=== PATIENT | male | born 1950 | race Caucasian/White ===

== ENCOUNTER 2024-08-14 01:12 | Outpatient (RCR) | payer MEDICARE, BC, SELFPAY ==
--- OUTSIDE RECORDS SUMMARY | 2024-08-14 01:16 | XMS_ITS | Referral Summary ---
Author Organization [facility] Address [address] [place] [address] Care Team Providers Care Animal Rehabilitator Name Role Phone Jesus Augustin MD, Urbano Aguayo Primary Care Provider + Encounters Date Type Department Care Team Description 08/12/2024 14:00 EST External Contact [facility] Department of Palliative and Spiritual Care [address] [place] [address] Yudy Gibson NP Palliative care encounter (Primary Dx); Pancreatic cancer metastasized to lung (HCC-CMS) 08/12/2024 9:00 EST Nurse Only [facility] Adult Hem Onc Infusion [address] [place] [address] Pancreatic cancer metastasized to lung (HCC-CMS) (Primary Dx) 08/12/2024 8:30 EST Office Visit [facility] Adult Hematology & Oncology [address] [place] [phone] Brie Artis NP Pancreatic cancer metastasized to lung (HCC-CMS) (Primary Dx); 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); Pancreatic adenocarcinoma (HCC-CMS); Encounter for antineoplastic chemotherapy 08/10/2024 9:07 EST Anesthesia Event [facility] Operating Room [address] [place] [address] Mag Carter MD 08/10/2024 7:34 EST - 08/10/2024 23:59 EST Hospital Encounter [facility] Xray [address] [place] [address] Malignant neoplasm of pancreas, unspecified (HCC-CMS); Secondary malignant neoplasm of unspecified lung (HCC-CMS) Discharge Disposition: Home or Self Care 08/10/2024 9:10 EST - 08/10/2024 10:45 EST Surgery [facility] Operating Room [address] [place] [address] Evangelist Miranda MD TUNNELED CENTRAL VENOUS DEVICE, WITH SUBCUTANEOUS PORT, >5 Y [[id number] (CPT??)] 08/10/2024 7:34 EST - 08/10/2024 11:55 EST Hospital Encounter [facility] Operating Room [address] [place] [phone] Evangelist Miranda MD Pancreatic cancer metastasized to lung (HCC-CMS) (Primary Dx) Discharge Disposition: Home or Self Care 08/07/2024 Telephone [facility] Adult Hematology & Oncology [address] [place] [phone] Nusrat Villegas Returning Call (Prescription insurance ) 08/07/2024 Orders Only [facility] Adult Hematology & Oncology [address] [place] [phone] Leela Shrestha FNP 08/07/2024 12:35 EST - 08/07/2024 23:59 EST Hospital Encounter [facility] CT Scan [address] [place] [phone] Overlapping malignant neoplasm of pancreas (HCC-CMS) Discharge Disposition: Home or Self Care 08/05/2024 Travel 08/04/2024 Telephone [facility] Adult Hematology & Oncology [address] [place] [address] [phone] Leela Shrestha FNP Coordination Of Care 08/04/2024 Telephone [facility] Adult Hematology & Oncology [address] [place] [address] [phone] Leela Shrestha FNP Coordination Of Care 08/04/2024 13:30 EST Office Visit [facility] General Surgery [address] [place] [address] [phone] Evangelist Miranda MD Pancreatic cancer metastasized to lung (HCC-CMS) (Primary Dx) 08/04/2024 11:00 EST Education [facility] Adult Hematology & Oncology [address] [place] [address] Leela Shrestha FNP Pancreatic cancer metastasized to lung (HCC-CMS) (Primary Dx); Cancer cachexia (HCC-CMS); Pancreatic carcinoma metastatic to liver (HCC-CMS); Pancreatic adenocarcinoma (HCC-CMS); 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) 08/03/2024 Telephone [facility] Department of Palliative and Spiritual Care [address] [place] [address] Nicole Del Rio Referral Request (Palliative Care) 07/31/2024 8:30 EST Office Visit [facility] Adult Hematology & Oncology [address] [place] [address] Thomas Padilla MBBS Pancreatic cancer metastasized to lung (HCC-CMS) (Primary Dx) 07/23/2024 Telephone [facility] [place] [address] Deon Fam MD Results 07/23/2024 7:14 EST - 07/23/2024 23:59 EST Hospital Encounter [facility] Radiology [place] [phone] Other specified diseases of pancreas Discharge Disposition: Home or Self Care 07/22/2024 Orders Only [facility] Gastroenterology [place] [phone] Elijah Gonsalves MD Pancreatic mass (Primary Dx) 07/22/2024 15:50 EST Anesthesia Event [facility] Endoscopy [address] [phone] Tashi Caballero MD Rafferty, Melissa, MD 07/22/2024 Orders Only [facility] CT Scan [address] [place] [address] Flip Eller 07/22/2024 14:00 EST - 07/22/2024 23:59 EST Hospital Encounter [facility] Endoscopy [address] [address] Deon Fam MD [place] Pancreatic mass Discharge Disposition: Home or Self Care 07/21/2024 Orders Only [facility] Hematology & Oncology [address] [address] Dagoberto Lafleur RN Overlapping malignant neoplasm of pancreas (HCC-CMS) (Primary Dx) 07/14/2024 Orders Only [facility] Hematology & Oncology [address] [address] Dagoberto Lafleur RN Pancreatic mass (Primary Dx) 06/30/2024 16:08 EDT - 06/30/2024 23:59 EDT Hospital Encounter [facility] Secondary Reads [place] Discharge Disposition: Home or Self Care 06/22/2024 Lab Requisition [facility] Pathology & Laboratory Medicine [address] [address] Urbano Lee Jr., MD Hyperlipidemia, unspecified 06/12/2024 Orders Only [facility] Pathology & Laboratory Medicine [address] [address] Urbano Lee Jr., MD Encounter for screening for malignant neoplasm of prostate 06/08/2024 Lab Requisition [facility] Pathology & Laboratory [address] [address] Urbano Lee Jr., MD Left upper quadrant pain from Last 3 Months Allergies No known active allergies Medications omeprazole (PRILOSEC) 20 mg capsule Take 2 Capsules by mouth daily. Active lisinopriL (PRINIVIL) 10 mg tablet Take 1 Tablet by mouth daily. Active atorvastatin (LIPITOR) 10 mg tablet Take 2 Tablets by mouth daily. Active aspirin chewable 81 mg tablet Take 1 Tablet by mouth daily. Active fluticasone furoate-vilantero L (BREO ELLIPTA) 100-25 mcg/dose blister with device Inhale as directed daily. Active albuterol 90 mcg/actuation HFA aerosol inhaler inhaler Inhale 2 Puffs as directed every 6 hours as needed for Wheezing. Active OLANZapine (ZYPREXA) 5 mg tablet Take 1 Tablet by mouth at bedtime for 90 days. 30 Tablet 2 024 2024 Active pantoprazole (PROTONIX) 40 mg tablet Take 1 Tablet by mouth daily before breakfast for 90 days. 30 Tablet 2 024 2024 Active Additional Information Patient not taking.Reported on 08/12/2024 prochlorperazine (COMPAZINE) 10 mg tablet Take 1 Tablet by mouth every 6 hours as needed for Nausea. 20 Tablet 1 Active ondansetron (ZOFRAN-ODT) 8 mg disintegrating tabletIndications :Pancreatic cancer metastasized to lung (HCC-CMS),Cancer cachexia (HCC-CMS),Pancrea tic carcinoma metastatic to liver (HCC-CMS),Pancrea tic adenocarcinoma (HCC-CMS),Pancrea tic cancer metastasized to intra-abdominal lymph node (HCC-CMS) Take 1 Tablet by mouth every 8 hours as needed for Nausea. 30 Tablet 1 Active dexAMETHasone (DECADRON) 4 mg tablet Take 2 tabs with breakfast for 3 days post chemotherapy 30 Tablet 1 Active traMADol (ULTRAM) 50 mg tablet Take 1 Tablet by mouth every 6 hours as needed for Pain. Daily Max: 200 mg 30 Tablet Active acetaminophen (TYLENOL) 325 mg tablet Take 2 Tablets by mouth every 4 hours as needed for Pain. Active traMADol (ULTRAM) 50 mg tablet Take 1 Tablet by mouth every 6 hours as needed for Pain. 2023 Discontinued(R eorder) ondansetron (ZOFRAN-ODT) 4 mg disintegrating tablet Take 1 Tablet by mouth every 8 hours as needed for Nausea. 2023 Discontinued Active Problems Problem Noted Date Diagnosed Date Pancreatic cancer metastasized to lung (HCC-CMS) 07/31/2024 Social History Tobacco Use Types Packs/Day Years Used Date Smoking Tobacco: Every Day Cigarettes 0.5 50.9 Started: 1972 Tobacco Cessation:Ready to Q uit: Not Asked; Counseling Given: Not Answered Alcohol Use Standard Drinks/Week Comments Not Currently 0 (1 standard drink = 0.6 oz pur e alcohol) Interpersonal Safety Answer Date Record ed Physically Hurt Never 04/19/2020 Verbally Threaten Not on file 04/19/2020 Sex and Gender Information Value Date Recorded Sex Assigned at Male 08/07/2024 12:35 EST Legal Sex Male 17:22 EST Gender Identity Male 07/16/2024 8:48 EDT Sexual Orientation Not on file Last Filed Vital Signs Vital Sign Reading Time Taken Comments Blood Pressure 150/80 08/12/2024 1244 EST Pulse 87 08/12/2024 1244 EST Temperature 36.7 ??C (98.1 ??F) 08/10/2024 1140 EST Respiratory Rate 18 08/10/2024 1130 EST Oxygen Saturation 95% 08/12/2024 1244 EST Inhaled Oxygen Concentration - - Weight 92.1 kg (203 lb) 08/12/2024 0744 EST Height 182.9 cm (6' 0.01) 08/10/2024 0802 EST Body Mass Index 27.53 08/10/2024 0802 EST Plan of Treatment Upcoming Encounters Date Type Department Care Team (Late st Contact Info) Description 08/19/2024 10:00 EST Office Visit [facility] Adult Hematology & Oncology [address] [place] [phone] Brie Artis, [place] [address] [facility] [address] [place] [phone] 08/19/2024 10:30 EST Nurse Only [facility] Adult Hem Onc Infusion [address] [place], [place] [phone] 08/25/2024 9:00 EST Office Visit [facility] Adult Hematology & Oncology [address] [place] [phone] Leela Shrestha FNP [address] [facility] [address] [place] [phone] 08/25/2024 10:00 EST Nurse Only [facility] Adult Hem Onc Infusion [address] [place], [place] [phone] 09/08/2024 8:00 EST Office Visit [facility] Adult Hematology & Oncology [address] [place], [place] [address] Brie Artis, CUSTOMS AGENT [address] [facility] [address] [place] [phone] 09/08/2024 8:30 EST Nurse Only [facility] Adult Hem Onc Infusion [address] [place] [address] Medical Devices Implanted Type Area Still Operator Helper Device Identifier Shelf Expiration Date Model / Serial / Lot Port Infusion Isp 1 Lumen Mri 8fr Cath Powerport Mri [id number] - [id number] Implanted:Qt y: 1 on 08/10/2024 by Evangelist Miranda MD at [facility] Catheter Implant Right: 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) Pancreatic adenocarcinoma (HCC-CMS) COMPREHENSIVE METABOLIC PANEL (CMP) STAT 08/12/2024 7:58 EST Pancreatic cancer metastasized to lung (HCC-CMS) 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) Pancreatic adenocarcinoma (HCC-CMS) COMPLETE BLOOD COUNT AND DIFFERENTIAL Routine 08/12/2024 7:58 EST Pancreatic cancer metastasized to lung (HCC-CMS) 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 CHEST W CONTRAST Routine 08/07/2024 13:30 EST Overlapping malignant neoplasm of pancreas (HCC-CMS) CA 19-9 Routine 07/31/2024 9:26 EST Pancreatic cancer metastasized to lung (HCC-CMS) COMPREHENSIVE METABOLIC PANEL (ONCOLOGY USE ONLY-INC MG) STAT 07/31/2024 9:26 EST Pancreatic cancer metastasized to lung (HCC-CMS) COMPLETE BLOOD COUNT AND DIFFERENTIAL STAT 07/31/2024 9:26 EST Pancreatic cancer metastasized to lung (HCC-CMS) ENDOSCOPIC ULTRASOUND PROCEDURE Routine 07/23/2024 9:[address] SUBSPECIALTY RADIOLOGY CONSULT BODY Routine 07/23/2024 7:14 EST Other specified diseases of pancreas NON LEHR ATTENDANT/FNA CYTOLOGY Routine 07/22/2024 15:58 EST Pancreatic mass LIPID PROFILE (INCLUDES CHOLESTEROL, TRIGLYCERIDES, HDL, LDL) Today 06/22/2024 13:19 EDT Hyperlipidemia, unspecified PSA SCREEN Today 06/08/2024 13:50 EDT Left upper quadrant pain [ICD-10-CM] LIPASE Today 06/08/2024 13:50 EDT Left upper quadrant pain AMYLASE Today 06/08/2024 13:50 EDT Left upper quadrant pain COMPREHENSIVE METABOLIC PANEL (CMP) Today 06/08/2024 13:50 EDT Left upper quadrant pain HEPATITIS C AB W REFLEX TO HCV RNA BY PCR Routine 10/14/2017 8:00 EST from Last 3 Months or Most Recently Relevant to Health Maintenance Results * (ABNORMAL) CA 19-9 (08/12/2024 7:58 EST) Only the most recent of2 resultswithin the time period is included. CA 19-9 2,675(H) <35 U/mL 08/12/2024 19:[address] [facility] Comment: NOTE: Serum CA 19-9 concentration should not be interpreted as absolute evidence for the presence or absence of malignant disease. Assayed on Siemens ADVIA [employer] XPT using chemiluminescent technology. ??Values obtained by using different assay methods cannot be used interchangeably. Blood VENOUS BLOOD / Unknown Venipuncture / Unknown 08/12/2024 7:58 EST 08/12/2024 7:58 EST Brie Artis NP CHEMISTRY & BLOOD GAS NIEVES LOCO Final Result [facility] [address] [place] [address] * (ABNORMAL) COMPLETE BLOOD COUNT AND DIFFERENTIAL (08/12/2024 7:58 EST) Only the most recent of2 resultswithin the time period is included. WBC 6.39 4.00 - 10.40 K/cmm 08/12/2024 8:11 EST [facility] HEM[facility] & ONCOLOGY [facility] RBC 3.76(L) 4.36 - 5.78 M/cmm 08/12/2024 8:11 EST [facility] & ONCOL[facility] Hemoglobin 12.0(L) 13.8 - 17.3 g/dL 08/12/2024 8:11 EST [facility] HEMATOLOG[facility] & ONCOLOG[facility] - [facility] HCT 36.1(L) 39.5 - 50.2 % 08/12/2024 8:11 EST [facility] & ONCOLOGY [facility] MCV 96(H) 81 - 95 fL 08/12/2024 8:11 EST [facility] MCH 31.9 27.6 - 33.0 pg 08/12/2024 8:11 [facility] HEMATOLOGY & ONCOLOGY [facility] MCHC 33.2 32.8 - 36.4 g/dL 08/12/2024 8:11 [facility] HEMATOLOGY & ONCOLOGY [facility] RDW-CV 13.5 <14.2 % 08/12/2024 8:11 [facility] & ONCOLOGY [facility] RDW-SD 48.6(H) <46.0 fl 08/12/2024 8:11 [facility] HEMATOLOGY & ONCOLOGY [facility] PLT 126(L) 141 - 377 K/cmm 08/12/2024 8:11 [facility] HEMATOLOGY & ONCOLOGY [facility] MPV 10.5 9.5 - 12.7 fL 08/12/2024 8:11 [facility] HEMATOLOGY & ONCOLOGY [facility] % Neutrophils 71.7 Not Indicated % 08/12/2024 8:11 [facility] HEMATOLOGY & ONCOLOGY [facility] % Lymphocytes 14.4 Not Indicated % 08/12/2024 8:11 [facility] HEMATOLOGY & ONCOLOGY [facility] % Monocytes 8.8 Not Indicated % 08/12/2024 8:11 [facility] HEMATOLOGY & ONCOLOGY [facility] % Eosinophils 4.4 Not Indicated % 08/12/2024 8:11 [facility] HEMATOLOGY & ONCOLOGY [facility] % Basophils 0.5 Not Indicated % 08/12/2024 8:11 [facility] HEMATOLOGY & ONCOLOGY [facility] % Immature Grans 0.2 <0.9 % 08/12/2024 8:11 [facility] & ONCOLOGY [facility] Absolute Neutrophils 4.59 2.20 - 8.85 K/cmm 08/12/2024 8:11 [facility] HEMATOLOGY & ONCOLOGY [facility] Absolute Lymphocytes 0.92(L) 1.09 - 3.30 K/cmm 08/12/2024 8:11 [facility] HEMATOLOGY & ONCOLOGY [facility] Absolute Monocytes 0.56 0.10 - 0.80 K/cmm 08/12/2024 8:11 [facility] & ONCOLOGY [facility] Absolute Eosinophils 0.28 0.03 - 0.61 K/cmm 08/12/2024 8:11 [facility] & ONCOLOGY [facility] ABS Basophils 0.03 0.01 - 0.11 K/cmm 08/12/2024 8:11 [facility] & ONCOLOGY [facility] Absolute Immature Grans 0.01 0.00 - 0.06 K/cmm 08/12/2024 8:11 EST [facility]EMAT[facility] & ONCOLOGY [facility] Type of Differential: Auto 08/12/2024 8:11 EST [facility] HEMAT[facility] & ONCOLOGY [facility] Blood VENOUS BLOOD / Unknown Venipuncture / Unknown 08/12/2024 7:58 EST 08/12/2024 7:58 EST Brie Artis CUSTOMS AGENT PACKAGES & DNA PROBE ORDER LINDA Final Result [facility]EMATOLOG[facility] & ONCOLOGY [facility] Medical Office [address], [address] * (ABNORMAL) MAGNESIUM (08/12/2024 7:58 EST) Magnesium 1.4(L) 1.7 - 2.8 mg/dL 08/12/2024 8:23 [facility] Blood VENOUS BLOOD / Unknown Venipuncture / Unknown 08/12/2024 7:58 EST 08/12/2024 7:58 EST Brie Artis CUSTOMS AGENT CHEMISTRY & BLOOD GAS ORDE RABLES Final Result Performing Organization Address City/[facility]/ZIP Co de Phone Number [facility] [address] [place] [address] * (ABNORMAL) COMPREHENSIVE METABOLIC PANEL (CMP) (08/12/2024 7:58 EST) Only the most recent of2 resultswithin the time period is included. Sodium 138 136 - 145 mmol/L 08/12/2024 8:23 [facility] Potassium 4.1 3.5 - 5.0 mmol/L 08/12/2024 8:23 [facility] Chloride 103 96 - 110 mmol/L 08/12/2024 8:23 [facility] CO2 Total 28 22 - 32 mmol/L 08/12/2024 8:23 [facility] Glucose 120(H) 70 - 99 mg/dl 08/12/2024 8:23 [facility] BUN 16 10 - 26 mg/dL 08/12/2024 8:23 [facility] Creatinine 0.90 0.66 - 1.25 mg/dL 08/12/2024 8:23 [facility] eGFR 91 >60 mL/min/1. 73m2 08/12/2024 8:23 [facility] Total Protein 6.5 6.3 - 8.2 g/dL 08/12/2024 8:23 [facility] Comment:The sample was colle cted in a [place] Heparin anticoagulated tube. An average positive bias of 6% with an individual sample bias up to 10% may be observed with heparin plasma results compared to serum results. Albumin 3.9 3.4 - 4.9 g/dL 08/12/2024 8:23 [facility] Alkaline Phosphatase 159(H) 38 - 126 U/L 08/12/2024 8:23 [facility] AST 51(H) 15 - 46 U/L 08/12/2024 8:23 [facility] ALT 68(H) <50 U/L 08/12/2024 8:23 [facility] Bilirubin, Total 0.7 <1.4 mg/dL 08/12/2024 8:23 [facility] Calcium 10.5 8.5 - 10.5 mg/dL 08/12/2024 8:23 [facility] Albumin/Globulin Ratio 1.5 1.0 - 2.5 08/12/2024 8:23 [facility] Anion Gap 7 5 - 14 mmol/L 08/12/2024 8:23 [facility] Blood VENOUS BLOOD / Unknown Venipuncture / Unknown 08/12/2024 7:58 EST 08/12/2024 7:58 EST us Brie Artis NP CHEMISTRY & BLOOD GAS ORDScott LOCO Final Result [facility] [address] [place] [id number] * ECG REPORT - SCANNED (08/11/2024 12:06 EST) 08/11/2024 12:0 6 EST us Scan 2 Radio Mechanic Helper PROCEDURE/MINOR SURGICAL OR DERABLES Final Result * FL C-ARM WITH IMAGES (08/10/2024 12:05 EST) Narrative 08/10/2024 12:05 EST This is a non-reportable exam. us Evangelist Miranda MD IMG FLUOROSCOPY ORDERABLES Final Result * XR CHEST LINE PLACEMENT (08/10/2024 10:33 EST) Anatomical Region Laterality Modality Computed Radiogr aphy 08/10/2024 11:0 0 EST Impressions 08/10/2024 11:00 EST 1. Right chest wall port catheter tip superimposed over the lower SVC. No pneumothorax. 2. Bilateral pulmonary nodules. [id number] Narrative 08/10/2024 11:00 EST INDICATION: Status post right IJV port placement. TECHNIQUE: AP portable chest. COMPARISON: Chest CT 08/07/2024. FINDINGS: A right chest wall port has been placed as the previous exam. The catheter tip is superimposed over the lower SVC. No pneumothorax or pleural effusion is identified. Bilateral pulmonary nodules are unchanged. The cardiomediastinal silhouette and pulm vasculature are within normal limits. Pulmonary emphysema. No acute bone or joint abnormality. Resulting Agency Comment [id number] Procedure Note Reji Coello MD - 08/10/2024 INDICATION: Status post right IJV port placement. TECHNIQUE: AP portable chest. COMPARISON: Chest CT 08/07/2024. FINDINGS: A right chest wall port has been placed as the previous exam. The cathetertip is superimposed over the lower SVC. No pneumothorax or pleuraleffusion is identified. Bilateral pulmonary nodules are unchanged. Thecardiomediastinal silhouette and pulm vasculature are within normallimits. Pulmonary emphysema. No acute bone or joint abnormality. IMPRESSION 1. Right chest wall port catheter tip superimposed over the lower SVC. Nopneumothorax. 2. Bilateral pulmonary nodules. [id number] us Evangelist Miranda MD IMG DIAGNOSTIC IMAGING ORDERABLE S Final Result * CT CHEST W CONTRAST (08/07/2024 13:30 EST) Anatomical Region Laterality Modality Chest Computed Tomogra phy 08/07/2024 13:2 0 EST Impressions 08/09/2024 19:23 EST 1. ?? Many bilateral pulmonary nodules along with a right lower lobe mass, consistent with metastatic disease. Where direct comparison is possible, the right lower lobe mass and visible pulmonary nodules have increased in size since the prior exam. Several of the nodules are cavitary. 2. ?? Masses in the included portion of the liver have also increased in size. COMMENTS: The presence of pulmonary emphysema on CT is an independent risk factor for lung cancer. In the absence of a history or active diagnosis of lung cancer, it is recommended that this patient with emphysema be evaluated for enrollment in a low dose CT lung cancer screening program. THIS DOCUMENT HAS BEEN ELECTRONICALLY SIGNED BY KAREN SHRESTHA MD FOR ANY QUESTIONS OR CONCERNS REGARDING THIS REPORT PLEASE CALL [facility] AT [phone] Narrative 08/09/2024 19:23 EST PROCEDURE INFORMATION: Exam: CT Chest With Contrast; Diagnostic Exam date and time: 08/07/2024 1:20 PM Age: 73 years old Clinical indication: Malignant neoplasm of overlapping sites of pancreas; Prior oncological treatment - unkown. Other: Pancreatic cancer, staging TECHNIQUE: Imaging protocol: Diagnostic computed tomography of the chest with contrast. Radiation optimization: All CT scans at this facility use at least one of these dose optimization techniques: automated exposure control; mA and/or kV adjustment per patient size (includes targeted exams where dose is matched to clinical indication); or iterative reconstruction. Contrast material: OMNIPAQUE 350; Contrast volume: 75 ml; Contrast route: INTRAVENOUS (IV); ?? COMPARISON: 1. ?? CT SUBSPECIALTY RADIOLOGY CONSULT BODY 06/30/2024 10:59 AM 2. ?? CR XRAY CHEST 2 VIEWS 07/14/2019 9:55 AM FINDINGS: Lungs: The lungs are emphysematous. Numerous pulmonary nodules are present throughout both lungs, several of which are cavitary. For example, there is a 2.5 x 2.1 x 2.3 cm cavitary nodule in the superior segment of the right lower lobe. There is a 2.1 x 1 5 x 1.8 cm nodule in the superior segment of the left lower lobe. There is a right lower lobe mass measuring 4.6 x 3.2 x 3.9 cm. When compared with the included portion of the lower chest from the prior CT exam, both the right lower lobe mass and many of the pulmonary nodules have increased in size. No pneumonia is identified. A linear opacity within the trachea and right mainstem bronchus is likely related to mucous. Pleural spaces: There are no pleural effusions. There is no pneumothorax. Heart: The heart size is normal. There is no evidence of right ventricular strain. There is no pericardial effusion. There are moderate coronary artery calcifications. Lymph nodes: There are enlarged mediastinal lymph nodes. For example, a lymph node to the right of the descending thoracic aorta on series 3, image 84 measures 22 x 15 x 16 mm. There is a lymph node containing stippled calcifications between the esophagus and descending thoracic aorta on image 57 which measures 25 x 16 x 20 mm. Vasculature: The thoracic aorta is normal in caliber and contour. There is no evidence of aneurysm or dissection. Liver: Multiple hypodense masses are visible in the imaged portion of the liver. For example, there is a mass in the left hepatic lobe which measures 5.0 cm transversely on today's exam compared with 3.9 cm previously. Bones/joints: There is normal alignment throughout the visualized portion of the spine. No acute fractures or aggressive bone lesions are identified. Soft tissues: The soft tissues are within normal limits. Procedure Note Karen Shrestha MD - 08/09/2024 PROCEDURE INFORMATION: Exam: CT Chest With Contrast; Diagnostic Exam date and time: 08/07/2024 1:20 PM Age: 73 years old Clinical indication: Malignant neoplasm of overlapping sites of pancreas; Prior oncological treatment - unkown. Other: Pancreatic cancer, staging TECHNIQUE: Imaging protocol: Diagnostic computed tomography of the chest with contrast. Radiation optimization: All CT scans at this facility use at least one of these dose optimization techniques: automated exposure control; mA and/or kV adjustment per patient size (includes targeted exams where dose is matched to clinical indication); or iterative reconstruction. Contrast material: OMNIPAQUE 350; Contrast volume: 75 ml; Contrast route: INTRAVENOUS (IV); COMPARISON: 1. CT SUBSPECIALTY RADIOLOGY CONSULT BODY 06/30/2024 10:59 AM 2. CR XRAY CHEST 2 VIEWS 07/14/2019 9:55 AM FINDINGS: Lungs: The lungs are emphysematous. Numerous pulmonary nodules are present throughout both lungs, several of which are cavitary. For example, there is a 2.5 x 2.1 x 2.3 cm cavitary nodule in the superior segment of the right lower lobe. There is a 2.1 x 1 5 x 1.8 cm nodule in the superior segment of the left lower lobe. There is a right lower lobe mass measuring 4.6 x 3.2 x 3.9 cm. When compared with the included portion of the lower chest from the prior CT exam, both the right lower lobe mass and many of the pulmonary nodules have increased in size. No pneumonia is identified. A linear opacity within the trachea and right mainstem bronchus is likely related to mucous. Pleural spaces: There are no pleural effusions. There is no pneumothorax. Heart: The heart size is normal. There is no evidence of right ventricular strain. There is no pericardial effusion. There are moderate coronary artery calcifications. Lymph nodes: There are enlarged mediastinal lymph nodes. For example, a lymph node to the right of the descending thoracic aorta on series 3, image 84 measures 22 x 15 x 16 mm. There is a lymph node containing stippled calcifications between the esophagus and descending thoracic aorta on image 57 which measures 25 x 16 x 20 mm. Vasculature: The thoracic aorta is normal in caliber and contour. There is no evidence of aneurysm or dissection. Liver: Multiple hypodense masses are visible in the imaged portion of the liver. For example, there is a mass in the left hepatic lobe which measures 5.0 cm transversely on today's exam compared with 3.9 cm previously. Bones/joints: There is normal alignment throughout the visualized portion of the spine. No acute fractures or aggressive bone lesions are identified. Soft tissues: The soft tissues are within normal limits. IMPRESSION 1. Many bilateral pulmonary nodules along with a right lower lobe mass, consistent with metastatic disease. Where direct comparison is possible, the right lower lobe mass and visible pulmonary nodules have increased in size since the prior exam. Several of the nodules are cavitary. 2. Masses in the included portion of the liver have also increased in size. COMMENTS: The presence of pulmonary emphysema on CT is an independent risk factor for lung cancer. In the absence of a history or active diagnosis of lung cancer, it is recommended that this patient with emphysema be evaluated for enrollment in a low dose CT lung cancer screening program. THIS DOCUMENT HAS BEEN ELECTRONICALLY SIGNED BY KAREN SHRESTHA MD FOR ANY QUESTIONS OR CONCERNS REGARDING THIS REPORT PLEASE CALL [facility] [phone] us Kirill Scott MD IM CT ORDERABLES Final Result * (ABNORMAL) COMPREHENSIVE METABOLIC PANEL (ONCOLOGY USE ONLY-INC MG) (07/31/2024 9:26 EST) Sodium 139 136 - 145 mmol/L 07/31/2024 10:55 [facility] Potassium 4.1 3.5 - 5.0 mmol/L 07/31/2024 10:55 [facility] Chloride 102 96 - 110 mmol/L 07/31/2024 10:55 [facility] CO2 Total 27 22 - 32 mmol/L 07/31/2024 10:55 [facility] Glucose 115(H) 70 - 99 mg/dl 07/31/2024 10:55 [facility] BUN 29(H) 10 - 26 mg/dL 07/31/2024 10:55 [facility] Creatinine 0.90 0.66 - 1.25 mg/dL 07/31/2024 10:55 [facility] eGFR 91 >60 mL/min/1.7 3m2 07/31/2024 10:55 [facility] Total Protein 7.0 6.3 - 8.2 g/dL 07/31/2024 10:55 [facility] Albumin 4.2 3.4 - 4.9 g/dL 07/31/2024 10:55 [facility] Alkaline Phosphatase 156(H) 38 - 126 U/L 07/31/2024 10:55 [facility] AST 47(H) 15 - 46 U/L 07/31/2024 10:55 [facility] ALT 58(H) <50 U/L 07/31/2024 10:55 [facility] Bilirubin, Total <0.5 <1.4 mg/dL 07/31/20 10:55 [facility] Calcium 11.1(H) 8.5 - 10.5 mg/dL 07/31/2024 10:55 [facility] Magnesium 1.5(L) 1.7 - 2.8 mg/dL 07/31/2024 10:55 [facility] Albumin/Globulin Ratio 1.5 1.0 - 2.5 07/31/2024 10:55 [facility] Anion Gap 10 5 - 14 mmol/L 07/31/2024 10:55 [facility] Blood VENOUS BLOOD / Unknown Venipuncture / Unknown 07/31/2024 9:26 EST 07/31/2024 9:26 EST us Thomas CLAROS CHEMISTRY & BLOOD GAS ORDERABLE S Final Result [facility] [address] [place] [address] * ENDOSCOPIC ULTRASOUND PROCEDURE (07/23/2024 9:06 EST) Anatomical Region Laterality Modality Endoscopy Narrative 07/23/2024 9:06 EST Procedure Performed Endoscopic Ultrasound (UGI) Indications for Exam pancreatic mass Procedure Technique A physical exam was performed. Informed consent was obtained from the patient after explaining all the risks (perforation, bleeding, infection, pancreatitis and adverse effects to the medicine) , benefits and alternatives to the procedure which the patient appeared to understand and so stated. ??BP and pulse monitoring done. ??Oximetry was used. ??Supplemental O2 given. The patient was placed in the left lateral position. Continuous oxygen was provided with a nasal cannula and IV medicine administered thru a indwelling cannula. After adequate sedation / anesthesia was achieved, the esophagus was intubated and the endoscope advanced under direct visualization to the . ??The ??was identified by visual landmarks. The scope was subsequently removed slowly while carefully examining the color, texture, anatomy, and integrity of the mucosa on withdrawal. ??The echoendoscope was then inserted, and a complete echosonographic examination was performed as described in the findings section below. ??Upon completion the echoendoscope was removed and the patient was subsequently transferred to the recovery area in satisfactory condition. Estimated Blood Loss: None Complications None Medications MAC Anesthesia See Anesthesia Record Findings EGD Findings: Esophagus: Normal Stomach: Normal Duodenum: Normal EUS Findings: Images were obtained with the linear echoendoscope with balloon CELIAC AXIS: Normal with no adenopathy LIVER: In both lobes of the liver, metastatic disease and masses were observed. ??Within the left lobe of the liver specifically, there is a 28.7 mm x 28.5 mm mass with necrotic center. LEFT KIDNEY: Absent SPLEEN: Normal. Spenic stiffness measured as 32.2 PANCREAS: In the body of the pancreas, there was a 20.6 mm x 25.0 mm hypoechoic mass that was involving both the splenic artery and splenic vein. ??The hypoechoic mass was the target for FNB with a 25-gauge BSCI acquire needle with 2 passes obtained. BILE DUCT: The common bile duct as measured in the pancreatic head measured 5.6 mm in diameter. LYMPH NODES: There was diffuse lymphadenopathy observed surrounding the pancreas and natalia hepatis VASCULATURE: Splenic artery and splenic vein involved in pancreatic mass Diagnosis FNB of pancreatic body mass Pathologic lymphadenopathy Liver masses Recommendations Follow up cytology results. Follow up with [facility]. Follow up with referring physician. The??procedure??was??performed??by??Dr. Elijah Gonsalves M.D. in the presence of Dr. Deon Fam. The attending physician was in the room for the entire procedure. This electronic signature authenticates all electronic and/or handwritten documentation, including orders, generated by the signer during the episode of care contained in this record. 07/23/2024 09:06:52 AM By Deon Fam MD us Deon Fam MD GI PROCEDURE ORDERABLES Fin al Result * CT SUBSPECIALTY RADIOLOGY CONSULT BODY (07/23/2024 7:14 EST) Anatomical Region Laterality Modality Body Computed Tomogra phy 07/24/2024 15:3 2 EST Impressions 07/24/2024 15:32 EST 1. ??Approximately 3.1 cm ill-defined hypodensity in pancreatic body can represent primary pancreatic neoplasm versus metastatic lesion. 2. ??Multiple ill-defined hepatic metastatic lesions. 3. ??Multiple pulmonary nodules with the largest in the right lower lobe measuring 3.4 cm consistent with metastases. 4. ??Multiple abdominal, retroperitoneal and posterior mediastinal lymph nodes. 5. ??Peritoneal nodules measuring up to 1.2 cm suggestive of peritoneal carcinomatosis. 6. ??A 2.8 cm interpolar complex cyst with thick enhancing septations and possible nodularity in the right kidney. Bosniak 3-4. 7. ??Other chronic findings as outlined. [id number] Narrative 07/24/2024 15:[address] SUBSPECIALTY RADIOLOGY CONSULT BODY ??07/23/2024 7:14 AM Signs and Symptoms/Comments: tumor board review Technique: This is a secondary interpretation of CT abdomen and pelvis with IV contrast images obtained at ?? [facility] ??on ??06/30/24 ??, performed at the request of the ordering provider, DEON FAM. Comparison: CT of abdomen/pelvis from 08/10/2002 Findings: Lower chest: There are multiple pulmonary nodules with the largest in the right lower lobe measuring 3.4 cm. Liver: Multiple ill-defined hepatic metastatic lesions, for instance largest in the left hepatic lobe measuring 4.2 cm. Gallbladder: No significant finding. Bile ducts: No significant finding. Spleen: No significant finding. Pancreas: Approximately 3.1 cm ill-defined hypodensity in pancreatic body (4; 94). Adrenal glands: Right adrenal hyperplasia. Kidneys, ureters, bladder: Left kidney is surgically absent. There is a 2.8 cm interpolar complex cyst with thick enhancing septation in the right kidney. Reproductive organs: Prostate gland calcifications. Bowel: No significant finding. Peritoneal cavity: Mesenteric fat stranding with prominent lymph nodes. Peritoneal nodules, for instance a 1.2 cm nodule in right upper abdomen (4; 141). Lymph nodes: Multiple lymph nodes including posterior mediastinal (4; 50) gastrohepatic ligament, peripancreatic lymph nodes (4; 87), celiac axis lymph node (4; 100), retroperitoneal lymph nodes (4;139). Vascular: Ultrastructure calcification of the aorta and its branches. Splenic vein is not visualized, likely thrombosed Abdominal wall: No significant finding. Musculoskeletal: No suspicious findings. Relocation Commissioner: No additional findings. Resulting Agency Comment [id number] Procedure Note Nohelia Hay MD - 07/24/2024 CT SUBSPECIALTY RADIOLOGY CONSULT BODY 07/23/2024 7:14 AM Signs and Symptoms/Comments: tumor board review Technique: This is a secondary interpretation of CT abdomen and pelviswith IV contrast images obtained at [facility] on 06/30/24 ,performed at the request of the ordering provider, DEON FAM. Comparison: CT of abdomen/pelvis from 08/10/2002 Findings: Lower chest: There are multiple pulmonary nodules with the largest in theright lower lobe measuring 3.4 cm. Liver: Multiple ill-defined hepatic metastatic lesions, for instancelargest in the left hepatic lobe measuring 4.2 cm. Gallbladder: No significant finding. Bile ducts: No significant finding. Spleen: No significant finding. Pancreas: Approximately 3.1 cm ill-defined hypodensity in pancreatic body(4; 94). Adrenal glands: Right adrenal hyperplasia. Kidneys, ureters, bladder: Left kidney is surgically absent. There is a2.8 cm interpolar complex cyst with thick enhancing septation in the rightkidney. Reproductive organs: Prostate gland calcifications. Bowel: No significant finding. Peritoneal cavity: Mesenteric fat stranding with prominent lymph nodes.Peritoneal nodules, for instance a 1.2 cm nodule in right upper abdomen(4; 141). Lymph nodes: Multiple lymph nodes including posterior mediastinal (4; 50)gastrohepatic ligament, peripancreatic lymph nodes (4; 87), celiac axislymph node (4; 100), retroperitoneal lymph nodes (4;139). Vascular: Ultrastructure calcification of the aorta and its branches.Splenic vein is not visualized, likely thrombosed Abdominal wall: No significant finding. Musculoskeletal: No suspicious findings. Relocation Commissioner: No additional findings. IMPRESSION 1. Approximately 3.1 cm ill-defined hypodensity in pancreatic body canrepresent primary pancreatic neoplasm versus metastatic lesion. 2. Multiple ill-defined hepatic metastatic lesions. 3. Multiple pulmonary nodules with the largest in the right lower lobemeasuring 3.4 cm consistent with metastases. 4. Multiple abdominal, retroperitoneal and posterior mediastinal lymphnodes. 5. Peritoneal nodules measuring up to 1.2 cm suggestive of peritonealcarcinomatosis. 6. A 2.8 cm interpolar complex cyst with thick enhancing septations andpossible nodularity in the right kidney. Bosniak 3-4. 7. Other chronic findings as outlined. [id number] us Deon Fam MD IMG CT ORDERABLES Final Res ult * NON LEHR ATTENDANT/FNA CYTOLOGY (07/22/2024 15:58 [facility]) Note to Patient The following pathology results have been interpreted by your pathologist and may be available to you before your health provider has had the opportunity to review them. Please allow time for your provider to receive these results and explore management options, if applicable. 07/23/2024 15:22 [facility] Final Diagnosis A. PANCREAS, BODY, MASS, ENDOSCOPIC ULTRASOUND-GUIDED FINE NEEDLE ASPIRATION: - Adenocarcinoma. See comment. 07/23/2024 15:22 [facility] Diagnosis Comment Cytologic evaluation demonstrates loosely cohesive sheets of highly pleomorphic malignant cells with increased nuclear to cytoplasmic ratios, irregular nuclear contours, coarse to vesicular chromatin, prominent nucleoli, and delicate cytoplasm with prominent mucin vacuoles in a background of abundant necrosis. A cell block was prepared to increase diagnostic yield, and shows scattered tumor cells and stromal tissue fragments. 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 07/23/2024 15:22 [facility] Attestation There was significant resident/fellow involvement in the diagnostic evaluation of this case. By the signature below, the attending physician certifies that they have personally conducted a gross and/or microscopic examination of the described specimens and rendered or confirmed the above diagnosis. 07/23/2024 15:22 [facility] at 1522 Rapid Diagnosis A. PANCREAS, BODY MASS, ENDOSCOPIC ULTRASOUND GUIDED FINE NEEDLE ASPIRATION: Evaluation Episode 1: Pass 1: Adenocarcinoma. Dedicated passes for cell block. Rapid interpretation performed by: Dr. Jose Manuel Lynch; 07/22/24; 1630 07/23/2024 15:22 [facility] Clinical History Pancreatic mass 07/23/2024 15:22 [facility] Gross Description A. 2 fixed prepared slides, 1 air dried prepared slides, and 1 tube of RPMI for cell block processing were received. 07/23/2024 15:22 [facility] Resident/Eliezer w: Marilee Gracia DO 07/23/2024 15:22 [facility] Performing Lab [facility] 07/23/2024 15:22 [facility] Scanned Images 07/23/2024 15:22 [facility] Fine Needle Aspirate PANCREATIC STRUCTURE / Unknown 07/22/2024 15:58 EST 07/22/2024 16:25 EST us Deon Fam MD PATHOLOGY ORDERABLES Final Result Performing Organization Address City/State/[facility] Co de Phone Number [facility] [address] [phone] * LIPID PROFILE (INCLUDES CHOLESTEROL, TRIGLYCERIDES, HDL, LDL) (06/22/2024 13:19 EDT) Cholesterol 145 <200 mg/dL 06/22/2024 21:[address] [facility] Comment:Note that therapeuti c goals will differ between patients based on cardiac risk factors and current medical therapy. HDL 40 >=40 mg/dl 06/22/2024 21:[address] [facility] Comment:Note that therapeuti c goals will differ between patients based on cardiac risk factors and current medical therapy. LDL, Calculated 82 <160 mg/dL 21:[address] [facility] Comment:Note that therapeuti c goals will differ between patients based on cardiac risk factors and current medical therapy. Triglyceride 114 <=150 mg/dL 06/22/2024 21:[address] [facility] Comment:Note that therapeuti c goals will differ between patients based on cardiac risk factors and current medical therapy. Chol/HDL Ratio 3.6 See Note 06/22/2024 21:[address] [facility] Comment:No reference range h as been established for CHOL/HDL ratio. Non HDL Cholesterol 105 <160 mg/dL 06/22/2024 21:[address] [facility] Comment:Note that therapeuti c goals will differ between patients based on cardiac risk factors and current medical therapy. Blood VENOUS BLOOD / Unknown 06/22/2024 13:19 EDT 06/22/2024 21:27 EDT us Urbano Lee Jr., MD CHEMISTRY & BLOOD GAS OR DERABLES Final Result Performing Organization Address [facility] de Phone Number [facility] [address] [place] [phone] * (ABNORMAL) PSA SCREEN (06/08/2024 13:50 EDT) PSA 7.8(H) <=6.5 ng/mL 06/12/2024 10:[address] [facility] Blood VENOUS BLOOD / Unknown 06/08/2024 13:50 EDT 06/08/2024 22:23 EDT [address] [facility] - 06/12/2024 10:33 EDT NOTE: Serum PSA concentration should not be interpreted as absolute evidence for the presence or absence of malignant disease. Assayed on [employer] XPT using chemiluminescent technology.??Values obtained by using different assay methods cannot be used interchangeably. us Urbano Lee Jr., MD CHEMISTRY & BLOOD GAS OR DERABLES Final Result Performing Organization Address [facility] de Phone Number [facility] [address] [place] [phone] * LIPASE (06/08/2024 13:50 EDT) Lipase 74 <251 U/L 06/08/2024 22:[address] [facility] Blood VENOUS BLOOD / Unknown 06/08/2024 13:50 EDT 06/08/2024 22:23 EDT us Urbano Lee Jr., MD CHEMISTRY & BLOOD GAS OR DERABLES Final Result Performing Organization Address [facility] de Phone Number [facility] [address] [place] [address] * AMYLASE (06/08/2024 13:50 EDT) Amylase 46 30 - 110 U/L 06/08/2024 22:[address] [facility] Blood VENOUS BLOOD / Unknown 06/08/2024 13:50 EDT 06/08/2024 22:23 EDT us Urbano Lee Jr., MD CHEMISTRY & BLOOD GAS OR DERABLES Final Result [facility] [address] [place] [address] * HEPATITIS C AB W REFLEX TO HCV RNA BY PCR (10/14/2017 8:00 EST) Hep C Ab w Rfx PCR HCSCR2 Negative Negative 10/15/2017 11:[address] [facility] BLOOD SPECIMEN / Unknown 10/14/2017 8:00 EST 10/14/2017 21:17 EST us Urbano Lee Jr., MD CHEMISTRY & BLOOD GAS OR DERABLES Final Result Performing Organization Address City/[facility]/ZIP Co de Phone Number [facility] [address] [place] [address] from Last 3 Months or Most Recently Relevant to Health Maintenance Insurance MEDICARE Member Subscriber Plan / Payer (Ef fective 2016-Present) Name:Jose Harrell Member ID:[id number] Relation to Subscriber:Self Name:Jose Harrell Subscriber ID:[id number] Payer ID:[id number] Group ID:Not on file Type:Medicare GL Address: [address] [phone] [facility] MEDICARE BCBS [place] Advance Directives For more information, please contact: [phone] * Full Code (Latest Code Status on File) Date Activated Date Inactivated Comments 08/10/2024 7:46 08/10/2024 13:55 Question Answer Comments When the patient has NO PULSE: Full Code / CPR Who Made the Decision? Patient Care Teams Animal Rehabilitator Relationship Specialty Start Date End Date Urbano Lee Jr., MD [address] [phone] PCP - General 03/07/09
--- OUTSIDE RECORDS SUMMARY | 2024-08-14 01:16 | XMS_ITS | Encounter Summary ---
Author Organization [facility] Address [address] [place] [address] Care Team Providers Care Assistant Golf Course Superintendent Name Role Phone Jesus Augustin MD, Urbano Aguayo Primary Care Provider + Encounter Details Date Type Department Care Team (Late st Contact Info) Description 08/07/2024 Orders Only [facility] Adult Hematology & Oncology [address] [place] [phone] Leela Turcios [facility] 130 [facility] [address] [place] [phone] Social History Tobacco Use Types Packs/Day Years Used Date Smoking Tobacco: Every Day Cigarettes 0.5 50.9 Started: 1973 Alcohol Use Standard Drinks/Week Comments Not Currently 0 (1 standard drink = 0.6 oz pur e alcohol) Interpersonal Safety Answer Date Record ed Physically Hurt Never 04/19/2020 Verbally Threaten Not on file 04/19/2020 Sex and Gender Information Value Date Recorded Sex Assigned at Male 08/07/2024 12:35 EST Legal Sex Male 17:22 EST Gender Identity Male 07/16/2024 8:48 EDT Sexual Orientation Not on file documented as of this encounter Ordered Prescriptions Prescription Sig Dispense Quantity Refills Last Filled Start Date End Date traMADol (ULTRAM) 50 mg tablet Take 1 Tablet by mouth every 6 hours as needed for Pain. Daily Max: 200 mg 30 Tablet 08/07/2024 documented in this encounter Plan of Treatment Upcoming Encounters Date Type Department Care Team (Late st Contact Info) Description 08/19/2024 10:00 EST Office Visit [facility] Adult Hematology & Oncology [address] [place] [address], [place] [address] Brie Artis, PARADISE 130 [facility] 12 [place] [phone] 08/19/2024 10:30 EST Nurse Only [facility] Adult Hem Onc Infusion 130 [facility] [place], [place] [phone] 08/25/2024 9:00 EST Office Visit [facility] Adult Hematology & Oncology [address] [place] [address], [place] [address] Leela Turcios FNP 130 [facility] [address] [place] [phone] 08/25/2024 10:00 EST Nurse Only [facility] Adult Hem Onc Infusion 130 [facility] [place], [place] [phone] 09/08/2024 8:00 EST Office Visit [facility] Adult Hematology & Oncology [address] [place] [address], [place] [phone] Brie Artis, PARADISE 130 [facility] [address] [place] [phone] 09/08/2024 8:30 EST Nurse Only [facility] Adult Hem Onc Infusion 130 [facility] [place], [place] [phone] documented as of this encounter Visit Diagnoses Not on filedocumented in this encounter Discontinued Medications Medication Sig Discontinue Reason Start Date End Da te traMADol (ULTRAM) 50 mg tablet Take 1 Tablet by mouth every 6 hours as needed for Pain. Reorder 08/07/2024 documented as of this encounter Care Teams Assistant Golf Course Superintendent Relationship Specialty Start Date End Date Urbano Lee Jr., MD [address] [facility] [address] [place] [address] PCP - General 03/07/09 documented as of this encounter
--- OUTSIDE RECORDS SUMMARY | 2024-08-14 01:16 | XMS_ITS | Encounter Summary ---
Author Organization [facility] Address [address] [place] [address] Care Team Providers Care Carpenter Packing Name Role Phone Jesus Augustin MD, Urbano Aguayo Primary Care Provider + Reason for Visit * Reason Comments Other Outpatient palliativ e consult Encounter Details Date Type Department Care Team (Latest Contact Info) Description 08/12/2024 14:00 EST External Contact [facility] Department of Palliative and Spiritual Care [address] [place] [address] Yudy Gibson NP [address] [place] [address] Palliative care encounter (Primary Dx); Pancreatic cancer metastasized to lung (HCC-CMS) Social History Tobacco Use Types Packs/Day Years [...] on file documented as of this encounter Progress Notes * Yudy Gibson NP - 08/12/2024 1400 EST Outpatient Palliative Medicine Consult Date of Encounter: 08/12/24 10:10am Location of consult[place] [facility] Primary Care Provider: Urbano Lee Jr Referring Provider: Thomas CLAROS Reason for consult: Goals of care, symptom management support ASSESSMENT: Jose is a 73-year-old man with medical history including hypertension, left kidney resection (localized kidney cancer approximately 30 years ago ), tobacco use, recently diagnosed with metastatic pancreatic adenocarcinoma with multiple liver lesions and multiple pulmonary nodules with p eritoneal mets concerning for diffuse metastatic disease. Has met with medical oncologist 07/31/24,port placement surgery 08/10/24, received chemo education 08/04/2024. Starting C1 D1 FOLFIRINOX today, palliative care consulted at initial oncology visit for goals of care and symptom management support in setting of new diagnosis. Jose has excellent understanding of his medical situation, values clear and direct information, and close communication with medical team regarding results of tests, procedures, and plan for treatment. He is aware that he is facing an illness that is not curable, however the goal of treatment is for life prolongation and quality of life moving forward. 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 He and his Fabby have deferred their annual 3 month stay in [facility] this winter to focus on medical treatment. He is coping with his internal nature of facing challenges in a [id number] way, with the support of his family and the support of his golf community. Symptom burden today is low, using sparing doses of tramadol at nighttime, is aware he can use it every 6 hours, but is trying not to do so unless absolutely necessary. He is also utilizing extra strength Tylenol 1000 mg 3 times daily. His appetite and nausea has significantly improved since starting olanzapine nearly 2 weeks ago. Was open to introduction of the concept and indication of advance care planning documents, including the appointment of healthcare agent. RECOMMENDATIONS: Goals of care: Jose is motivated to move forward with oncologic therapies to live as long as he can, and as well as he can. Brief discussion today of concept of appointment of healthcare agent2 page AD, Jose will consider, has my information if he would like to complete in near future It is extremely important for Jose to have clear and direct information from his oncology team regarding his test results, disease status, and treatment plan. Counseled on ability to notify oncologyoffice for questions regarding test results, symptom management triage with nurse and provider, he is aware that there is a provider on-call at all times. He also plans to continue utilizing [employer] for nonurgent medical questions, and test results, understanding that when test results are posted they may not have been reviewed by his care team yet. Encourage Jose and Fabby to document PRN usage of antiemetics and pain medication, as to help guide medical team and titration and adjustment of symptom management meds if indicated Symptom management: Reports taking recently prescribed Protonix in a.m., continuing omeprazole at nighttime. Relayed tooncology provider Kirti Artis to clarify which one to take Palliative care follow-up plan: PRN, provided Jose my contact information if helpful to schedule another outpatient visit HISTORY/SUBJECTIVE: Present for visit: This provider, patient, his Fabby, daughter Lachelle, and her Adam Chief complaint: initiation Chemotherapy treatment for newly diagnosed pancreatic cancer HPI:Jose is a 73-year-old man with medical history including hypertension, left kidney resection (localized kidney cancer approximately 30 years ago ), tobacco use, recently diagnosed with metastatic pancreatic adenocarcinoma with multiple liver lesions and multiple pulmonary nodules with peritoneal mets concerning for diffuse metastatic disease. Has met with medical oncologist 07/31/24, port lory cement surgery 08/10/24, received chemo education 08/04/2024. Starting C1 D1 FOLFIRINOX today, palliative care consulted at initial oncology visit for goals of care and symptom management support in setting of new diagnosis. Goals of care/serious illness communication: Understanding-Jose as her that he is facing an illness that is not curable, but treatment can aim to stabilize illness with goal of more time. 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 It is important for him Strength/support Critical abilities -important for Jose to be able to move around to keep up his strength Willing to tolerate-oncologic therapy Family awareness- very involved, has been present for medical appointments Experiences with illness-had kidney cancer 30 years ago, it was challenging for him to get through,but he persevered and move forward Recommendations and response-recommended consideration of completing appointment of healthcare agent form, will think about this, provided card to reach out if I can help support and completion Spiritual history/screening: Not reviewed Symptoms: Pain-up to 5/6 diffusely in abdomen, back right side, sometimes mid left side, describes pain as nagging in nature, not impeding his ability to move around or ADLs. Tramadol at bedtime takes the paindown to about 2 out of 10, continues to be nagging, but he is able to get to sleep. Dyspnea-no issues endorsed Appetite/nausea-has significantly improved since initiation of olanzapine, acid reflux symptoms associated with eating, has gotten a bit better since he started walking after meals instead of sittingin chair. On days of not eating well will take chocolate CORE protein supplement shakes. Elimination-no issues endorsed Mood/anxiety-not fully explored today, however Jose reports that he is holding up okay consideringhis recent diagnosis, having a good attitude to do what he has to do Sleep-no significant issues with sleep, does occasionally wake up due to discomfort of pain in backand diffuse abdominal area Fatigue-no specific concerns voiced today, Fabby has been helpful in helping him to manage athome Mobility-walking independently, making strong effort to move around/walk outdoors after meals as tominimize GI upset Social history: to Fabby, they have been for nearly 26 years. They name 3 children, Lachelle, Sheree, Ciro. 6 grandchildren. Grew up in the [place] area, worked in retail management, retired in 2006. For the past 7 years he and his Fabby would go down to [place] in the [facility] for 3 months in the winter, this year they will defer traveling down south dueto his medical diagnosis and treatment plan. He especially enjoys golfing, is deeply involved and engaged with his golfing friend community, engages in tournaments. Also enjoys vegetable gardening. Medical/surgical history: Past Medical History: Diagnosis Date Activity, other involving cardiorespiratory exercise Benign prostatic hyperplasia Cancer (HCC-CMS) kidney COPD (chronic obstructive pulmonary disease) ([facility]-CMS) Does not exercise Exercise involving housework Exercise involving walking GERD (gastroesophageal reflux disease) History of kidney stones History of nephrectomy Hypertension Lung disease COPD Pain Productive cough Wears dentures Past Surgical History: Procedure Laterality Date ABDOMEN SURGERY KIDNEY REMOVAL Left 1993 Family history: Problem Relation Name Comments Asthma Father Urbano Harrell Asthma Sister Hanane Arriaga Breast Cancer Mother Debbie Harrell Diabetes Mother Debbie Harrell Kidney Disease Sister Hanane Arriaga Kidney Disease Brother Evangelist Harrell Medications: Current Outpatient Medications Medication acetaminophen (TYLENOL) 325 mg tablet albuterol 90 mcg/actuation HFA aerosol inhaler inhaler aspirin chewable 81 mg tablet atorvastatin (LIPITOR) 10 mg tablet dexAMETHasone (DECADRON) 4 mg tablet fluticasone furoate-vilanteroL (BREO ELLIPTA) 100-25 mcg/dose blister with device lisinopriL (PRINIVIL) 10 mg tablet OLANZapine (ZYPREXA) 5 mg tablet omeprazole (PRILOSEC) 20 mg capsule ondansetron (ZOFRAN-ODT) 8 mg disintegrating tablet pantoprazole (PROTONIX) 40 mg tablet prochlorperazine (COMPAZINE) 10 mg tablet traMADol (ULTRAM) 50 mg tablet No current facility-administered medications for this visit. Facility-Administered Medications Ordered in Other Visits Medication Route Frequency dextrose 5 % (D5W) infusion intravenous PRN fluorouracil (ADRUCIL) infusion cassette 5,200 mg intravenous Now irinotecan (CAMPTOSAR) 320 mg in dextrose 5% (D5W) 500 mL chemo infusion intravenous Now leucovorin 875 mg in dextrose 5% (D5W) 100 mL infusion intravenous Now sodium chloride 0.9 % (flush) flush 10 mL intravenous PRN OBJECTIVE Vital signs: There were no vitals taken for this visit. There were no vitals filed for this visit. Alert, oriented x 4 older man, appears to be in no pain or respiratory distress throughout encounter. Is pleasant, engaging Clinical investigations: Lab Results Component Value Date WBC 6.39 08/12/2024 HGB 12.0 (L) 08/12/2024 HCT 36.1 (L) 08/12/2024 MCV 96 (H) 08/12/2024 PLT 126 (L) 08/12/2024 Lab Results Component Value Date NA 138 08/12/2024 K 4.1 08/12/2024 CO2 28 08/12/2024 CL 103 08/12/2024 BUN 16 08/12/2024 CREATININE 0.90 08/12/2024 SERGLU 120 (H) 08/12/2024 Lab Results Component Value Date LABALBU 3.9 08/12/2024 Imaging: PROCEDURE INFORMATION: Exam: CT Chest With Contrast; [...] the liver have also increased in size. Information for patients and caregivers: This is a shared note. We support your right to access health information in an open, easy manner. We are partners together in your care. If you are a patientor caregiver with concerns about this note, please contact us in one of the following ways: 1. Have nursing or your primary team contact us while you are hospitalized or visiting during the day. 2. Leave a message for us at [phone]. Signatures and attestations: I spent greater than 105 minutes on the date of this encounter meeting with the patient and reviewing documentation/coordinating care as described above. Yudy Gibson NP documented in this encounter Plan of Treatment Upcoming Encounters Date Type Department Care Team (Late st Contact Info) Description 08/19/2024 10:00 EST Office Visit [facility] Adult Hematology & Oncology [address] [place] [address] Brie Artis NP [address] [place] [address], [facility] [address] [place] [phone] 08/19/2024 10:30 EST Nurse Only [facility] Adult Hem Onc Infusion [address] [place], [place] [phone] 08/25/2024 9:00 EST Office Visit [facility] Adult Hematology & Oncology [address] [place] [address], [place] [address] Leela Turcios FNP 130 [facility] [address] [phone] 08/25/2024 10:00 EST Nurse Only [facility] Adult Hem Onc Infusion [address] [place], [place] [phone] 09/08/2024 8:00 EST Office Visit [facility] Adult Hematology & Oncology [address] [place] [address] Brie Artis, PARADISE 130 [facility] [address] [phone] 09/08/2024 8:30 EST Nurse Only [facility] Adult Hem Onc Infusion [address] [place] [address] documented as of this encounter Visit Diagnoses Diagnosis Palliative care encounter- Primary Encounter for palliative care Pancreatic cancer metastasized to lung (HCC-CMS) Malignant neoplasm of pancreas, part unspecified documented in this encounter Care Teams Carpenter Packing Relationship Specialty Start Date End Date Urbano Lee Jr., MD [address] [facility] [address] [place] [address] PCP - General 03/07/09 documented as of this encounter
--- OUTSIDE RECORDS SUMMARY | 2024-08-14 01:16 | XMS_ITS | Encounter Summary ---
Author Organization [facility] Address [address] [place] [address] Care Team Providers Care Local Driver Name Role Phone Jesus Augustin MD, Urbano Aguayo Primary Care Provider + Reason for Referral * Radiology Services (Routine/Next Available) - Authorization Not Required Specialty Diagnoses / Procedures Referred By Contac t Referred To Contact Procedures TUMOR BOARD RADIOLOGY CONSULT UPPER GI TUMOR BOARD RADIOLOGY CONSULT NON BREAST Mira Fam MD [address] [address] Phone: tel: fax: Referral ID Status Reason Start Date Expiration Date Visits Requested Visits Authorized [id number] Authorization Not Required 07/22/2024 1 1 * Radiology Services (Routine/Next Available) - Authorization Not Required Specialty Diagnoses / Procedures Referred By Contac t Referred To Contact Diagnoses Other specified diseases of pancreas Procedures CT SUBSPECIALTY RADIOLOGY CONSULT BODY Mira Fam MD [address] [address] Phone: tel: fax: [facility] Referral ID Status Reason Start Date Expiration Date Visits Requested Visits Authorized [id number] Authorization Not Required 07/23/2024 1 1 Reason for Visit * Radiology Services (Routine/Next Available) - Authorization Not Required Specialty Diagnoses / Procedures Referred By Contac t Referred To Contact Diagnoses Other specified diseases of pancreas Procedures CT SUBSPECIALTY RADIOLOGY CONSULT BODY Mira Fam MD 111 [facility] [address] [place] [address] Phone: tel: fax: [facility] Referral ID Status Reason Start Date Expiration Date Visits Requested Visits Authorized [id number] Authorization Not Required 07/23/2024 1 1 Encounter Details Date Type Department Care Team (Latest Contact Info) Description 07/23/2024 7:14 EST - 07/23/2024 23:59 EST Hospital Encounter [facility] Radiology - [address] [phone] Other specified diseases of pancreas Discharge Disposition: Home or Self Care Social History Tobacco Use Types Packs/Day Years Used Date Smoking Tobacco: Every Day Cigarettes Alcohol Use Standard Drinks/Week Comments Not Currently [...] on file documented as of this encounter Medications at Time of Discharge albuterol 90 mcg/actuation HFA aerosol inhaler inhaler Inhale 2 Puffs as directed every 6 hours as needed for Wheezing. aspirin chewable 81 mg tablet Take 1 Tablet by mouth daily. atorvastatin (LIPITOR) 10 mg tablet Take 2 Tablets by mouth daily. fluticasone furoate-vilanteroL (BREO ELLIPTA) 100-25 mcg/dose blister with device Inhale as directed daily. lisinopriL (PRINIVIL) 10 mg tablet Take 1 Tablet by mouth daily. omeprazole (PRILOSEC) 20 mg capsule Take 2 Capsules by mouth daily. ondansetron (ZOFRAN-ODT) 4 mg disintegrating tablet Take 1 Tablet by mouth every 8 hours as needed for Nausea. 4 traMADol (ULTRAM) 50 mg tablet Take 1 Tablet by mouth every 6 hours as needed for Pain. 4 documented as of this encounter Discharge Disposition Disposition Code Departure Means Destination Home or Self Care documented in this encounter Plan of Treatment Upcoming Encounters Date Type Department Care Team (Late st Contact Info) Description 08/19/2024 10:00 EST Office Visit [facility] Adult Hematology & Oncology [address] [place] [phone] Brie Artis, PARADISE [address] [place] [address] [phone] 08/19/2024 10:30 EST Nurse Only [facility] Adult Hem Onc Infusion [address] [place] [phone] 08/25/2024 9:00 EST Office Visit [facility] Adult Hematology & Oncology [address] [place] [address], [place] [address] Leela Turcios FNP [address] [place] [phone] 08/25/2024 10:00 EST Nurse Only [facility] Adult Hem Onc Infusion [address] [place] [phone] 09/08/2024 8:00 EST Office Visit [facility] Adult Hematology & Oncology [address] [place] [address], [place] [phone] Brie Artis, PARADISE [address] [place] [address] [phone] 09/08/2024 8:30 EST Nurse Only [facility] Adult Hem Onc Infusion [address] [place] [phone] Pending Results Name Type Priority Associated Diagnoses Date /Time TUMOR BOARD RADIOLOGY CONSULT UPPER GI Imaging Routine 07/23/2024 7:20 EST Scheduled Orders Name Type Priority Associated Diagnoses Orde r Schedule TUMOR BOARD RADIOLOGY CONSULT UPPER GI Imaging Routine 1 Occurrences s tarting 07/23/2024 until 07/23/2024 documented as of this encounter Procedures Procedure Name Priority Date/Time Associated Diagnosis Comments CT SUBSPECIALTY RADIOLOGY CONSULT BODY Routine 07/23/2024 7:14 EST Other specified diseases of pancreas documented in this encounter Results * CT SUBSPECIALTY RADIOLOGY CONSULT BODY (07/23/2024 [...] 3-4. 7. ??Other chronic findings as outlined. [id number] Narrative 07/24/2024 15:[address] SUBSPECIALTY RADIOLOGY CONSULT BODY ??07/23/2024 7:14 AM Signs and Symptoms/Comments: tumor board review Technique: This is a secondary interpretation of CT abdomen and pelvis with IV contrast images obtained at ?? [facility] ??on ??06/30/24 ??, performed at the request of the ordering provider, MIRA FAM. Comparison: CT of abdomen/pelvis from 08/10/2002 [...] No significant finding. Musculoskeletal: No suspicious findings. Squirt Machine Operator: No additional findings. Resulting Agency Comment [id number] Procedure Note Nohelia Hay MD - 07/24/2024 CT SUBSPECIALTY RADIOLOGY CONSULT BODY 07/23/2024 7:14 AM Signs and Symptoms/Comments: tumor board review Technique: This is a secondary interpretation of CT abdomen and pelviswith IV contrast images obtained at [facility] on 06/30/24 ,performed at the request of the ordering provider, MIRA FAM. Comparison: CT of abdomen/pelvis from 08/10/2002 [...] No significant finding. Musculoskeletal: No suspicious findings. Squirt Machine Operator: No additional findings. IMPRESSION 1. Approximately 3.1 [...] 3-4. 7. Other chronic findings as outlined. [id number] us Mira Fam MD IMG CT ORDERABLES Final Res ult documented in this encounter Visit Diagnoses Diagnosis Other specified diseases of pancreas documented in this encounter Care Teams Local Driver Relationship Specialty Start Date End Date Urbano Lee Jr., MD [address] [facility] 101 [place] [address] PCP - General 03/07/09 documented as of this encounter
--- OUTSIDE RECORDS SUMMARY | 2024-08-14 01:16 | XMS_ITS | Encounter Summary ---
Author Organization [facility] Address [address] [place] [address] Care Team Providers Care Process Operator Name Role Phone Jesus Augustin MD, Urbano Aguayo Primary Care Provider + Reason for Visit * Auth/Cert (Routine) Specialty Diagnoses / Procedures [facility]erred To Contact Diagnoses 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) [C25.9, C78.00] Procedures NM INSJ TUNNELED CTR VAD W/SUBQ PORT AGE 5 YR/> TUNNELED CENTRAL VENOUS DEVICE, WITH SUBCUTANEOUS PORT, >5 Y Referral ID Status Reason Start Date Expiration Date Visits Re quested Visits Authorized [id number] 1 1 Encounter Details Date Type Department Care Team (Late st Contact Info) Description 08/10/2024 9:10 EST - 08/10/2024 10:45 EST Surgery [facility] [address], [place] [address] Evangelist Miranda MD [address] [facility] [address] [place] [address] TUNNELED CENTRAL VENOUS DEVICE, WITH SUBCUTANEOUS PORT, >5 Y [[id number] (CPT??)] Surgery Details Date/Time Status Location OR Service Patient Class Case Cl ass Case Type Trauma Case? 08/10/2024 0910 Posted [facility] [place] [address] Outpatient Surgery H - Elective Panel 1 Procedure LRB Anes Op Region Wound Class Comments TUNNELED CENTRAL VENOUS DEVICE, WITH SUBCUTANEOUS PORT, >5 Y Right Monitored Anesthesia Care Chest Class I/ Clean Surgeon Surgeon Role Service Panel Evangelist Miranda MD Primary General 1 Special Needs SF Please schedule at or around 9:00 am. documented in this encounter Social History Tobacco Use Types Packs/Day Years [...] on file documented as of this encounter Last Filed Vital Signs Vital Sign Reading Time Taken Comments Blood Pressure 124/83 08/10/2024 1045 EST Pulse - - Temperature 36.7 ??C (98 ??F) 08/10/2024 1016 EST Respiratory Rate 17 08/10/2024 1045 EST Oxygen Saturation 97% 08/10/2024 1045 EST Inhaled Oxygen Concentration - - Weight 93 kg (205 lb) 08/10/2024 0802 EST Height 182.9 cm (6' 0.01) 08/10/2024 0802 EST Body Mass Index 27.8 08/10/2024 0802 EST documented in this encounter Medications at Time of Discharge acetaminophen (TYLENOL) 325 mg tablet Take 2 Tablets by mouth every 4 hours as needed for Pain. albuterol 90 mcg/actuation HFA aerosol inhaler inhaler Inhale 2 Puffs as directed every 6 hours as needed for Wheezing. aspirin chewable 81 mg tablet Take 1 Tablet by mouth daily. atorvastatin (LIPITOR) 10 mg tablet Take 2 Tablets by mouth daily. dexAMETHasone (DECADRON) 4 mg tablet Take 2 tabs with breakfast for 3 days post chemotherapy 30 Tablet 1 4 fluticasone furoate-vilanteroL (BREO ELLIPTA) 100-25 mcg/dose blister with device Inhale as directed daily. lisinopriL (PRINIVIL) 10 mg tablet Take 1 Tablet by mouth daily. OLANZapine (ZYPREXA) 5 mg tablet Take 1 Tablet by mouth at bedtime for 90 days. 30 Tablet 2 4 10/29/19 25 omeprazole (PRILOSEC) 20 mg capsule Take 2 Capsules by mouth daily. ondansetron (ZOFRAN-ODT) 8 mg disintegrating tabletIndications:P ancreatic cancer metastasized to lung (HCC-CMS),Cancer cachexia (HCC-CMS),Pancreati c carcinoma metastatic to liver (HCC-CMS),Pancreati c adenocarcinoma (HCC-CMS),Pancreati c cancer metastasized to intra-abdominal lymph node (HCC-CMS) Take 1 Tablet by mouth every 8 hours as needed for Nausea. 30 Tablet 1 4 pantoprazole (PROTONIX) 40 mg tablet Take 1 Tablet by mouth daily before breakfast for 90 days. 30 Tablet 2 4 10/29/19 25 prochlorperazine (COMPAZINE) 10 mg tablet Take 1 Tablet by mouth every 6 hours as needed for Nausea. 20 Tablet 1 4 traMADol (ULTRAM) 50 mg tablet Take 1 Tablet by mouth every 6 hours as needed for Pain. Daily Max: 200 mg 30 Tablet 4 documented as of this encounter Discharge Disposition Disposition Code Departure Means Destination Comment s Home or Self Longterm documented in this encounter H&P Notes * Evangelist Miranda MD - 08/10/2024 0903 EST The preoperative history and physical which was performed within 30 days of this procedure has been reviewed and the clinically appropriate elements of the physical examination have been repeated. There are no changes to the documented history and physical or if so such changes are documented below No change in heart or lung exam. Proceed with port placement as planned. Evangelist Miranda MD 08/10/2024 9:03 Source Note - Evangelist Miranda MD - 08/04/2024 13:30 EST General Surgery H&P CC - Chief Complaint Patient presents with New Patient Visit Discuss surgery HPI: Jose Harrell is a 73 y.o. male presenting to the general surgery clinic for evaluation regarding port placement. Patient was recently diagnosed with metastatic pancreatic cancer. He is not aware of ever having central access previously. He has no history of DVT or PE. No known bleeding disorders. Past Medical History: Diagnosis Date Cancer ([facility]) kidney GERD (gastroesophageal reflux disease) Hypertension Lung disease COPD Past Surgical History: Procedure Laterality Date KIDNEY REMOVAL Left 1993 No Known Allergies Current Outpatient Medications Medication Sig Dispense Refill albuterol 90 mcg/actuation HFA aerosol inhaler inhaler Inhale 2 Puffs as directed every 6 hours as needed for Wheezing. aspirin chewable 81 mg tablet Take 1 Tablet by mouth daily. atorvastatin (LIPITOR) 10 mg tablet Take 2 Tablets by mouth daily. dexAMETHasone (DECADRON) 4 mg tablet Take 2 tabs with breakfast for 3 days post chemotherapy 30 Tablet 1 fluticasone furoate-vilanteroL (BREO ELLIPTA) 100-25 mcg/dose blister with device Inhale as directed. lisinopriL (PRINIVIL) 10 mg tablet Take 1 Tablet by mouth daily. OLANZapine (ZYPREXA) 5 mg tablet Take 1 Tablet by mouth at bedtime for 90 days. 30 Tablet 2 omeprazole (PRILOSEC) 20 mg capsule Take 2 Capsules by mouth daily. ondansetron (ZOFRAN-ODT) 8 mg disintegrating tablet Take 1 Tablet by mouth every 8 hours as needed for Nausea. 30 Tablet 1 pantoprazole (PROTONIX) 40 mg tablet Take 1 Tablet by mouth daily before breakfast for 90 days. 30 Tablet 2 prochlorperazine (COMPAZINE) 10 mg tablet Take 1 Tablet by mouth every 6 hours as needed for Nausea. 20 Tablet 1 traMADol (ULTRAM) 50 mg tablet Take 1 Tablet by mouth every 6 hours as needed for Pain. No current facility-administered medications for this visit. Family History Problem Relation Age of Onset Breast Cancer Mother Diabetes Mother Asthma Father Asthma Sister Kidney Disease Sister Social History Socioeconomic History Marital status: Tobacco Use Smoking status: Every Day Types: Cigarettes Substance and Sexual Activity Alcohol use: Not Currently Drug use: Not Currently Review of Systems A ten point review of systems was performed and was negative except for pertinent positives noted in the HPI O: BP 114/70 Physical Examination: General appearance - alert, well appearing, and in no distress Mental status - alert, oriented to person, place, and time Chest - clear to auscultation, no wheezes, rales or rhonchi, symmetric air entry Neck - supple, no JVD Heart - normal rate and regular rhythm Abdomen - soft, nontender, nondistended, no masses or organomegaly Musculoskeletal - no joint tenderness, deformity or swelling, no muscular tenderness noted Labs: No results found for this or any previous visit (from the past 24 hours). Imaging: CT SUBSPECIALTY RADIOLOGY CONSULT BODY Result Date: 07/24/2024 CT SUBSPECIALTY RADIOLOGY CONSULT BODY 07/23/2024 7:14 AM Signs and Symptoms/Comments: tumor board review Technique: This is a secondary interpretation of CT abdomen and pelvis [facility] performed at the request of the ordering provider, DEON FORBES. Comparison: CT of abdomen/pelvis from 08/10/2002 Findings: Lower chest: There are multiple pulmonary nodules with the largest in the right lower lobe measuring 3.4 cm. Liver: Multiple ill-defined hepatic metastatic lesions, for instance largest in the left hepatic lobe measuring 4.2 cm. Ga llbladder: No significant finding. Bile ducts: No significant [...] No significant finding. Musculoskeletal: No suspicious findings. Deputy Sheriff Custody: No additional findings. 1. Approximately 3.1 cm ill-defined hypodensity in pancreatic body can represent primary pancreaticneoplasm versus metastatic lesion. 2. Multiple ill-defined hepatic metastatic lesions. 3. Multiple pulmonary nodules with the largest in the right lower lobe measuring 3.4 cm consistent with metastases. 4. Multiple abdominal, retroperitoneal and posterior mediastinal lymph nodes. 5. Peritoneal nodules measuring up to 1.2 cm suggestive of peritoneal carcinomatosis. 6. A 2.8 cm interpolar complex cyst with thick enhancing septations and possible nodularity in the right kidney. Bosniak 3-4. 7. Other chronic findings as outlined. [id number] ENDOSCOPIC ULTRASOUND PROCEDURE Result Date: 07/23/2024 Procedure Performed Endoscopic Ultrasound (UGI) Indications for Exam pancreatic mass Procedure Technique A physical exam was performed. Informed consent was obtained from the patient after explainingall the risks (perforation, bleeding, infection, pancreatitis and adverse effects to the medicine) , benefits and alternatives to the procedure which the patient appeared to understand and so stated.BP and pulse monitoring done. Oximetry was used. Supplemental O2 given. The patient was placed in the left lateral position. Continuous oxygen was provided with a nasal cannula and IV medicine administered thru a indwelling cannula. After adequate sedation / anesthesia was achieved, the esophagus was intubated and the endoscope advanced under direct visualization to the . The was identified by visual landmarks. The scope was subsequently removed slowly while carefully examining the color, texture, anatomy, and integrity of the mucosa on withdrawal. The echoendoscope was then inserted, and a complete echosonographic examination was performed as described in the findings section below. Upon co mpletion the echoendoscope was removed and the patient was subsequently transferred to the [facility] in satisfactory condition. Estimated Blood Loss: None Complications None Medications MAC Anesthesia See Anesthesia Record Findings EGD Findings: Esophagus: Normal Stomach: Normal Duodenum: Normal EUS Findings: Images were obtained with the linear echoendoscope with balloon CELIAC AXIS: Normal with no adenopathy LIVER: In both lobes of the liver, metastatic disease and masses were observed. Within the left lobe of the liver specifically, there is a 28.7 mm x 28.5 mm mass with necrotic center. LEFT KIDNEY: Absent SPLEEN: Normal. Spenic stiffness measured as 32.2 PANCREAS: In the body of the pancreas, there was a 20.6 mm x 25.0 mm hypoechoic mass that was involving both the splenic arteryand splenic vein. The hypoechoic mass was the target for FNB [...] with MDC. Follow up with referring physician. The procedure was performed by Dr. Elijah Gonsalves M.D. in the presence of Dr. Deon Forbes. The attending physician was in the roomfor the entire procedure. This electronic signature authenticates all electronic and/or handwrittendocumentation, including orders, generated by the signer during the episode of care contained in this record. 07/23/2024 09:06:52 AM By Deon Forbes MD Assessment: 73 y.o. male presenting with with recently diagnosed metastatic pancreatic cancer. Chemotherapy is being urgently planned. Rationale for tunneled port placement was discussed. No known risk factors. Risks and benefits of surgery were explained, including but not limited to risks of anesthetic, bleeding, infection, recurrence, bowel injury, nerve injury, arterial injury, prominent scarring and discomfort, scar contracture, and non- resolution of symptoms. The patient is agreeable with proceedingwith surgical intervention. Plan: Placement of tunneled central port. Schedule as soon as can be arranged. Evangelist Miranda MD 08/04/2024 13:43 documented in this encounter OR Notes * OR Surgeon - Evangelist Miranda MD - 08/10/2024 1012 EST TUNNELED CENTRAL VENOUS DEVICE, WITH SUBCUTANEOUS PORT, >5 Y (R) Operative Note Date: 08/10/2024 Location: [facility] [place] Name: Jose Harrell, : 1950, Diagnosis Pre-Op Diagnosis Codes: * Pancreatic cancer metastasized to lung (HCC-CMS) [C25.9, C78.00] Post-op Diagnosis * Pancreatic cancer metastasized to lung (HCC-CMS) [C25.9, C78.00] Procedures * TUNNELED CENTRAL VENOUS DEVICE, WITH SUBCUTANEOUS PORT, >5 Y Surgeons * Evangelist Miranda MD - Primary Procedure Summary Anesthesia: Monitored Anesthesia Care ASA: III Estimated Blood Loss: Minimal Total IV Fluids: 250 mL LDAs: Peripheral IV 08/10/24 0817 Anterior;Left Forearm (Active) Wound 08/10/24 Incision Anterior;Right Neck (Active) Implants Type Name Action Serial No. Catheter Implant PORT INFUSION ISP 1 LUMEN MRI 8FR CATH POWERPORT MRI [id number] - [id number] Implanted Staff: Supervisor Channel Process: Vicki Jang RN Scrub Person: StarSravan Indications: Jose Harrell is an 73 y.o. male who is having port placement for Pancreatic cancer metastasized to lung ([facility]) [C25.9, C78.00] Procedure Details: The patient was seen in the preoperative area. The risks, benefits, complications, treatment options, non-operative alternatives, expected recovery and outcomes were discussed with the patient. The possibilities of reaction to medication, pulmonary aspiration, injury to surrounding structures, bleeding, recurrent infection, the need for additional procedures, failure to diagnose a condition, and creating a complication requiring transfusion or operation were discussed with the patient. The patient concurred with the proposed plan, giving informed consent. The site of surgery was properly noted/marked if necessary per policy. The patient has been actively warmed in preoperative area. Preoperative antibiotics have been ordered and given within 1 hours of incision. Venous thrombosis prophylaxis are not indicated. FINDINGS: Right internal jugular vein accessed with ultrasound guidance. Catheter placed under fluoroscopy via seldinger technique and connected to the subcutaneous port. The port was accessed and found to aspirate blood and flush easily. NARRATIVE: The patient was correctly identified and brought to the operating room suite where an initial timeout was taken. After all were in agreement, the patient was placed in supine position on the operating table. The right internal jugular vein was examined with ultrasound to confirm positionand patency before sedation. Monitored anesthesia care was established and the right neck and upper chest was prepped and draped in a standard fashion. A timeout was taken with the patient, position,procedure, laterality, allergies to antibiotics, and special equipment all verified and confirmed. After infiltrating the skin and subcutaneous tissue with local anesthetic (1:1 mix of 1% lidocaine and 0.5% Marcaine), the finder needle was used to access the right internal jugular vein under ultrasound guidance. The wire was then threaded without resistance, and fluoroscopy was used to confirm that the wire was in the superior vena cava. Next an incision was made in the right chest a few centimeters below the clavicle, and a subcutaneous pocket was created inferiorly using Bovie electrocautery. A skin kodi was made next to the wire, and subcutaneous tunnel was then bluntly created from the subcutaneous pocket to the access site. The catheter was then tunneled under the skin using the flexible blunt tip trocar. Fluoroscopy was used to estimate the proper length of the catheter, which was then cut to length. The dilator sheath was then inserted over the wire under fluoroscopic guidance into the vena cava. The wire was then removed, and the tip of the catheter was threaded through the sheath into the superior vena cava under fluoroscopic guidance. The outer sheath was removed via the two peel-away tabs while holding the catheter steady. At this point, the catheter flushed and aspirated blood easily. The port was then connected to the catheter and the port was secured in place with two 2-0 absorbable monofilament sutures. Position ofthe catheter tip was then verified to be in the area of the superior vena cava / right atrial junction. Additional local was infiltrated around the pocket site for postoperative pain relief. The catheter was checked again to ensure that it flushed and aspirated blood easily. The incision was then closed in layers using interrupted 3-0 braided absorbable suture for the deep dermal layer and running subcuticular 4-0 absorbable suture for the skin. The skin was washed and dried, and Dermabond was applied to the incision and to the access site skin kodi. The patient was taken to the postoperative anesthesia care unit in stable condition. Instrument, needle and sponge counts were correct x2. Postoperative chest x-ray was ordered in the PACU. Complications: None; patient tolerated the procedure well. Disposition: PACU - hemodynamically stable. Condition: stable Specimens:None Implants: 8 Fr. powerport Evangelist Miranda MD * Preprocedure Instructions - Elisabeth Reyes RN - 08/05/2024 0933 EST The following preoperative instructions have been provided via phone. Date of procedure: 08/10/24 Arrival time: 0755 (this time is subject to change, we would call you the day before if a change occurs) Jose Harrell has been instructed as follows regarding medication administration for the day of the scheduled procedure. Instructions for Taking Medications Day of Surgery Medication Dose and frequency Last Dose Hold Day of Surgery Take Day of Surgery albuterol 90 mcg/actuation HFA aerosol inhaler inhaler Inhale 2 Puffs as directed every 6 hours as needed for Wheezing. As needed aspirin chewable 81 mg tablet Take 1 Tablet by mouth daily. Hold Sat-Sat per Dr Miranda atorvastatin (LIPITOR) 10 mg tablet Take 2 Tablets by mouth daily. Take dexAMETHasone (DECADRON) 4 mg tablet Take 2 tabs with breakfast for 3 days post chemotherapy Not taking fluticasone furoate-vilanteroL (BREO ELLIPTA) 100-25 mcg/dose blister with device Inhale as directed daily. Take lisinopriL (PRINIVIL) 10 mg tablet Take 1 Tablet by mouth daily. Hold Sun pm OLANZapine (ZYPREXA) 5 mg tablet Take 1 Tablet by mouth at bedtime for 90 days. Take omeprazole (PRILOSEC) 20 mg capsule Take 2 Capsules by mouth daily. Not taking? Pt will check ondansetron (ZOFRAN-ODT) 8 mg disintegrating tablet Take 1 Tablet by mouth every 8 hours as needed for Nausea. Not taking pantoprazole (PROTONIX) 40 mg tablet Take 1 Tablet by mouth daily before breakfast for 90 days. Take prochlorperazine (COMPAZINE) 10 mg tablet Take 1 Tablet by mouth every 6 hours as needed for Nausea. Not taking traMADol (ULTRAM) 50 mg tablet Take 1 Tablet by mouth every 6 hours as needed for Pain. As needed Instructions for Jose Harrell's Procedure at [facility] . These instructions are being given for your safety and to prevent your surgery from being delayed or canceled. IF YOU FEEL SICK within 7 days of your procedure CALL YOUR SURGEON. If you have MyChart, you will receive 2 questionnaires (???Pre-surgery Questionnaire?? and ???History?? ) prior to your procedure. Please fill these out so we can safely care for you during your procedure. Getting ready at home Before your procedure: Instructions for eating and drinkin days prior to procedure drink at least 2 liters (about 68oz) of fluid, you can eat as your normally would. 1 day prior to procedure drink at least 2 liters (about 68oz) of fluid, you can eat as you normallywould until midnight. BY MIDNIGHT PRIOR TO YOUR PROCEDURE: Stop eating and stop drinking any liquids that are not clear or contain fat (Food includes chewing gum, mints, candy and Tums. Liquids that contain fat include any dairy or you cannot see through). You should have at least 32oz of water or a clear electrolyte drink from midnight until 2 hours before you are told to arrive (Pedialyte, Gatorade, Powerade, etc. please avoid red colored drinks). This will help to keep you hydrated and improve your recovery Take your medications as directed with small sips of water or a clear electrolyte drink prior to your procedure. Smoking, vaping or chewing products should be stopped 24 hours before your procedure. Grooming: Please take a bath or shower to clean your skin. Do not put on any lotions, makeup, deodorants, oils, powders, perfumes or colognes. Do not shave the procedure area. Remove all nail polishes from fingers and toes. What to bring to the hospital and what to keep at home: Plan to wear clean and comfortable clothing. If you wear contacts, plan to wear glasses instead. Please leave at home: Any body piercings or jewelry, including your wedding band. Your home medications. Extra luggage or a large bag. We will provide you with a bag for any items. Valuables, hilton or credit cards. [facility] is not responsible for any lost items during your hospital visit. If you experience fevers, swelling, redness, rash or a break in your skin prior to your surgery contact your surgeon. Arriving for your procedure: Enter through the main entrance, and check in at the patient registration information desk. They will take your name and let us know you have arrived. A patient data examination clerk will then verify your information and give you an identification bracelet. You will then be directed to the Drying Room Operator waiting area around the corner to check in at the window. You will be asked to provide the name and number of the responsible adult driving you home; this isrequired to receive sedation for a procedure. We recommend you are in the care of another adult for 24 hours after anesthesia. You should not drive or make any important personal decisions for 24 hours. You are at a high risk for a fall and nausea/vomiting after anesthesia. We recommend you rest at home with mild activity for the remainder of the day. Day of procedure at hospital: The nursing team will take your vital signs, check your information, and discuss what to expect. They may also prepare your procedural area (clip hair/clean skin), start an IV and give you medications as needed. Your anesthesia team will meet with you to discuss your anesthesia plan and any questions you may have prior to the procedure. Your doctor will see you before going into your procedure. They will verify the correct procedure and answer any questions you may have. Once you are ready, an operating room or procedural nurse will ask you many of the same questions for safety reasons. They will then take you to the procedural room. If you have additional questions before your procedure, please call . Updated 06/29/24 documented in this encounter Plan of Treatment Upcoming Encounters Date Type Department Care Team (Late st Contact Info) Description 08/19/2024 10:00 EST Office Visit [facility] Adult Hematology & Oncology [address] [place] [address], [place] [id number] Brie Artis, [place] [address] [place] [phone] 08/19/2024 10:30 EST Nurse Only [facility] Adult Hem Onc Infusion [address] [place] [address] 08/25/2024 9:00 EST Office Visit [facility] Adult Hematology & Oncology [address] [place] [address], [place] [id number] Leela Turcios FNP [address] [phone] 08/25/2024 10:00 EST Nurse Only [facility] Adult Hem Onc Infusion [address] [place] [address] 09/08/2024 8:00 EST Office Visit [facility] Adult Hematology & Oncology [address] [place] [address], [place] [address] Brie Artis NP [address] [place] [phone] 09/08/2024 8:30 EST Nurse Only [facility] Adult Hem Onc Infusion [address] [place] [address] Scheduled Referrals Name Type Priority Associated Diagnoses Order Schedule PROVIDER FOLLOW-UP INSTRUCTIONS Outpatient Referral Routine Ordered: 08/10/2024 documented as of this encounter Procedures Procedure Name Priority Date/Time Associated Diagnosis Comments ECG REPORT - SCANNED 08/11/2024 12:06 EST XR CHEST LINE PLACEMENT STAT 08/10/2024 10:33 EST TUNNELED CENTRAL VENOUS DEVICE, WITH SUBCUTANEOUS PORT, >5 Y 08/10/2024 8:58 EST Pancreatic cancer metastasized to lung (HCC-CMS) Special Needs SF Please schedule at or around 9:00 am. documented in this encounter Results * ECG REPORT - SCANNED (08/11/2024 12:06 EST) 08/11/2024 12:0 6 EST us Scan 2 Supervisor Drapery Hanging PROCEDURE/MINOR SURGICAL OR DERABLES Final Result * XR CHEST LINE PLACEMENT (08/10/2024 10:33 EST) Anatomical Region Laterality Modality Computed Radiogr aphy 08/10/2024 11:0 0 EST Impressions 08/10/2024 11:00 EST 1. Right chest wall port catheter tip superimposed over the lower SVC. No pneumothorax. 2. Bilateral pulmonary nodules. [id number] Narrative 08/10/2024 11:00 EST INDICATION: Status post [...] bone or joint abnormality. Resulting Agency Comment [id number] Procedure Note Reji Coello MD - 08/10/2024 [...] lower SVC. Nopneumothorax. 2. Bilateral pulmonary nodules. [id number] us Evangelist Miranda MD IMG DIAGNOSTIC IMAGING ORDERABLE S Final Result documented in this encounter Visit Diagnoses Diagnosis Pancreatic cancer metastasized to lung (HCC-CMS)- Primary Malignant neoplasm of pancreas, part unspecified Pancreatic cancer metastasized to lung (HCC-CMS) Malignant neoplasm of pancreas, part unspecified Pancreatic cancer metastasized to lung (HCC-CMS) Malignant neoplasm of pancreas, part unspecified documented in this encounter Admitting Diagnoses Diagnosis Pancreatic cancer metastasized to lung (HCC-CMS) Malignant neoplasm of pancreas, part unspecified documented in this encounter Administered Medications Inactive Administered Medications - up to 3 most recent administrations Medication Order MAR Action Action Date Dose Rate Site acetaminophen (TYLENOL) tablet 975 mg 975 mg (rounded from 1,000 mg), oral, PRE-OP ONCE, 1 dose, On Sat08/10/24 at 0815, Routine, Preprocedure Given 08/10/2024 8:21 EST 975 mg albuterol nebulizer solution 2.5 mg 2.5 mg, nebulization, EVERY 1 HOUR PRN, Starting on Sat08/10/24 at 1017, Until Sat08/10/24 at 1355, Wheezing, Routine, Recovery (only) BUPivacaine (PF) (MARCAINE) 0.5% 30 mL, lidocaine (PF) 10 mg/mL (1 %) 30 mL PRN, Starting on Sat08/10/24 at 0938, Until Sat08/10/24 at 1013, Intraprocedure Given 08/10/2024 9:38 EST 16 mL diphenhydrAMINE (BENADRYL) injection 6.25 mg 6.25 mg, intravenous, ONCE PRN, 1 dose, Starting on Sat08/10/24 at 1017, Until Sat08/10/24 at 1355, Nausea/Vomiting, Routine, Recovery (only) fentaNYL citrate (PF) injection 50 mcg 50 mcg, intravenous, EVERY 5 MIN PRN, Starting on Sat08/10/24 at 1017, Until Sat08/10/24 at 1355, Pain, Moderate-Severe Pain (Scale 4-10), Routine, Recovery (only) glycopyrrolate (ROBINUL) injection 0.2 mg 0.2 mg, intravenous, EVERY 3 MINUTES PRN, Starting on Sat08/10/24 at 1017, Until Sat08/10/24 at 1355, BRADYCARDIA, Routine, Recovery (only) heparin lock flush 100 units/mL PRN, Starting on Sat08/10/24 at 0938, Until Sat08/10/24 at 1013, Routine, Intraprocedure Given 08/10/2024 9:38 EST 20 mL meperidine (PF) (DEMEROL) injection 12.5 mg 12.5 mg, intravenous, EVERY 5 MIN PRN, 2 doses, Starting on Sat08/10/24 at 1017, Until Sat08/10/24 at 1355, SHIVERING, Routine, Recovery (only) ondansetron (PF) (ZOFRAN) injection 4 mg 4 mg, intravenous, ONCE PRN, 1 dose, Starting on Sat08/10/24 at 1017, Until Sat08/10/24 at 1355, Nausea, Routine, Recovery (only) oxyCODONE (ROXICODONE) immediate release tablet 5-10 mg 5-10 mg, oral, EVERY 30 MINUTES PRN, 2 doses, Starting on Sat08/10/24 at 1017, Until Sat08/10/24 at 1355, Pain, Routine, Recovery (only) SODIUM CHLORIDE 0.9 % INJECTION PRN, Starting on Sat08/10/24 at 0938, Until Sat08/10/24 at 1013, Intraprocedure Given 08/10/2024 9:38 EST 20 mL documented in this encounter Historical Medications * This list may reflect changes made after this encounter. acetaminophen (TYLENOL) 325 mg tablet Take 2 Tablets by mouth every 4 hours as needed for Pain. added in this encounter Active and Recently Administered Medications Times are shown in EST. Scheduled Medication Order 08/08/2024 08/09/2024 08/10/2024 acetaminophen (TYLENOL) tablet 975 mg (COMPLETED) 975 mg (rounded from 1,000 mg), oral, PRE-OP ONCE, 1 dose, On Sat08/10/24 at 0815, Routine, Preprocedure 0821 (Given - Provid er: Sheree Adams RN) ceFAZolin in dextrose 5 % (ANCEF) IVPB DUPLEX 2,000 mg (COMPLETED) 2,000 mg, intravenous, Administer over 30 Minutes, PRE-OP ONCE, 1 dose, On Sat08/10/24 at 0815, Type of Therapy: Prophylaxis, Suspected Indication (Select all that apply): Surgical prophylaxis, Routine, Preprocedure 0825 (Hold - Provide r: Sheree Adams RN - Reason: Other - Comment: Hang and hold for OR)0915 (Given - Provider: Mag Carter MD) PRN Medication Order 08/08/2024 08/09/2024 08/10/2024 albuterol nebulizer solution 2.5 mg 2.5 mg, nebulization, EVERY 1 HOUR PRN, Starting on Sat08/10/24 at 1017, Until Sat08/10/24 at 1355, Wheezing, Routine, Recovery (only) BUPivacaine (PF) (MARCAINE) 0.5% 30 mL, lidocaine (PF) 10 mg/mL (1 %) 30 mL (CANCELED) PRN, Starting on Sat08/10/24 at 0938, Until Sat08/10/24 at 1013, Intraprocedure 0938 (Given - Provid er: Evangelist Miranda MD) diphenhydrAMINE (BENADRYL) injection 6.25 mg 6.25 mg, intravenous, ONCE PRN, 1 dose, Starting on Sat08/10/24 at 1017, Until Sat08/10/24 at 1355, Nausea/Vomiting, Routine, Recovery (only) fentaNYL citrate (PF) injection 50 mcg 50 mcg, intravenous, EVERY 5 MIN PRN, Starting on Sat08/10/24 at 1017, Until Sat08/10/24 at 1355, Pain, Moderate-Severe Pain (Scale 4-10), Routine, Recovery (only) glycopyrrolate (ROBINUL) injection 0.2 mg 0.2 mg, intravenous, EVERY 3 MINUTES PRN, Starting on Sat08/10/24 at 1017, Until Sat08/10/24 at 1355, BRADYCARDIA, Routine, Recovery (only) heparin lock flush 100 units/mL (CANCELED) PRN, Starting on Sat08/10/24 at 0938, Until Sat08/10/24 at 1013, Routine, Intraprocedure 0938 (Given - Provid er: Evangelist Miranda MD) meperidine (PF) (DEMEROL) injection 12.5 mg 12.5 mg, intravenous, EVERY 5 MIN PRN, 2 doses, Starting on Sat08/10/24 at 1017, Until Sat08/10/24 at 1355, SHIVERING, Routine, Recovery (only) ondansetron (PF) (ZOFRAN) injection 4 mg 4 mg, intravenous, ONCE PRN, 1 dose, Starting on Sat08/10/24 at 1017, Until Sat08/10/24 at 1355, Nausea, Routine, Recovery (only) oxyCODONE (ROXICODONE) immediate release tablet 5-10 mg 5-10 mg, oral, EVERY 30 MINUTES PRN, 2 doses, Starting on Sat08/10/24 at 1017, Until Sat08/10/24 at 1355, Pain, Routine, Recovery (only) SODIUM CHLORIDE 0.9 % INJECTION (CANCELED) PRN, Starting on Sat08/10/24 at 0938, Until Sat08/10/24 at 1013, Intraprocedure 0938 (Given - Provid er: Evangelist Miranda MD) documented in this encounter Orders Medications Ordered That Glynn ht Not Have Been Administered Count Last Ordered Date First Ordered Date albuterol nebulizer solution 2.5 mg 1 08/10 ceFAZolin in dextrose 5 % (A NCEF) IVPB DUPLEX 2,000 mg 1 08/10/2024 diphenhydrAMINE (BENADRYL) i njection 6.25 mg 1 08/10/2024 fentaNYL citrate (PF) injection 50 mcg 1 glycopyrrolate (ROBINUL) injection 0.2 mg 1 08/10/2024 lidocaine (PF) 10 mg/mL (1 % ) injection 2 mg 1 08/10/2024 meperidine (PF) (DEMEROL) in jection 12.5 mg 1 08/10/2024 ondansetron (PF) (ZOFRAN) injection 4 mg 1 08/10/2024 oxyCODONE (ROXICODONE) immed iate release tablet 5-10 mg 1 08/10/2024 Diet Count Last Ordered Date First Orde red Date DISCHARGE DIET 1 08/10/2024 Nursing Count Last Ordered Date First Orde red Date ACTIVITY INSTRUCTIONS 1 08/10/2024 DISCONTINUE SALINE LOCK/IV 1 08/10/2024 DRIVING INSTRUCTIONS 1 08/10/2024 Discharge Count Last Ordered Date First Orde red Date DISCHARGE PATIENT 1 08/10/2024 Legal Count Last Ordered Date First Orde red Date MISCELLANEOUS DISCHARGE INSTRUCTIONS 2 07/18 documented in this encounter Care Teams Process Operator Relationship Specialty Start Date End Date Urbano Lee Jr., MD [address] [phone] PCP - General 03/07/09 documented as of this encounter
--- OUTSIDE RECORDS SUMMARY | 2024-08-14 01:16 | XMS_ITS | Encounter Summary ---
Author Organization [facility] Address [address] [place] [address] Care Team Providers Care Chiller Tender Name Role Phone Jesus Augustin MD, Urbano Aguayo Primary Care Provider + Reason for Visit * Reason Onset Date Comments Returning Call 08/07/2024 Prescription ins urance Encounter Details Date Type Department Care Team ([facility] st Contact Info) Description 08/07/2024 Telephone [facility] [place] [facility] [facility] [place] [address] [place] [address] [phone] Nusrat Villegas [address] [place] [address] [phone] Returning Call (Prescription insurance ) Social History Tobacco Use Types Packs/Day Years [...] on file documented as of this encounter Miscellaneous Notes * Telephone Encounter - Nelly Nusrat - 08/07/2024 [id number] EST Spoke with Fabby who says that both she and Jose have coverage plans with [employer] and [employer] for 2024 but wonders if there's something better. Recommended calling Medicare during open enrollment ; review formularies to see if there are any comparable/better plans to consider. Explainedthat if pt still has some out of pocket costs, they can apply to [facility] for co-pay relief. Discussed application process and provided contact info for program. Encouraged Fabby or pt to reach out to his navigator if they have any further questions moving forward. documented in this encounter Plan of Treatment Upcoming Encounters Date Type Department Care Team (Late st Contact Info) Description 08/19/2024 10:00 EST Office Visit [facility] Adult Hematology & Oncology [address] [place] [address], [place] [address] Brie Artis NP [address] [place] [phone] 08/19/2024 10:30 EST Nurse Only [facility] Adult Hem Onc Infusion [address] [place] [address] [phone] 08/25/2024 9:00 EST Office Visit [facility] Adult Hematology & Oncology [address] [place] [address], [place] [address] Leela Turcios FNP [address] [phone] 08/25/2024 10:00 EST Nurse Only [facility] Adult Hem Onc Infusion [address] [place] [address] [phone] 09/08/2024 8:00 EST Office Visit [facility] Adult Hematology & Oncology [address] [place] [address], [place] [address] Brie Artis NP [address] [place] [phone] 09/08/2024 8:30 EST Nurse Only [facility] Adult Hem Onc Infusion [address] [place] [address] [phone] documented as of this encounter Visit Diagnoses Not on filedocumented in this encounter Care Teams Chiller Tender Relationship Specialty Start Date End Date Urbano Lee Jr., MD [address] [phone] PCP - General 03/07/09 documented as of this encounter
--- OUTSIDE RECORDS SUMMARY | 2024-08-14 01:16 | XMS_ITS | Clinical Summary ---
Author Organization [facility] Address [address] [place] [address] Care Team Providers Care Pilot Can Router Name Role Phone Jesus Augustin MD, Urbano Aguayo Primary Care Provider + Allergies No known active allergies Medications omeprazole [...] breakfast for 90 days. 30 Tablet 2 2024 Active Additional Information Patient not taking.Reported [...] Pancreatic cancer metastasized to lung (HCC-CMS) 07/31/2024 Encounters Date Type Department Care Team Description 08/12/2024 14:00 EST External Contact [facility] Department of Palliative and Spiritual Care [address] [place] [address] Yudy Gibson NP Palliative care encounter (Primary Dx); Pancreatic cancer metastasized to lung (HCC-CMS) 08/12/2024 9:00 EST Nurse Only [facility] Adult Hem Onc Infusion [address] [place] [address] Pancreatic cancer metastasized to lung (HCC-CMS) (Primary Dx) 08/12/2024 8:30 EST Office Visit [facility] Adult Hematology & Oncology [address] [place] [address] Brie Artis NP Pancreatic cancer metastasized to lung (HCC-CMS) (Primary Dx); 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); Pancreatic adenocarcinoma (HCC-CMS); Encounter for antineoplastic chemotherapy 08/10/2024 9:10 EST - 08/10/2024 10:45 EST Surgery [facility] Operating Room [address] [place] [address] Evangelist Miranda MD TUNNELED CENTRAL VENOUS DEVICE, WITH SUBCUTANEOUS PORT, >5 Y [[id number] (CPT??)] 08/10/2024 9:07 EST Anesthesia Event [facility] Operating Room [address] [place] [address] Mag Carter MD 08/10/2024 7:34 EST - 08/10/2024 23:59 EST Hospital Encounter [facility] Xray [address] [place] [address] Malignant neoplasm of pancreas, unspecified (HCC-CMS); Secondary malignant neoplasm of unspecified lung (HCC-CMS) Discharge Disposition: Home or Self Care 08/10/2024 7:34 EST - 08/10/2024 11:55 EST Hospital Encounter [facility] Operating Room [address] [place] [phone] Evangelist Miranda MD Pancreatic cancer metastasized to lung (HCC-CMS) (Primary Dx) Discharge Disposition: Home or Self Care 08/07/2024 12:35 EST - 08/07/2024 23:59 EST Hospital Encounter [facility] CT Scan [address] [place] [address] Overlapping malignant neoplasm of pancreas (HCC-CMS) Discharge Disposition: Home or Self Care 08/07/2024 Telephone [facility] Adult Hematology & Oncology [address] [place] [phone] Nusrat Villegas Returning Call (Prescription insurance ) 08/07/2024 Orders Only [facility] Adult Hematology & Oncology [address] [place] [address] Leela Shrestha FNP 08/05/2024 Travel 08/04/2024 13:30 EST Office Visit [facility] General Surgery [address] [place] [address] [phone] Evangelist Miranda MD Pancreatic cancer metastasized to lung (HCC-CMS) (Primary Dx) 08/04/2024 11:00 EST Education [facility] Adult Hematology & Oncology [address] [place] [phone] Leela Shrestha FNP Pancreatic cancer metastasized to lung (HCC-CMS) (Primary Dx); Cancer cachexia (HCC-CMS); Pancreatic carcinoma metastatic to liver (HCC-CMS); Pancreatic adenocarcinoma (HCC-CMS); 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) 08/04/2024 Telephone [facility] Adult Hematology & Oncology [address] [place] [address] Leela Shrestha FNP Coordination Of Care 08/04/2024 Telephone [facility] Hematology & Oncology [address] [place] [address] Leela Shrestha FNP Coordination Of Care 08/03/2024 Telephone [facility] Department of Palliative and Spiritual Care [address] [place] [address] Nicole Del Rio Referral Request (Palliative Care) 07/31/2024 8:30 EST Office Visit [facility] Hematology & Oncology [address] [place] [address] Thomas Padilla MBBS Pancreatic cancer metastasized to lung (HCC-CMS) (Primary Dx) 07/23/2024 7:14 EST - 07/23/2024 23:59 EST Hospital Encounter [facility] Radiology [address] [address] Other specified diseases of pancreas Discharge Disposition: Home or Self Care 07/23/2024 Telephone [facility] [place] [address] Deon Fam MD Results 07/22/2024 15:50 EST Anesthesia Event [facility] Endoscopy [address] [id number] Tashi Caballero MD Rafferty, Melissa, MD 07/22/2024 14:00 EST - 07/22/2024 23:59 EST Hospital Encounter [facility] Endoscopy [address] [id number] Deon Fam MD Zubarik, Anesthesiolgi Tashi Manjarrez MD Pancreatic mass Discharge Disposition: Home or Self Care 07/22/2024 Orders Only [facility] Gastroenterology - [address] [address] Elijah Gonsalves MD Pancreatic mass (Primary Dx) 07/22/2024 Orders Only [facility] CT Scan [address] [place] [address] Flip Eller 07/21/2024 Orders Only [facility] Hematology & Oncology [address] [address] Dagoberto Lafleur, KORY Overlapping malignant neoplasm of pancreas (HCC-CMS) (Primary Dx) 07/14/2024 Orders Only [facility] Hematology & Oncology [address] [address] Dagoberto Lafleur, KORY Pancreatic mass (Primary Dx) 06/30/2024 16:08 EDT - 06/30/2024 23:59 EDT Hospital Encounter [facility] Secondary Reads [place] Discharge Disposition: Home or Self Care 06/22/2024 Lab Requisition [facility] Pathology & Laboratory Medicine [address] [address] Urbano Lee Jr., MD Hyperlipidemia, unspecified 06/12/2024 Orders Only [facility] Pathology & Laboratory Medicine [address] [address] Urbano Lee Jr., MD Encounter for screening for malignant neoplasm of prostate 06/08/2024 Lab Requisition [facility] Pathology & Laboratory Medicine [address] [address] Urbano Lee Jr., MD Left upper quadrant pain from Last 3 Months Surgical History Surgery Date Site/Laterality Comments KIDNEY REMOVAL 09/16/1993 - 09/15/1994 Left ABDOMEN SURGERY Medical History Medical History Date Comments Lung disease COPD Cancer (HCC-CMS) kidney GERD (gastroesophageal reflux disease) Hypertension Wears dentures Does not exercise Exercise involving housework Exercise involving walking Activity, other involving cardiorespiratory exer cise COPD (chronic obstructive pulmonary disease) (HC C-CMS) Productive cough Benign prostatic hyperplasia History of nephrectomy History of kidney stones Pain Family History Medical History Relation Comments Kidney Disease Brother Asthma Father Breast Cancer Mother Diabetes Mother Asthma Sister Kidney Disease Sister Relation Status Comments Brother Father Mother Sister Social History Tobacco Use Types Packs/Day Years [...] 8:48 EDT Sexual Orientation Not on file Obstetrics History Last Filed Vital Signs Vital Sign Reading [...] Info) Description 08/19/2024 10:00 EST Office Visit [facility] Adult Hematology & Oncology [address] [place] [phone] Brie Artis, PARAD[place] [address] [facility] [address] [place] [phone] 08/19/2024 10:30 EST Nurse Only [facility] Adult Hem Onc Infusion [address] [place], [place] [phone] 08/25/2024 9:00 EST Office Visit [facility] Adult Hematology & Oncology [address] [place] [address], [place] [address] Leela Shrestha FNP [address] [facility] [address] [place] [address] 08/25/2024 10:00 EST Nurse Only [facility] Adult Hem Onc Infusion [address] [place] [address] 09/08/2024 8:00 EST Office Visit [facility] Adult Hematology & Oncology [address] [place] [address], [place] [address] Brie Artis, PARADISE [address] [facility] [address] [place] [address] 09/08/2024 8:30 EST Nurse Only [facility] Adult Hem Onc Infusion [address] [place] [address] Health Maintenance Due Date Last Done Comments RSV Immunization ( o r 60+ Years) (1 - Risk 60-74 years 1-dose series) 2011 Fall Risk Screening 12/16/2016 COVID-19 Vaccine ( season) 2024 Lung Cancer Screening 08/07/2025 08/07/2024 Hepatitis C Screen Completed 10/14/2017 Medical Devices Implanted Type Area Glass Lined Tank Repairer Device Identifier Shelf Expiration Date Model / Serial / Lot Port Infusion Isp 1 Lumen Mri 8fr Cath [employer] [facility] [id number] - [id number] Implanted:Qt y: 1 on 08/10/2024 by Evangelist Miranda MD at [facility] Catheter Implant Right: [employer] [id number] / / Procedures Procedure Name Priority Date/Time [...] EST Other specified diseases of pancreas NON MASTER OCEAN/FNA CYTOLOGY Routine 07/22/2024 15:58 EST Pancreatic mass [...] 19-9 2,675(H) <35 U/mL 08/12/2024 19:45 EST [facility] Comment: NOTE: Serum CA 19-9 concentration should not be interpreted as absolute evidence for the presence or absence of malignant disease. Assayed on Siemens ADVIA Centaur XPT using chemiluminescent technology. ??Values obtained by using different assay methods cannot be used interchangeably. Blood VENOUS BLOOD / Unknown Venipuncture / Unknown 08/12/2024 7:58 EST 08/12/2024 7:58 EST us Brie Artis NP CHEMISTRY & BLOOD GAS NIEVES LOCO Final Result [facility] [address] [place] [address] * (ABNORMAL) COMPLETE BLOOD COUNT AND DIFFERENTIAL (08/12/2024 7:58 EST) Only the most recent of2 resultswithin the time period is included. WBC 6.39 4.00 - 10.40 K/cmm 08/12/2024 8:11 [facility] HEMATOLOGY & ONCOLOGY [facility] RBC 3.76(L) 4.36 - 5.78 M/cmm 08/12/2024 8:11 [facility]ATOLOG[facility] [place] Hemoglobin 12.0(L) 13.8 - 17.3 g/dL 08/12/2024 8:11 [facility] HEMATOLOGY & [facility]COLOGY [facility] [place] HCT 36.1(L) 39.5 - 50.2 % 08/12/2024 8:11 [facility] HEMATOLOGY & [facility]COLOGY [place] MCV 96(H) 81 - 95 fL 08/12/2024 8:11 [facility] & ONCOLOGY [facility] MCH 31.9 27.6 - 33.0 pg 08/12/2024 8:11 [facility] HEMATOLOGY & [facility]COLOGY [place] MCHC 33.2 32.8 - 36.4 g/dL 08/12/2024 8:11 [facility] & ONCOLOGY [facility] RDW-CV 13.5 <14.2 % 08/12/2024 8:11 [facility] & ONCOLOGY [facility] RDW-SD 48.6(H) <46.0 fl 08/12/2024 8:11 [facility] HEMATOLOGY & ONCOLOGY [facility] PLT 126(L) 141 - 377 K/cmm 08/12/2024 8:11 [facility] HEMATOLOG[facility] [place] MPV 10.5 9.5 - 12.7 fL 08/12/2024 8:11 [facility] HEMATOLOGY & ONCOLOGY - [place] % Neutrophils 71.7 Not Indicated % 08/12/2024 8:11 [facility]AT[facility] [place] % Lymphocytes 14.4 Not Indicated % 08/12/2024 8:11 [facility]ATOLOG[facility] [place] % Monocytes 8.8 Not Indicated % 08/12/2024 8:11 [facility]ATOLOG[facility] [place] % Eosinophils 4.4 Not Indicated % 08/12/2024 8:11 [facility]ATOLOG[facility] [place] % Basophils 0.5 Not Indicated % 08/12/2024 8:11 EST [facility] [place] [facility] [place] % Immature Grans 0.2 <0.9 % 08/12/2024 8:11 EST [facility] [place] [facility] Absolute Neutrophils 4.59 2.20 - 8.85 K/cmm 08/12/2024 8:11 [facility]AT[facility] [place] Absolute Lymphocytes 0.92(L) 1.09 - 3.30 K/cmm 08/12/2024 8:11 EST [facility] [place] [facility] Absolute Monocytes 0.56 0.10 - 0.80 K/cmm 08/12/2024 8:11 EST [facility] [place] [facility]COL[facility]Y [facility] Absolute Eosinophils 0.28 0.03 - 0.61 K/cmm 08/12/2024 8:11 EST [facility] [place] [facility]COL[facility]Y [facility] ABS Basophils 0.03 0.01 - 0.11 K/cmm 08/12/2024 8:11 [facility] HEMATOLOGY & ONCOLOGY [facility] Absolute Immature Grans 0.01 0.00 - 0.06 K/cmm 08/12/2024 8:11 EST [facility] [place] [facility]COLOGY [facility] Type of Differential: Auto 08/12/2024 8:11 EST [facility] [place] [facility]AT[facility] & ONCOLOGY [facility] Blood VENOUS BLOOD / Unknown Venipuncture / Unknown 08/12/2024 7:58 EST 08/12/2024 7:58 EST rBie Artis HEALTH COUNSELOR PACKAGES & DNA PROBE ORDER LINDA Final Result [facility] [place] [facility] & ONCOLOGY [facility] Medical Office [address], [address] [place] [address] * (ABNORMAL) MAGNESIUM (08/12/2024 7:58 EST) Magnesium 1.4(L) 1.7 - 2.8 mg/dL 08/12/2024 8:23 EST [facility] Blood VENOUS BLOOD / Unknown Venipuncture / Unknown 08/12/2024 7:58 EST 08/12/2024 7:58 EST Brie Artis HEALTH COUNSELOR CHEMISTRY & BLOOD GAS ORDE RABLES Final Result [facility] [address] [place] [address] * (ABNORMAL) COMPREHENSIVE METABOLIC PANEL (CMP) (08/12/2024 7:58 EST) Only the most recent of2 resultswithin the time period is included. Sodium 138 136 - 145 mmol/L 08/12/2024 8:23 [facility] Potassium 4.1 3.5 - 5.0 mmol/L 08/12/2024 8:23 [facility] Chloride 103 96 - 110 mmol/L 08/12/2024 8:23 [facility] CO2 Total 28 22 - 32 mmol/L 08/12/2024 8:23 [facility] Glucose 120(H) 70 - 99 mg/dl 08/12/2024 8:23 [facility] BUN 16 10 - 26 mg/dL 08/12/2024 8:23 [facility] Creatinine 0.90 0.66 - 1.25 mg/dL 08/12/2024 8:23 [facility] eGFR 91 >60 mL/min/1. 73m2 08/12/2024 8:23 [facility] Total Protein 6.5 6.3 - 8.2 g/dL 08/12/2024 8:23 [facility] Comment:The sample was colle cted in a [place] Heparin anticoagulated tube. An average positive bias of 6% with an individual sample bias up to 10% may be observed with heparin plasma results compared to serum results. Albumin 3.9 3.4 - 4.9 g/dL 08/12/2024 8:23 [facility] Alkaline Phosphatase 159(H) 38 - 126 U/L 08/12/2024 8:23 [facility] AST 51(H) 15 - 46 U/L 08/12/2024 8:23 [facility] ALT 68(H) <50 U/L 08/12/2024 8:23 [facility] Bilirubin, Total 0.7 <1.4 mg/dL 08/12/2024 8:23 [facility] Calcium 10.5 8.5 - 10.5 mg/dL 08/12/2024 8:23 [facility] Albumin/Globulin Ratio 1.5 1.0 - 2.5 08/12/2024 8:23 [facility] Anion Gap 7 5 - 14 mmol/L 08/12/2024 8:23 [facility] Blood VENOUS BLOOD / Unknown Venipuncture / Unknown 08/12/2024 7:58 EST 08/12/2024 7:58 EST us Brie Artis NP CHEMISTRY & BLOOD GAS ORDE CLAUDY Final Result [facility] [address] [place] [address] * ECG REPORT - SCANNED (08/11/2024 12:06 EST) 08/11/2024 12:0 6 EST us Scan 2 Regional Wildlife Agent PROCEDURE/MINOR SURGICAL OR DERABLES Final Result * [...] SVC. No pneumothorax. 2. Bilateral pulmonary nodules. [id number] Narrative 08/10/2024 11:00 EST INDICATION: Status post [...] bone or joint abnormality. Resulting Agency Comment [id number] Procedure Note Reji Coello MD - 08/10/2024 [...] lower SVC. Nopneumothorax. 2. Bilateral pulmonary nodules. [id number] us Evangelist Miranda MD IMG DIAGNOSTIC IMAGING [...] REGARDING THIS REPORT PLEASE CALL [facility] AT [phone] [facility] 08/09/2024 19:23 EST PROCEDURE INFORMATION: Exam: CT [...] CONCERNS REGARDING THIS REPORT PLEASE CALL [facility] [phone] us Kirill Scott MD IM CT ORDERABLES Final Result * (ABNORMAL) COMPREHENSIVE METABOLIC PANEL (ONCOLOGY USE ONLY-INC MG) (07/31/2024 9:26 EST) Sodium 139 136 - 145 mmol/L 07/31/2024 10:55 EST [facility] Potassium 4.1 3.5 - 5.0 mmol/L 07/31/2024 10:55 [facility] Chloride 102 96 - 110 mmol/L 07/31/2024 10:55 [facility] CO2 Total 27 22 - 32 mmol/L 07/31/2024 10:55 [facility] Glucose 115(H) 70 - 99 mg/dl 07/31/2024 10:55 [facility] BUN 29(H) 10 - 26 mg/dL 07/31/2024 10:55 [facility] Creatinine 0.90 0.66 - 1.25 mg/dL 07/31/2024 10:55 [facility] eGFR 91 >60 mL/min/1.7 3m2 07/31/2024 10:55 [facility] Total Protein 7.0 6.3 - 8.2 g/dL 07/31/2024 10:55 [facility] Albumin 4.2 3.4 - 4.9 g/dL 07/31/2024 10:55 [facility] Alkaline Phosphatase 156(H) 38 - 126 U/L 07/31/2024 10:55 [facility] AST 47(H) 15 - 46 U/L 07/31/2024 10:55 [facility] ALT 58(H) <50 U/L 07/31/2024 10:55 [facility] Bilirubin, Total <0.5 <1.4 mg/dL 07/31/20 10:55 [facility] Calcium 11.1(H) 8.5 - 10.5 mg/dL 07/31/2024 10:55 [facility] Magnesium 1.5(L) 1.7 - 2.8 mg/dL 07/31/2024 10:55 [facility] Albumin/Globulin Ratio 1.5 1.0 - 2.5 07/31/2024 10:55 [facility] Anion Gap 10 5 - 14 mmol/L 07/31/2024 10:55 [facility] Blood VENOUS BLOOD / Unknown Venipuncture / Unknown 07/31/2024 9:26 EST 07/31/2024 9:26 EST us Thomas CLAROS CHEMISTRY & BLOOD GAS ORDERABLE S Final Result [facility] [address] [place] [address] * ENDOSCOPIC ULTRASOUND PROCEDURE (07/23/2024 9:06 EST) [...] 3-4. 7. ??Other chronic findings as outlined. [id number] Narrative 07/24/2024 15:[address] SUBSPECIALTY RADIOLOGY CONSULT BODY ??07/23/2024 7:14 AM Signs and Symptoms/Comments: tumor board review Technique: This is a secondary interpretation of CT abdomen and pelvis with IV contrast images obtained at ?? [facility] ??on ??06/30/24 ??, performed at the [...] No significant finding. Musculoskeletal: No suspicious findings. Suction Dredge Dumping Supervisor: No additional findings. Resulting Agency Comment [id number] Procedure Note Nohelia Hay MD - 07/24/2024 CT SUBSPECIALTY RADIOLOGY CONSULT BODY 07/23/2024 7:14 AM Signs and Symptoms/Comments: tumor board review Technique: This is a secondary interpretation of CT abdomen and pelviswith IV contrast images obtained at [facility] on 06/30/24 ,performed at the request [...] No significant finding. Musculoskeletal: No suspicious findings. Suction Dredge Dumping Supervisor: No additional findings. IMPRESSION 1. Approximately 3.1 [...] 3-4. 7. Other chronic findings as outlined. [id number] us Deon Fam MD [facility] ORDERABLES Final Res ult * NON MASTER OCEAN/FNA CYTOLOGY (07/22/2024 15:58 EST) Note to Patient The following pathology results have been interpreted by your pathologist and may be available to you before your health provider has had the opportunity to review them. Please allow time for your provider to receive these results and explore management options, if applicable. 07/23/2024 15:22 EST [facility] Final Diagnosis A. PANCREAS, BODY, MASS, ENDOSCOPIC ULTRASOUND-GUIDED FINE NEEDLE ASPIRATION: - Adenocarcinoma. See comment. 07/23/2024 15:22 [facility] Diagnosis Comment Cytologic evaluation demonstrates [...] in the appropriate clinical setting. 07/23/2024 15:22 [facility] Attestation There was significant resident/fellow involvement in the diagnostic evaluation of this case. By the signature below, the attending physician certifies that they have personally conducted a gross and/or microscopic examination of the described specimens and rendered or confirmed the above diagnosis. 07/23/2024 15:22 [facility] at 1522 Rapid Diagnosis A. PANCREAS, BODY MASS, ENDOSCOPIC ULTRASOUND GUIDED FINE NEEDLE ASPIRATION: Evaluation Episode 1: Pass 1: Adenocarcinoma. Dedicated passes for cell block. Rapid interpretation performed by: Dr. Jose Manuel Lynch; 07/22/24; 1630 07/23/2024 15:22 [facility] Clinical History Pancreatic mass 07/23/2024 15:22 [facility] Gross Description A. 2 fixed prepared slides, 1 air dried prepared slides, and 1 tube of RPMI for cell block processing were received. 07/23/2024 15:22 [facility] Resident/Eliezer w: Marilee Garcia DO 07/23/2024 15:22 [facility] Performing Lab [facility] 07/23/2024 15:22 [facility] Scanned Images 07/23/2024 15:22 [facility] Fine Needle Aspirate PANCREATIC STRUCTURE / Unknown 07/22/2024 15:58 EST 07/22/2024 16:25 EST us Deon Fam MD PATHOLOGY ORDERABLES Final Result [facility] [address] [place] [address] * LIPID PROFILE (INCLUDES CHOLESTEROL, TRIGLYCERIDES, HDL, LDL) (06/22/2024 13:19 EDT) Cholesterol 145 <200 mg/dL 06/22/2024 21:54 EDT [facility] Comment:Note that therapeuti c goals will differ between patients based on cardiac risk factors and current medical therapy. HDL 40 >=40 mg/dl 06/22/2024 21:54 EDT [facility] Comment:Note that therapeuti c goals will differ between patients based on cardiac risk factors and current medical therapy. LDL, Calculated 82 <160 mg/dL 21:54 EDT [facility] Comment:Note that therapeuti c goals will differ between patients based on cardiac risk factors and current medical therapy. Triglyceride 114 <=150 mg/dL 06/22/2024 21:54 EDT [facility] Comment:Note that therapeuti c goals will differ between patients based on cardiac risk factors and current medical therapy. Chol/HDL Ratio 3.6 See Note 06/22/2024 21:54 T [facility] Comment:No reference range h as been established for CHOL/HDL ratio. Non HDL Cholesterol 105 <160 mg/dL 06/22/2024 21:54 T [facility] Comment:Note that therapeuti c goals will differ between patients based on cardiac risk factors and current medical therapy. Blood VENOUS BLOOD / Unknown 06/22/2024 13:19 EDT 06/22/2024 21:27 EDT Urbano Lee Jr., MD CHEMISTRY & BLOOD GAS OR DERABLES Final Result [facility] [address] [place], [place] [id number] * (ABNORMAL) PSA SCREEN (06/08/2024 13:50 EDT) PSA 7.8(H) <=6.5 ng/mL 06/12/2024 10:33 EDT [facility] Blood VENOUS BLOOD / Unknown 06/08/2024 13:50 EDT 06/08/2024 22:23 EDT Narrative [facility] - 06/12/2024 10:33 EDT NOTE: Serum PSA concentration should not be interpreted as absolute evidence for the presence or absence of malignant disease. Assayed on [employer]ematter[employer] XPT using chemiluminescent technology.??Values obtained by using different assay methods cannot be used interchangeably. us Urbano Lee Jr., MD CHEMISTRY & BLOOD GAS OR DERABLES Final Result Performing Organization Address [facility] Co de Phone Number [facility] [address] [place] [address] * LIPASE (06/08/2024 13:50 EDT) Lipase 74 <251 U/L 06/08/2024 22:39 EDT [facility] Blood VENOUS BLOOD / Unknown 06/08/2024 13:50 EDT 06/08/2024 22:23 EDT Urbano Lee Jr., MD CHEMISTRY & BLOOD GAS OR DERABLES Final Result Performing Organization Address [facility] de Phone Number [facility] [address] [place] [address] * AMYLASE (06/08/2024 13:50 EDT) Pathologist [facility] Amylase 46 30 - 110 U/L 06/08/2024 22:39 EDT [facility] Blood VENOUS BLOOD / Unknown 06/08/2024 13:50 EDT 06/08/2024 22:23 EDT us Urbano Lee Jr., MD CHEMISTRY & BLOOD GAS OR DERABLES Final Result Performing Organization Address [facility] Co de Phone Number [facility] [address] [place] [id number] * HEPATITIS C AB W REFLEX TO HCV RNA BY PCR (10/14/2017 8:00 EST) Hep C Ab w Rfx PCR HCSCR2 Negative Negative 10/15/2017 11:34 EST [facility] BLOOD SPECIMEN / Unknown 10/14/2017 8:00 EST 10/14/2017 21:17 EST Urbano Lee Jr., MD CHEMISTRY & BLOOD GAS OR DERABLES Final Result [facility] [address] [place] [phone] from Last 3 Months or Most Recently Relevant to Health Maintenance Insurance MEDICARE [place]BS [place] [facility] Address: [address] [address] MEDICARE [place]BS [place] Advance Directives For more information, please contact: [phone] * Full Code (Latest Code Status on File) Date Activated Date Inactivated Comments 08/10/2024 7:46 08/10/2024 13:55 Question Answer Comments When the patient has NO PULSE: Full Code / CPR Who Made the Decision? Patient Care Teams Pilot Can Router Relationship Specialty Start Date End Date Urbano Lee Jr., MD [address] [phone] PCP - General 03/07/09
--- OUTSIDE RECORDS SUMMARY | 2024-08-14 01:16 | XMS_ITS | Encounter Summary ---
Author Organization [facility] Address [address] [place] [address] Care Team Providers Care Architectural Engineering Teacher Name Role Phone Jesus Augustin MD, Urbano Aguayo Primary Care Provider + Encounter Details Date Type Department Care Team (Latest Contact Info) Description 08/05/2024 Travel Social History Tobacco Use Types Packs/Day Years Used Date Smoking Tobacco: Every Day Cigarettes 0.5 50.9 Started: 1972 Alcohol Use Standard Drinks/Week Comments Not Currently [...] on file documented as of this encounter Plan of Treatment Upcoming Encounters Date Type Department Care Team (Late st Contact Info) Description 08/19/2024 10:00 EST Office Visit [facility] [address] [place] [phone] Brie Artis, [place] [address] [facility] [address] [place] [address] 08/19/2024 10:30 EST Nurse Only [facility] On[facility]fusion [address] [place] [address] 08/25/2024 9:00 EST Office Visit [facility]ology [facility] Oncology [address] [place] [phone] Leela Turcios FNP [address] [facility] [address] [place] [phone] 08/25/2024 10:00 EST Nurse Only [facility] [address] [place], [place] [phone] 09/08/2024 8:00 EST Office Visit [facility]ology [facility]cology [address] [place] [phone] Brie Artis, [place] [address] [facility] [address] [place] [phone] 09/08/2024 8:30 EST Nurse Only [facility] [address] [place], [place] [phone] documented as of this encounter Visit Diagnoses Not on filedocumented in this encounter Care Teams Architectural Engineering Teacher Relationship Specialty Start Date End Date Urbano Lee Jr., MD [address] [phone] PCP - General 03/07/09 documented as of this encounter
--- OUTSIDE RECORDS SUMMARY | 2024-08-14 01:16 | XMS_ITS | Encounter Summary ---
Author Organization [facility] Address [address] [place] [address] Care Team Providers Care Insulation Cupola Operator Name Role Phone Jesus Augustin MD, Urbano Aguayo Primary Care Provider + Reason for Visit * Reason Comments Chemotherapy And Provider Visit C1 FOLFI RINOX * Episode Based Medications (Routine) - Authorization Not Required Specialty Diagnoses / Procedures [facility]erred To Contact Diagnoses Pancreatic cancer metastasized to lung (HCC-CMS) Thomas Padilla MBBS [address] [facility] [address] [place] [address] Phone: tel: fax: [facility] Hem Onc Infusion [address] [place] [address] Phone: tel: Referral ID Status Reason Start Date Expiration Date Visits Requested Visits Authorized [id number] Authorization Not Required 4 1 1 Encounter Details Date Type Department Care Team (Late st Contact Info) Description 08/12/2024 9:00 EST Nurse Only [facility] Hem Onc Infusion [address] [place] [address] Pancreatic cancer metastasized to lung (HCC-CMS) (Primary Dx) Social History Tobacco Use Types Packs/Day Years [...] EST Pulse 87 08/12/2024 1244 EST Temperature - - Respiratory Rate - - Oxygen Saturation 95% 08/12/2024 1244 EST Inhaled Oxygen Concentration - - Weight - - Height - - Body Mass Index - - documented in this encounter Progress Notes * Jennifer House RN - 08/12/2024 0900 EST Jose is here to begin C1 FOLFIRINOX. He had a chemo talk last week where consent was signed. Port placed 08/10/24 which is healing and working well. Mg is low at 1.4 so he will be given 4gm IV in office today. He was also given a list of Magnesium/Potassium rich foods. He and his family met with Palliative care today during the infusion. We reviewed the anti-emetics and bowel regimens. I gave him written instructions as well. About an hour in to the infusion, patient complained of feeling lightheaded and having a runny nose. Infusion stopped; vitals taken and WNL (see flowsheet). Jose Manuel Artis in to see patient. Order to give0.5 mg Atropine. Patient did have some cramping and feeling nauseous which did pass quickly. Infusion restarted and patient was able to tolerate the rest without any further issues. He will have his 5FU pump disconnected at [facility] on Saturday, 08/14 at 1130. Orders faxed as well as a copy given to patient. He will return in one week for an interim visit then in two weeks for his next cycle. Encouraged him and his to call with any questions or concerns, JENNIFER HOUSE RN documented in this encounter Plan of Treatment Upcoming Encounters Date Type Department Care Team (Late st Contact Info) Description 08/19/2024 10:00 EST Office Visit [facility] Hematology & Oncology [address] [place] [phone] Brie Artis, [place] [address] [facility] [address] [place] [phone] 08/19/2024 10:30 EST Nurse Only [facility] Hem Onc Infusion [address] [facility], [place] [phone] 08/25/2024 9:00 EST Office Visit [facility] Hematology & Oncology [address] [place] [address], [place] [phone] Leela Turcios FNP [address] [facility] [address] [place] [phone] 08/25/2024 10:00 EST Nurse Only [facility] Hem Onc Infusion [address] [facility], [place] [id number] 09/08/2024 8:00 EST Office Visit [facility] Hematology & Oncology [address] [place] [address], [place] [phone] Brie Artis, [place] [address] [facility] [address] [place] [phone] 09/08/2024 8:30 EST Nurse Only [facility] Hem Onc Infusion [address] [facility], [place] [phone] documented as of this encounter Visit Diagnoses Diagnosis Pancreatic cancer metastasized to lung (HCC-CMS)- Primary Malignant neoplasm of pancreas, part unspecified documented in this encounter Administered Medications Inactive Administered Medications - up to 3 most recent administrations Medication Order MAR Action Action Date Dose Rate Site atropine solution 0.5 mg 0.5 mg, intravenous, PRN, Starting on Sat08/12/24 at 1249, Until Sat08/12/24 at 1610, diarrhea or flushing, RoutineIndications:Pancreatic cancer metastasized to lung (HCC-CMS) Given 08/12/2024 12:44 EST 0.5 mg dexAMETHasone (DECADRON) 12 mg in sodium chloride (NS) 0.9 % 100 mL IVPB 12 mg, intravenous, NOW X1, 1 dose, On Sat08/12/24 at 0845, RoutineIndications:Pancreatic cancer metastasized to lung (HCC-CMS) Given 08/12/2024 8:40 EST 12 mg dextrose 5 % (D5W) infusion intravenous, PRN, Starting on Sat08/12/24 at 0823, Until Sat08/12/24 at 1610, OtherIndications:Pancreatic cancer metastasized to lung (HCC-CMS) Given 08/12/2024 8:33 EST 250 mL famotidine (PEPCID) injection 20 mg 20 mg, intravenous, NOW X1, 1 dose, On Sat08/12/24 at 0845, RoutineIndications:Pancreatic cancer metastasized to lung (HCC-CMS) Given 08/12/2024 8:36 EST 20 mg fluorouracil (ADRUCIL) infusion cassette 5,200 mg 5,200 mg, intravenous, NOW X1, 1 dose, On Sat08/12/24 at 1245, RoutineIndications:Pancreatic cancer metastasized to lung (HCC-CMS) Given 08/12/2024 13:35 EST 5,200 mg fosaprepitant (EMEND) 150 mg in sodium chloride (NS) 0.9 % 150 mL infusion 150 mg, intravenous, Administer over 30 Minutes, NOW X1, 1 dose, On Sat08/12/24 at 0845, RoutineIndications:prevention of chemotherapy-induced nausea and vomiting New Bag 08/12/2024 9:02 EST 150 mg irinotecan (CAMPTOSAR) 320 mg in dextrose 5% (D5W) 500 mL chemo infusion 320 mg, intravenous, NOW X1, 1 dose, On Sat08/12/24 at 1115, Administer over 90 MinutesIndications:Pancreatic cancer metastasized to lung (HCC-CMS) New Bag 08/12/2024 11:35 EST 320 mg leucovorin 875 mg in dextrose 5% (D5W) 100 mL infusion 875 mg, intravenous, NOW X1, 1 dose, On Sat08/12/24 at 1115, Administer over 90 MinutesIndications:Pancreatic cancer metastasized to lung (HCC-CMS) New Bag 08/12/2024 11:35 EST 875 mg magnesium sulfate 2 g in water 50 mL 2 g, central line, Administer over 30 Minutes, EVERY 30 MINUTES, 2 doses, First dose on Sat08/12/24 at 0915, Last dose on Sat08/12/24 at 0945, RoutineIndications:Pancreatic cancer metastasized to lung (HCC-CMS) New 08/12/2024 10:01 EST 2 g New 08/12/2024 9:30 EST 2 g oxaliplatin (ELOXATIN) 185 mg in dextrose 5% (D5W) 250 mL chemo infusion 185 mg, intravenous, NOW X1, 1 dose, On Sat08/12/24 at 0915, Administer over 120 MinutesIndications:Pancreatic cancer metastasized to lung (HCC-CMS) New 08/12/2024 9:30 EST 185 mg palonosetron (ALOXI) injection 0.25 mg 0.25 mg, intravenous, NOW X1, 1 dose, On Sat08/12/24 at 0845, RoutineIndications:Pancreatic cancer metastasized to lung (HCC-CMS) Given 08/12/2024 8:35 EST 0.25 mg sodium chloride 0.9 % (flush) flush 10 mL 10 mL, intravenous, PRN, Starting on Sat08/12/24 at 0845, Until Sat08/12/24 at 1610, for PIV placement flush or central line access, RoutineIndications:Pancreatic cancer metastasized to lung (HCC-CMS) Given 08/12/2024 8:33 EST 10 mL documented in this encounter Orders Nursing Count Last Ordered Date First Orde red Date INFORMED CONSENT 08/12/2024 documented in this encounter Care Teams Insulation Cupola Operator Relationship Specialty Start Date End Date Urbano Lee Jr., MD [address] [phone] PCP - General 03/07/09 documented as of this encounter
--- OUTSIDE RECORDS SUMMARY | 2024-08-14 01:16 | XMS_ITS | Encounter Summary ---
Author Organization [facility] Address [address] [place] [address] Care Team Providers Care Spin Tank Tender Name Role Phone Jesus Augustin MD, Urbano Aguayo Primary Care Provider + Reason for Referral * Consult (Routine/Next Available) - Authorization Not Required Specialty Diagnoses / Procedures Referred By Deonna lindo Referred To Contact Nutrition Diagnoses Pancreatic cancer metastasized to lung (HCC-CMS) Thomas Padilla MBBS [address] [address] Phone: tel: fax: [facility] Adult Primary Care [address] [address] Phone: tel: fax: Referral ID Status Reason Start Date Expiration Date Visits Requested Visits Authorized [id number] Authorization Not Required Specialty Services Required 07/31/20 24 1 1 Question Answer Healthy living: Other, Chronic disease Please specify: Metastatic pancreatic cancer * Consult (Routine/Next Available) - Authorization Not Required Specialty Diagnoses / Procedures Referred By Deonna lindo Referred To Contact Diagnoses Pancreatic cancer metastasized to lung (HCC-CMS) Thomas Padilla MBBS [address] [address] Phone: tel: fax: [facility] Department of Palliative and Spiritual Care [address] [place] [address] Phone: tel: Referral ID Status Reason Start Date Expiration Date Visits Requested Visits Authorized [id number] Authorization Not Required Specialty Services Required 07/31/20 24 1 1 Question Answer Advanced care planning: Yes Support & Resources: Yes Advanced Directive/COLST Form: Yes Goals of Care: Yes End of Life: Yes Symptom Management: Yes ASCO Guidelines Yes * Consult (Urgent) - Specialty Report Received Specialty Diagnoses / Procedures Referred By [facility] Referred To Contact General Surgery Diagnoses Pancreatic cancer metastasized to lung ([facility]) Thomas Padilla MBBS 111 [facility] [address] [place] [address] Phone: tel: fax: [facility] General Surgery [address] [place] [address] Phone: tel: fax: Referral ID Status Reason Start Date Expiration Date Visits Requested Visits Authorized [id number] Specialty Report Received Specialty Services Required 4 1 1 Question Answer Scheduling Comments (optional ? describe specific scheduling needs if applicable): As soon as possible Reason for Request: Need a port for chemotherapy Reason for Visit * Reason Comments New Patient Visit Newly diagnosed meta static pancreatic cancer * Consult (Routine) - Authorization Not Required Specialty Diagnoses / Procedures Referred By [facility] Referred To Contact Hematology and Oncology Diagnoses Pancreatic cancer ([facility]) Urbano Lee Jr., MD [address] [address] Phone: tel: fax: [facility] Adult Hematology & Oncology [address] [place] [address] Phone: tel: fax: Referral ID Status Reason Start Date Expiration Date Visits Requested Visits Authorized [id number] Authorization Not Required 1 1 Encounter Details Date Type Department Care Team (Late st Contact Info) Description 07/31/2024 8:30 EST Office Visit [facility] Adult Hematology & Oncology [address] [place] [phone] Thomas Padilla MBBS 111 [facility], [facility], [facility] [address] [place] [address] Pancreatic cancer metastasized to lung (HCC-CMS) (Primary [...] Sign Reading Time Taken Comments Blood Pressure 96/62 07/31/2024 0824 EST Pulse 70 07/31/2024 0824 EST Temperature - - Respiratory Rate - - Oxygen Saturation 97% 07/31/2024 0824 EST Inhaled Oxygen Concentration - - Weight 92.5 kg (204 lb) 07/31/2024 0824 EST Height - - Body Mass Index 27.67 07/22/2024 1508 EST documented in this encounter Ordered Prescriptions Prescription Sig Dispense Quantity Refills Last Filled Start Date End Date pantoprazole (PROTONIX) 40 mg tablet Take 1 Tablet by mouth daily before breakfast for 90 days. 30 Tablet 2 07/31/2024 5 OLANZapine (ZYPREXA) 5 mg tablet Take 1 Tablet by mouth at bedtime for 90 days. 30 Tablet 2 07/31/2024 5 documented in this encounter Progress Notes * Alexandrea Chester RN - 07/31/2024 0830 EST Suspicion of Abuse: no - If yes, please document evidence: - Assessed on: 07/31/24 8:29 - Assessed by: ALEXANDREA CHESTER RN * Thomas Padilla MBBS - 07/31/2024 0830 EST Images from the original note were not included. Oncology New Patient Consult Date of Visit:07/31/2024 Reason for visit: Newly diagnosed metastatic pancreatic carcinoma Referring Physician: Urbano Lee Jr History of Present Illness: Jose Harrell is a 73-year-old gentleman with medical history significant for tobacco smoking, hypertension, left kidney resection (localized cancer), and recently diagnosed metastatic pancreatic adenocarcinoma. He is referred to medical oncology for further evaluation and treatment. Jose mentioned that around April 2024 started to have some abdominal pain which progressively worsened and in June he had a CT abdomen which showed a possible pancreatic mass along with liver mas. On 07/22, he underwent endoscopy ultrasound with FNA, path showed pancreatic adenocarcinoma. Jose continues to have abdominal pain though he is able to carry out a daily activity. His appetite has decreased, and he has lost around 25lbs of weight. He also has been having indigestion with burning sensation in the abdomen. Does not report diarrhea. He does not report chest pain or shortnessof breath. ECOG-PS 1 He lives in [place], [place] with his . Retired, have 2 kids. Actively smokes (> 50 pack year). No alcohol or illicit drug use. No significant family history of cancer Oncologic History: #Metastatic Pancreatic Adenocarcinoma - April 2024: Started to have diffuse abdominal pain, which continued to be progressive - 06/30/2024: CT abdomen/pevis showed 3.1 cm pancreatic body mass along with multiple liver lesions(largest measuring around 4.2 cm) and multiple pulmonary nodules with peritoneal mets concerning for diffuse metastatic disease. - 07/22/2024: Underwent EUS guided biopsy of the pancreatic body mass, pathology consistent with pancreatic adenocarcinoma. Patient Active Problem List Diagnosis Date Noted Pancreatic cancer metastasized to lung (HCC-CMS) 07/31/2024 Priority: Medium PMH PSH Past Medical History: Diagnosis Date Cancer (HCC-CMS) kidney GERD (gastroesophageal reflux disease) Hypertension Lung disease COPD Past Surgical History: Procedure Laterality Date KIDNEY REMOVAL Left 1993 SOCIAL HISTORY FAMILY HISTORY Social History Tobacco Use Smoking status: Every Day Types: Cigarettes Smokeless tobacco: Not on file Substance Use Topics Alcohol use: Not Currently No family history on file. ALLERGIES No Known Allergies Current Outpatient Medications Medication albuterol 90 mcg/actuation HFA aerosol inhaler inhaler aspirin chewable 81 mg tablet atorvastatin (LIPITOR) 10 mg tablet fluticasone furoate-vilanteroL (BREO ELLIPTA) 100-25 mcg/dose blister with device lisinopriL (PRINIVIL) 10 mg tablet OLANZapine (ZYPREXA) 5 mg tablet omeprazole (PRILOSEC) 20 mg capsule ondansetron (ZOFRAN-ODT) 4 mg disintegrating tablet pantoprazole (PROTONIX) 40 mg tablet traMADol (ULTRAM) 50 mg tablet No current facility-administered medications for this visit. REVIEW OF SYSTEMS: A complete 10 point review of systems was performed and is otherwise negative. Physical Exam: Vitals: 07/31/24 0824 BP: 96/62 Pulse: 70 SpO2: 97% Weight: 92.5 kg (204 lb) ECOG-PS: 1 General: Nontoxic, no apparent distress, appears stated age. Eyes: Sclerae anicteric, pupils equally reactive to light. Extraocular movements grossly intact. ENT/neck: Oral mucosa without lesions. Neck is supple, without masses or thyromegaly. Chest is clear to auscultation bilaterally. Cardiovascular: Regular rate and rhythm, no murmurs, gallops or rubs. Abdomen is soft, nontender, nondistended with normal abdominal bowel sounds. Extremities: Moving all extremities, no edema. Neuro: Oriented and appropriate. No focal deficit. Labs: Lab Results Component Value Date WBC 6.67 07/31/2024 HGB 13.5 (L) 07/31/2024 HGB 15.4 06/17/2023 HCT 39.0 (L) 07/31/2024 MCV 94 07/31/2024 RDWCV 12.8 07/31/2024 PLT 142 07/31/2024 Lab Results Component Value Date NA 139 07/31/2024 K 4.1 07/31/2024 CL 102 07/31/2024 CO2 27 07/31/2024 BUN 29 (H) 07/31/2024 CREATININE 0.90 07/31/2024 CALCGFR 91 07/31/2024 Imaging: CT SUBSPECIALTY RADIOLOGY CONSULT BODY Result Date: 07/24/2024 1. Approximately 3.1 cm ill-defined hypodensity in [...] 3-4. 7. Other chronic findings as outlined. [id number] Assessment: Jose Lopezis 3-year-old gentleman with metastatic pancreatic adenocarcinoma. We discussed that he has stage IV pancreatic cancer and unfortunately, it cannot be cured though we do have treatment optionswhich can help to slow the growth of the cancer and prolong the life and quality of life. Treatmentoption includes combination chemotherapy (FOLFIRINOX or gemcitabine plus albumin-bound paclitaxel).We will also test the tumor for somatic mutation specially BRCA1/2 or PALB2. Given Jose's performance status, I would recommend mFOLFIRINOX, we discussed about the potential side effects of chemotherapy not limited to weakness, fatigue, mucositis, nausea/vomiting, diarrhea, neuropathy and low cell counts. We also discussed about the role of palliative care in advanced stage cancer. We will also try low dose olanzapine for appetite and cancer cachexia. Jose and his family are in agreement with the treatment plan and referral to palliative care. Plan: -Scheduled for chemotherapy (mFOLFIRINOX), every 2 weeks -Port placement -Somatic mutation testing and referred for germline genetic testing -Follow-up CT chest scheduled on 08/07 -Palliative care referral -Olanzapine 5mg at [facility] to help with the appetite -Pantoprazole 40mg once in the morning for possible gastritis This note is prepared by using voice recognition software, please excuse marine diesel technician errors. documented in this encounter Plan of Treatment Upcoming Encounters Date Type Department Care Team (Late st Contact Info) Description 08/19/2024 10:00 EST Office Visit [facility] Adult Hematology & Oncology [address] [place] [phone] Brie Artis, [place] [address] [facility] [address] [place] [phone] 08/19/2024 10:30 EST Nurse Only [facility] Adult Hem Onc Infusion [address] [facility], [place] [id number] 08/25/2024 9:00 EST Office Visit [facility] Adult Hematology & Oncology [address] [place] [address], [place] [phone] Leela Turcios FNP [address] [facility] [address] [place] [phone] 08/25/2024 10:00 EST Nurse Only [facility] Adult Hem Onc Infusion [address] [facility], [place] [id number] 09/08/2024 8:00 EST Office Visit [facility] Adult Hematology & Oncology [address] [place] [address], [place] [phone] Brie Artis, [place] [address] [facility] [address] [place] [address] 09/08/2024 8:30 EST Nurse Only [facility] Adult Hem Onc Infusion [address] [facility] [place] [address] Scheduled Orders Name Type Priority Associated Diagnoses Orde r Schedule COMPLETE BLOOD COUNT AND DIFFERENTIAL Lab STAT Pancreatic cancer metastasized to lung (HCC-CMS) 20 Occurrences starting 07/31/2024 until 07/31/2025, 1 completed COMPREHENSIVE METABOLIC PANEL (ONCOLOGY USE ONLY-INC MG) Lab STAT Pancreatic cancer metastasized to lung (HCC-CMS) 20 Occurrences starting 07/31/2024 until 07/31/2025, 1 completed Scheduled Referrals Name Type Priority Associated Diagnoses Order Schedule AMB CONS/FOLLOW UP GENERAL SURGERY/COLORECTAL SURGERY Outpatient Referral Urgent Pancreatic cancer metastasized to lung (HCC-CMS) Expected: 08/02/2024 (Approximate), Expires: 07/31/2025 AMB CONS/FOLLOW UP PALLIATIVE CARE SERVICES Outpatient Referral Routine/Next Available Pancreatic cancer metastasized to lung (HCC-CMS) Expected: 08/30/2024 (Approximate), Expires: 07/31/2025 AMB CONS/FOLLOW UP HEALTHY LIVING WORKSHOP Outpatient Referral Routine/Next Available Pancreatic cancer metastasized to lung (HCC-CMS) Expected: 08/07/2024 (Approximate), Expires: 07/31/2025 documented as of this encounter Procedures Procedure Name Priority Date/Time Associated Diagnosis Comments CA 19-9 Routine 07/31/2024 9:26 EST Pancreatic cancer metastasized to lung (HCC-CMS) COMPREHENSIVE METABOLIC PANEL (ONCOLOGY USE ONLY-INC MG) STAT 07/31/2024 9:26 EST Pancreatic cancer metastasized to lung (HCC-CMS) COMPLETE BLOOD COUNT AND DIFFERENTIAL STAT 07/31/2024 9:26 EST Pancreatic cancer metastasized to lung (HCC-CMS) documented in this encounter Results * (ABNORMAL) CA 19-9 (07/31/2024 9:26 EST) CA 19-9 2,845(H) <35 U/mL 08/01/2024 1:07 EST [facility] Comment: NOTE: Serum CA [...] & BLOOD GAS ORDERABLE S Final Result [facility] [address] [place] [address] * (ABNORMAL) COMPREHENSIVE METABOLIC PANEL (ONCOLOGY USE ONLY-INC MG) (07/31/2024 9:26 EST) Sodium 139 136 - 145 mmol/L 07/31/2024 10:55 [facility] Potassium 4.1 3.5 - 5.0 mmol/L 07/31/2024 10:55 [facility] Chloride 102 96 - 110 mmol/L 07/31/2024 10:55 [facility] CO2 Total 27 22 - 32 mmol/L 07/31/2024 10:55 [facility] Glucose 115(H) 70 - 99 mg/dl 07/31/2024 10:55 [facility] BUN 29(H) 10 - 26 mg/dL 07/31/2024 10:55 [facility] Creatinine 0.90 0.66 - 1.25 mg/dL 07/31/2024 10:55 [facility] eGFR 91 >60 mL/min/1.7 3m2 07/31/2024 10:55 [facility] Total Protein 7.0 6.3 - 8.2 g/dL 07/31/2024 10:55 [facility] Albumin 4.2 3.4 - 4.9 g/dL 07/31/2024 10:55 [facility] Alkaline Phosphatase 156(H) 38 - 126 U/L 07/31/2024 10:55 [facility] AST 47(H) 15 - 46 U/L 07/31/2024 10:55 [facility] ALT 58(H) <50 U/L 07/31/2024 10:55 [facility] Bilirubin, Total <0.5 <1.4 mg/dL 07/31/20 10:55 [facility] Calcium 11.1(H) 8.5 - 10.5 mg/dL 07/31/2024 10:55 [facility] Magnesium 1.5(L) 1.7 - 2.8 mg/dL 07/31/2024 10:55 [facility] Albumin/Globulin Ratio 1.5 1.0 - 2.5 07/31/2024 10:55 [facility] Anion Gap 10 5 - 14 mmol/L 07/31/2024 10:55 EST [facility] Blood VENOUS BLOOD / Unknown Venipuncture / Unknown 07/31/2024 9:26 EST 07/31/2024 9:26 EST us Thomas FLORES CHEMISTRY & BLOOD GAS ORDERABLE S Final Result [facility] [address] [place] [address] * (ABNORMAL) COMPLETE BLOOD COUNT AND DIFFERENTIAL (07/31/2024 9:26 EST) WBC 6.67 4.00 - 10.40 K/cmm 07/31/2024 9:40 EST [facility] RBC 4.16(L) 4.36 - 5.78 M/cmm 07/31/2024 9:40 EST [facility] [place] Hemoglobin 13.5(L) 13.8 - 17.3 g/dL 07/31/2024 9:40 EST [facility] [place] HCT 39.0(L) 39.5 - 50.2 % 07/31/2024 9:40 [facility] [place] MCV 94 81 - 95 fL 07/31/2024 9:40 [facility] [place] MCH 32.5 27.6 - 33.0 pg 07/31/2024 9:40 EST [facility] [place] MCHC 34.6 32.8 - 36.4 g/dL 07/31/2024 9:40 EST [facility] [place] RDW-CV 12.8 <14.2 % 07/31/2024 9:40 EST [facility] & [facility]Y [facility] RDW-SD 44.3 <46.0 fl 07/31/2024 9:40 [facility] [place] PLT 142 141 - 377 K/cmm 07/31/2024 9:40 [facility] [place] MPV 10.9 9.5 - 12.7 fL 07/31/2024 9:40 [facility] [place] % Neutrophils 74.0 Not Indicated % 07/31/2024 9:40 EST [facility] % Lymphocytes 13.6 Not Indicated % 07/31/2024 9:40 EST [facility] % Monocytes 10.2 Not Indicated % 07/31/2024 9:40 EST [facility] & [facility] % Eosinophils 1.6 Not Indicated % 07/31/2024 9:40 EST [facility] % Basophils 0.3 Not Indicated % 07/31/2024 9:40 EST [facility] % Immature Grans 0.3 <0.9 % 07/31/2024 9:40 EST [facility] & [facility] Absolute Neutrophils 4.93 2.20 - 8.85 K/cmm 07/31/2024 9:40 EST [facility] Absolute Lymphocytes 0.91(L) 1.09 - 3.30 K/cmm 07/31/2024 9:40 EST [facility] Absolute Monocytes 0.68 0.10 - 0.80 K/cmm 07/31/2024 9:40 EST [facility] Absolute Eosinophils 0.11 0.03 - 0.61 K/cmm 07/31/2024 9:40 EST [facility] ABS Basophils 0.02 0.01 - 0.11 K/cmm 07/31/2024 9:40 EST [facility] Absolute Immature Grans 0.02 0.00 - 0.06 K/cmm 07/31/2024 9:40 EST [facility]Y [facility] Type of Differential: Auto 07/31/2024 9:40 EST [facility] Blood VENOUS BLOOD / Unknown Venipuncture / Unknown 07/31/2024 9:26 EST 07/31/2024 9:26 EST us Thomas CLAROS PACKAGES & DNA PROBE ORDERABLES Final Result [facility]EM[facility]Y [facility] Medical Office [address], [address] documented in this encounter Visit Diagnoses Diagnosis Pancreatic cancer metastasized to lung (HCC-CMS)- Primary Malignant neoplasm of pancreas, part unspecified documented in this encounter Orders Appointment Requests Count Last Ordered Date Fi rst Ordered Date ONCBCN CLINIC APPOINTMENT REQUEST 5 024 ONCBCN INFUSION APPOINTMENT REQUEST - CALCULATED 07/31/2024 documented in this encounter Care Teams Spin Tank Tender Relationship Specialty Start Date End Date Urbano Lee Jr., MD [address] [id number] PCP - General 03/07/09 documented as of this encounter
--- OUTSIDE RECORDS SUMMARY | 2024-08-14 01:16 | XMS_ITS | Encounter Summary ---
Author Organization [facility] Address [address] [place] [address] Care Team Providers Care Sewing Machine Operator Name Role Phone Jesus Augustin MD, Urbano Aguayo Primary Care Provider + Reason for Visit * Reason Comments Chemotherapy And Provider Visit Encounter Details Date Type Department Care Team (Latest Contact Info) Description 08/12/2024 8:30 EST Office Visit [facility] Adult Hematology & Oncology [facility] [place] [address] Brie Artis, [place] [address] [facility] [address] [place] [address] Pancreatic cancer metastasized to lung (HCC-CMS) (Primary Dx); 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); Pancreatic adenocarcinoma (HCC-CMS); Encounter for antineoplastic chemotherapy Social History Tobacco Use Types Packs/Day Years [...] Sign Reading Time Taken Comments Blood Pressure 118/80 08/12/2024 0744 EST Pulse 87 08/12/2024 0744 EST Temperature - - Respiratory Rate - - Oxygen Saturation 97% 08/12/2024 0744 EST Inhaled Oxygen Concentration - - Weight 92.1 kg (203 lb) 08/12/2024 0744 EST Height - - Body Mass Index 27.53 08/10/2024 0802 EST documented in this encounter Progress Notes * Brie Artis NP - 08/12/2024 0830 EST CC: Chief Complaint Patient presents with Chemotherapy And Provider Visit Hematology/Oncology Problem List: Metastatic pancreatic adenocarcinoma - April 2024: Started to have diffuse abdominal pain, which continued to be progressive - 06/30/2024: CT abdomen/pevis showed 3.1 cm pancreatic body mass along with multiple liver lesions(largest measuring around 4.2 cm) and multiple pulmonary nodules with peritoneal mets concerning for diffuse metastatic disease. - 07/22/2024: Underwent EUS guided biopsy of the pancreatic body mass, pathology consistent with pancreatic adenocarcinoma. -08/12/24 C1D1 FOLFIRINOX Subjective: Mr. Harrell is here to begin treatment in the setting of metastatic pancreatic cancer. Didn't Review of Systems: All 10 systems have been reviewed and are negative except for the mentioned above. Medications: Current Outpatient Medications Medication albuterol 90 mcg/actuation [...] No current facility-administered medications for this visit. Objective: VS: BP 118/80 Pulse 87 Wt 92.1 kg (203 lb) SpO2 97% BMI 27.53 kg/m?? Social History Socioeconomic History Marital status: Tobacco Use Smoking status: Every Day Current packs/day: 0.50 Average packs/day: 0.5 packs/day for 50.9 years (25.4 ttl pk-yrs) Types: Cigarettes Start date: 1972 Substance and Sexual Activity Alcohol use: Not Currently Drug use: Not Currently Sexual activity: Not Currently Partners: Female Comment: N/A Physical Exam: General appearance: Pleasant adult male in NAD. Skin: Skin color, temperature, turgor normal. No rashes or lesions. HENT: Sclera anicteric. NO facial pallor. Lungs: LCTA bilaterally. Good inspiratory effort. Heart:RRR Abdomen: Soft, non tender. + bs. Extremities: No LE edema. Lymph nodes: Neuro: Alert and oriented x 3. Normal affect. Normal gait. Performance Status: Data Review: Labs: Results for orders placed or performed in visit on 08/12/24 COMPLETE BLOOD COUNT AND DIFFERENTIAL Result Value Ref Range WBC 6.39 4.00 - 10.40 K/cmm RBC 3.76 (L) 4.36 - 5.78 M/cmm Hemoglobin 12.0 (L) 13.8 - 17.3 g/dL HCT 36.1 (L) 39.5 - 50.2 % MCV 96 (H) 81 - 95 fL MCH 31.9 27.6 - 33.0 pg MCHC 33.2 32.8 - 36.4 g/dL RDW-CV 13.5 <14.2 % RDW-SD 48.6 (H) <46.0 fl PLT 126 (L) 141 - 377 K/cmm MPV 10.5 9.5 - 12.7 fL % Neutrophils 71.7 Not Indicated % % Lymphocytes 14.4 Not Indicated % % Monocytes 8.8 Not Indicated % % Eosinophils 4.4 Not Indicated % % Basophils 0.5 Not Indicated % % Immature Grans 0.2 <0.9 % Absolute Neutrophils 4.59 2.20 - 8.85 K/cmm Absolute Lymphocytes 0.92 (L) 1.09 - 3.30 K/cmm Absolute Monocytes 0.56 0.10 - 0.80 K/cmm Absolute Eosinophils 0.28 0.03 - 0.61 K/cmm ABS Basophils 0.03 0.01 - 0.11 K/cmm Absolute Immature Grans 0.01 0.00 - 0.06 K/cmm Type of Differential: Auto COMPREHENSIVE METABOLIC PANEL (CMP) Result Value Ref Range Sodium 138 136 - 145 mmol/L Potassium 4.1 3.5 - 5.0 mmol/L Chloride 103 96 - 110 mmol/L CO2 Total 28 22 - 32 mmol/L Glucose 120 (H) 70 - 99 mg/dl BUN 16 10 - 26 mg/dL Creatinine 0.90 0.66 - 1.25 mg/dL eGFR 91 >60 mL/min/1.73m2 Total Protein 6.5 6.3 - 8.2 g/dL Albumin 3.9 3.4 - 4.9 g/dL Alkaline Phosphatase 159 (H) 38 - 126 U/L AST 51 (H) 15 - 46 U/L ALT 68 (H) <50 U/L Bilirubin, Total 0.7 <1.4 mg/dL Calcium 10.5 8.5 - 10.5 mg/dL Albumin/Globulin Ratio 1.5 1.0 - 2.5 Anion Gap 7 5 - 14 mmol/L MAGNESIUM Result Value Ref Range Magnesium 1.4 (L) 1.7 - 2.8 mg/dL Imaging: PROCEDURE INFORMATION: Exam: CT Chest With [...] the liver have also increased in size. Assessment/Plan: Mr. 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 Molecular testing sent today. Macrocytic anemia: Continue to monitor. Cancer related pain: Continue Acetaminophen and Tramadol prn. Plan to begin palliative treatment with FOLFIRINOX. He will meet with palliative care during his infusion today. Reviewed antiemetic use. He travels over an hour to our clinic. Will arrange for 5FU pump disconnects in [facility] if possible. Reviewed chest CT which shows increase in size of pulmonary nodules. Reviewed labs which are WNL for treatment today. 1) Proceed with C1D1 FOLFIRINOX. 2) 5FU pump disconnect in 46 hours. 3) RTC in 1 week for an interim visit. 4) RTC in 2 weeks for next cycle. 5) Restaging scans s/p cycle 4. Cc: Rafael Lee Jr., MD 30 minutes in face to face contact with 25 minutes counseling side effect, treatment management andcoordination of care. Brie Artis ANP/PULPER [facility] Adult Hematology & ONcology * Alexandrea Chester RN - 08/12/2024 0830 EST Suspicion of Abuse: no - If yes, please document evidence: - Assessed on: 08/12/24 8:00 - Assessed by: ALEXANDREA CHESTER RN Procedure: - Port Accessed by: ALEXANDREA CHESTER RN Access: Port Site: Right Chest Wall Accessed With: 20 gauge Streeter 1 using sterile/aseptic technique with blood return present Port: Flushed with 20ml NS and needle left accessed Streeter needle caps tightened: Yes On: 08/12/24 8:00 Authorizing Provider: Kirti Artis NP * Alexandrea Chester RN - 08/12/2024 0830 EST Amb[facility] genetic test obtained this visit. Shipped via [employer] [phone] Brought to [employer] for CR[facility]ex pickup. documented in this encounter Plan of Treatment Upcoming Encounters Date Type Department Care Team (Late st Contact Info) Description 08/19/2024 10:00 EST Office Visit [facility] Adult Hematology & Oncology [address] [place] [phone] Brie Artis NP [address] [facility] [address] [place] [phone] 08/19/2024 10:30 EST Nurse Only [facility] Adult Hem Onc Infusion [address] [place], [place] [phone] 08/25/2024 9:00 EST Office Visit [facility] Adult Hematology & Oncology [address] [place] [address], [place] [address] Leela Turcios FNP [address] [facility] [address] [place] [address] 08/25/2024 10:00 EST Nurse Only [facility] Adult Hem Onc Infusion [address] [place] [address] 09/08/2024 8:00 EST Office Visit [facility] Adult Hematology & Oncology [address] [place] [address], [place] [address] Brie Artis, [place] [address] [facility] [address] [place] [address] 09/08/2024 8:30 EST Nurse Only [facility] Adult Hem Onc Infusion [address] [place] [address] documented as of this encounter Procedures Procedure [...] intra-abdominal lymph node (HCC-CMS) Pancreatic adenocarcinoma (HCC-CMS) documented in this encounter Results * (ABNORMAL) CA 19-9 (08/12/2024 7:58 EST) CA 19-9 2,675(H) <35 U/mL 08/12/2024 19:45 [facility] Comment: NOTE: Serum CA 19-9 concentration should not be interpreted as absolute evidence for the presence or absence of malignant disease. Assayed on Siem[employer]aur XPT using chemiluminescent technology. ??Values obtained by using different assay methods cannot be used interchangeably. Blood VENOUS BLOOD / Unknown Venipuncture / Unknown 08/12/2024 7:58 EST 08/12/2024 7:58 EST Brie Artis SPECIAL SERVICE OFFICER CHEMISTRY & BLOOD GAS ORDE CLAUDY Final Result Performing Organization Address City/[facility]/ZIP Co de Phone Number [facility] [address] [place] [address] * (ABNORMAL) MAGNESIUM (08/12/2024 7:58 EST) Pathologist [facility] Magnesium 1.4(L) 1.7 - 2.8 mg/dL 08/12/2024 8:23 [facility] Blood VENOUS BLOOD / Unknown Venipuncture / Unknown 08/12/2024 7:58 EST 08/12/2024 7:58 EST Brie Artis SPECIAL SERVICE OFFICER CHEMISTRY & BLOOD GAS ORDE RABCUATE Final Result [facility] [address] [place] [phone] * (ABNORMAL) COMPREHENSIVE METABOLIC PANEL (CMP) (08/12/2024 7:58 EST) Pathologist [facility] Sodium 138 136 - 145 mmol/L 08/12/2024 8:23 [facility] Potassium 4.1 3.5 - 5.0 mmol/L 08/12/2024 8:23 [facility] Chloride 103 96 - 110 mmol/L 08/12/2024 8:23 [facility] CO2 Total 28 22 - 32 mmol/L 08/12/2024 8:23 [facility] Glucose 120(H) 70 - 99 mg/dl 08/12/2024 8:23 [facility] BUN 16 10 - 26 mg/dL 08/12/2024 8:23 [facility] Creatinine 0.90 0.66 - 1.25 mg/dL 08/12/2024 8:23 [facility] eGFR 91 >60 mL/min/1. 73m2 08/12/2024 8:23 [facility] Total Protein 6.5 6.3 - 8.2 g/dL 08/12/2024 8:23 [facility] Comment:The sample was colle cted in a [place] Heparin anticoagulated tube. An average positive bias of 6% with an individual sample bias up to 10% may be observed with heparin plasma results compared to serum results. Albumin 3.9 3.4 - 4.9 g/dL 08/12/2024 8:23 [facility] Alkaline Phosphatase 159(H) 38 - 126 U/L 08/12/2024 8:23 [facility] AST 51(H) 15 - 46 U/L 08/12/2024 8:23 [facility] ALT 68(H) <50 U/L 08/12/2024 8:23 [facility] Bilirubin, Total 0.7 <1.4 mg/dL 08/12/2024 8:23 [facility] Calcium 10.5 8.5 - 10.5 mg/dL 08/12/2024 8:23 [facility] Albumin/Globulin Ratio 1.5 1.0 - 2.5 08/12/2024 8:23 [facility] Anion Gap 7 5 - 14 mmol/L 08/12/2024 8:23 [facility] Blood VENOUS BLOOD / Unknown Venipuncture / Unknown 08/12/2024 7:58 EST 08/12/2024 7:58 EST us Brie Artis NP CHEMISTRY & BLOOD GAS MARLONScott CLAUDY Final Result [facility] [address] [place] [address] * (ABNORMAL) COMPLETE BLOOD COUNT AND DIFFERENTIAL (08/12/2024 7:58 EST) WBC 6.39 4.00 - 10.40 K/cmm 08/12/2024 8:11 EST [facility] [place] RBC 3.76(L) 4.36 - 5.78 M/cmm 08/12/2024 8:11 [facility] [place] Hemoglobin 12.0(L) 13.8 - 17.3 g/dL 08/12/2024 8:11 [facility]AT[facility] & [facility] [place] HCT 36.1(L) 39.5 - 50.2 % 08/12/2024 8:11 [facility]AT[facility] [place] MCV 96(H) 81 - 95 fL 08/12/2024 8:11 [facility] [place] MCH 31.9 27.6 - 33.0 pg 08/12/2024 8:11 [facility] [place] MCHC 33.2 32.8 - 36.4 g/dL 08/12/2024 8:11 [facility] HEMATOLOG[facility] & ONCOLOGY [facility] RDW-CV 13.5 <14.2 % 08/12/2024 8:11 [facility] HEMATOLOGY & ONCOLOGY [facility] RDW-SD 48.6(H) <46.0 fl 08/12/2024 8:11 [facility] [place] PLT 126(L) 141 - 377 K/cmm 08/12/2024 8:11 [facility] [place] MPV 10.5 9.5 - 12.7 fL 08/12/2024 8:11 [facility] [place] % Neutrophils 71.7 Not Indicated % 08/12/2024 8:11 [facility] [place] % Lymphocytes 14.4 Not Indicated % 08/12/2024 8:11 [facility] [place] % Monocytes 8.8 Not Indicated % 08/12/2024 8:11 [facility] HEMATOLOG[facility] & ONCOLOGY [facility] % Eosinophils 4.4 Not Indicated % 08/12/2024 8:11 EST [facility] HEMATOLOG[facility] & ONCOLOGY [facility] % Basophils 0.5 Not Indicated % 08/12/2024 8:11 EST [facility] HEMATOLOGY & ONCOLOGY [facility] % Immature Grans 0.2 <0.9 % 08/12/2024 8:11 EST [facility] HEMATOLOGY & ONCOLOGY [facility] Absolute Neutrophils 4.59 2.20 - 8.85 K/cmm 08/12/2024 8:11 EST [facility] HEMATOLOGY & ONCOLOGY [facility] Absolute Lymphocytes 0.92(L) 1.09 - 3.30 K/cmm 08/12/2024 8:11 EST [facility] HEMATOLOGY & ONCOLOGY [facility] Absolute Monocytes 0.56 0.10 - 0.80 K/cmm 08/12/2024 8:11 EST [facility] Absolute Eosinophils 0.28 0.03 - 0.61 K/cmm 08/12/2024 8:11 EST [facility] HEMATOLOGY & ONCOLOGY [facility] ABS Basophils 0.03 0.01 - 0.11 K/cmm 08/12/2024 8:11 EST [facility] & ONCOLOGY [facility] Absolute Immature Grans 0.01 0.00 - 0.06 K/cmm 08/12/2024 8:11 EST [facility] HEMATOLOGY & ONCOLOGY [facility] Type of Differential: Auto 08/12/2024 8:11 EST [facility] & ONCOLOGY [facility] Blood VENOUS BLOOD / Unknown Venipuncture / Unknown 08/12/2024 7:58 EST 08/12/2024 7:58 EST us Brie Artis NP PACKAGES & DNA PROBE ORDER LINDA Final Result [facility] HEMATOLOGY & ONCOLOGY [facility] Medical Office [address] documented in this encounter Visit Diagnoses Diagnosis Pancreatic cancer metastasized to lung (HCC-CMS)- Primary Malignant neoplasm of pancreas, part unspecified 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
--- OUTSIDE RECORDS SUMMARY | 2024-08-14 01:16 | XMS_ITS | Encounter Summary ---
Author Organization [facility] Address [address] [place] [address] Care Team Providers Care Centrifugal Operator Name Role Phone Jesus Augustin MD, Urbano Aguayo Primary Care Provider + Reason for Visit * Reason Onset Date Comments Coordination Of Care 08/04/2024 Encounter Details Date Type Department Care Team (Late st Contact Info) Description 08/04/2024 Telephone [facility] Adult Hematology & Oncology [address] [place] [phone] Leela Turcios, [facility] [address] [facility] [address] [place] [phone] Coordination Of Care Social History Tobacco Use Types Packs/Day [...] encounter Miscellaneous Notes * Telephone Encounter - Leia Walls RN - 08/04/2024 9467 EST Pt called to offer chemo start on 08/12/24 or the following week, pt did opt to start on 08/12/24 as scheduled. He was given a basic overview of how long he'd be here and that he will wear the continuous infusion pump home, to be d/c'd Saturday08/14/24, he verb understand. Brielle in pharm aware of new start. PA completed. * Telephone Encounter - Leela Turcios FNP - 08/04/2024 1200 EST FYI This patient has a new patient visit with Dr. Miranda today. We are awaiting port placement to schedule first treatment. Should have a better idea on timeline after today's visit. documented in this encounter Plan of Treatment Upcoming Encounters Date Type Department Care Team (Late st Contact Info) Description 08/19/2024 10:00 EST Office Visit [facility] Adult Hematology & Oncology [address] [place] [phone] Brie Artis NP [address] [place] [phone] 08/19/2024 10:30 EST Nurse Only [facility] Adult Hem Onc Infusion [address] [place] [phone] 08/25/2024 9:00 EST Office Visit [facility] Adult Hematology & Oncology [address] [place] [phone] Leela Turcios FNP [address] [place] [phone] 08/25/2024 10:00 EST Nurse Only [facility] Adult Hem Onc Infusion [address] [place] [phone] 09/08/2024 8:00 EST Office Visit [facility] Adult Hematology & Oncology [address] [place] [phone] Brie Artis NP [address] [place] [phone] 09/08/2024 8:30 EST Nurse Only [facility] Adult Hem Onc Infusion [address] [place] [address] documented as of this encounter Visit Diagnoses Not on filedocumented in this encounter Care Teams Centrifugal Operator Relationship Specialty Start Date End Date Urbano Lee Jr., MD [address] [facility] [address] [place] [phone] PCP - General 03/07/09 documented as of this encounter
--- OUTSIDE RECORDS SUMMARY | 2024-08-14 01:16 | XMS_ITS | Encounter Summary ---
Author Organization [facility] Address [address] [place] [address] Care Team Providers Care Childbirth Educator Name Role Phone Jesus Augustin MD, Urbano Aguayo Primary Care Provider + Reason for Visit * Reason Onset Date Comments Referral Request 08/03/2024 Palliative Care Encounter Details Date Type Department Care Team (Late st Contact Info) Description 08/03/2024 Telephone [facility] Department of Palliative and Spiritual Care [address] [place] [address] Nicole Del Rio Referral Request (Palliative Care) Social History Tobacco Use Types Packs/Day Years [...] encounter Miscellaneous Notes * Telephone Encounter - Nicole Del Rio - 08/05/2024 1011 EST Follow up call to Jose. His treatment has been scheduled for 08/12 at 9AM. He is agreeable to meeting with palliative care RN TELEPHONE TRIAGE Yudy Gibson during this infusion. His will likely be with him, and maybe his daughter. Top Precipitator Operator Helper updated Chanel at the Infusion [facility] with this plan. * Telephone Encounter - Nicole Del Rio - 08/03/2024 1005 EST Outpatient palliative care referral received from Dr. Padilla. Top Precipitator Operator Helper called and spoke with Jose. Heis agreeable to meeting with palliative care. He shared that he has meetings with oncology and surgery tomorrow, with a plan to start chemo on Saturday, 08/10. He is interesting meeting with palliativecare the same day as he starts his chemo to avoid having to make an extra trip [place] [facility]. He is not aly re yet what time his appointment will be. Top Precipitator Operator Helper provided him with contact information, and we willbe in touch once we know the timing of his treatment so we can schedule with the palliative team. documented in this encounter Plan of Treatment Upcoming Encounters Date Type Department Care Team (Late st Contact Info) Description 08/19/2024 10:00 EST Office Visit [facility] Adult Hematology & Oncology [address] [place] [phone] Brie Artis, [place] [address] [facility] [address] [place] [phone] 08/19/2024 10:30 EST Nurse Only [facility] Adult Hem Onc Infusion [address] [place], [place] [phone] 08/25/2024 9:00 EST Office Visit [facility] Adult Hematology & Oncology [address] [place] [phone] Leela Turcios FNP [address] [facility] [address] [place] [phone] 08/25/2024 10:00 EST Nurse Only [facility] Adult Hem Onc Infusion [address] [place], [place] [phone] 09/08/2024 8:00 EST Office Visit [facility] Adult Hematology & Oncology [address] [place] [phone] Brie rAtis, [place] [address] [facility] [address] [place] [phone] 09/08/2024 8:30 EST Nurse Only [facility] Adult Hem Onc Infusion [address] [place] [address] documented as of this encounter Visit Diagnoses Not on filedocumented in this encounter Care Teams Childbirth Educator Relationship Specialty Start Date End Date Urbano Lee Jr., MD [address] [facility] [address] [place] [phone] PCP - General 03/07/09 documented as of this encounter
--- OUTSIDE RECORDS SUMMARY | 2024-08-14 01:16 | XMS_ITS | Encounter Summary ---
Author Organization [facility] Address [address] [place] [address] Care Team Providers Care Case Management Manager Name Role Phone Jesus Augustin MD, Urbano Aguayo Primary Care Provider + Reason for Visit * Auth/Cert (Routine) Specialty Diagnoses / Procedures Referred By [facility] t Referred To Contact Diagnoses 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) [C25.9, C78.00] Procedures AK INSJ TUNNELED CTR VAD W/SUBQ PORT AGE 5 YR/> TUNNELED CENTRAL VENOUS DEVICE, WITH SUBCUTANEOUS PORT, >5 Y Referral ID Status Reason Start Date Expiration Date Visits Re quested Visits Authorized [id number] 1 1 Encounter Details Date Type Department Care Team (Late st Contact Info) Description 08/10/2024 9:07 EST Anesthesia Event [facility] Operating Room [address] [place] [address] Mag Carter MD [address] [facility], Level 2 [place] [address] Anesthesia Record Procedure Summary Procedure Name Responsible Anesthesiologist Anesthesia Start Time Anesthesia Stop Time TUNNELED CENTRAL VENOUS DEVICE, WITH SUBCUTANEOUS PORT, >5 Y (Right: Chest) Mag Carter MD 08/10/24 0907 08/10/24 1017 Events Date Time Event Comment 08/10/2024 0907 An Start The patient was re-evaluated immediately before moderate or deep sedation use, before anesthesia induction, or before the anesthesia procedure. 0907 An Start Data 0915 Anesthesia Ready 1013 an stop data 1017 Handoff to RN I completed my handoff to the receiving nurse during which we: 1. Identified the patient 2. Identified the responsible provider 3. Reviewed the pertinent medical history 4. Discussed the surgical course 5. Reviewed intra-op anesthesia management and issues during anesthesia 6. Set expectations for post-procedure period 7. Allowed opportunity for questions and acknowledgement of understanding. 1017 An Stop Meds Name Total fentanyl citrate (PF) injection 50 mcg lidocaine 2% (PF) injection glass vial 6 0 mg midazolam 1 mg/mL 2 mL vial 2 mg propOFol (DIPRIVAN) injection 20 mg propofol (DIPRIVAN) 500 mg in 50 mL infu edita 325,500 mcg ceFAZolin in dextrose 5 % (ANCEF) IVPB D UPLEX 2,000 mg 2,000 mg * Agents Name O2 N2O Air Aux O2 flow * Blood No blood administrations on file. Lines, Drains, and Airways Type Details Placement Removal Wound 08/10/24; 0932; Inci edita; Anterior, Right; Neck; incisions congruent with port placement; N 08/10/24 0932 by Vicki Jang, KORY IVAD Double Port 08/10/24; 0933; Bard ; Internal Jugular, Right Chest; In OR by MD; 8; Sub Q; 2% Chlorhexidine with IPA; Power Inject; Mid SVC; [id number]; [id number]; No complications, Dressing applied 08/10/24 0933 by Vicki Jang, KORY Peripheral IV 08/10/24; 0817; 20; Anterior, Left; Forearm; Inserted by RN, Documenting on behalf of someone else (enter name) (Jo Ann Llamas); 1; None; 2% Chlorhexidine with IPA; 08/10/24; 1153 08/10/24 0817 by Sheree Adams, KORY 08/10/24 1153 by Bridget Ro, KORY documented in this encounter Social History Tobacco [...] on file documented as of this encounter OR Notes * Anesthesia Postprocedure Evaluation - Mag Carter MD - 08/10/2024 1017 EST Patient: Jose Harrell Vital signs were reviewed with the recovery nurse. Complete vitals history is available in the [facility]. Vitals Value Taken Time BP 122/82 08/10/24 1016 Temp 97.8 08/10/24 1017 Resp 16 08/10/24 1016 Pulse From Oximetry 99 BPM 08/10/24 1016 SpO2 99 % 08/10/24 1016 Heart Rate 99 BPM 08/10/24 1016 Vitals shown include unfiled device data. Last Pain Score - Numeric Pain Level (Scale 1-10): 4 Type of Anesthesia - MAC Anesthesia Post Evaluation Post-procedure vitals reviewed and are stable. Level of consciousness: awake and sedated Temperature status: normothermia Respiratory status: airway patent and nasal cannula Cardiovascular status: acceptable Hydration status: adequate Nausea/Vomiting: none Pain management: adequate Post-Op Assessment: patient tolerated procedure well with no complications Patient participation: unable to participate due to sedation Disposition: outpatient/home Anesthesia Complications: No apparent anesthesia complications * Anesthesia Preprocedure Evaluation - Mag Carter MD - 08/10/2024 0756 EST Anesthesia Preprocedure Evaluation 73 yo male with pancreatic cancer presenting for port placement. Past med hx significant for COPD, GERD, and HTN Patient Medical History, including Anesthesia History reviewed. Chart and Nursing Notes reviewed, including NPO status and Medication History. Additional ROS/History Findings: Review of Systems Constitutional: Negative. Respiratory: Negative. Cardiovascular: Negative. Gastrointestinal: Positive for heartburn. Past Medical History: Diagnosis Date Activity, other involving cardiorespiratory exercise Benign prostatic hyperplasia Cancer (HCC-CMS) kidney COPD (chronic obstructive pulmonary disease) (HCC-CMS) Does not exercise Exercise involving housework Exercise involving walking GERD (gastroesophageal reflux disease) History of kidney stones History of nephrectomy Hypertension Lung disease COPD Pain Productive cough Wears dentures Patient Active Problem List Diagnosis Pancreatic cancer metastasized to lung (HCC-CMS) Past Surgical History: Procedure Laterality Date ABDOMEN SURGERY KIDNEY REMOVAL Left 1993 Past Anesthetics 07/22/24 Sedation for EUS, no problems SOCIAL HISTORY: [] None [x] Current smoking [] Vaping [] Marijuana [] Alcohol Social History Tobacco Use Smoking Status Every Day Current packs/day: 0.50 Average packs/day: 0.5 packs/day for 50.9 years (25.4 ttl pk-yrs) Types: Cigarettes Start date: 1972 Smokeless Tobacco Not on file Social History Substance and Sexual Activity Drug Use Not Currently Social History Substance and Sexual Activity Alcohol Use Not Currently FAMILY HISTORY: []No family history of allergic reactions to anesthesia No current facility-administered medications on file prior to encounter. Current Outpatient Medications on File Prior to Encounter Medication Sig Dispense Refill albuterol 90 mcg/actuation [...] as needed for Nausea. 20 Tablet 1 Current Facility-Administered Medications Medication Route Frequency acetaminophen (TYLENOL) tablet 975 mg oral PRE-OP ONCE ceFAZolin in dextrose 5 % (ANCEF) IVPB DUPLEX 2,000 mg intravenous PRE-OP ONCE lidocaine (PF) 10 mg/mL (1 %) injection 2 mg intradermal PRN No Known Allergies Lab Results Component Value Date WBC 6.67 07/31/2024 HGB 13.5 (L) 07/31/2024 HCT 39.0 (L) 07/31/2024 MCV 94 07/31/2024 PLT 142 07/31/2024 Lab Results Component Value Date NA 139 07/31/2024 K 4.1 07/31/2024 CL 102 07/31/2024 CO2 27 07/31/2024 Lab Results Component Value Date BUN 29 (H) 07/31/2024 Lab Results Component Value Date CREATININE 0.90 07/31/2024 No results found for: INR, PROTIME No results found for: PTT UPT: No results found for: PREGUR, PREGNANCYTE, HCGPREG COVID: [] None on file No results found for: COVIDUV Blood Type: No results found for: ABO, LABRH, LABANTI, SPECEXP Ht 182.9 cm (72) Wt 92.5 kg (204 lb) BMI 27.67 kg/m?? [] Normal Dentition [] Chipped [] Loose [] [place](s)/Caps []Bridges [] Upper Denture [] Lower Denture [] Upper Partial [] Lower Partial [] Implant(s) NPO Status: Liquids: Solids: Physical Exam Airway Mallampati: I TM distance: >3 FB Neck ROM: full Cardiovascular Rhythm: regular Rate: normal Dental (+) upper dentures, lower dentures Pulmonary Breath sounds clear to auscultation Abdominal Anesthesia Plan ASA 3 Anesthesia Type - MAC Anesthesia plan and risks discussed. Informed consent obtained from patient. PAT Note Notes from 07/11/24 through 08/10/24 No notes of this type exist for this encounter. documented in this encounter Plan of Treatment Upcoming Encounters Date Type Department Care Team (Late st Contact Info) Description 08/19/2024 10:00 EST Office Visit [facility] Adult Hematology & Oncology [address] [place] [address] Brie Artis NP 130 [facility], [facility] [address] [place] [address] 08/19/2024 10:30 EST Nurse Only [facility] Adult Hem Onc Infusion 130 [facility], [place], [place] [address] 08/25/2024 9:00 EST Office Visit [facility] Adult Hematology & Oncology [address] [place] [address], [place] [address] Leela Turcios FNP 130 [facility] [address] [phone] 08/25/2024 10:00 EST Nurse Only [facility] Adult Hem Onc Infusion [address] [place] [address], [place] [phone] 09/08/2024 8:00 EST Office Visit [facility] Adult Hematology & Oncology [address] [place] [address], [place] [phone] Brie Artis, PARADISE [address] [place] [address] [place] [phone] 09/08/2024 8:30 EST Nurse Only [facility] Adult Hem Onc Infusion [address] [place] [address], [place] [phone] documented as of this encounter Visit Diagnoses Not on filedocumented in this encounter Administered Medications Inactive Administered Medications - up to 3 most recent administrations Medication Order MAR Action Action Date Dose Rate Site ceFAZolin in dextrose 5 % (ANCEF) IVPB DUPLEX 2,000 mg 2,000 mg, intravenous, Administer over 30 Minutes, PRE-OP ONCE, 1 dose, On Sat08/10/24 at 0815, Type of Therapy: Prophylaxis, Suspected Indication (Select all that apply): Surgical prophylaxis, Routine, Preprocedure Given 08/10/2024 9:15 EST 2,000 mg fentaNYL citrate (PF) injection intravenous, PRN, Starting on Sat08/10/24 at 0913, Until Sat08/10/24 at 1017, Routine, Anesthesia Intraprocedure Given 08/10/2024 9:13 EST 50 mcg lidocaine (PF) 20 mg/mL (2 %) injection intravenous, PRN, Starting on Sat08/10/24 at 0913, Until Sat08/10/24 at 1017, Routine, Anesthesia Intraprocedure Given 08/10/2024 9:13 EST 60 mg midazolam (PF) (VERSED) injection intravenous, PRN, Starting on Sat08/10/24 at 0910, Until Sat08/10/24 at 1017, Routine, Anesthesia Intraprocedure Given 08/10/2024 9:10 EST 2 mg propOFol (DIPRIVAN) 500 mg in 50 mL infusion intravenous, FA IP EQF CONTINUOUS PRN FOR ONE STEP MEDS, Starting on Sat08/10/24 at 0913, Until Sat08/10/24 at 1017, Routine, Anesthesia Intraprocedure Rate Change 08/10/2024 9:25 EST 50 mcg/kg/min 27.9 mL/hr New Bag 08/10/2024 9:13 EST 75 mcg/kg/min 41.85 mL/hr propOFol (DIPRIVAN) injection intravenous, PRN, Starting on Sat08/10/24 at 0913, Until Sat08/10/24 at 1017, Routine, Anesthesia Intraprocedure Given 08/10/2024 9:13 EST 20 mg documented in this encounter Care Teams Case Management Manager Relationship Specialty Start Date End Date Urbano Lee Jr., MD [address] [address] PCP - General 03/07/09 documented as of this encounter
--- OUTSIDE RECORDS SUMMARY | 2024-08-14 01:16 | XMS_ITS | Encounter Summary ---
Author Organization [facility] Address [address] [place] [address] Care Team Providers Care Outsoles Channel Opener Name Role Phone Jesus Augustin MD, Urbano Aguayo Primary Care Provider + Reason for Visit * Reason Comments Chemotherapy Education Encounter Details Date Type Department Care Team (Late st Contact Info) Description 08/04/2024 11:00 EST Education [facility] Adult Hematology & Oncology [facility] [place] [address] Marie Turcios, SOCIAL SERVICES COUNSELOR 130 [facility], [facility] [address] [place] [address] Pancreatic cancer metastasized to lung (HCC-CMS) (Primary Dx); Cancer cachexia (HCC-CMS); Pancreatic carcinoma metastatic to liver (HCC-CMS); Pancreatic adenocarcinoma (HCC-CMS); 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) Social History Tobacco Use Types Packs/Day [...] Sign Reading Time Taken Comments Blood Pressure 106/64 08/04/2024 1035 EST Pulse 101 08/04/2024 1035 EST Temperature - - Respiratory Rate - - Oxygen Saturation 97% 08/04/2024 1035 EST Inhaled Oxygen Concentration - - Weight 92.5 kg (204 lb) 08/04/2024 1035 EST Height - - Body Mass Index 27.67 07/22/2024 1508 EST documented in this encounter Ordered Prescriptions Prescription Sig Dispense Quantity Refills Last Filled Start Date End Date dexAMETHasone (DECADRON) 4 mg tablet Take 2 tabs with breakfast for 3 days post chemotherapy 30 Tablet 1 4 ondansetron (ZOFRAN-ODT) 8 mg disintegrating tabletIndications:P ancreatic cancer metastasized to lung (HCC-CMS),Cancer cachexia (HCC-CMS),Pancreati c carcinoma metastatic to liver (HCC-CMS),Pancreati c adenocarcinoma (HCC-CMS),Pancreati c cancer metastasized to intra-abdominal lymph node (HCC-CMS) Take 1 Tablet by mouth every 8 hours as needed for Nausea. 30 Tablet 1 4 prochlorperazine (COMPAZINE) 10 mg tablet Take 1 Tablet by mouth every 6 hours as needed for Nausea. 20 Tablet 1 4 documented in this encounter Progress Notes * Marie Turcios FNP - 08/04/2024 1100 EST CC: Chief Complaint Patient presents with Chemotherapy Education Hematology/Oncology Problem List: Oncology hx from Dr. Padilla's Note 07/31/24 Metastatic Pancreatic Adenocarcinoma - April 2024: Started to have diffuse abdominal pain, which continued to be progressive - 06/30/2024: CT abdomen/pevis showed 3.1 cm pancreatic body mass along with multiple liver lesions(largest measuring around 4.2 cm) and multiple pulmonary nodules with peritoneal mets concerning for diffuse metastatic disease. - 07/22/2024: Underwent EUS guided biopsy of the pancreatic body mass, pathology consistent with pancreatic adenocarcinoma. Subjective: Mr. Harrell is here for chemotherapy education in the setting of newly diagnosed metastatic pancreatic cancer. Denies abdominal pain with exception of one episode after milk shake. Is tolerating food well, finds appetite is better since starting the olanzapine. Has intermittent gas uses Gas-x. On protonix forreflux sxs, he is finding that the sxs have been improved in severity but notes they are more frequent since starting. Is meeting with general surgery to plan for port placement today. has questions regarding drug coverage as Medicare enrollment is right now. Denies fever, chills, headaches, chest pain, palpitations, n/v/d, edema. Review of Systems: All 10 systems have [...] medications for this visit. Objective: VS: BP 106/64 Pulse 101 Wt 92.5 kg (204 lb) SpO2 97% BMI 27.67 kg/m?? Social History Socioeconomic History Marital status: Tobacco Use Smoking status: Every Day Types: Cigarettes Substance and Sexual Activity Alcohol use: Not Currently Drug use: Not Currently Physical Exam Constitutional: General: He is not in acute distress. Appearance: Normal appearance. He is not ill-appearing. HENT: Nose: Nose normal. Skin: General: Skin is warm and dry. Neurological: Mental Status: He is alert and oriented to person, place, and time. Psychiatric: Mood and Affect: Mood normal. Behavior: Behavior normal. Performance Status:1 Assessment/Plan: Mr Harrell is a 73 y.o. male diagnosed with stage IV pancreatic adenocarcinoma here for chemotherapy education (mFOLFIRNOX). Receiving modified dosing due to performance status/fragility. Will add G-CSF if needed. Medical hx significant for tobacco use, HTN, left kidney resection due to localized cancer. Plan: Port placement- New pt visit w/ Dr. Miranda today. 08/07/24- Follow up Chest CT Cachexia- Recent 25lb weight loss. Continue olanzapine 5 mg daily for appetite. Appetite has improved. Continue to monitor. Possible gastritis- continue pantoprazole 40 mg daily. No abdominal pain after eating at present will consider pancreatic enzymes if this occurs. Pt was provided written literature for leucovorin, fluorouracil, irinotecan, oxaliplatin and supportive care. We reviewed potential side effects including but not limited to nausea, diarrhea, constipation, immunosuppression, fatigue, cognitive changes (chemo brain), musositis, ototoxicity and neurotoxicity. We discussed antiemetic use and sent scripts for dexamethasone, Ondansetron and Prochlorperazine. Reviewed infectious precautions and was advised to call with a temperature >100.5. Obtained written consent. Pt was introduced to staff in the infusion room. Will schedule first treatment after port placement. 45 minutes in face to face contact with 40 minutes counseling side effect and treatment management. CC: DOLLY Campos Jr Adult Hematology/Oncology [facility] This note has been prepared with voice recognition software. Please excuse vacuum drier operator errors. * Alexandrea Chester RN - 08/04/2024 1100 EST Suspicion of Abuse: no - If yes, please document evidence: - Assessed on: 08/04/24 10:39 - Assessed by: ALEXANDREA CHESTER RN documented in this encounter Miscellaneous Notes * Addendum Note - Marie Turcios FNP - 08/04/2024 1100 ESTAddended by: MARIE TURCIOS on: 08/04/2024 15:12 Modules accepted: Level of Service documented in this encounter Plan of Treatment Upcoming Encounters Date Type Department Care Team (Late st Contact Info) Description 08/19/2024 10:00 EST Office Visit [facility] Adult Hematology & Oncology [address] [place] [address] Brie Artis, PARADISE 130 [facility], [facility] [address] [place] [phone] 08/19/2024 10:30 EST Nurse Only [facility] Adult Hem Onc Infusion [address] [place], [place] [phone] 08/25/2024 9:00 EST Office Visit [facility] Adult Hematology & Oncology [address] [place] [address] Marie Turcios FNP 130 [facility] [address] [phone] 08/25/2024 10:00 EST Nurse Only [facility] Adult Hem Onc Infusion [address] [place], [place] [phone] 09/08/2024 8:00 EST Office Visit [facility] Adult Hematology & Oncology [address] [place] [address] Brie Artis, PARADISE 130 [facility] [address] [phone] 09/08/2024 8:30 EST Nurse Only [facility] Adult Hem Onc Infusion [address] [place] [address] documented as of this encounter Visit Diagnoses Diagnosis Pancreatic cancer metastasized to lung (HCC-CMS)- Primary Malignant neoplasm of pancreas, part unspecified Cancer cachexia (HCC-CMS) Pancreatic carcinoma metastatic to liver (HCC-CMS) Malignant neoplasm of pancreas, part unspecified Pancreatic adenocarcinoma (HCC-CMS) Malignant neoplasm of pancreas, part unspecified 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 08/04/2024 documented as of this encounter Care Teams Outsoles Channel Opener Relationship Specialty Start Date End Date Urbano Lee Jr., MD [address] [address] PCP - General 03/07/09 documented as of this encounter
--- OUTSIDE RECORDS SUMMARY | 2024-08-14 01:16 | XMS_ITS | Encounter Summary ---
Author Organization [facility] Address [address] [place] [address] Care Team Providers Care Reservation Manager Name Role Phone Jesus Augustin MD, Urbano Aguayo Primary Care Provider + Reason for Visit * Reason Comments New Patient Visit Discuss surgery * Consult (Urgent) - Specialty Report Received Specialty Diagnoses / Procedures [facility] Referred To Contact General Surgery Diagnoses Pancreatic cancer metastasized to lung (HCC-CMS) Thomas Padilla MBBS [address] [place] [address] [address] [place] [address] Phone: tel: fax: [facility] General Surgery [address] [place] [address] Phone: tel: fax: Referral ID Status Reason Start Date Expiration Date Visits Requested Visits Authorized [id number] Specialty Report Received Specialty Services Required 4 1 1 Encounter Details Date Type Department Care Team (Late st Contact Info) Description 08/04/2024 13:[address] [facility] General Surgery [address] [place] [address] Evangelist Miranda MD [address] [place] [address] [phone] Pancreatic cancer metastasized to lung (HCC-CMS) (Primary [...] Sign Reading Time Taken Comments Blood Pressure 114/70 08/04/2024 1312 EST Pulse - - Temperature - - Respiratory Rate - - Oxygen Saturation - - Inhaled Oxygen Concentration - - Weight - - Height - - Body Mass Index - - documented in this encounter Progress Notes * Evangelist Miranda MD - 08/04/2024 1330 EST General Surgery H&P CC - Chief [...] disorders. Past Medical History: Diagnosis Date Cancer (HCC-CMS) [...] [facility] performed at the request of the ordering provider, MIRA FORBES. Comparison: CT of abdomen/pelvis from 08/10/2002 [...] No significant finding. Musculoskeletal: No suspicious findings. Office Machinery Or Equipment Installer: No additional findings. 1. Approximately 3.1 cm [...] 3-4. 7. Other chronic findings as outlined. [id number] ENDOSCOPIC ULTRASOUND PROCEDURE Result Date: 07/23/2024 Procedure [...] the patient [facility] condition. Estimated Blood Loss: None [...] Gonsalves M.D. in the presence of Dr. Mira Forbes. The attending physician was in the roomfor the entire procedure. This electronic signature authenticates all electronic and/or handwrittendocumentation, including orders, generated by the signer during the episode of care contained in this record. 07/23/2024 09:06:52 AM By Mira Forbes MD Assessment: 73 y.o. male presenting [...] MD 08/04/2024 13:43 documented in this encounter Plan of Treatment Upcoming Encounters Date Type Department Care Team (Late st Contact Info) Description 08/19/2024 10:[address] [facility] Adult Hematology & Oncology [address] [place] [address], [place] [phone] Brie Artis, PARADISE [address] [phone] 08/19/2024 10:[address] [facility] Adult Hem Onc Infusion [address] [place] [phone] 08/25/2024 9:[address] [facility] Adult Hematology & Oncology [address] [place] [address], [place] [phone] Leela Turcios FNP [address] [phone] 08/25/2024 10:[address] [facility] Adult Hem Onc Infusion [address] [place] [phone] 09/08/2024 8:[address] [facility] Adult Hematology & Oncology [address] [place] [address], [place] [phone] Brie Artis, [place] [address] [place] [phone] 09/08/2024 8:[address] [facility] Adult Hem Onc Infusion [address] [place] [address], [place] [phone] documented as of this encounter Visit Diagnoses Diagnosis Pancreatic cancer metastasized to lung (HCC-CMS)- Primary Malignant neoplasm of pancreas, part unspecified documented in this encounter Orders Case Request Count Last Ordered Date First Orde red Date CASE REQUEST OPERATING ROOM 1 08/04/2024 documented in this encounter Care Teams Reservation Manager Relationship Specialty Start Date End Date Urbano Lee Jr., MD [address] [facility], [address] [address] PCP - General 03/07/09 documented as of this encounter
--- OUTSIDE RECORDS SUMMARY | 2024-08-14 01:16 | XMS_ITS | Encounter Summary ---
Author Organization [facility] Address [address] [place] [address] Care Team Providers Care Kitchen And Counter Worker Name Role Phone Jesus Augustin MD, Urbano Aguayo Primary Care Provider + Reason for Referral * Radiology Services (Routine/Next Available) - Authorization Not Required Specialty Diagnoses / Procedures Referred By Contac t Referred To Contact Diagnoses Overlapping malignant neoplasm of pancreas (HCC-CMS) Procedures CT CHEST W CONTRAST Kirill Scott MD [address] [place] [phone] Phone: tel: fax: [facility] Referral ID Status Reason Start Date Expiration Date Visits Requested Visits Authorized [id number] Authorization Not Required 07/21/2024 1 1 Reason for Visit * Radiology Services (Routine/Next Available) - Authorization Not Required Specialty Diagnoses / Procedures Referred By Contac t Referred To Contact Diagnoses Overlapping malignant neoplasm of pancreas (HCC-CMS) Procedures CT CHEST W CONTRAST Kirill Scott MD [address] [phone] Phone: tel: fax: [facility] Referral ID Status Reason Start Date Expiration Date Visits Requested Visits Authorized [id number] Authorization Not Required 07/21/2024 1 1 Encounter Details Date Type Department Care Team (Latest Contact Info) Description 08/07/2024 12:35 EST - 08/07/2024 23:[address] [facility] CT Scan [address] [place] [address] Overlapping malignant neoplasm of pancreas (HCC-CMS) Discharge Disposition: Home or Self Care Social [...] Description 08/19/2024 10:[address] [facility] Adult Hematology & Oncology [address] [place] [phone] Brie Artis NP [address] [phone] 08/19/2024 10:[address] [facility] Adult Hem Onc Infusion [address] [place], [place] [phone] 08/25/2024 9:[address] [facility] Adult Hematology & Oncology [address] [place] [address], [place] [phone] Leela Turcios FNP [address] [phone] 08/25/2024 10:[address] [facility] Adult Hem Onc Infusion [address] [place], [place] [phone] 09/08/2024 8:[address] [facility] Adult Hematology & Oncology [address] [place] [address], [place] [phone] Brie Artis NP [address] [phone] 09/08/2024 8:[address] [facility] Adult Hem Onc Infusion [address] [place] [address] documented as of this encounter Procedures Procedure Name Priority Date/Time Associated Diagnosis Comments CT CHEST W CONTRAST Routine 08/07/2024 1 3:30 EST Overlapping malignant neoplasm of pancreas (HCC-CMS) documented in this encounter Results * CT CHEST W CONTRAST (08/07/2024 13:30 [...] DOCUMENT HAS BEEN ELECTRONICALLY SIGNED BY KAREN TURCIOS MD FOR ANY QUESTIONS OR CONCERNS REGARDING THIS REPORT PLEASE CALL [facility] AT [phone] Narrative 08/09/2024 19:23 EST PROCEDURE INFORMATION: Exam: [...] are within normal limits. Procedure Note Karen Turcios MD - 08/09/2024 PROCEDURE INFORMATION: Exam: CT [...] DOCUMENT HAS BEEN ELECTRONICALLY SIGNED BY KAREN TURCIOS MD FOR ANY QUESTIONS OR CONCERNS REGARDING THIS REPORT PLEASE CALL [facility] [phone] us Kirill Scott MD IMG CT ORDERABLES Final Result documented in this encounter Visit Diagnoses Diagnosis Overlapping malignant neoplasm of pancreas (HCC-CMS) documented in this encounter Administered Medications Inactive Administered Medications - up to 3 most recent administrations Medication Order MAR Action Action Date Dose Rate Site iohexoL (OMNIPAQUE 350) solution 100 mL 100 mL, intravenous, Once in imaging, 1 dose, Starting on Sat08/07/24 at 1304, Until Sat08/07/24 at 1330, Routine, Imaging Protocol Orders Given 08/07/2024 13:30 EST 100 mL documented in this encounter Orders Medications Ordered That Glynn ht Not Have Been Administered Count Last Ordered Date First Ordered Date iohexoL (OMNIPAQUE 350) solution 100 mL 1 1 10/07/2023 documented in this encounter Care Teams Kitchen And Counter Worker Relationship Specialty Start Date End Date Urbano Lee Jr., MD [address] [facility] [address] [place] [phone] PCP - General 03/07/09 documented as of this encounter
--- OUTSIDE RECORDS SUMMARY | 2024-08-14 01:16 | XMS_ITS | Encounter Summary ---
Author Organization [facility] Address [address] [place] [address] Care Team Providers Care Cylinder Filler Name Role Phone Jesus Augustin MD, Urbano Aguayo Primary Care Provider + Reason for Referral * Specialty Diagnoses / Procedures Referred By Deonna lindo Referred To Contact Evangelist Miranda MD [address] [place] [phone] Phone: tel: fax: Referral ID Status Reason Start Date Expiration Date Visits Re quested Visits Authorized Comments We are currently collecting quality data on patients having surgery. You may receive a phone call, email, and/or letter about your surgery asking you a series of follow up questions to evaluate specifics aspects of your care. Thank you for your participation. 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) [C25.9, C78.00] Procedures SC INSJ TUNNELED CTR VAD W/SUBQ PORT AGE 5 YR/> TUNNELED CENTRAL VENOUS DEVICE, WITH SUBCUTANEOUS PORT, >5 Y Referral ID Status Reason Start Date Expiration Date Visits Re quested Visits Authorized [id number] 1 1 Encounter Details Date Type Department Care Team (Latest Contact Info) Description 08/10/2024 7:34 EST - 08/10/2024 11:55 EST Hospital Encounter [facility] Operating Room [address] [place] [address] Evangelist Miranda MD [address] [phone] Pancreatic cancer metastasized to lung (HCC-CMS) (Primary Dx) Discharge Disposition: Home or Self Care Social [...] Sign Reading Time Taken Comments Blood Pressure 123/72 08/10/2024 1140 EST Pulse - - Temperature 36.7 ??C (98.1 ??F) 08/10/2024 1140 EST Respiratory Rate 18 08/10/2024 1130 EST Oxygen Saturation 97% 08/10/2024 1140 EST Inhaled Oxygen Concentration - - Weight [...] Means Destination Comment s Home or Self Custodial documented in this encounter H&P Notes * [...] Proceed with port placement as planned. Evangelist iMranda MD 08/10/2024 9:03 Source Note - Evangelist [...] and [facility] , performed at the [...] No significant finding. Musculoskeletal: No suspicious findings. Oncology Account Specialist: No additional findings. 1. Approximately 3.1 cm [...] 3-4. 7. Other chronic findings as outlined. [id number] ENDOSCOPIC ULTRASOUND PROCEDURE Result Date: 07/23/2024 Procedure [...] the [facility]. Estimated Blood Loss: None [...] Y (R) Operative Note Date: 08/10/2024 Location: [facility] [place] Name: Jose Harrell, : 1950, Diagnosis [...] 1 LUMEN MRI 8FR CATH POWERPORT MRI [id number] - [id number] Implanted Staff: Brim Flexer: Vicki Jang RN Scrub Person: Sravan Graves Indications: Jose Harrell is an 73 y.o. male who is having port placement for Pancreatic cancer metastasized to lung ([facility]-CMS) [C25.9, C78.00] Procedure Details: The patient was [...] needed Instructions for Jose Harrell's Procedure at [facility] . These instructions are [...] any items. Valuables, hilton or credit cards. [facility] is not responsible for any lost items during your hospital visit. If you experience fevers, swelling, redness, rash or a break in your skin prior to your surgery contact your surgeon. Arriving for your procedure: Enter through the main entrance, and check in at the patient registration information desk. They will take your name and let us know you have arrived. A patient package clerk will then verify your information and give you an identification bracelet. You will then be directed to the Finish Specialist waiting area around the corner to check [...] Info) Description 08/19/2024 10:00 EST Office Visit [facility] Adult Hematology & Oncology [address] [place] [phone] Brie Artis NP [address] [place] [address] [place] [phone] 08/19/2024 10:30 EST Nurse Only [facility] Adult Hem Onc Infusion [address] [place] [phone] 08/25/2024 9:00 EST Office Visit [facility] Adult Hematology & Oncology [address] [place] [phone] Leela Turcios FNP [address] [place] [address], [place] [facility] [address] [place] [phone] 08/25/2024 10:00 EST Nurse Only [facility] Adult Hem Onc Infusion [address] [place] [phone] 09/08/2024 8:00 EST Office Visit [facility] Adult Hematology & Oncology [address] [place] [phone] Brie Artis NP [address] [place] [address], [facility] [address] [place] [phone] 09/08/2024 8:30 EST Nurse Only [facility] Adult Hem Onc Infusion [address] [place] [address] Scheduled Referrals Name Type Priority Associated Diagnoses [...] 08/11/2024 12:0 6 EST us Scan 2 Junior Java Developer PROCEDURE/MINOR SURGICAL OR DERABLES Final Result * XR CHEST LINE PLACEMENT (08/10/2024 10:33 EST) Anatomical Region Laterality Modality Computed Radiogr aphy 08/10/2024 11:0 0 EST Impressions 08/10/2024 11:00 EST 1. Right chest wall port catheter tip superimposed over the lower SVC. No pneumothorax. 2. Bilateral pulmonary nodules. [id number] Narrative 08/10/2024 11:00 EST INDICATION: Status post [...] bone or joint abnormality. Resulting Agency Comment [id number] Procedure Note Reji Coello MD - 08/10/2024 [...] lower SVC. Nopneumothorax. 2. Bilateral pulmonary nodules. [id number] Evangelist Miranda MD IMG DIAGNOSTIC IMAGING ORDERABLE [...] Sat08/10/24 at 1355, Wheezing, Routine, Recovery (only) diphenhydrAMINE (BENADRYL) injection 6.25 mg 6.25 mg, [...] Sat08/10/24 at 1355, BRADYCARDIA, Routine, Recovery (only) meperidine (PF) (DEMEROL) injection 12.5 mg 12.5 [...] Sat08/10/24 at 1355, Pain, Routine, Recovery (only) documented in this encounter Historical Medications * [...] albuterol nebulizer solution 2.5 mg 1 08/10 BUPivacaine (PF) (MARCAINE) 0.5% 30 mL, lidocaine (PF) 10 mg/mL (1 %) 30 mL 1 08/10/2024 ceFAZolin in dextrose 5 % (A NCEF) IVPB DUPLEX 2,000 mg 1 08/10/2024 diphenhydrAMINE (BENADRYL) i njection 6.25 mg 1 08/10/2024 fentaNYL citrate (PF) injection 50 mcg 1 glycopyrrolate (ROBINUL) injection 0.2 mg 1 08/10/2024 heparin lock flush 100 units/mL 1 lidocaine (PF) 10 mg/mL (1 % ) injection 2 mg 1 08/10/2024 meperidine (PF) (DEMEROL) in jection 12.5 mg 1 08/10/2024 ondansetron (PF) (ZOFRAN) injection 4 mg 1 08/10/2024 oxyCODONE (ROXICODONE) immed iate release tablet 5-10 mg 1 08/10/2024 SODIUM CHLORIDE 0.9 % INJECTION 1 4 Diet Count Last Ordered Date First Orde [...] 07/18 documented in this encounter Care Teams Cylinder Filler Relationship Specialty Start Date End Date Urbano Lee Jr., MD [address] [phone] PCP - General 03/07/09 documented as of this encounter
--- OUTSIDE RECORDS SUMMARY | 2024-08-14 01:16 | XMS_ITS | Encounter Summary ---
Author Organization [facility] Address [address] [place] [address] Care Team Providers Care Rn Clinical Name Role Phone Jesus Augustin MD, Urbano Aguayo Primary Care Provider + Reason for Visit * Reason Onset Date Comments Coordination Of Care 08/04/2024 Encounter Details Date Type Department Care Team (Late st Contact Info) Description 08/04/2024 Telephone [facility] Adult Hematology & Oncology [address] [place] [phone] Leela Turcios FNP 130 [facility] [address] [place] [phone] Coordination Of Care Social History Tobacco Use [...] encounter Miscellaneous Notes * Telephone Encounter - Leela Turcios FNP - 08/04/2024 1150 EST Tejas Silverio, I met with Jose today for chemotherapy education. He and his Fabby have questions about druginsurance coverage. They are wondering if they need to change insurance in regards to drug coverageas enrollment is open right now for Medicare until beginning of August. Is this something you would be able to assist them with? Pt and are asking that the Fabby is called at [phone]. Thank you for the help. documented in this encounter Plan of Treatment Upcoming Encounters Date Type Department Care Team (Late st Contact Info) Description 08/19/2024 10:[address] [facility] Adult Hematology & Oncology [address] [place] [address], [place] [phone] Brie Artis, PARADISE 130 [facility] [address] [phone] 08/19/2024 10:[address] [facility] Adult Hem Onc Infusion [address] [place], [place] [phone] 08/25/2024 9:[address] [facility] Adult Hematology & Oncology [address] [place] [address], [place] [phone] Leela Turcios FNP 130 [facility] [address] [phone] 08/25/2024 10:[address] [facility] Adult Hem Onc Infusion [address] [place], [place] [phone] 09/08/2024 8:[address] [facility] Adult Hematology & Oncology [address] [place] [address] [phone] Brie Artis NP 130 [facility] [address] [phone] 09/08/2024 8:[address] [facility] Adult Hem Onc Infusion [address] [place] [phone] documented as of this encounter Visit Diagnoses Not on filedocumented in this encounter Care Teams Rn Clinical Relationship Specialty Start Date End Date Urbano Lee Jr., MD [address] [phone] PCP - General 03/07/09 documented as of this encounter
--- OUTSIDE RECORDS SUMMARY | 2024-08-14 01:16 | XMS_ITS | Encounter Summary ---
Author Organization [facility] Address [address] [place] [address] Care Team Providers Care Scale Reclamation Tender Name Role Phone Jesus Augustin MD, Urbano Aguayo Primary Care Provider + Reason for Visit * Reason Onset Date Comments Results 07/23/2024 Encounter Details Date Type Department Care Team (Late st Contact Info) Description 07/23/2024 Telephone [facility] Gastroenterology - [address] [phone] Deon Forbes MD 111 [facility], Level [address] [place] [address] Results Social History Tobacco Use Types Packs/Day Years [...] encounter Miscellaneous Notes * Telephone Encounter - Deon Forbes MD - 07/23/2024 2942 EST I called the patient and discussed the results of his EUS guided biopsy with him. He told me he hadan oncology visit next week in [place]. documented in this encounter Plan of Treatment Upcoming Encounters Date Type Department Care Team (Late st Contact Info) Description 08/19/2024 10:[address] [facility] Adult Hematology & Oncology [address] [place] [address], [place] [phone] Brie Artis NP [address] [phone] 08/19/2024 10:[address] [facility] Adult Hem Onc Infusion [address] [place], [place] [address] 08/25/2024 9:[address] [facility] Adult Hematology & Oncology [address] [place] [address], [place] [phone] Leela Turcios FNP [address] [phone] 08/25/2024 10:[address] [facility] Adult Hem Onc Infusion [address] [place], [place] [phone] 09/08/2024 8:[address] [facility] Adult Hematology & Oncology [address] [place] [address], [place] [phone] Brie Artis, PARADISE [address] [phone] 09/08/2024 8:[address] [facility] Adult Hem Onc Infusion [address] [place], [place] [phone] documented as of this encounter Visit Diagnoses Not on filedocumented in this encounter Care Teams Scale Reclamation Tender Relationship Specialty Start Date End Date Urbano Lee Jr., MD [address] [phone] PCP - General 03/07/09 documented as of this encounter
--- OUTSIDE RECORDS SUMMARY | 2024-08-14 01:16 | XMS_ITS ---
Author Organization 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) 07/31/2024 Current Oncology Plans MODIFIED FOLFIRINOX* Plan Start Date:08/09/2024 Plan Provider:Thomas Padilla MBBS Linked Problems Pancreatic cancer metastasiz ed to lung ([facility]-CMS) Treatment Medications Current Day (Day 3 , Cycle 1 - Planned for 08/13/2024) Next Day (Day 1, Cycle 2 - Planned for 08/25/2024) dexAMETHasone (DECADRON) 12 mg in NS 100 ml IVPBfluorouracil (ADRUCIL)fluorouracil (ADRUCIL) infusion cassette 46 hrfosaprepitant (EMEND) IVPB 150 mgirinotecan (CAMPTOSAR) chemo infusionleucovorin (WELLCOVORIN) infusionoxaliplatin (ELOXATIN) chemo infusion No medications scheduled. fluorouracil (ADRUCIL) infusion cassette 5,208 mgfosaprepitant (EMEND) 150 mg in sodium chloride (NS) 0.9 % 150 mL infusionirinotecan (CAMPTOSAR) 325.6 mg in dextrose 5% (D5W) 500 mL chemo infusionleucovorin 868 mg in dextrose 5% (D5W) 100 mL infusionoxaliplatin (ELOXATIN) 184 mg in dextrose 5% (D5W) 250 mL chemo infusion Past Plans No past plan information found. Radiation Treatments * No radiation treatments are documented for this patient in [facility]. Treatments may have been administered in another system. Lifetime Dose Tracking * Chemical Lifetime Dose Automatic Entry Manual Entr y Fluoro Time 0.22 minutes 0.22 minutes 0 minutes
--- OUTSIDE RECORDS SUMMARY | 2024-08-14 01:16 | XMS_ITS | Encounter Summary ---
Author Organization [facility] Address [address] [place] [address] Care Team Providers Care Network Control Supervisor Name Role Phone Jesus Augustin MD, Urbano Aguayo Primary Care Provider + Reason for Referral * Radiology Services (Routine/Next Available) - Authorization Not Required Specialty Diagnoses / Procedures Referred By Deonna lindo Referred To Contact Diagnoses Malignant neoplasm of pancreas, unspecified (HCC-CMS) Secondary malignant neoplasm of unspecified lung (HCC-CMS) Procedures [place] C-ARM WITH IMAGES Evangelist Miranda MD 130 [facility] [address] [phone] Phone: tel: fax: [facility] Referral ID Status Reason Start Date Expiration Date Visits Requested Visits Authorized [id number] Authorization Not Required 4 1 1 Reason for Visit * Auth/Cert (Routine) Specialty Diagnoses / Procedures [facility] Referred To Contact Diagnoses 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) [C25.9, C78.00] Procedures [place] INSJ TUNNELED CTR VAD W/SUBQ PORT AGE 5 YR/> TUNNELED CENTRAL VENOUS DEVICE, WITH SUBCUTANEOUS PORT, >5 Y Referral ID Status Reason Start Date Expiration Date Visits Re quested Visits Authorized [id number] 1 1 Encounter Details Date Type Department Care Team (Latest Contact Info) Description 08/10/2024 7:34 EST - 08/10/2024 23:59 EST Hospital Encounter [facility] Xray [address] [place] [address] Malignant neoplasm of pancreas, unspecified [...] Info) Description 08/19/2024 10:00 EST Office Visit [facility] Adult Hematology & Oncology [address] [place] [address], [place] [phone] Brie Artis, PARADISE [address] [place] [phone] 08/19/2024 10:30 EST Nurse Only [facility] Adult Hem Onc Infusion [address] [place], [place] [phone] 08/25/2024 9:00 EST Office Visit [facility] Adult Hematology & Oncology [address] [place] [address], [place] [phone] Leela Turcios FNP [address] [phone] 08/25/2024 10:00 EST Nurse Only [facility] Adult Hem Onc Infusion [address] [place], [place] [address] 09/08/2024 8:00 EST Office Visit [facility] Adult Hematology & Oncology [address] [place] [address], [place] [phone] Brie Artis NP [address] [phone] 09/08/2024 8:30 EST Nurse Only [facility] Adult Hem Onc Infusion [address] [place] [address] documented as of this encounter Procedures Procedure Name Priority Date/Time Associated Diagnosis Comments FL C-ARM WITH IMAGES Routine 08/10/2024 12:05 EST Malignant neoplasm of pancreas, unspecified (HCC-CMS) Secondary malignant neoplasm of unspecified lung (HCC-CMS) documented in this encounter Results * FL C-ARM WITH IMAGES (08/10/2024 12:05 EST) Narrative 08/10/2024 12:05 EST This is a non-reportable exam. Evangelist Miranda MD IMG FLUOROSCOPY ORDERABLES Final Result documented in this encounter Visit Diagnoses Diagnosis Malignant neoplasm of pancreas, unspecified (HCC-CMS) Secondary malignant neoplasm of unspecified lung (HCC-CMS) documented in this encounter Care Teams Network Control Supervisor Relationship Specialty Start Date End Date Urbano Lee Jr., MD [address] [facility] [address] [place] [phone] PCP - General 03/07/09 documented as of this encounter
--- OUTSIDE RECORDS SUMMARY | 2024-08-14 01:17 | XMS_ITS | Encounter Summary ---
Author Organization [facility] Address [address] [place] [address] Care Team Providers Care Optical Instrument Repairer Name Role Phone Jesus Augustin MD, Urbano Aguayo Primary Care Provider + Reason for Visit * (Routine/Next Available) - Order Cancelled Specialty Diagnoses / Procedures Referred By Deonna lindo Referred To Contact Procedures CT OUTSIDE IMAGES ABDOMEN PELVIS Imaging, External Referral ID Status Reason Start Date Expiration Date V isits Requested Visits Authorized [id number] Order Cancelled 06/30/2024 1 1 Encounter Details Date Type Department Care Team (Latest Contact Info) Description 06/30/2024 16:08 EDT - 06/30/2024 23:59 EDT Hospital Encounter [facility] Secondary Reads [place] Discharge Disposition: Home or Self Care Social History Tobacco Use Types Packs/Day Years Used Date Smoking Tobacco: Never Assessed Interpersonal Safety Answer Date Record ed Physically Hurt Never 04/19/2020 Verbally Threaten Not on file 04/19/2020 Sex and Gender Information Value Date Recorded Sex Assigned at Male 08/07/2024 12:35 EST Legal Sex Male 17:22 EST Gender Identity Male 07/16/2024 8:48 EDT Sexual Orientation Not on file documented as of this encounter Discharge Disposition Disposition Code Departure Means Destination Home or Self Care documented in this encounter Plan of Treatment Upcoming Encounters Date Type Department Care Team (Late st Contact Info) Description 08/19/2024 10:00 EST Office Visit [facility] Adult Hematology & Oncology [facility] [place], [place] [phone] Brie Artis, PARADISE 130 [facility], [facility] [address] [place] [phone] 08/19/2024 10:30 EST Nurse Only [facility] Adult Hem Onc Infusion [address] [place], [place] [phone] 08/25/2024 9:00 EST Office Visit [facility] Adult Hematology & Oncology [address] [place] [address], [place] [address] Leela Turcios FNP [address] [phone] 08/25/2024 10:00 EST Nurse Only [facility] Adult Hem Onc Infusion [address] [place], [place] [phone] 09/08/2024 8:00 EST Office Visit [facility] Adult Hematology & Oncology [address] [place] [address] Brie Artis, PARADISE [address] [phone] 09/08/2024 8:30 EST Nurse Only [facility] Adult Hem Onc Infusion [address] [place] [phone] documented as of this encounter Visit Diagnoses Not on filedocumented in this encounter Care Teams Optical Instrument Repairer Relationship Specialty Start Date End Date Urbano Lee Jr., MD [address] [phone] PCP - General 03/07/09 documented as of this encounter
--- OUTSIDE RECORDS SUMMARY | 2024-08-14 01:17 | XMS_ITS | Encounter Summary ---
Author Organization [facility] Address [address] [place] [address] Care Team Providers Care Brass Burnisher Name Role Phone Jesus Augustin MD, Urbano Aguayo Primary Care Provider + Encounter Details Date Type Department Care Team (Late st Contact Info) Description 02/07/2018 Results Only [facility] [phone] Urbano Lee Jr., MD [address] [facility] [address] [place] [address] Social History Tobacco Use Types Packs/Day Years Used Date Smoking Tobacco: Never Assessed Sex and Gender Information Value Date Recorded Sex Assigned at Male 08/07/2024 12:35 EST Legal Sex Male 17:22 EST Gender Identity Male 07/16/2024 8:48 EDT Sexual Orientation Not on file documented as of this encounter Plan of Treatment Upcoming Encounters Date Type Department Care Team (Late st Contact Info) Description 08/19/2024 10:00 EST Office Visit [facility] Adult Hematology & Oncology [address] [place] [phone] Brie Artis, PARADISE 130 [facility] [address] [place] [address] 08/19/2024 10:30 EST Nurse Only [facility] Adult Hem Onc Infusion [address] [place], [place] [phone] 08/25/2024 9:00 EST Office Visit [facility] Adult Hematology & Oncology [address] [place] [address] Leela Turcios FNP 130 [facility] [address] [place] [address] 08/25/2024 10:00 EST Nurse Only [facility] Adult Hem Onc Infusion [address] [place] [address] 09/08/2024 8:00 EST Office Visit [facility] Adult Hematology & Oncology [address] [place] [address], [place] [address] Brie Artis, PARADISE 130 [facility] [address] [place] [address] 09/08/2024 8:30 EST Nurse Only [facility] Adult Hem Onc Infusion [address] [place] [address] documented as of this encounter Procedures Procedure Name Priority Date/Time Associated Diagnosis Comments PSA TOTAL, DIAGNOSTIC Routine 02/07/2018 11:00 EDT documented in this encounter Results * (ABNORMAL) PSA TOTAL, DIAGNOSTIC (02/07/2018 11:00 EDT) PSA 6.7(H) 0 - 4.5 ng/ml 02/10/2018 10:05 EDT [facility] Comment: Serum PSA concentration should not be interpreted as absolute evidence for the presence or absence of malignant disease. Assayed utilizing [employer] ([employer]) chemiluminescent technology. ??Values obtained by using different assay methods cannot be used interchangeably. BLOOD SPECIMEN / Unknown 02/07/2018 11:00 EDT 02/07/2018 16:23 EDT us Urbano Lee Jr., MD CHEMISTRY & BLOOD GAS OR DERABLES Final Result [facility] [address] [place] [address] documented in this encounter Visit Diagnoses Not on filedocumented in this encounter Care Teams Brass Burnisher Relationship Specialty Start Date End Date Urbano Lee Jr., MD [address] [phone] PCP - General 03/07/09 documented as of this encounter
--- OUTSIDE RECORDS SUMMARY | 2024-08-14 01:17 | XMS_ITS | Encounter Summary ---
Author Organization [facility] Address [address] [place] [address] Care Team Providers Care Physician Chief Of Pathology Name Role Phone Jesus Augustin MD, Urbano Aguayo Primary Care Provider + Encounter Details Date Type Department Care Team (Latest Contact Info) Description 12/25/2018 10:18 EDT - 12/25/2018 10:20 EDT Hospital Encounter [facility] [address] [place] [address] Urbano Lee Jr., MD [address] [facility] [address] [place] [phone] Discharge Disposition: Home or Self Care Social History Tobacco Use Types Packs/Day Years Used Date Smoking Tobacco: Never Assessed Sex and Gender Information Value Date Recorded Sex Assigned at Male 08/07/2024 12:35 EST Legal Sex Male 17:22 EST Gender Identity Male 07/16/2024 8:48 EDT Sexual Orientation Not on file documented as of this encounter Discharge Diagnoses Diagnosis E78.5 Hyperlipidemia, unspecified-E78.5[ICD-10-CM] Z12.5 Encounter for screening for malignant neoplasm of prostate-Z12.5[ICD-10-CM] K21.0 Gastro-esophageal reflux disease with esophagitis-K21.0[ICD-10-CM] J45.909 Unspecified asthma, uncomplicated-J45.909[ICD-10-CM] documented in this encounter Discharge Disposition Disposition Code Departure Means Destination Home or Self Care documented in this encounter Plan of Treatment Upcoming Encounters Date Type Department Care Team ([facility] st Contact Info) Description 08/19/2024 10:00 EST Office Visit [facility] Adult Hematology & Oncology [address] [place] [address], [place] [address] Brie Artis, PARADISE [address] [place] [phone] 08/19/2024 10:30 EST Nurse Only [facility] Adult Hem Onc Infusion [address] [place] [address], [place] [address] 08/25/2024 9:00 EST Office Visit [facility] Adult Hematology & Oncology [address] [place] [address], [place] [address] Leela Turcios FNP [address] [phone] 08/25/2024 10:00 EST Nurse Only [facility] Adult Hem Onc Infusion [address] [place] [address], [place] [address] 09/08/2024 8:00 EST Office Visit [facility] Adult Hematology & Oncology [address] [place] [address], [place] [address] Brie Artis NP [address] [place] [phone] 09/08/2024 8:30 EST Nurse Only [facility] Adult Hem Onc Infusion [address] [place] [address], [place] [address] documented as of this encounter Visit Diagnoses Not on filedocumented in this encounter Care Teams Physician Chief Of Pathology Relationship Specialty Start Date End Date Urbano Lee Jr., MD [address] [place] [phone] PCP - General 03/07/09 documented as of this encounter
--- OUTSIDE RECORDS SUMMARY | 2024-08-14 01:17 | XMS_ITS | Encounter Summary ---
Author Organization [facility] Address [address] [place] [address] Care Team Providers Care Special Officer Name Role Phone Jesus Augustin MD, Donald B Primary Care Provider + Encounter Details Date Type Department Care Team (Late Contact Info) Description 01/16/2021 Lab Requisition [facility] Pathology & Laboratory Medicine - [facility] [address] [place] [address] Urbano Lee Jr., MD [address] [facility] [address] [place] [phone] Hyperlipidemia, unspecified; Essential (primary) hypertension; Elevated prostate specific antigen (PSA); Other abnormal glucose Social History Tobacco Use Types Packs/Day Years [...] Encounters Date Type Department Care Team (Late Contact Info) Description 08/19/2024 10:00 EST Office Visit [facility] Adult Hematology & Oncology [facility] [place], [place] [address] Brie Artis, PARADISE 130 [facility], [facility] [address] [place] [phone] 08/19/2024 10:30 EST Nurse Only [facility] Adult Hem Onc Infusion [address] [place], [place] [phone] 08/25/2024 9:00 EST Office Visit [facility] Adult Hematology & Oncology [address] [place] [address], [place] [phone] Leela Turcios FNP 130 [facility] [address] [place] [address] 08/25/2024 10:00 EST Nurse Only [facility] Adult Hem Onc Infusion [address] [place], [place] [phone] 09/08/2024 8:00 EST Office Visit [facility] Adult Hematology & Oncology [address] [place] [address], [place] [address] Brie Artis, PARADISE 130 [facility] [address] [phone] 09/08/2024 8:30 EST Nurse Only [facility] Adult Hem Onc Infusion [address] [place], [place] [phone] documented as of this encounter Procedures Procedure Name Priority Date/Time Associated Diagnosis Comments PSA SCREEN Today 01/16/2021 8:15 EDT Hyperlipidemia, unspecified Essential (primary) hypertension Elevated prostate specific antigen (PSA) Other abnormal glucose MAGNESIUM Today 01/16/2021 8:15 EDT Hyperlipidemia, unspecified Essential (primary) hypertension Elevated prostate specific antigen (PSA) Other abnormal glucose IRON Today 01/16/2021 8:15 EDT Hyperlipidemia, unspecified Essential (primary) hypertension Elevated prostate specific antigen (PSA) Other abnormal glucose VITAMIN B12 Today 01/16/2021 8:15 EDT Hyperlipidemia, unspecified Essential (primary) hypertension Elevated prostate specific antigen (PSA) Other abnormal glucose LIPID PROFILE (INCLUDES CHOLESTEROL, TRIGLYCERIDES, HDL, LDL) Today 01/16/2021 8:15 EDT Hyperlipidemia, unspecified Essential (primary) hypertension Elevated prostate specific antigen (PSA) Other abnormal glucose COMPREHENSIVE METABOLIC PANEL (CMP) Today 01/16/2021 8:15 EDT Hyperlipidemia, unspecified Essential (primary) hypertension Elevated prostate specific antigen (PSA) Other abnormal glucose documented in this encounter Results * VITAMIN B12 (01/16/2021 8:15 EDT) Vitamin B12 426 211 - 911 pg/mL 01/16/2021 17:28 EDT [facility] Blood VENOUS BLOOD / Unknown 01/16/2021 8:15 EDT 01/16/2021 14:32 EDT us Urbano Lee Jr., MD CHEMISTRY & BLOOD GAS OR DERABLES Final Result Performing Organization Address [facility] Co de Phone Number [facility] [address] [place] [address] * (ABNORMAL) PSA SCREEN (01/16/2021 8:15 EDT) PSA 7.1(H) 0.0 - 4.5 ng/mL 01/16/2021 17:26 EDT [facility] Blood VENOUS BLOOD / Unknown 01/16/2021 8:15 EDT 01/16/2021 14:32 EDT Narrative [facility] - 01/16/2021 17:26 EDT NOTE: Serum PSA concentration should not be interpreted as absolute evidence for the presence or absence of malignant disease. Assayed on Siemens ADVIA Centaur XPT using chemiluminescent technology.??Values obtained by using different assay methods cannot be used interchangeably. us Urbano Lee Jr., MD CHEMISTRY & BLOOD GAS OR DERABLES Final Result Performing Organization Address [facility]/ZIP Co de Phone Number [facility] [address] [place] [address] * MAGNESIUM (01/16/2021 8:15 EDT) Magnesium 1.9 1.7 - 2.8 mg/dL 01/16/2021 15:01 EDT [facility] Blood VENOUS BLOOD / Unknown 01/16/2021 8:15 EDT 01/16/2021 14:32 EDT us Urbano Lee Jr., MD CHEMISTRY & BLOOD GAS OR DERABLES Final Result Performing Organization Address City/[facility]/ZIP Co de Phone Number [facility] [address] [place] [address] * IRON (01/16/2021 8:15 EDT) Iron 92 49 - 181 ug/dL 01/16/2021 15:01 EDT [facility] Blood VENOUS BLOOD / Unknown 01/16/2021 8:15 EDT 01/16/2021 14:32 EDT us Urbano Lee Jr., MD CHEMISTRY & BLOOD GAS OR DERABLES Final Result Performing Organization Address [facility] de Phone Number [facility] [address] [place] [address] * LIPID PROFILE (INCLUDES CHOLESTEROL, TRIGLYCERIDES, HDL, LDL) (01/16/2021 8:15 EDT) Cholesterol 158 See Note mg/dL 01/16/2021 15:01 T [facility] Comment: Acceptable: ?<200 mg/dL Borderline High: 200-239 mg/dL High: ?> or = 240 mg/dL HDL 42 See Note mg/dL 01/16/2021 15:01 [facility] Comment: Low: ? <40 mg/dL Normal: ??40-60 mg/dL High: ?>60 mg/dL LDL, Calculated 97 See Note mg/dL 01/16/2021 15:01 [facility] Comment: Optimal: ? <100 mg/dL Near Optimal: ?100-129 mg/dL Borderline High: 130-159 mg/dL High: ?160-189 mg/dL Very High: ? > or = 190 mg/dL Triglyceride 97 See Note mg/dL 01/16/2021 15:01 [facility] Comment: Normal: ? <150 mg/dL Borderline High: ??150 - 199 mg/dL High: ? 200 - 499 mg/dL Very High: ?> or = 500 mg/dL Chol/HDL Ratio 3.8 See Note 01/16/2021 15:01 [facility] Comment:No reference range h as been established for CHOL/HDL ratio. Non HDL Cholesterol 116 See Note mg/dL 01/16/2021 15:01 [facility] Comment: Desirable: ?<130 mg/dL Borderline High: ??130-159 mg/dL High: ? 160-189 mg/dL Very High: ?> or = 190 mg/dL Blood VENOUS BLOOD / Unknown 01/16/2021 8:15 EDT 01/16/2021 14:32 EDT us Urbano Lee Jr., MD CHEMISTRY & BLOOD GAS OR DERABLES Final Result [facility] [address] [place] [address] * COMPREHENSIVE METABOLIC PANEL (CMP) (01/16/2021 8:15 EDT) Sodium 142 136 - 145 mEq/L 01/16/2021 15:01 [facility] Potassium 4.4 3.5 - 5.0 mEq/L 01/16/2021 15:01 [facility] Chloride 103 96 - 110 mEq/L 01/16/2021 15:01 [facility] CO2 Total 31 22 - 32 mEq/L 01/16/2021 15:01 [facility] Glucose 96 70 - 100 mg/dL 01/16/2021 15:01 [facility] BUN 17 10 - 26 mg/dL 01/16/2021 15:01 [facility] Creatinine 0.98 0.66 - 1.25 mg/dL 01/16/2021 15:01 [facility] eGFR 78 >60 mL/min/1.7 3m2 01/16/2021 15:01 [facility] Comment:eGFR calculated nani barillas CKD-EPI equation for non- Americans. Multiply eGFR by 1.16 for patients. Total Protein 6.3 6.3 - 8.2 g/dL 01/16/2021 15:01 [facility] Albumin 3.9 3.4 - 4.9 g/dL 01/16/2021 15:01 [facility] Alkaline Phosphatase 71 38 - 126 U/L 01/16/2021 15:01 [facility] AST 26 15 - 46 U/L 01/16/2021 15:01 [facility] ALT 23 <50 U/L 01/16/2021 15:01 [facility] Bilirubin, Total <0.5 <1.4 mg/dL 01/17/20 15:01 [facility] Calcium 10.4 8.5 - 10.5 mg/dL 01/16/2021 15:01 [facility] Calculated Calcium 10.5 8.5 - 10.5 mg/dL 01/16/2021 15:01 [facility] Blood VENOUS BLOOD / Unknown 01/16/2021 8:15 EDT 01/16/2021 14:32 EDT us Urbano Lee Jr., MD CHEMISTRY & BLOOD GAS OR DERABLES Final Result [facility] [address] [place] [address] documented in this encounter Visit Diagnoses Diagnosis Hyperlipidemia, unspecified Essential (primary) hypertension Unspecified essential hypertension Elevated prostate specific antigen (PSA) Other abnormal glucose documented in this encounter Care Teams Special Officer Relationship Specialty Start Date End Date Urbano Lee Jr., MD [address] [phone] PCP - General 03/07/09 documented as of this encounter
--- OUTSIDE RECORDS SUMMARY | 2024-08-14 01:17 | XMS_ITS | Encounter Summary ---
Author Organization [facility] Address [address] [place] [address] Care Team Providers Care Engine House Helper Name Role Phone Jesus Augustin MD, Donald B Primary Care Provider + Encounter Details Date Type Department Care Team (Late Contact Info) Description 08/14/2021 Lab Requisition [facility] Pathology & Laboratory Medicine - [facility] [address] [place] [address] Urbano Lee Jr., MD [address] [facility] [address] [place] [address] Encounter for other general examination Social History Tobacco Use Types Packs/Day Years [...] Description 08/19/2024 10:00 EST Office Visit [facility] Adult Hematology & Oncology [address] [place] [phone] Brie Artis NP 130 [facility], [facility] [address] [place] [phone] 08/19/2024 10:30 EST Nurse Only [facility] Adult Hem Onc Infusion 130 [facility] [place] [id number] 08/25/2024 9:00 EST Office Visit [facility] Adult Hematology & Oncology [address] [place] [address], [place] [id number] Leela Turciso FNP 130 [facility] [address] [place] [address] 08/25/2024 10:00 EST Nurse Only [facility] Adult Hem Onc Infusion 130 [facility] [place] [id number] 09/08/2024 8:00 EST Office Visit [facility] Adult Hematology & Oncology [address] [place] [address], [place] [address] Brie Artis, PAR[place] 130 [facility] [address] [place] [address] 09/08/2024 8:30 EST Nurse Only [facility] Adult Hem Onc Infusion [address] [facility] [place] [address] documented as of this encounter Procedures Procedure Name Priority Date/Time Associated Diagnosis Comments PSA TOTAL, DIAGNOSTIC Today 08/14/2021 9:30 EST Encounter for other general examination documented in this encounter Results * (ABNORMAL) PSA TOTAL, DIAGNOSTIC (08/14/2021 9:30 EST) PSA 8.2(H) 0.0 - 4.5 ng/mL 08/14/2021 18:33 EST [facility] Blood VENOUS BLOOD / Unknown Non-Lab Collect / Unknown 08/14/2021 9:30 EST 08/14/2021 16:09 EST Narrative [facility] - 08/14/2021 18:33 EST NOTE: Serum PSA concentration should not be interpreted as absolute evidence for the presence or absence of malignant disease. Assayed on Siemens igobubbleaur XPT using chemiluminescent technology.??Values obtained by using different assay methods cannot be used interchangeably. us Urbano Lee Jr., MD CHEMISTRY & BLOOD GAS OR DERABLES Final Result [facility] [address] [place] [address] documented in this encounter Visit Diagnoses Diagnosis Encounter for other general examination documented in this encounter Care Teams Engine House Helper Relationship Specialty Start Date End Date Urbano Lee Jr., MD [address] [facility] [address] [place] [address] PCP - General 03/07/09 documented as of this encounter
--- OUTSIDE RECORDS SUMMARY | 2024-08-14 01:17 | XMS_ITS | Encounter Summary ---
Author Organization [facility] Address [address] [place] [address] Care Team Providers Care Talent Rep Name Role Phone Jesus Augustin MD, Urbano Aguayo Primary Care Provider + Reason for Referral * Referral (Routine/Next Available) - Authorization Not Required Specialty Diagnoses / Procedures Referred By Contact Referred To Contact Diagnoses Pancreatic mass Procedures ENDOSCOPIC ULTRASOUND (EUS) NM ESOPHAGOGASTRODUODENOSCOPY US SCOPE W/ADJ STRXRS NM EGD INTRMURAL US NEEDLE ASPIRATE/BIOPSY ESOPHAGS NM ANESTHESIA UPPER GI ENDOSCOPIC PX NOS Eduarda Diane MD [address] [facility], [facility] 2 [place] [address] Phone: tel:[phone] fax:[phone] [facility] Gastroenterology - [address] [address] Phone: tel: fax: Referral ID Status Reason Start Date Expiration Date Visits Requested Visits Authorized [id number] Authorization Not Required 4 1 1 Reason for Visit * Referral (Routine/Next Available) - Authorization Not Required Specialty Diagnoses / Procedures Referred By Contact Referred To Contact Diagnoses Pancreatic mass Procedures ENDOSCOPIC ULTRASOUND (EUS) NM ESOPHAGOGASTRODUODENOSCOPY US SCOPE W/ADJ STRXRS NM EGD INTRMURAL US NEEDLE ASPIRATE/BIOPSY ESOPHAGS NM ANESTHESIA UPPER GI ENDOSCOPIC PX NOS Eduarda Diane MD [address] [facility], [facility] 2 [place] [address] Phone: tel:[phone] fax:[phone] [facility] Gastroenterology - [address] [address] Phone: tel: fax: Referral ID Status Reason Start Date Expiration Date Visits Requested Visits Authorized [id number] Authorization Not Required 4 1 1 Encounter Details Date Type Department Care Team (Late st Contact Info) Description 07/22/2024 14:00 EST - 07/22/2024 23:59 EST Hospital Encounter [facility] Endoscopy - [address] [address] Deon Forbes MD [address] [place] [address], [facility] 5 [place] [phone] Andrei AnesthesiolgiTashi Manjarrez MD [address] [place] [phone] Pancreatic mass Discharge Disposition: Home or Self Care Social History Tobacco Use Types Packs/Day Years Used Date Smoking Tobacco: Every Day Cigarettes Tobacco Cessation:Ready to Q uit: Not Asked; [...] Sign Reading Time Taken Comments Blood Pressure 111/84 07/22/2024 1659 EST Pulse - - Temperature 37.2 ??C (99 ??F) 07/22/2024 1624 EST Respiratory Rate 17 07/22/2024 1659 EST Oxygen Saturation 98% 07/22/2024 1659 EST Inhaled Oxygen Concentration - - Weight 92.1 kg (203 lb) 07/22/2024 1508 EST Height 182.9 cm (6') 07/22/2024 1508 EST Body Mass Index 27.53 07/22/2024 1508 EST documented in this encounter Medications at [...] or Self Care documented in this encounter H&P Notes * Elijah Gonsalves MD - 07/22/2024 1550 EST Endoscopy Sedation for Procedure History & Physical Date: 07/22/2024 Time: 15:50 Location: [facility] Endoscopy - [facility] Planned Procedure: Endoscopic Ultrasound request Chief Complaint/Indications for Procedure: Pancreatic mass History Previous Complication with Sedation and/or Anesthesia? No Allergies: No Known Allergies Current Medications: Current Outpatient Medications Medication albuterol 90 mcg/actuation HFA aerosol inhaler inhaler aspirin chewable 81 mg tablet atorvastatin (LIPITOR) 10 mg tablet fluticasone furoate-vilanteroL (BREO ELLIPTA) 100-25 mcg/dose blister with device lisinopriL (PRINIVIL) 10 mg tablet omeprazole (PRILOSEC) 20 mg capsule ondansetron (ZOFRAN-ODT) 4 mg disintegrating tablet traMADol (ULTRAM) 50 mg tablet Current Facility-Administered Medications Medication Route Frequency atropine 0.1 mg/mL syringe 0.5 mg intravenous PRN diphenhydrAMINE (BENADRYL) injection 25 mg intravenous Once PRN lidocaine 1 % injection 2 mg intradermal PRN lidocaine 1 % injection 2 mg intradermal PRN naloxone (NARCAN) injection 0.2 mg intravenous PRN sodium chloride 0.9 % (flush) flush 3 mL intravenous PRN sodium chloride 0.9 % (flush) flush 5 mL intravenous Q8H Past Medical History: Past Medical History: Diagnosis Date Cancer (HCC-CMS) kidney GERD (gastroesophageal reflux disease) Hypertension Lung disease COPD Social History: Past Surgical History: Procedure Laterality Date KIDNEY REMOVAL Left 1993 Social History Tobacco Use Smoking status: Every Day Types: Cigarettes Smokeless tobacco: Not on file Substance Use Topics Alcohol use: Not Currently Family History: History reviewed. No pertinent family history. Review of Systems as pertinent: Physical Exam Vital Signs: BP 137/81 (BP Cuff Location: Left arm) Temp 36.6 ??C (97.9 ??F) (Temporal) Resp 18 Ht 182.9 cm (72) Wt 92.1 kg (203 lb) SpO2 98% BMI 27.53 kg/m?? Heart Examination: Cardiac Regularity: Regular Respiratory Examination: Respiratory Pattern: Regular Breath Sounds Right: Clear Breath Sounds Left: Clear Abdominal Examination: Soft, non-tender, bowel sounds normal, no masses, no organomegaly Additional physical exam related to the proposed procedure, patient activity, disease state and treatment as pertinent: Assessment Previous complications with sedation or anesthesia?: No Anesthesia Classification: ASA 2 Plan: Proceed with sedation for procedure Fasting Time: Date of Last Liquid: 07/22/24 Time of Last Liquid: 1300 Date of Last Solid: 07/21/24 Time of Last Solid: 1800 Patient Appropriate Candidate for Planned Sedation?: Yes ELIJAH GONSALVES MD 07/22/2024 15:50 Cosigned by Deon Forbes MD at 07/23/2024 9:05 EST documented in this encounter Nursing Notes * Latasha Guerra, RN - 07/22/2024 1556 EST EGD complete, switching to EUS scope documented in this encounter Plan of Treatment Upcoming Encounters Date Type Department Care Team (Late st Contact Info) Description 08/19/2024 10:00 EST Office Visit [facility] Adult Hematology & Oncology [address] [place] [address], [place] [address] Brie Artis, [place] 130 [facility] 12 [place] [address] 08/19/2024 10:30 EST Nurse Only [facility] Adult Hem Onc Infusion [address] [place] [address] 08/25/2024 9:00 EST Office Visit [facility] Adult Hematology & Oncology [address] [place] [address], [place] [address] Leela Turcios FNP 130 [facility] [address] [address] 08/25/2024 10:00 EST Nurse Only [facility] Adult Hem Onc Infusion [address] [place] [address] 09/08/2024 8:00 EST Office Visit [facility] Adult Hematology & Oncology [address] [place] [address], [place] [address] Brie Artis, [place] 130 [facility] [address] [place] [address] 09/08/2024 8:30 EST Nurse Only [facility] Adult Hem Onc Infusion [address] [place], [place] [phone] Scheduled Orders Name Type Priority Associated Diagnoses Orde r Schedule ENDOSCOPIC ULTRASOUND (EUS) GI Routine Pancreatic mass 1 Occurrences starting 07/22/2024 until 07/22/2024 documented as of this encounter Procedures Procedure Name Priority Date/Time Associated Diagnosis Comments ENDOSCOPIC ULTRASOUND PROCEDURE Routine 07/23/2024 9:06 EST NON BREAST SPLITTER/FNA CYTOLOGY Routine 07/22/2024 15:58 EST Pancreatic mass documented in this encounter Results * ENDOSCOPIC ULTRASOUND PROCEDURE (07/23/2024 9:06 EST) [...] Forbes. The attending physician was in the room for the entire procedure. This electronic signature authenticates all electronic and/or handwritten documentation, including orders, generated by the signer during the episode of care contained in this record. 07/23/2024 09:06:52 AM By Deon Forbes MD Deon Forbes MD GI PROCEDURE ORDERABLES Fin al Result * NON BREAST SPLITTER/FNA CYTOLOGY (07/22/2024 15:58 EST) Note to Patient The following pathology results have been interpreted by your pathologist and may be available to you before your health provider has had the opportunity to review them. Please allow time for your provider to receive these results and explore management options, if applicable. 07/23/2024 15:22 [facility] Final Diagnosis A. PANCREAS, BODY, MASS, ENDOSCOPIC ULTRASOUND-GUIDED FINE NEEDLE ASPIRATION: - Adenocarcinoma. See comment. 07/23/2024 15:22 [facility] Diagnosis Comment Cytologic evaluation demonstrates [...] in the appropriate clinical setting. 07/23/2024 15:22 [facility] Attestation There was significant resident/fellow involvement in the diagnostic evaluation of this case. By the signature below, the attending physician certifies that they have personally conducted a gross and/or microscopic examination of the described specimens and rendered or confirmed the above diagnosis. 07/23/2024 15:22 [facility] at 1522 Rapid Diagnosis A. PANCREAS, BODY MASS, ENDOSCOPIC ULTRASOUND GUIDED FINE NEEDLE ASPIRATION: Evaluation Episode 1: Pass 1: Adenocarcinoma. Dedicated passes for cell block. Rapid interpretation performed by: Dr. Jose Manuel Lynch; 07/22/24; 1630 07/23/2024 15:22 [facility] Clinical History Pancreatic mass 07/23/2024 15:22 [facility] Gross Description A. 2 fixed prepared slides, 1 air dried prepared slides, and 1 tube of RPMI for cell block processing were received. 07/23/2024 15:22 [facility] Resident/Eliezer w: Marilee Garcia DO 07/23/2024 15:22 [facility] Performing Lab [facility] 07/23/2024 15:22 [facility] Scanned Images 07/23/2024 15:22 [facility] Fine Needle Aspirate PANCREATIC STRUCTURE / Unknown 07/22/2024 15:58 EST 07/22/2024 16:25 EST us Deon Forbes MD PATHOLOGY ORDERABLES Final Result Performing Organization Address City/State/[facility] Co de Phone Number [facility] [address] [place], [place] [phone] documented in this encounter Visit Diagnoses Diagnosis Pancreatic mass Unspecified disease of pancreas documented in this encounter Administered Medications Inactive Administered Medications - up to 3 most recent administrations Medication Order MAR Action Action Date Dose Rate Site sodium chloride 0.9 % (flush) flush 3 mL 3 mL, intravenous, PRN, Starting on 07/22/24 at 1520, Until 07/25/24 at 0158, Line Care, Routine, Preprocedure Given 07/22/2024 15:35 EST 3 mL documented in this encounter Historical Medications * This list may reflect changes made after this encounter. albuterol 90 mcg/actuation HFA aerosol inhaler inhaler Inhale 2 Puffs as directed every 6 hours as needed for Wheezing. fluticasone furoate-vilanteroL (BREO ELLIPTA) 100-25 mcg/dose blister with device Inhale as directed daily. aspirin chewable 81 mg tablet Take 1 Tablet by mouth daily. atorvastatin (LIPITOR) 10 mg tablet Take 2 Tablets by mouth daily. lisinopriL (PRINIVIL) 10 mg tablet Take 1 Tablet by mouth daily. omeprazole (PRILOSEC) 20 mg capsule Take 2 Capsules by mouth daily. ondansetron (ZOFRAN-ODT) 4 mg disintegrating tablet Take 1 Tablet by mouth every 8 hours as needed for Nausea. 4 traMADol (ULTRAM) 50 mg tablet Take 1 Tablet by mouth every 6 hours as needed for Pain. 4 added in this encounter Orders Medications Ordered That Glynn ht Not Have Been Administered Count Last Ordered Date First Ordered Date atropine 0.1 mg/mL syringe 0.5 mg 1 024 diphenhydrAMINE (BENADRYL) injection 25 mg 1 07/22/2024 lidocaine 1 % injection 2 mg 2 07/22/2024 naloxone (NARCAN) injection 0.2 mg 1 2023 sodium chloride 0.9 % (flush) flush 5 mL 1 07/22/2024 documented in this encounter Care Teams Talent Rep Relationship Specialty Start Date End Date Urbano Lee Jr., MD [address] [address] PCP - General 03/07/09 documented as of this encounter
--- OUTSIDE RECORDS SUMMARY | 2024-08-14 01:17 | XMS_ITS | Encounter Summary ---
Author Organization [facility] Address [address] [place] [address] Care Team Providers Care Collision Repairer Name Role Phone Jesus Augustin MD, Urbano Aguayo Primary Care Provider + Encounter Details Date Type Department Care Team (Latest Contact Info) Description 07/14/2019 9:10 EDT - 07/14/2019 9:14 EDT Hospital Encounter [address] [address] Izabella Yi MD [address] [place] [address],[address] [place] [address] Discharge Disposition: Home or Self Care Social History Tobacco Use Types Packs/Day Years Used Date Smoking Tobacco: Never Assessed Sex and Gender Information Value Date Recorded Sex Assigned at Male 08/07/2024 12:35 EST Legal Sex Male 17:22 EST Gender Identity Male 07/16/2024 8:48 EDT Sexual Orientation Not on file documented as of this encounter Discharge Diagnoses Diagnosis R97.20 Elevated prostate specific antigen [PSA]-R97.20[ICD-10-CM] documented in this encounter Discharge Disposition Disposition Code Departure Means Destination Home or Self Care documented in this encounter Plan of Treatment Upcoming Encounters Date Type Department Care Team (Late st Contact Info) Description 08/19/2024 10:00 EST Office Visit [facility] Adult Hematology & Oncology [facility] [place], [place] [phone] Brie Artis NP 130 [facility], [facility] [address] [place] [phone] 08/19/2024 10:30 EST Nurse Only [facility] Adult Hem Onc Infusion [address] [place], [place] [phone] 08/25/2024 9:00 EST Office Visit [facility] Adult Hematology & Oncology [address] [place] [address], [place] [address] Leela Turcios FNP [address] [phone] 08/25/2024 10:00 EST Nurse Only [facility] Adult Hem Onc Infusion [address] [place], [place] [phone] 09/08/2024 8:00 EST Office Visit [facility] Adult Hematology & Oncology [address] [place] [address] Brie Artis, [place] [address] [phone] 09/08/2024 8:30 EST Nurse Only [facility] Adult Hem Onc Infusion [address] [place] [phone] documented as of this encounter Visit Diagnoses Not on filedocumented in this encounter Care Teams Collision Repairer Relationship Specialty Start Date End Date Urbano Lee Jr., MD [address] [phone] PCP - General 03/07/09 documented as of this encounter
--- OUTSIDE RECORDS SUMMARY | 2024-08-14 01:17 | XMS_ITS | Encounter Summary ---
Author Organization [facility] Address [address] [place] [address] Care Team Providers Care Oil Well Services Supervisor Name Role Phone Jesus Augustin MD, Donald B Primary Care Provider + Encounter Details Date Type Department Care Team (Late st Contact Info) Description 02/21/2022 Lab Requisition [facility] Pathology & Laboratory Medicine - [facility] [address] [place] [address] Urbano Lee Jr., MD [address] [facility] [address] [place] [address] Encounter for other general examination; Hyperlipidemia, unspecified; Other abnormal glucose; Vitamin D deficiency, unspecified Social History Tobacco Use Types Packs/Day Years [...] 08/19/2024 10:00 EST Office Visit [facility] Adult Hematology & Oncology [facility] [place], [place] [address] Brie Artis, [place] [address] [facility], [facility] [address] [place] [phone] 08/19/2024 10:30 EST Nurse Only [facility] Adult Hem Onc Infusion [address] [place], [place] [address] 08/25/2024 9:00 EST Office Visit [facility] Adult Hematology & Oncology [address] [place] [address], [place] [phone] Leela Turcios FNP 130 [facility] [address] [place] [phone] 08/25/2024 10:00 EST Nurse Only [facility] Adult Hem Onc Infusion [address] [place], [place] [phone] 09/08/2024 8:00 EST Office Visit [facility] Adult Hematology & Oncology [address] [place] [address], [place] [phone] Brie Artis, [place] 130 [facility] [address] [phone] 09/08/2024 8:30 EST Nurse Only [facility] Adult Hem Onc Infusion [address] [place], [place] [phone] documented as of this encounter Procedures Procedure Name Priority Date/Time Associated Diagnosis Comments PSA SCREEN Today 02/21/2022 9:30 EDT Encounter for other general examination Hyperlipidemia, unspecified Other abnormal glucose Vitamin D deficiency, unspecified MAGNESIUM Today 02/21/2022 9:30 EDT Encounter for other general examination Hyperlipidemia, unspecified Other abnormal glucose Vitamin D deficiency, unspecified IRON Today 02/21/2022 9:30 EDT Encounter for other general examination Hyperlipidemia, unspecified Other abnormal glucose Vitamin D deficiency, unspecified VITAMIN B12 Today 02/21/2022 9:30 EDT Encounter for other general examination Hyperlipidemia, unspecified Other abnormal glucose Vitamin D deficiency, unspecified LIPID PROFILE (INCLUDES CHOLESTEROL, TRIGLYCERIDES, HDL, LDL) Today 02/21/2022 9:30 EDT Encounter for other general examination Hyperlipidemia, unspecified Other abnormal glucose Vitamin D deficiency, unspecified COMPREHENSIVE METABOLIC PANEL (CMP) Today 02/21/2022 9:30 EDT Encounter for other general examination Hyperlipidemia, unspecified Other abnormal glucose Vitamin D deficiency, unspecified documented in this encounter Results * VITAMIN B12 (02/21/2022 9:30 EDT) [facility] Vitamin B12 402 211 - 911 pg/mL 02/21/2022 18:00 EDT [facility] Blood VENOUS BLOOD / Unknown 02/21/2022 9:30 EDT 02/21/2022 15:18 EDT us Urbano Lee Jr., MD CHEMISTRY & BLOOD GAS OR DERABLES Final Result Performing Organization Address [facility] Co de Phone Number [facility] [address] [place] [phone] * (ABNORMAL) PSA SCREEN (02/21/2022 9:30 EDT) [facility] PSA 8.3(H) <=6.5 ng/mL 02/21/2022 17:49 EDT [facility] Blood VENOUS BLOOD / Unknown 02/21/2022 9:30 EDT 02/21/2022 15:18 EDT Narrative [facility] - 02/21/2022 17:49 EDT NOTE: Serum PSA concentration should not be interpreted as absolute evidence for the presence or absence of malignant disease. Assayed on Siemens ADVIA Centaur XPT using chemiluminescent technology.??Values obtained by using different assay methods cannot be used interchangeably. us Urbano Lee Jr., MD CHEMISTRY & BLOOD GAS OR DERABLES Final Result Performing Organization Address [facility] Co de Phone Number [facility] [address] [place] [phone] * MAGNESIUM (02/21/2022 9:30 EDT) Magnesium 2.0 1.7 - 2.8 mg/dL 02/21/2022 15:49 EDT [facility] Blood VENOUS BLOOD / Unknown 02/21/2022 9:30 EDT 02/21/2022 15:18 EDT us Urbano Lee Jr., MD CHEMISTRY & BLOOD GAS OR DERABLES Final Result Performing Organization Address [facility]/ZIP Co de Phone Number [facility] [address] [place] [address] * IRON (02/21/2022 9:30 EDT) Iron 77 49 - 181 ??g/dL 02/21/2022 15:49 EDT [facility] Blood VENOUS BLOOD / Unknown 02/21/2022 9:30 EDT 02/21/2022 15:18 EDT us Urbano Lee Jr., MD CHEMISTRY & BLOOD GAS OR DERABLES Final Result Performing Organization Address [facility] Co de Phone Number [facility] [address] [place] [address] * LIPID PROFILE (INCLUDES CHOLESTEROL, TRIGLYCERIDES, HDL, LDL) (02/21/2022 9:30 EDT) Cholesterol 149 <200 mg/dL 02/21/2022 15:49 EDT [facility] Comment:Note that therapeuti c goals will differ between patients based on cardiac risk factors and current medical therapy. HDL 47 >=40 mg/dL 02/21/2022 15:49 T [facility] Comment:Note that therapeuti c goals will differ between patients based on cardiac risk factors and current medical therapy. LDL, Calculated 81 <160 mg/dL 15:49 T [facility] Comment:Note that therapeuti c goals will differ between patients based on cardiac risk factors and current medical therapy. Triglyceride 104 <=150 mg/dL 02/21/2022 15:49 EDT [facility] Comment:Note that therapeuti c goals will differ between patients based on cardiac risk factors and current medical therapy. Chol/HDL Ratio 3.2 See Note 02/21/2022 15:49 [facility] Comment:No reference range h as been established for CHOL/HDL ratio. Non HDL Cholesterol 102 <160 mg/dL 02/21/2022 15:49 [facility] Comment:Note that therapeuti c goals will differ between patients based on cardiac risk factors and current medical therapy. Blood VENOUS BLOOD / Unknown 02/21/2022 9:30 EDT 02/21/2022 15:18 EDT us Urbano Lee Jr., MD CHEMISTRY & BLOOD GAS OR DERABLES Final Result Performing Organization Address City/State/[facility] Co de Phone Number [facility] [address] [place] [address] * (ABNORMAL) COMPREHENSIVE METABOLIC PANEL (CMP) (02/21/2022 9:30 EDT) Sodium 141 136 - 145 mmol/L 02/21/2022 15:49 [facility] Potassium 4.5 3.5 - 5.0 mmol/L 02/21/2022 15:49 [facility] Chloride 106 96 - 110 mmol/L 02/21/2022 15:49 [facility] CO2 Total 29 22 - 32 mmol/L 02/21/2022 15:49 [facility] Glucose 105(H) 70 - 100 mg/dL 02/21/2022 15:49 [facility] BUN 17 10 - 26 mg/dL 02/21/2022 15:49 [facility] Creatinine 0.93 0.66 - 1.25 mg/dL 02/21/2022 15:49 [facility] eGFR 88 >60 mL/min/1.7 3m2 02/21/2022 15:49 [facility] Total Protein 6.5 6.3 - 8.2 g/dL 02/21/2022 15:49 [facility] Albumin 4.2 3.4 - 4.9 g/dL 02/21/2022 15:49 [facility] Alkaline Phosphatase 83 38 - 126 U/L 02/21/2022 15:49 T [facility] AST 25 15 - 46 U/L 02/21/2022 15:49 T [facility] ALT 23 <50 U/L 02/21/2022 15:49 [facility] Bilirubin, Total <0.5 <1.4 mg/dL 02/22/20 15:49 T [facility] Calcium 9.9 8.5 - 10.5 mg/dL 02/21/2022 15:49 [facility] Albumin/Globulin Ratio 1.8 1.0 - 2.5 02/21/2022 15:49 [facility] Anion Gap 6 5 - 14 02/21/2022 15:49 [facility] Blood VENOUS BLOOD / Unknown 02/21/2022 9:30 EDT 02/21/2022 15:18 EDT us Urbano Lee Jr., MD CHEMISTRY & BLOOD GAS OR DERABLES Final Result [facility] [address] [place] [address] documented in this encounter Visit Diagnoses Diagnosis Encounter for other general examination Hyperlipidemia, unspecified Other abnormal glucose Vitamin D deficiency, unspecified documented in this encounter Care Teams [employer] Supervisor Relationship Specialty Start Date End Date Urbano Lee Jr., MD [address] [facility] [address] [place] [address] PCP - General 03/07/09 documented as of this encounter
--- OUTSIDE RECORDS SUMMARY | 2024-08-14 01:17 | XMS_ITS | Encounter Summary ---
Author Organization [facility] Address [address] [place] [address] Care Team Providers Care Line Worker Name Role Phone Jesus Augustin MD, Donald B Primary Care Provider + Encounter Details Date Type Department Care Team (Late st Contact Info) Description 12/25/2023 Lab Requisition [facility] Pathology & Laboratory Medicine - [facility] [address] [place] [address] Urbano Lee Jr., MD [address] [facility] [address] [place] [phone] Benign prostatic hyperplasia without lower urinary tract symptoms Social History Tobacco Use Types Packs/Day Years [...] Info) Description 08/19/2024 10:00 EST Office Visit [facility] Adult Hematology & Oncology [address] [place] [address] [phone] Brie Artis NP 130 [facility], [facility] [address] [place] [phone] 08/19/2024 10:30 EST Nurse Only [facility] Adult Hem Onc Infusion 130 [facility] [place] [address] 08/25/2024 9:00 EST Office Visit [facility] Adult Hematology & Oncology [address] [place] [address], [place] [phone] Leela Turcios FNP 130 [facility] [address] [place] [address] 08/25/2024 10:00 EST Nurse Only [facility] Adult Hem Onc Infusion 130 [facility] [address] 09/08/2024 8:00 EST Office Visit [facility] Adult Hematology & Oncology [address] [place] [address], [place] [address] Brie Artis, CERAMICS TECHNICIAN 130 [facility] [address] [place] [address] 09/08/2024 8:30 EST Nurse Only [facility] Adult Hem Onc Infusion 130 [facility] [address] documented as of this encounter Procedures Procedure Name Priority Date/Time Associated Diagnosis Comments PSA TOTAL, DIAGNOSTIC Routine 12/25/2023 9:20 EDT Benign prostatic hyperplasia without lower urinary tract symptoms documented in this encounter Results * (ABNORMAL) PSA TOTAL, DIAGNOSTIC (12/25/2023 9:20 EDT) PSA 8.5(H) <=6.5 ng/mL 12/25/2023 17:40 EDT [facility] Blood VENOUS BLOOD / Unknown 12/25/2023 9:20 EDT 12/25/2023 16:45 EDT Narrative [facility] - 12/25/2023 17:40 EDT NOTE: Serum PSA concentration should not be interpreted as absolute evidence for the presence or absence of malignant disease. Assayed on [employer] XPT using chemiluminescent technology.??Values obtained by using different assay methods cannot be used interchangeably. us Urbano Lee Jr., MD CHEMISTRY & BLOOD GAS OR DERABLES Final Result [facility] [address] [place] [address] documented in this encounter Visit Diagnoses Diagnosis Benign prostatic hyperplasia without lower urinary tract symptoms documented in this encounter Care Teams Line Worker Relationship Specialty Start Date End Date Urbano Lee Jr., MD [address] [facility] [address] [place] [address] PCP - General 03/07/09 documented as of this encounter
--- OUTSIDE RECORDS SUMMARY | 2024-08-14 01:17 | XMS_ITS | Encounter Summary ---
Author Organization [facility] Address [address] [place] [address] Care Team Providers Care Corking Machine Operator Name Role Phone Jesus Augustin MD, Urbano Aguayo Primary Care Provider + Encounter Details Date Type Department Care Team (Late st Contact Info) Description 09/26/2015 Results Only [facility]- [facility] [phone] Urbano Lee Jr., MD [address] [facility] [address] [place] [address] Social History Tobacco Use Types [...] Info) Description 08/19/2024 10:00 EST Office Visit [facility] Adult Hematology & Oncology [address] [place] [address] [phone] Brie Artis, PARADISE 130 [facility] [address] [place] [address] 08/19/2024 10:30 EST Nurse Only [facility] Adult Hem Onc Infusion 130 [place], [place] [phone] 08/25/2024 9:00 EST Office Visit [facility] Adult Hematology & Oncology [address] [place] [address] [phone] Leela Turcios FNP 130 [facility] [address] [place] [address] 08/25/2024 10:00 EST Nurse Only [facility] Adult Hem Onc Infusion 130 [place] [address] 09/08/2024 8:00 EST Office Visit [facility] Adult Hematology & Oncology [address] [place] [address], [place] [address] Brie Artis, PARADISE [address] [facility] [address] [place] [address] 09/08/2024 8:30 EST Nurse Only [facility] Adult Hem Onc Infusion 130 [place] [address] documented as of this encounter Procedures Procedure Name Priority Date/Time Associated Diagnosis Comments PSA SCREEN Routine 09/26/2015 8:00 EST LIPID PROFILE (INCLUDES CHOLESTEROL, TRIGLYCERIDES, HDL, LDL) Routine 09/26/2015 8:00 EST COMPREHENSIVE METABOLIC PANEL (CMP) Routine 09/26/2015 8:00 EST documented in this encounter Results * (ABNORMAL) PSA SCREEN (09/26/2015 8:00 EST) PSA 4.8(H) 0 - 4.5 ng/ml 09/27/2015 11:12 EST [facility] Comment: Serum PSA concentration should not be interpreted as absolute evidence for the presence or absence of malignant disease. Assayed utilizing Siemens (NuAx) chemiluminescent technology. ??Values obtained by using different assay methods cannot be used interchangeably. PREV PSA OF 4.8 ON 09/13/2014 BLOOD SPECIMEN / Unknown 09/26/2015 8:00 EST 09/26/2015 21:03 EST us Urbano Lee Jr., MD CHEMISTRY & BLOOD GAS OR DERABLES Final Result Performing Organization Address City/[facility]/ZIP Co de Phone Number [facility] [address] [place] [address] * LIPID PROFILE (INCLUDES CHOLESTEROL, TRIGLYCERIDES, HDL, LDL) (09/26/2015 8:00 EST) Cholesterol 154 mg/dl 09/26/2015 22:00 [facility] Comment: Desirable:<200 Borderline High:200-239 High:>ef=160 Triglycerides 139 mg/dl 09/26/2015 22:00 [facility] Comment: Normal:<150 Borderline High:150-199 High:200-499 Very High:>fv=984 HDL 42 mg/dl 09/26/2015 22:00 [facility] Comment: Low:<40 Normal:40-60 Desirable: >60 LDL, Calculated 84 mg/dl 6 22:00 [facility] Comment: Optimal:<100 Near Optimal:100-129 Borderline High:130-159 High:160-189 Very High:>cl=286 Chol/HDL Ratio 3.7 09/26/2015 22:00 [facility] Fasting? YES 09/26/2015 21:03 [facility] Non HDL Cholesterol 112 mg/dl 09/26/2015 22:00 [facility] Comment: Desirable:<130 Borderline:130-159 High: 160-189 Very High: >dj=677 BLOOD SPECIMEN / Unknown 09/26/2015 8:00 EST 09/26/2015 21:03 EST us Urbano Lee Jr., MD CHEMISTRY & BLOOD GAS OR DERABLES Final Result Performing Organization Address City/[facility]/ZIP Co de Phone Number [facility] [address] [place] [address] * (ABNORMAL) COMPREHENSIVE METABOLIC PANEL (CMP) (09/26/2015 8:00 EST) Potassium 4.3 3.5 - 5.0 mEq/L 09/26/2015 22:00 [facility] Sodium 141 136 - 145 mEq/L 09/26/2015 22:00 [facility] Chloride 103 96 - 110 mEq/L 09/26/2015 22:00 [facility] CO2 28 24 - 32 mEq/L 09/26/2015 22:00 [facility] Total Alkaline Phosphatase 87 38 - 126 U/L 09/26/2015 22:00 [facility] Bilirubin, Total <0.5 <1.4 mg/dl 09/26/19 16 22:00 [facility] AST 21 15 - 46 U/L 09/26/2015 22:00 [facility] ALT 34 21 - 72 U/L 09/26/2015 22:00 [facility] Albumin 3.7 3.4 - 4.9 g/dl 09/26/2015 22:00 [facility] Total Protein 6.2(L) 6.3 - 8.2 g/dl 09/26/2015 22:00 [facility] Creatinine 1.06 0.66 - 1.25 mg/dl 09/26/2015 22:00 [facility] GFR, Calculated 74 >60 ml/min/1.7 3m2 09/26/2015 22:00 [facility] Comment: eGFR calculated using CKD-EPI equation for non Americans. Multiply eGFR by 1.16 for Americans. BUN 20 10 - 26 mg/dl 09/26/2015 22:00 [facility] Calcium 9.7 8.5 - 10.5 mg/dl 09/26/2015 22:00 [facility] Calculated Calcium 10.4 8.5 - 10.5 mg/dl 09/26/2015 22:00 [facility] Glucose, Serum 104(H) 70 - 100 mg/dl 09/26/2015 22:00 [facility] Fasting? YES 09/26/2015 21:03 [facility] BLOOD SPECIMEN / Unknown 09/26/2015 8:00 EST 09/26/2015 21:03 EST us Urbano Lee Jr., MD CHEMISTRY & BLOOD GAS OR DERABLES Final Result [facility] [address] [place] [address] documented in this encounter Visit Diagnoses Not on filedocumented in this encounter Care Teams Corking Machine Operator Relationship Specialty Start Date End Date Urbano Lee Jr., MD [address] [facility] [address] [place] [address] PCP - General 03/07/09 documented as of this encounter
--- OUTSIDE RECORDS SUMMARY | 2024-08-14 01:17 | XMS_ITS | Encounter Summary ---
Author Organization [facility] Address [address] [place] [address] Care Team Providers Care Elastic Yarn Twister Name Role Phone Jesus Augustin MD, Urbano Aguayo Primary Care Provider + Encounter Details Date Type Department Care Team (Latest Contact Info) Description 02/07/2018 8:55 EDT - 02/07/2018 8:57 EDT Hospital Encounter [facility] [address] [place] [address] Urbano Lee Jr., MD [address] [facility] [address] [place] [phone] Urbano Lee MD [address] [place] [address] Discharge Disposition: Home or Self Care Social History Tobacco Use Types Packs/Day Years Used Date Smoking Tobacco: Never Assessed Sex and Gender Information Value Date Recorded Sex Assigned at Male 08/07/2024 12:35 EST Legal Sex Male 17:22 EST Gender Identity Male 07/16/2024 8:48 EDT Sexual Orientation Not on file documented as of this encounter Discharge Diagnoses Diagnosis E78.5 Hyperlipidemia, unspecified-E78.5[ICD-10-CM] N40.0 Benign prostatic hyperplasia without lower urinry tract symp-N40.0[ICD-10-CM] R97.20 Elevated prostate specific antigen [PSA]-R97.20[ICD-10-CM] documented in this encounter Discharge Disposition Disposition Code Departure Means Destination Home or Self Care documented in this encounter Plan of Treatment Upcoming Encounters Date Type Department Care Team (Late st Contact Info) Description 08/19/2024 10:00 EST Office Visit [facility] Adult Hematology & Oncology [address] [place] [address], [place] [address] Brie Artis, PARADISE [address] [place] [phone] 08/19/2024 10:30 EST Nurse Only [facility] Adult Hem Onc Infusion [address] [place] [address] 08/25/2024 9:00 EST Office Visit [facility] Adult Hematology & Oncology [address] [place] [address], [place] [address] Leela Turcios FNP [address] [phone] 08/25/2024 10:00 EST Nurse Only [facility] Adult Hem Onc Infusion [address] [place] [address] 09/08/2024 8:00 EST Office Visit [facility] Adult Hematology & Oncology [address] [place] [address], [place] [address] Brie Artis, PARADISE [address] [place] [phone] 09/08/2024 8:30 EST Nurse Only [facility] Adult Hem Onc Infusion [address] [place] [address], [place] [phone] documented as of this encounter Visit Diagnoses Not on filedocumented in this encounter Care Teams Elastic Yarn Twister Relationship Specialty Start Date End Date Urbano Lee Jr., MD [address] [place] [address] PCP - General 03/07/09 documented as of this encounter
--- OUTSIDE RECORDS SUMMARY | 2024-08-14 01:17 | XMS_ITS | Encounter Summary ---
Author Organization [facility] Address [address] [place] [address] Care Team Providers Care Road Cutter Name Role Phone Jesus Augustin MD, Urbano Aguayo Primary Care Provider + Reason for Referral * Radiology Services (Routine/Next Available) - Authorization Not Required Specialty Diagnoses / Procedures Referred By Deonna lindo Referred To Contact Procedures TUMOR BOARD RADIOLOGY CONSULT UPPER GI TUMOR BOARD RADIOLOGY CONSULT NON BREAST Deon Forbes MD [address] [address] Phone: tel: fax: Referral ID Status Reason Start Date Expiration Date Visits Requested Visits Authorized [id number] Authorization Not Required 07/22/2024 1 1 * Consult (Routine/Next Available) - New Request Specialty Diagnoses / Procedures Referred By Deonna lindo Referred To Contact Hematology and Oncology Diagnoses Pancreatic mass Deon Forbes MD [address] [address] Phone: tel: fax: Referral ID Status Reason Start Date Expiration Date Visits Requested Visits Authorized [id number] New Request Specialty Services Required 07/22/2024 1 1 Question Answer Location [facility] Tumor Board Upper GI Working Stage TBD Additional Providers No Clinical Question? Yes Specify clinical question Staging and treatment Radiology Review Review Recent Radiology Question to be answered: Discuss dz extent/staging for tx plan Place appropriate Radiology Tumor Board Order below (up to 8 for Breast and up to 4 for all others) Acknowledge Pathology Review Review Recent Pathology Please indicate which slides are to be reviewed and add the pathology question EUS FNB of pancreatic body mass 07/22/24 Trial Options No Encounter Details Date Type Department Care Team (Late Contact Info) Description 07/22/2024 Orders Only [facility] Gastroenterology - Main [place] [address] [place], [place] [phone] Elijah Gonsalves MD [address] [place], [place] [address] Pancreatic mass (Primary Dx) Social History Tobacco Use Types [...] [facility] Adult H[facility] On[facility] [address] [place] [phone] Brie Artis, PARADISE 130 [facility] [address] [phone] 08/19/2024 10:30 EST Nurse Only [facility] Adult Hem Onc Infusion [address] [place] [address] 08/25/2024 9:00 EST Office Visit [facility] Adult Hematology & Oncology [address] [place] [phone] Leela Turcios FNP 130 [facility] [address] [phone] 08/25/2024 10:00 EST Nurse Only [facility] Adult Hem Onc Infusion [address] [place], [place] [address] 09/08/2024 8:00 EST Office Visit [facility] Adult Hematology & Oncology [facility] [place] [address] Brie Artis, PARADISE 130 [facility] [address] [place] [phone] 09/08/2024 8:30 EST Nurse Only [facility] Adult Hem Onc Infusion [address] [place], [place] [phone] Pending Results Name Type Priority Associated Diagnoses Date /Time TUMOR BOARD RADIOLOGY CONSULT UPPER GI Imaging Routine 07/23/2024 7:20 EST Scheduled Orders Name Type Priority Associated Diagnoses Orde r Schedule TUMOR BOARD RADIOLOGY CONSULT UPPER GI Imaging Routine Expected: 07/22, Expires: 07/22/2025 Scheduled Referrals Name Type Priority Associated Diagnoses Orde r Schedule AMB CONSULT/FOLLOW UP TUMOR BOARD Outpatient Referral Routine Pancreatic mass Ordered: 07/22/2024 documented as of this encounter Visit Diagnoses Diagnosis Pancreatic mass- Primary Unspecified disease of pancreas documented in this encounter Care Teams Road Cutter Relationship Specialty Start Date End Date Urbano Lee Jr., MD [address] [facility] [address] [place] [phone] PCP - General 03/07/09 documented as of this encounter
--- OUTSIDE RECORDS SUMMARY | 2024-08-14 01:17 | XMS_ITS | Encounter Summary ---
Author Organization [facility] Address [address] [place] [address] Care Team Providers Care Ambulance Operations Supervisor Name Role Phone Jesus Augustin MD, Urbano Aguayo Primary Care Provider + Encounter Details Date Type Department Care Team (Late st Contact Info) Description 12/25/2018 Results Only [facility] [phone] Urbano Lee Jr., MD [address] [facility] [address] [place] [address] Social History Tobacco Use Types [...] Info) Description 08/19/2024 10:00 EST Office Visit [facility] Adult Hematology & Oncology [address] [place] [phone] Brie Artis, PARADISE 130 [facility] [address] [place] [address] 08/19/2024 10:30 EST Nurse Only [facility] Adult Hem Onc Infusion [address] [place], [place] [phone] 08/25/2024 9:00 EST Office Visit [facility] Adult Hematology & Oncology [address] [place] [phone] Leela Turcios FNP 130 [facility] [address] [place] [address] 08/25/2024 10:00 EST Nurse Only [facility] Adult Hem Onc Infusion 130 [facility] [place] [address] 09/08/2024 8:00 EST Office Visit [facility] Adult Hematology & Oncology [address] [place] [address], [place] [address] Brie Artis, PARADISE 130 [facility] [address] [place] [address] 09/08/2024 8:30 EST Nurse Only [facility] Adult Hem Onc Infusion [address] [place] [address] documented as of this encounter Procedures Procedure Name Priority Date/Time Associated Diagnosis Comments PSA SCREEN Routine 12/25/2018 9:15 EDT MAGNESIUM Routine 12/25/2018 9:15 EDT IRON Routine 12/25/2018 9:15 EDT VITAMIN B12 Routine 12/25/2018 9:15 EDT LIPID PROFILE (INCLUDES CHOLESTEROL, TRIGLYCERIDES, HDL, LDL) Routine 12/25/2018 9:15 EDT COMPREHENSIVE METABOLIC PANEL (CMP) Routine 12/25/2018 9:15 EDT documented in this encounter Results * (ABNORMAL) PSA SCREEN (12/25/2018 9:15 EDT) PSA 7.8(H) 0 - 4.5 ng/ml 12/26/2018 11:37 EDT [facility] Comment: Serum PSA concentration should not be interpreted as absolute evidence for the presence or absence of malignant disease. Assayed utilizing [employer] ([employer]) chemiluminescent technology. ??Values obtained by using different assay methods cannot be used interchangeably. BLOOD SPECIMEN / Unknown 12/25/2018 9:15 EDT 12/25/2018 15:13 EDT Urbano Lee Jr., MD CHEMISTRY & BLOOD GAS OR DERABLES Final Result Performing Organization Address [facility] Co de Phone Number [facility] [address] [place] [address] * MAGNESIUM (12/25/2018 9:15 EDT) Magnesium 1.9 1.7 - 2.8 mg/dl 12/25/2018 15:44 EDT [facility] BLOOD SPECIMEN / Unknown 12/25/2018 9:15 EDT 12/25/2018 15:13 EDT us Urbano Lee Jr., MD CHEMISTRY & BLOOD GAS OR DERABLES Final Result Performing Organization Address [facility] de Phone Number [facility] [address] [place] [address] * LIPID PROFILE (INCLUDES CHOLESTEROL, TRIGLYCERIDES, HDL, LDL) (12/25/2018 9:15 EDT) Cholesterol 156 mg/dl 12/25/2018 15:44 [facility] Comment: Desirable:<200 Borderline High:200-239 High:>dg=346 Triglycerides 95 mg/dl 12/25/2018 15:44 [facility] Comment: Normal:<150 Borderline High:150-199 High:200-499 Very High:>ar=645 HDL 49 mg/dl 12/25/2018 15:44 [facility] Comment: Low:<40 Normal:40-60 Desirable: >60 LDL, Calculated 88 mg/dl 9 15:44 [facility] Comment: Optimal:<100 Near Optimal:100-129 Borderline High:130-159 High:160-189 Very High:>ib=175 Chol/HDL Ratio 3.2 12/25/2018 15:44 [facility] Fasting? Unknown 12/25/2018 15:14 EDT [facility] Non HDL Cholesterol 107 mg/dl 12/25/2018 15:44 T [facility] Comment: Desirable:<130 Borderline:130-159 High: 160-189 Very High: >cc=888 BLOOD SPECIMEN / Unknown 12/25/2018 9:15 EDT 12/25/2018 15:13 EDT Urbano Lee Jr., MD CHEMISTRY & BLOOD GAS OR DERABLES Final Result Performing Organization Address [facility] Co de Phone Number [facility] [address] [place] [address] * IRON (12/25/2018 9:15 EDT) Pathologist [facility] 112 49 - 181 ug/dl 12/25/2018 15:44 EDT [facility] BLOOD SPECIMEN / Unknown 12/25/2018 9:15 EDT 12/25/2018 15:13 EDT Urbano Lee Jr., MD CHEMISTRY & BLOOD GAS OR DERABLES Final Result Performing Organization Address [facility] de Phone Number [facility] [address] [place] [address] * COMPREHENSIVE METABOLIC PANEL (CMP) (12/25/2018 9:15 EDT) Potassium 4.5 3.5 - 5.0 mEq/L 12/25/2018 15:44 EDT [facility] Sodium 140 136 - 145 mEq/L 12/25/2018 15:44 T [facility] Chloride 104 96 - 110 mEq/L 12/25/2018 15:44 T [facility] CO2 28 22 - 32 mEq/L 12/25/2018 15:44 [facility] Total Alkaline Phosphatase 75 38 - 126 U/L 12/25/2018 15:44 [facility] Bilirubin, Total <0.5 <1.4 mg/dl 12/26/19 19 15:44 T [facility] AST 29 15 - 46 U/L 12/25/2018 15:44 [facility] ALT 30 21 - 72 U/L 12/25/2018 15:44 [facility] Albumin 4.2 3.4 - 4.9 g/dl 12/25/2018 15:44 [facility] Total Protein 6.4 6.3 - 8.2 g/dl 12/25/2018 15:44 [facility] Creatinine 1.00 0.66 - 1.25 mg/dl 12/25/2018 15:44 [facility] GFR, Calculated 78 >60 ml/min/1.7 3m2 12/25/2018 15:44 [facility] Comment: eGFR calculated using CKD-EPI equation for non Americans. Multiply eGFR by 1.16 for Americans. BUN 20 10 - 26 mg/dl 12/25/2018 15:44 [facility] Calcium 10.3 8.5 - 10.5 mg/dl 12/25/2018 15:44 [facility] Calculated Calcium 10.1 8.5 - 10.5 mg/dl 12/25/2018 15:44 [facility] Glucose, Serum 93 70 - 100 mg/dl 12/25/2018 15:44 [facility] Fasting? Unknown 12/25/2018 15:14 [facility] BLOOD SPECIMEN / Unknown 12/25/2018 9:15 EDT 12/25/2018 15:13 EDT us Urbano Lee Jr., MD CHEMISTRY & BLOOD GAS OR DERABLES Final Result [facility] [address] [place] [address] * VITAMIN B12 (12/25/2018 9:15 EDT) Vitamin B-12 408 211 - 911 pg/ml 12/26/2018 12:17 [facility] BLOOD SPECIMEN / Unknown 12/25/2018 9:15 EDT 12/25/2018 15:13 EDT us Urbano Lee Jr., MD CHEMISTRY & BLOOD GAS OR DERABLES Final Result [facility] [address] [place] [address] documented in this encounter Visit Diagnoses Not on filedocumented in this encounter Care Teams Ambulance Operations Supervisor Relationship Specialty Start Date End Date Urbano Lee Jr., MD [address] [facility] [address] [place] [phone] PCP - General 03/07/09 documented as of this encounter
--- OUTSIDE RECORDS SUMMARY | 2024-08-14 01:17 | XMS_ITS | Encounter Summary ---
Author Organization [facility] Address [address] [place] [address] Care Team Providers Care Inventory Planner Name Role Phone Jesus Augustin MD, Donald B Primary Care Provider + Encounter Details Date Type Department Care Team (Late Contact Info) Description 06/08/2024 Lab Requisition [facility] Pathology & Laboratory Medicine - [facility] [address] [place] [address] Urbano Lee Jr., MD [address] [facility], [facility] [address] [place] [address] Left upper quadrant pain Social History Tobacco Use Types Packs/Day Years [...] Info) Description 08/19/2024 10:00 EST Office Visit [facility] Adult Hematology & Oncology [address] [place] [phone] Brie Artis NP 130 [facility], [facility] [address] [place] [phone] 08/19/2024 10:30 EST Nurse Only [facility] Adult Hem Onc Infusion [address] [facility], [place] [phone] 08/25/2024 9:00 EST Office Visit [facility] Adult Hematology & Oncology [address] [place] [address], [place] [phone] Leela Turcios FNP 130 [facility] [address] [place] [address] 08/25/2024 10:00 EST Nurse Only [facility] Adult Hem Onc Infusion [address] [facility], [place] [phone] 09/08/2024 8:00 EST Office Visit [facility] Adult Hematology & Oncology [address] [place] [address], [place] [address] Brie Artis, PARADISE 130 [facility] [address] [place] [address] 09/08/2024 8:30 EST Nurse Only [facility] Adult Hem Onc Infusion [address] [facility] [place] [address] documented as of this encounter Procedures Procedure Name Priority Date/Time Associated Diagnosis Comments PSA SCREEN Today 06/08/2024 13:50 EDT Left upper quadrant pain [ICD-10-CM] LIPASE Today 06/08/2024 13:50 EDT Left upper quadrant pain AMYLASE Today 06/08/2024 13:50 EDT Left upper quadrant pain COMPREHENSIVE METABOLIC PANEL (CMP) Today 06/08/2024 13:50 EDT Left upper quadrant pain documented in this encounter Results * (ABNORMAL) PSA SCREEN (06/08/2024 13:50 EDT) PSA 7.8(H) <=6.5 ng/mL 06/12/2024 10:33 EDT [facility] Blood VENOUS BLOOD / Unknown 06/08/2024 13:50 EDT 06/08/2024 22:23 EDT Narrative [facility] - 06/12/2024 10:33 EDT NOTE: Serum PSA concentration should not be interpreted as absolute evidence for the presence or absence of malignant disease. Assayed on Siemens SocialMeterTVIA PEPperPRINTaur XPT using chemiluminescent technology.??Values obtained by using different assay methods cannot be used interchangeably. Urbano Lee Jr., MD CHEMISTRY & BLOOD GAS OR DERABLES Final Result Performing Organization Address City/[facility]/ZIP Co de Phone Number [facility] [address] [place] [address] * LIPASE (06/08/2024 13:50 EDT) Lipase 74 <251 U/L 06/08/2024 22:39 EDT [facility] Blood VENOUS BLOOD / Unknown 06/08/2024 13:50 EDT 06/08/2024 22:23 EDT us Urbano Lee Jr., MD CHEMISTRY & BLOOD GAS OR DERABLES Final Result Performing Organization Address [facility] Co de Phone Number [facility] [address] [place] [phone] * AMYLASE (06/08/2024 13:50 EDT) Amylase 46 30 - 110 U/L 06/08/2024 22:39 EDT [facility] Blood VENOUS BLOOD / Unknown 06/08/2024 13:50 EDT 06/08/2024 22:23 EDT us Urbano Lee Jr., MD CHEMISTRY & BLOOD GAS OR DERABLES Final Result Performing Organization Address City/[facility] Co de Phone Number [facility] [address] [place] [address] * (ABNORMAL) COMPREHENSIVE METABOLIC PANEL (CMP) (06/08/2024 13:50 EDT) Sodium 139 136 - 145 mmol/L 06/08/2024 22:39 [facility] Potassium 4.5 3.5 - 5.0 mmol/L 06/08/2024 22:39 [facility] Chloride 99 96 - 110 mmol/L 06/08/2024 22:39 [facility] CO2 Total 32 22 - 32 mmol/L 06/08/2024 22:39 [facility] Glucose 103(H) 70 - 99 mg/dl 06/08/2024 22:39 [facility] BUN 12 10 - 26 mg/dL 06/08/2024 22:39 [facility] Creatinine 0.92 0.66 - 1.25 mg/dL 06/08/2024 22:39 [facility] eGFR 88 >60 mL/min/1.7 3m2 06/08/2024 22:39 [facility] Total Protein 6.3 6.3 - 8.2 g/dL 06/08/2024 22:39 [facility] Albumin 3.9 3.4 - 4.9 g/dL 06/08/2024 22:39 [facility] Alkaline Phosphatase 111 38 - 126 U/L 06/08/2024 22:39 [facility] AST 31 15 - 46 U/L 06/08/2024 22:39 [facility] ALT 29 <50 U/L 06/08/2024 22:39 [facility] Bilirubin, Total 0.6 <1.4 mg/dL 06/08/20 22:39 [facility] Calcium 10.4 8.5 - 10.5 mg/dL 06/08/2024 22:39 [facility] Albumin/Globulin Ratio 1.6 1.0 - 2.5 06/08/2024 22:39 [facility] Anion Gap 8 5 - 14 mmol/L 06/08/2024 22:39 [facility] Blood VENOUS BLOOD / Unknown 06/08/2024 13:50 EDT 06/08/2024 22:23 EDT us Urbano Lee Jr., MD CHEMISTRY & BLOOD GAS OR DERABLES Final Result [facility] [address] [place] [address] documented in this encounter Visit Diagnoses Diagnosis Left upper quadrant pain Abdominal pain, left upper quadrant documented in this encounter Care Teams Inventory Planner Relationship Specialty Start Date End Date Urbano Lee Jr., MD [address] [facility] [address] [place] [address] PCP - General 03/07/09 documented as of this encounter
--- OUTSIDE RECORDS SUMMARY | 2024-08-14 01:17 | XMS_ITS | Encounter Summary ---
Author Organization [facility] Address [address] [place] [address] Care Team Providers Care Tick Eradicator Name Role Phone Jesus Augustin MD, Urbano Aguayo Primary Care Provider + Encounter Details Date Type Department Care Team (Late st Contact Info) Description 07/22/[address] [facility] CT Scan [address] [place] [address] Flip Eller Social History Tobacco Use Types Packs/Day Years [...] 08/19/2024 10:[address] [facility] Adult Hematology & Oncology [address] [place] [address] Brie Artis NP 130 [facility] [address] [place] [phone] 08/19/2024 10:[address] [facility] Adult Hem Onc Infusion [address] [place] [address] 08/25/2024 9:[address] [facility] Adult Hematology & Oncology [address] [place] [address], [place] [phone] Leela Turcios FNP 130 [facility] 12 [place] [phone] 08/25/2024 10:[address] [facility] Adult Hem Onc Infusion [address] [place], [place] [address] 09/08/2024 8:[address] [facility] Adult Hematology & Oncology [address] [place] [phone] Brie Artis NP 130 [facility] [address] [phone] 09/08/2024 8:[address] [facility] Adult Hem Onc Infusion [address] [place] [phone] documented as of this encounter Visit Diagnoses Not on filedocumented in this encounter Care Teams Tick Eradicator Relationship Specialty Start Date End Date Urbano Lee Jr., MD [address] [place] [phone] PCP - General 03/07/09 documented as of this encounter
--- OUTSIDE RECORDS SUMMARY | 2024-08-14 01:17 | XMS_ITS | Encounter Summary ---
Author Organization [facility] Address [address] [place] [address] Care Team Providers Care Basin Finish Operator Tig Welder Name Role Phone Jesus Augustin MD, Urbano Aguayo Primary Care Provider + Encounter Details Date Type Department Care Team (Latest Contact Info) Description 10/14/2017 11:46 EST - 10/14/2017 11:48 EST Hospital Encounter [facility] [address] [place] [address] Urbano Lee Jr., MD [address] [facility], [facility] [address] [place] [phone] Discharge Disposition: Home or Self Care Social [...] for screening for malignant neoplasm of prostate-Z12.5[ICD-10-CM] M79.1 Myalgia-M79.1[ICD-10-CM] documented in this encounter Discharge Disposition Disposition Code Departure Means Destination Home or Self Care documented in this encounter Plan of Treatment Upcoming Encounters Date Type Department Care Team ([facility] st Contact Info) Description 08/19/2024 10:00 EST Office Visit [facility] Adult Hematology & Oncology [address] [place] [address] Brie Artis, PARADISE 130 [facility] [address] [place] [phone] 08/19/2024 10:30 EST Nurse Only [facility] Adult Hem Onc Infusion 130 [place] [address] 08/25/2024 9:00 EST Office Visit [facility] Adult Hematology & Oncology [address] [place] [address], [place] [address] Leela Turcios FNP 130 [facility] [address] [place] [phone] 08/25/2024 10:00 EST Nurse Only [facility] Adult Hem Onc Infusion 130 [facility] [place] [address] 09/08/2024 8:00 EST Office Visit [facility] Adult Hematology & Oncology [address] [place] [address], [place] [phone] Brie Artis, PARADISE 130 [facility] [address] [place] [phone] 09/08/2024 8:30 EST Nurse Only [facility] Adult Hem Onc Infusion 130 [facility], [place] [phone] documented as of this encounter Visit Diagnoses Not on filedocumented in this encounter Care Teams Basin Finish Operator Tig Welder Relationship Specialty Start Date End Date Urbano Lee Jr., MD [address] [phone] PCP - General 03/07/09 documented as of this encounter
--- OUTSIDE RECORDS SUMMARY | 2024-08-14 01:17 | XMS_ITS | Encounter Summary ---
Author Organization [facility] Address [address] [place] [address] Care Team Providers Care Application Security Consultant Name Role Phone Jesus Augustin MD, Urbano Aguayo Primary Care Provider + Reason for Referral * Referral (Routine/Next Available) - Authorization Not Required Specialty Diagnoses / Procedures Referred By Contact Referred To Contact Diagnoses Pancreatic mass Procedures ENDOSCOPIC ULTRASOUND (EUS) AK ESOPHAGOGASTRODUODENOSCOPY US SCOPE W/ADJ STRXRS AK EGD INTRMURAL US NEEDLE ASPIRATE/BIOPSY ESOPHAGS AK ANESTHESIA UPPER GI ENDOSCOPIC PX NOS Eduarda Diane MD [address] [place] [address] 2 [place] [address] Phone: tel:[phone] fax:[phone] [facility] Gastroenterology - [address] [address] Phone: tel: fax: Referral ID Status Reason Start Date Expiration Date Visits Requested Visits Authorized [id number] Authorization Not Required 4 1 1 Encounter Details Date Type Department Care Team (Late st Contact Info) Description 07/14/2024 Orders Only [facility] [place] Hematology & Oncology - [address] [address] Dagoberto Lafleur RN Pancreatic mass (Primary Dx) Social History Tobacco [...] Info) Description 08/19/2024 10:00 EST Office Visit [facility] Adult Hematology & Oncology [address] [place] [address], [place] [phone] Brie Artis, PARADISE 130 [facility] 12 [place] [address] 08/19/2024 10:30 EST Nurse Only [facility] Adult Hem Onc Infusion [address] [place] [address] 08/25/2024 9:00 EST Office Visit [facility] Adult Hematology & Oncology [address] [place] [address], [place] [phone] Leela Turcios FNP 130 [facility] [address] [address] 08/25/2024 10:00 EST Nurse Only [facility] Adult Hem Onc Infusion [address] [place], [place] [phone] 09/08/2024 8:00 EST Office Visit [facility] Adult Hematology & Oncology [address] [place] [address] Brie Artis, PARADISE 130 [facility] [address] [place] [address] 09/08/2024 8:30 EST Nurse Only [facility] Adult Hem Onc Infusion [address] [place] [address] Scheduled Orders Name Type Priority Associated Diagnoses Orde r Schedule ENDOSCOPIC ULTRASOUND (EUS) GI Routine Pancreatic mass Expected: 07/14/2024, Expires: 01/12/2026 documented as of this encounter Visit Diagnoses Diagnosis Pancreatic mass- Primary Unspecified disease of pancreas documented in this encounter Care Teams Application Security Consultant Relationship Specialty Start Date End Date Urbano Lee Jr., MD [address] [address] PCP - General 03/07/09 documented as of this encounter
--- OUTSIDE RECORDS SUMMARY | 2024-08-14 01:17 | XMS_ITS | Encounter Summary ---
Author Organization [facility] Address [address] [place] [address] Care Team Providers Care Tape Making Machine Operator Name Role Phone Jesus Augustin MD, Urbano Aguayo Primary Care Provider + Encounter Details Date Type Department Care Team (Latest Contact Info) Description 10/02/2016 9:45 EST - 10/02/2016 9:46 EST Hospital Encounter [address] [address] Urbano Lee Jr., MD [address] [facility] [address] [place] [address] Discharge Disposition: Home or Self Care Social History Tobacco Use Types Packs/Day Years Used Date Smoking Tobacco: Never Assessed Sex and Gender Information Value Date Recorded Sex Assigned at Male 08/07/2024 12:35 EST Legal Sex Male 17:22 EST Gender Identity Male 07/16/2024 8:48 EDT Sexual Orientation Not on file documented as of this encounter Discharge Diagnoses Diagnosis Z00.00 Encounter for general adult medical examination without abnormal findings-Z00.00[ICD-10-CM] documented in this encounter Discharge Disposition Disposition Code Departure Means Destination Home or Self Care documented in this encounter Plan of Treatment Upcoming Encounters Date Type Department Care Team (Late st Contact Info) Description 08/19/2024 10:00 EST Office Visit [facility] Adult Hematology & Oncology [address] [place] [phone] Brie Artis NP 130 [facility], [facility] [address] [place] [address] 08/19/2024 10:30 EST Nurse Only [facility] Adult Hem Onc Infusion 130 [place], [place] [address] 08/25/2024 9:00 EST Office Visit [facility] Adult Hematology & Oncology [address] [place] [address] Leela Turcios FNP [address] [phone] 08/25/2024 10:00 EST Nurse Only [facility] Adult Hem Onc Infusion [address] [place] [phone] 09/08/2024 8:00 EST Office Visit [facility] Adult Hematology & Oncology [address] [place] [phone] Brie Artis, PARADISE [address] [phone] 09/08/2024 8:30 EST Nurse Only [facility] Adult Hem Onc Infusion [address] [place] [phone] documented as of this encounter Visit Diagnoses Not on filedocumented in this encounter Care Teams Tape Making Machine Operator Relationship Specialty Start Date End Date Urbano Lee Jr., MD [address] [address] PCP - General 03/07/09 documented as of this encounter
--- OUTSIDE RECORDS SUMMARY | 2024-08-14 01:17 | XMS_ITS | Encounter Summary ---
Author Organization [facility] Address [address] [place] [address] Care Team Providers Care Jail Officer Name Role Phone Jesus Augustin MD, Urbano Aguayo Primary Care Provider + Encounter Details Date Type Department Care Team (Late st Contact Info) Description 07/22/2024 15:50 EST Anesthesia Event [facility] Endoscopy - Main [place] [address] [place] [address] Tashi Caballero MD [address] [place] [address] [place] [phone] Jo Ann Gordon MD 111 [facility] Level 2 [place] [address] Anesthesia Record Procedure Summary Procedure Name Responsible Anesthesiologist Anesthesia Start Time Anesthesia Stop Time ENDOSCOPIC ULTRASOUND (EUS) Tashi Caballero MD 07/22/24 1550 07/22/24 1626 Events Date Time Event Comment 07/22/2024 1550 An Start The patient was re-evaluated immediately before moderate or deep sedation use, before anesthesia induction, or before the anesthesia procedure. 1550 An Start Data 1553 Anesthesia Ready 1625 an stop data 1625 Handoff to RN I completed my handoff to the receiving nurse during which we: 1. Identified the patient 2. Identified the responsible provider 3. Reviewed the pertinent medical history 4. Discussed the surgical course 5. Reviewed intra-op anesthesia management and issues during anesthesia 6. Set expectations for post-procedure period 7. Allowed opportunity for questions and acknowledgement of understanding. 1626 An Stop Meds Name Total lidocaine 2% (PF) injection glass vial 6 0 mg phenylephrine 1 mg/10 mL pre -filled SYRINGE (Bolus or short duration infusion) 200 mcg propOFol (DIPRIVAN) injection 347,352 mc g * Agents No agents on file. * Blood No blood administrations on file. Lines, Drains, and Airways Type Details Placement Removal Peripheral IV 07/22/24; 1534; 20; Posterior, Right; Hand; Inserted by RN; 1; None; 2% Chlorhexidine with IPA; 07/22/24; 1700; Discharged; No complications, Catheter intact, Dressing applied 07/22/24 1534 by Suzan Cannon RN 07/22/24 1700 by Molly Perez RN documented in this encounter Social History Tobacco [...] OR Notes * Anesthesia Postprocedure Evaluation - Tashi Caballero MD - 07/22/2024 1626 EST Patient: Jose Harrell Vital signs were reviewed with the recovery nurse. [facility] Vitals Value Taken Time BP 96/68 07/22/24 1624 Temp 36 07/22/24 1626 Resp 19 07/22/24 1625 Pulse From Oximetry 98 BPM 07/22/24 1625 SpO2 97 % 07/22/24 1625 Heart Rate 99 BPM 07/22/24 1625 Vitals shown include unfiled device data. Last Pain Score - Numeric Pain Level (Scale 1-10): 0 Type of Anesthesia - MAC Anesthesia Post Evaluation Post-procedure vitals reviewed and are stable. Level of consciousness: responsive/arousable to verbal stimuli Temperature status: normothermia Respiratory status: airway patent, nasal cannula and stable Cardiovascular status: acceptable Hydration status: adequate Nausea/Vomiting: none Pain management: adequate Post-Op Assessment: patient tolerated procedure well with no complications Patient participation: able to participate Disposition: outpatient/home Anesthesia Complications: No apparent anesthesia complications * Anesthesia Preprocedure Evaluation - Tashi Caballero MD - 07/22/2024 1238 EST Anesthesia Preprocedure Evaluation Patient Medical History, including Anesthesia History reviewed. Chart and Nursing Notes reviewed, including NPO status and Medication History. Additional ROS/History Findings: Jose Harrell is a 73 y.o. male with significant PMHx of HTN, HLD, tobacco use, asthma/COPD, GERD, diabetes vs prediabetes, s/p nephrectomy who presented with abdominal pain found to have multiple lesions including in liver, pancreas, and suspicious lesions in lungs concerning for metastatic disease presenting for EUS. Last food yesterday afternoon Water today at 1 oclock 1/2 ppd smoker Taking usual inhalers, no new sob/wheezing Prior airway history: No recent records found. Anesthesia history: No known personal history of anesthetic complications. No known family history of anesthetic complications. There were no vitals taken for this visit. Not on File Review of Systems Constitutional: Negative. HENT: Negative. Eyes: Negative. Respiratory: Negative. Cardiovascular: Negative. Gastrointestinal: Negative. Genitourinary: Negative. Musculoskeletal: Negative. Skin: Negative. Neurological: Negative. Endo/Heme/Allergies: Negative. Psychiatric/Behavioral: Negative. No past medical history on file. Relevant Problems No relevant active problems Physical Exam Airway Mallampati: II TM distance: >3 FB Neck ROM: full Cardiovascular - normal exam Dental (+) upper dentures, lower dentures Pulmonary - normal exam Abdominal Anesthesia Plan ASA 3 Anesthesia Type - MAC Anesthesia plan and risks discussed. Informed consent obtained from patient. Specific risks discussed were vomiting, stroke, post-op intubation, nausea, myocardial infarction, dental injury and ICU placement. PAT Note Notes from 06/22/24 through 07/22/24 No notes of this type exist for this encounter. documented in this encounter Plan of Treatment Upcoming Encounters Date Type Department Care Team (Late st Contact Info) Description 08/19/2024 10:00 EST Office Visit [facility] Adult Hematology & Oncology [address] [place] [address], [place] [phone] Brie Artis, PARADISE [address] [place] [address] 12 [place] [phone] 08/19/2024 10:30 EST Nurse Only [facility] Adult Hem Onc Infusion [address] [place] [address], [place] [address] 08/25/2024 9:00 EST Office Visit [facility] Adult Hematology & Oncology [address] [place] [address], [place] [phone] Leela Turcios FNP [address] [phone] 08/25/2024 10:00 EST Nurse Only [facility] Adult Hem Onc Infusion [address] [place] [address], [place] 800[address] 09/08/2024 8:00 EST Office Visit [facility] Adult Hematology & Oncology [address] [place] [address], [place] [phone] Brie Artis, PARADISE [address] [place] [address] [phone] 09/08/2024 8:30 EST Nurse Only [facility] Adult Hem Onc Infusion [address] [place] [address], [place] [phone] documented as of this encounter Visit Diagnoses Not on filedocumented in this encounter Administered Medications Inactive Administered Medications - up to 3 most recent administrations Medication Order MAR Action Action Date Dose Rate Site lidocaine (PF) 20 mg/mL (2 %) injection intravenous, PRN, Starting on Sat07/22/24 at 1551, Until Sat07/22/24 at 1626, Routine, Anesthesia Intraprocedure Given 07/22/2024 15:51 EST 60 mg phenylephrine HCl in 0.9% NaCl injection intravenous, PRN, Starting on Sat07/22/24 at 1604, Until Sat07/22/24 at 1626, Routine, Anesthesia Intraprocedure Given 07/22/2024 16:15 EST 100 mcg Given 07/22/2024 16:04 EST 100 mcg propOFol (DIPRIVAN) injection intravenous, PRN, Starting on Sat07/22/24 at 1551, Until Sat07/22/24 at 1626, Routine, Anesthesia Intraprocedure New Bag 07/22/2024 15:52 EST 120 mcg/kg/min 66.312 mL/hr Given 07/22/2024 15:51 EST 60 mg documented in this encounter Care Teams Jail Officer Relationship Specialty Start Date End Date Urbano Lee Jr., MD [address] [address] PCP - General 03/07/09 documented as of this encounter
--- OUTSIDE RECORDS SUMMARY | 2024-08-14 01:17 | XMS_ITS | Encounter Summary ---
Author Organization [facility] Address [address] [place] [address] Care Team Providers Care Director Of Mechanical Engineering Name Role Phone Jesus Augustin MD, Urbano Aguayo Primary Care Provider + Reason for Referral * Radiology Services (Routine/Next Available) - Authorization Not Required Specialty Diagnoses / Procedures Referred By Contac t Referred To Contact Diagnoses Overlapping malignant neoplasm of pancreas (HCC-CMS) Procedures CT CHEST W CONTRAST Kirill Scott MD 111 [facility] Level 2 [place] [address] Phone: tel: fax: [facility] Referral ID Status Reason Start Date Expiration Date Visits Requested Visits Authorized [id number] Authorization Not Required 07/21/2024 1 1 Encounter Details Date Type Department Care Team (Late st Contact Info) Description 07/21/2024 Orders Only [facility] Hematology & Oncology - [facility] [address] [place] [address] Dagoberto Lafleur, KORY Overlapping malignant neoplasm of pancreas (HCC-CMS) (Primary Dx) Social History Tobacco Use [...] Info) Description 08/19/2024 10:00 EST Office Visit [facility] Adult Hematology & Oncology [address] [place] [address], [place] [phone] Brie Artis, PARADISE 130 [facility] 12 [place] [address] 08/19/2024 10:30 EST Nurse Only [facility] Adult Hem Onc Infusion 130 [facility], [place] [phone] 08/25/2024 9:00 EST Office Visit [facility] Adult Hematology & Oncology [address] [place] [address], [place] [phone] Leela Turcios FNP [address] [place] [address] 08/25/2024 10:00 EST Nurse Only [facility] Adult Hem Onc Infusion [address] [place] [address], [place] [phone] 09/08/2024 8:00 EST Office Visit [facility] Adult Hematology & Oncology [address] [place] [address], [place] [phone] Brie Artis, PARADISE [address] [place] [address] [place] [address] 09/08/2024 8:30 EST Nurse Only [facility] Adult Hem Onc Infusion [address] [place] [address], [place] [phone] documented as of this encounter Results * CT CHEST W [...] REGARDING THIS REPORT PLEASE CALL [facility] AT [phone] Narrative 08/09/2024 19:23 EST PROCEDURE INFORMATION: Exam: [...] CONCERNS REGARDING THIS REPORT PLEASE CALL [facility] [phone] us Kirill Scott MD IMG CT ORDERABLES Final Result documented in this encounter Visit Diagnoses Diagnosis Overlapping malignant neoplasm of pancreas (HCC-CMS)- Primary Overlapping malignant neoplasm of pancreas (HCC-CMS) documented in this encounter Care Teams Director Of Mechanical Engineering Relationship Specialty Start Date End Date Urbano Lee Jr., MD [address] [address] PCP - General 03/07/09 documented as of this encounter
--- OUTSIDE RECORDS SUMMARY | 2024-08-14 01:17 | XMS_ITS | Encounter Summary ---
Author Organization [facility] Address [address] [place] [address] Care Team Providers Care Coating Machine Feeder Name Role Phone Jesus Augustin MD, Donald B Primary Care Provider + Encounter Details Date Type Department Care Team (Late st Contact Info) Description 06/12/2024 Orders Only [facility] Pathology & Laboratory Medicine - [facility] [address] [place] [address] Urbano Lee Jr., MD [address] [facility], [facility] 101 [place] [phone] Encounter for screening for malignant neoplasm of prostate Social History Tobacco Use Types Packs/Day Years [...] Info) Description 08/19/2024 10:00 EST Office Visit [facility] Adult Hematology & Oncology [address] [place] [phone] Brie Artis NP 130 [facility], [facility] [address] [place] [phone] 08/19/2024 10:30 EST Nurse Only [facility] Adult Hem Onc Infusion 130 [facility], [place] 2[address] 08/25/2024 9:00 EST Office Visit [facility] Adult Hematology & Oncology [address] [place] [address], [place] [phone] Leela Turcios FNP [address] [facility] [address] [phone] 08/25/2024 10:00 EST Nurse Only [facility] Adult Hem Onc Infusion 130 [place], [place] [address] 09/08/2024 8:00 EST Office Visit [facility] Adult Hematology & Oncology [address] [place] [address], [place] [address] Brie Artis, PARADISE [address] [address] 09/08/2024 8:30 EST Nurse Only [facility] Adult Hem Onc Infusion 130 [place] [address] Scheduled Orders Name Type Priority Associated Diagnoses Orde r Schedule PSA SCREEN Lab Routine Encounter for screening for malignant neoplasm of prostate Expected: 06/12/2024, Expires: 06/12/2025 documented as of this encounter Visit Diagnoses Diagnosis Encounter for screening for malignant neoplasm of prostate Special screening for malignant neoplasm of prostate documented in this encounter Care Teams Coating Machine Feeder Relationship Specialty Start Date End Date Urbano Lee Jr., MD [address] [facility] [address] [place] [address] PCP - General 03/07/09 documented as of this encounter
--- OUTSIDE RECORDS SUMMARY | 2024-08-14 01:17 | XMS_ITS | Encounter Summary ---
Author Organization [facility] Address [address] [place] [address] Care Team Providers Care Parachute Panel Joiner Name Role Phone Jesus Augustin MD, Urbano Aguayo Primary Care Provider + Encounter Details Date Type Department Care Team (Late Contact Info) Description 06/22/2024 Lab Requisition [facility] Pathology & Laboratory Medicine - [facility] [address] [place] [address] Urbano Lee Jr., MD [address] [facility], [facility] 101 [place] [address] Hyperlipidemia, unspecified Social History Tobacco Use Types Packs/Day [...] [facility] Adult Hematology & Oncology [address] [place] [phone] Brie Artis NP 130 [facility], [facility] [address] [place] [phone] 08/19/2024 10:30 EST Nurse Only [facility] Adult Hem Onc Infusion 130 [facility], [place] [phone] 08/25/2024 9:00 EST Office Visit [facility] Adult Hematology & Oncology [address] [place] [address], [place] [phone] Leela Turcios FNP 130 [facility] [address] [place] [phone] 08/25/2024 10:00 EST Nurse Only [facility] Adult Hem Onc Infusion 130 [facility], [place] [address] 09/08/2024 8:00 EST Office Visit [facility] Adult Hematology & Oncology [address] [place] [address], [place] [phone] Brie Artis, PARADISE 130 [facility] [address] [place] [address] 09/08/2024 8:30 EST Nurse Only [facility] Adult Hem Onc Infusion 130 [facility], [place] [phone] documented as of this encounter Procedures Procedure Name Priority Date/Time Associated Diagnosis Comments LIPID PROFILE (INCLUDES CHOLESTEROL, TRIGLYCERIDES, HDL, LDL) Today 06/22/2024 13:19 EDT Hyperlipidemia, unspecified documented in this encounter Results * LIPID PROFILE (INCLUDES CHOLESTEROL, TRIGLYCERIDES, HDL, LDL) (06/22/2024 13:19 EDT) Cholesterol 145 <200 mg/dL 06/22/2024 21:54 EDT [facility] Comment:Note that therapeuti c goals will differ between patients based on cardiac risk factors and current medical therapy. HDL 40 >=40 mg/dl 06/22/2024 21:54 EDT [facility] Comment:Note that therapeuti c goals will differ between patients based on cardiac risk factors and current medical therapy. LDL, Calculated 82 <160 mg/dL 21:54 EDT [facility] Comment:Note that therapeuti c goals will differ between patients based on cardiac risk factors and current medical therapy. Triglyceride 114 <=150 mg/dL 06/22/2024 21:54 EDT [facility] Comment:Note that therapeuti c goals will differ between patients based on cardiac risk factors and current medical therapy. Chol/HDL Ratio 3.6 See Note 06/22/2024 21:54 EDT [facility] Comment:No reference range h as been established for CHOL/HDL ratio. Non HDL Cholesterol 105 <160 mg/dL 06/22/2024 21:54 EDT [facility] Comment:Note that therapeuti c goals will differ between patients based on cardiac risk factors and current medical therapy. Blood VENOUS BLOOD / Unknown 06/22/2024 13:19 EDT 06/22/2024 21:27 EDT Urbano Lee Jr., MD CHEMISTRY & BLOOD GAS OR DERABLES Final Result Performing Organization Address City/State/[facility] Co de Phone Number [facility] [address] [place], [place] [address] documented in this encounter Visit Diagnoses Diagnosis Hyperlipidemia, unspecified documented in this encounter Care Teams Parachute Panel Joiner Relationship Specialty Start Date End Date Urbano Lee Jr., MD [address] [facility] 101 [place] [address] PCP - General 03/07/09 documented as of this encounter
--- OUTSIDE RECORDS SUMMARY | 2024-08-14 01:17 | XMS_ITS | Encounter Summary ---
Author Organization [facility] Address [address] [place] [address] Care Team Providers Care Semi Automatic Sewing Machine Operator Name Role Phone Jesus Augustin MD, Urbano Aguayo Primary Care Provider + Encounter Details Date Type Department Care Team (Late st Contact Info) Description 01/22/2017 Results Only [facility] [phone] Urbano Lee Jr., MD [address] [facility] 101 [place] [address] Social History Tobacco Use Types [...] Info) Description 08/19/2024 10:00 EST Office Visit [facility] Adult Hematology & Oncology [address] [place] [phone] Brie Artis, PARADISE 130 [facility] [address] [place] [address] 08/19/2024 10:30 EST Nurse Only [facility] Adult Hem Onc Infusion 130 [place], [place] [phone] 08/25/2024 9:00 EST Office Visit [facility] Adult Hematology & Oncology [address] [place] [address] Leela Turcios FNP 130 [facility] [address] [place] [address] 08/25/2024 10:00 EST Nurse Only [facility] Adult Hem Onc Infusion 130 [place] [address] 09/08/2024 8:00 EST Office Visit [facility] Adult Hematology & Oncology [address] [place] [address], [place] [address] Brie Artis, PARADISE 130 [facility] [address] [place] [address] 09/08/2024 8:30 EST Nurse Only [facility] Adult Hem Onc Infusion 130 [place] [address] documented as of this encounter Procedures Procedure Name Priority Date/Time Associated Diagnosis Comments PSA SCREEN Routine 01/22/2017 11:00 EDT documented in this encounter Results * (ABNORMAL) PSA SCREEN (01/22/2017 11:00 EDT) PSA 5.6(H) 0 - 4.5 ng/ml 01/23/2017 11:43 EDT [facility] Comment: Serum PSA concentration should not be interpreted as absolute evidence for the presence or absence of malignant disease. Assayed utilizing [employer] ([employer]) chemiluminescent technology. ??Values obtained by using different assay methods cannot be used interchangeably. BLOOD SPECIMEN / Unknown 01/22/2017 11:00 EDT 01/22/2017 17:20 EDT us Urbano Lee Jr., MD CHEMISTRY & BLOOD GAS OR DERABLES Final Result [facility] [address] [place] [address] documented in this encounter Visit Diagnoses Not on filedocumented in this encounter Care Teams Semi Automatic Sewing Machine Operator Relationship Specialty Start Date End Date Urbano Lee Jr., MD [address] [address] PCP - General 03/07/09 documented as of this encounter
--- OUTSIDE RECORDS SUMMARY | 2024-08-14 01:17 | XMS_ITS | Encounter Summary ---
Author Organization [facility] Address [address] [place] [address] Care Team Providers Care Sales And Marketing Administrator Name Role Phone Jesus Augustin MD, Urbano Aguayo Primary Care Provider + Encounter Details Date Type Department Care Team (Latest Contact Info) Description 09/26/2015 13:50 EST - 09/26/2015 13:51 EST Hospital Encounter [facility] 1 [place] [address] Urbano Lee Jr., MD [address] [facility] 101 [place] [address] Discharge Disposition: Home or Self Care Social History Tobacco Use Types Packs/Day Years Used Date Smoking Tobacco: Never Assessed Sex and Gender Information Value Date Recorded Sex Assigned at Male 08/07/2024 12:35 EST Legal Sex Male 17:22 EST Gender Identity Male 07/16/2024 8:48 EDT Sexual Orientation Not on file documented as of this encounter Discharge Diagnoses Diagnosis E78.5 Hyperlipidemia, unspecified-E78.5[ICD-10-CM] K21.0 Gastro-esophageal reflux disease with esophagitis-K21.0[ICD-10-CM] Z00.00 Encounter for general adult medical examination without abnormal findings-Z00.00[ICD-10-CM] J45.909 Unspecified asthma, uncomplicated-J45.909[ICD-10-CM] documented in this encounter Discharge Disposition Disposition Code Departure Means Destination Home or Self Care documented in this encounter Plan of Treatment Upcoming Encounters Date Type Department Care Team ([facility] st Contact Info) Description 08/19/2024 10:[address] [facility] Adult Hematology & Oncology [address] [place] [address], [place] [address] Brie Artis, PARADISE [address] [place] [phone] 08/19/2024 10:[address] [facility] Adult Hem Onc Infusion [address] [place] [address], [place] [address] 08/25/2024 9:[address] [facility] Adult Hematology & Oncology [address] [place] [address], [place] [address] Leela Turcios FNP [address] [place] [phone] 08/25/2024 10:[address] [facility] Adult Hem Onc Infusion [address] [place] [address], [place] [address] 09/08/2024 8:[address] [facility] Adult Hematology & Oncology [address] [place] [address], [place] [address] Brie Artis NP [address] [place] [phone] 09/08/2024 8:[address] [facility] Adult Hem Onc Infusion [address] [place] [address], [place] [address] documented as of this encounter Visit Diagnoses Not on filedocumented in this encounter Care Teams Sales And Marketing Administrator Relationship Specialty Start Date End Date Urbano Lee Jr., MD [address] [phone] PCP - General 03/07/09 documented as of this encounter
--- OUTSIDE RECORDS SUMMARY | 2024-08-14 01:17 | XMS_ITS | Encounter Summary ---
Author Organization [facility] Address [address] [place] [address] Care Team Providers Care Router Operator Name Role Phone Jesus Augustin MD, Urbano Aguayo Primary Care Provider + Encounter Details Date Type Department Care Team (Late st Contact Info) Description 10/14/2017 Results Only [facility] [phone] Urbano Lee Jr., MD [address] [facility] 101 [place] [address] Social History Tobacco Use Types [...] Description 08/19/2024 10:00 EST Office Visit [facility] Adult Hematology & Oncology [address] [place] [phone] Brie Artis, PARADISE 130 [facility] [address] [place] [address] 08/19/2024 10:30 EST Nurse Only [facility] Adult Hem Onc Infusion 130 [place], [place] [phone] 08/25/2024 9:00 EST Office Visit [facility] Adult Hematology & Oncology [address] [place] [address] Leela Turcios FNP 130 [facility], [facility] [address] [place] [address] 08/25/2024 10:00 EST Nurse Only [facility] Adult Hem Onc Infusion 130 [facility], [place] [phone] 09/08/2024 8:00 EST Office Visit [facility] Adult Hematology & Oncology [address] [place] [address], [place] [phone] Brie Artis, PARADISE 130 [facility], [facility] [address] [place] [address] 09/08/2024 8:30 EST Nurse Only [facility] Adult Hem Onc Infusion 130 [place] [address] documented as of this encounter Procedures Procedure Name Priority Date/Time Associated Diagnosis Comments THYROID CASCADE Routine 10/14/2017 8:00 EST HEPATITIS C AB W REFLEX TO HCV RNA BY PCR Routine 10/14/2017 8:00 EST PSA SCREEN Routine 10/14/2017 8:00 EST LIPID PROFILE (INCLUDES CHOLESTEROL, TRIGLYCERIDES, HDL, LDL) Routine 10/14/2017 8:00 EST COMPREHENSIVE METABOLIC PANEL (CMP) Routine 10/14/2017 8:00 EST documented in this encounter Results * THYROID CASCADE (10/14/2017 8:00 EST) TSH 1.58 0.47 - 4.68 uIU/ml 10/14/2017 23:07 EST [facility] Comment: TSH cascade is not recommended for patients in which pituitary or hypothalamic disorders are suspected. BLOOD SPECIMEN / Unknown 10/14/2017 8:00 EST 10/14/2017 21:17 EST Urbano Lee Jr., MD CHEMISTRY & BLOOD GAS OR DERABLES Final Result Performing Organization Address [facility] de Phone Number [facility] [address] [place] [address] * (ABNORMAL) PSA SCREEN (10/14/2017 8:00 EST) PSA 6.9(H) 0 - 4.5 ng/ml 10/15/2017 9:45 [facility] Comment: Serum PSA concentration should not be interpreted as absolute evidence for the presence or absence of malignant disease. Assayed utilizing [employer] ([employer]) chemiluminescent technology. ??Values obtained by using different assay methods cannot be used interchangeably. BLOOD SPECIMEN / Unknown 10/14/2017 8:00 EST 10/14/2017 21:17 EST Urbano Lee Jr., MD CHEMISTRY & BLOOD GAS OR DERABLES Final Result Performing Organization Address [facility] de Phone Number [facility] [address] [place] [address] * LIPID PROFILE (INCLUDES CHOLESTEROL, TRIGLYCERIDES, HDL, LDL) (10/14/2017 8:00 EST) Cholesterol 153 mg/dl 10/14/2017 22:43 [facility] Comment: Desirable:<200 Borderline High:200-239 High:>st=925 Triglycerides 161 mg/dl 10/14/2017 22:43 [facility] Comment: Normal:<150 Borderline High:150-199 High:200-499 Very High:>rx=731 HDL 48 mg/dl 10/14/2017 22:43 [facility] Comment: Low:<40 Normal:40-60 Desirable: >60 LDL, Calculated 73 mg/dl 8 22:43 [facility] Comment: Optimal:<100 Near Optimal:100-129 Borderline High:130-159 High:160-189 Very High:>cp=034 Chol/HDL Ratio 3.2 10/14/2017 22:43 [facility] Fasting? Unknown 10/14/2017 22:43 [facility] Non HDL Cholesterol 105 mg/dl 10/14/2017 22:43 [facility] Comment: Desirable:<130 Borderline:130-159 High: 160-189 Very High: >wt=016 BLOOD SPECIMEN / Unknown 10/14/2017 8:00 EST 10/14/2017 21:17 EST Urbano Lee Jr., MD CHEMISTRY & BLOOD GAS OR DERABLES Final Result Performing Organization Address [facility] de Phone Number [facility] [address] [place] [address] * HEPATITIS C AB W REFLEX TO HCV RNA BY PCR (10/14/2017 8:00 EST) Hep C Ab w Rfx PCR HCSCR2 Negative Negative 10/15/2017 11:34 [facility] BLOOD SPECIMEN / Unknown 10/14/2017 8:00 EST 10/14/2017 21:17 EST Urbano Lee Jr., MD CHEMISTRY & BLOOD GAS OR DERABLES Final Result Performing Organization Address [facility] de Phone Number [facility] [address] [place] [address] * COMPREHENSIVE METABOLIC PANEL (CMP) (10/14/2017 8:00 EST) Potassium 4.8 3.5 - 5.0 mEq/L 10/14/2017 22:43 [facility] Sodium 144 136 - 145 mEq/L 10/14/2017 22:43 [facility] Chloride 105 96 - 110 mEq/L 10/14/2017 22:43 [facility] CO2 27 22 - 32 mEq/L 10/14/2017 22:43 [facility] Total Alkaline Phosphatase 82 38 - 126 U/L 10/14/2017 22:43 [facility] Bilirubin, Total <0.5 <1.4 mg/dl 10/14/19 18 22:43 [facility] AST 23 15 - 46 U/L 10/14/2017 22:43 [facility] ALT 44 21 - 72 U/L 10/14/2017 22:43 [facility] Albumin 4.0 3.4 - 4.9 g/dl 10/14/2017 22:43 [facility] Total Protein 6.5 6.3 - 8.2 g/dl 10/14/2017 22:43 [facility] Creatinine 1.15 0.66 - 1.25 mg/dl 10/14/2017 22:43 [facility] GFR, Calculated 66 >60 ml/min/1.7 3m2 10/14/2017 22:43 [facility] Comment: eGFR calculated using CKD-EPI equation for non Americans. Multiply eGFR by 1.16 for Americans. BUN 18 10 - 26 mg/dl 10/14/2017 22:43 [facility] Calcium 10.2 8.5 - 10.5 mg/dl 10/14/2017 22:43 [facility] Calculated Calcium 10.2 8.5 - 10.5 mg/dl 10/14/2017 22:43 [facility] Glucose, Serum 93 70 - 100 mg/dl 10/14/2017 22:43 [facility] Fasting? Unknown 10/14/2017 22:43 [facility] BLOOD SPECIMEN / Unknown 10/14/2017 8:00 EST 10/14/2017 21:17 EST us Urbano Lee Jr., MD CHEMISTRY & BLOOD GAS OR DERABLES Final Result Performing Organization Address City/State/[facility] Co de Phone Number [facility] [address] [place] [address] documented in this encounter Visit Diagnoses Not on filedocumented in this encounter Care Teams Router Operator Relationship Specialty Start Date End Date Urbano Lee Jr., MD [address] [facility] 101 [place] [address] PCP - General 03/07/09 documented as of this encounter
--- OUTSIDE RECORDS SUMMARY | 2024-08-14 01:17 | XMS_ITS | Encounter Summary ---
Author Organization [facility] Address [address] [place] [address] Care Team Providers Care Car Repairer Helper Name Role Phone Jesus Augustin MD, Urbano Aguayo Primary Care Provider + Encounter Details Date Type Department Care Team (Late st Contact Info) Description 03/07/2020 Lab Requisition [facility] Pathology & Laboratory Medicine - [facility] [address] [place] [address] Urbano Lee Jr., MD [address] [facility] [address] [place] [phone] Hyperlipidemia, unspecified Social History Tobacco Use Types [...] Info) Description 08/19/2024 10:00 EST Office Visit Health system Adult Hematology & Oncology [address] [place] [address] Brie Artis, PARADISE [address] [facility] [address] [place] [address] 08/19/2024 10:30 EST Nurse Only Health system Adult Hem Onc Infusion [address] [place] [address] 08/25/2024 9:00 EST Office Visit Health system Adult Hematology & Oncology [address] [place] [address], [place] [phone] Leela Turcios FNP 130 [facility] [address] [place] [phone] 08/25/2024 10:00 EST Nurse Only Health system Adult Hem Onc Infusion [address] [place], [place] [address] 09/08/2024 8:00 EST Office Visit Health system Adult Hematology & Oncology [address] [place] [address], [place] [phone] Brie Artis, PARADISE [address] [facility] [address] [place] [phone] 09/08/2024 8:30 EST Nurse Only Health system Adult Hem Onc Infusion [address] [place], [place] [phone] documented as of this encounter Procedures Procedure Name Priority Date/Time Associated Diagnosis Comments PSA TOTAL, DIAGNOSTIC Today 03/07/2020 8:00 EDT Hyperlipidemia, unspecified LIPID PROFILE (INCLUDES CHOLESTEROL, TRIGLYCERIDES, HDL, LDL) Today 03/07/2020 8:00 EDT Hyperlipidemia, unspecified COMPREHENSIVE METABOLIC PANEL (CMP) Today 03/07/2020 8:00 EDT Hyperlipidemia, unspecified documented in this encounter Results * (ABNORMAL) PSA TOTAL, DIAGNOSTIC (03/07/2020 8:00 EDT) PSA 6.6(H) 0.0 - 4.5 ng/mL 03/08/2020 9:[address] [facility] Blood VENOUS BLOOD / Unknown Non-Lab Collect / Unknown 03/07/2020 8:00 EDT 03/07/2020 16:[address] [facility] - 03/08/2020 9:22 EDT NOTE: Serum PSA concentration should not be interpreted as absolute evidence for the presence or absence of malignant disease. Assayed on Siemens ADVIA Centaur XPT using chemiluminescent technology.??Values obtained by using different assay methods cannot be used interchangeably. us Urbano Lee Jr., MD CHEMISTRY & BLOOD GAS OR DERABLES Final Result [facility] [address] [place] [address] * LIPID PROFILE (INCLUDES CHOLESTEROL, TRIGLYCERIDES, HDL, LDL) (03/07/2020 8:00 EDT) Cholesterol 149 See Note mg/dL 03/07/2020 16:[address] [facility] Comment: Acceptable: ?<200 mg/dL Borderline High: 200-239 mg/dL High: ?> or = 240 mg/dL HDL 42 See Note mg/dL 03/07/2020 16:[address] [facility] Comment: Low: ? <40 mg/dL Normal: ??40-60 mg/dL High: ?>60 mg/dL LDL, Calculated 86 See Note mg/dL 03/07/2020 16:[address] [facility] Comment: Optimal: ? <100 mg/dL Near Optimal: ?100-129 mg/dL Borderline High: 130-159 mg/dL High: ?160-189 mg/dL Very High: ? > or = 190 mg/dL Triglyceride 104 See Note mg/dL 03/07/2020 16:59 [facility] Comment: Normal: ? <150 mg/dL Borderline High: ??150 - 199 mg/dL High: ? 200 - 499 mg/dL Very High: ?> or = 500 mg/dL Chol/HDL Ratio 3.5 See Note 03/07/2020 16:[address] [facility] Comment: No reference range has been established for CHOL/HDL ratio. Non HDL Cholesterol 107 See Note mg/dL 03/07/2020 16:59 [facility] Comment: Desirable: ?<130 mg/dL Borderline High: ??130-159 mg/dL High: ? 160-189 mg/dL Very High: ?> or = 190 mg/dL Blood VENOUS BLOOD / Unknown Non-Lab Collect / Unknown 03/07/2020 8:00 EDT 03/07/2020 16:42 EDT us Urbano Lee Jr., MD CHEMISTRY & BLOOD GAS OR DERABLES Final Result Performing Organization Address City/State/[facility] Co de Phone Number [facility] [address] [place] [address] * (ABNORMAL) COMPREHENSIVE METABOLIC PANEL (CMP) (03/07/2020 8:00 EDT) Sodium 140 136 - 145 mEq/L 03/07/2020 16:59 [facility] Potassium 4.5 3.5 - 5.0 mEq/L 03/07/2020 16:59 [facility] Chloride 105 96 - 110 mEq/L 03/07/2020 16:59 [facility] CO2 Total 29 22 - 32 mEq/L 03/07/2020 16:59 [facility] Glucose 105(H) 70 - 100 mg/dL 03/07/2020 16:59 [facility] BUN 15 10 - 26 mg/dL 03/07/2020 16:59 [facility] Creatinine 0.98 0.66 - 1.25 mg/dL 03/07/2020 16:59 [facility] eGFR 79 >60 mL/min/1.7 3m2 03/07/2020 16:59 [facility] Comment:eGFR calculated nani barillas CKD-EPI equation for non- Americans. Multiply eGFR by 1.16 for patients. Total Protein 6.4 6.3 - 8.2 g/dL 03/07/2020 16:59 [facility] Albumin 4.1 3.4 - 4.9 g/dL 03/07/2020 16:[address] [facility] Alkaline Phosphatase 76 38 - 126 U/L 03/07/2020 16:[address] [facility] AST 26 15 - 46 U/L 03/07/2020 16:[address] [facility] ALT 25 <50 U/L 03/07/2020 16:[address] [facility] Bilirubin, Total <0.5 <1.4 mg/dL 03/07/20 20 16:[address] [facility] Calcium 9.7 8.5 - 10.5 mg/dL 03/07/2020 16:[address] [facility] Calculated Calcium 9.6 8.5 - 10.5 mg/dL 03/07/2020 16:[address] [facility] Blood VENOUS BLOOD / Unknown Non-Lab Collect / Unknown 03/07/2020 8:00 EDT 03/07/2020 16:42 EDT us Urbano Lee Jr., MD CHEMISTRY & BLOOD GAS OR DERABLES Final Result [facility] [address] [place] [address] documented in this encounter Visit Diagnoses Diagnosis Hyperlipidemia, unspecified documented in this encounter Care Teams Car Repairer Helper Relationship Specialty Start Date End Date Urbano Lee Jr., MD [address] [facility] [address] [place] [address] PCP - General 03/07/09 documented as of this encounter
--- OUTSIDE RECORDS SUMMARY | 2024-08-14 01:17 | XMS_ITS | Encounter Summary ---
Author Organization [facility] Address [address] [place] [address] Care Team Providers Care Reconnaissance Crewmember Name Role Phone Jesus Augustin MD, Urbano Aguayo Primary Care Provider + Encounter Details Date Type Department Care Team (Latest Contact Info) Description 01/22/2017 13:23 EDT - 01/22/2017 13:24 EDT Hospital Encounter [facility] [address] [place] [address] Urbano Lee Jr., MD [address] [facility] [address] [place] [phone] Discharge Disposition: Home or Self Care Social History Tobacco Use Types Packs/Day Years Used Date Smoking Tobacco: Never Assessed Sex and Gender Information Value Date Recorded Sex Assigned at Male 08/07/2024 12:35 EST Legal Sex Male 17:22 EST Gender Identity Male 07/16/2024 8:48 EDT Sexual Orientation Not on file documented as of this encounter Discharge Diagnoses Diagnosis Z12.5 Encounter for screening for malignant neoplasm of prostate-Z12.5[ICD-10-CM] documented in this encounter Discharge Disposition Disposition Code Departure Means Destination Home or Self Care documented in this encounter Plan of Treatment Upcoming Encounters Date Type Department Care Team (Late st Contact Info) Description 08/19/2024 10:00 EST Office Visit [facility] Adult Hematology & Oncology [address] [place] [address] Brie Artis, PARADISE 130 [facility], [facility] [address] [place] [address] 08/19/2024 10:30 EST Nurse Only [facility] Adult Hem Onc Infusion [address] [place], [place] [address] 08/25/2024 9:00 EST Office Visit [facility] Adult Hematology & Oncology [address] [place] [address] Leela Turcios FNP [address] [phone] 08/25/2024 10:00 EST Nurse Only [facility] Adult Hem Onc Infusion [address] [place] [address] 09/08/2024 8:00 EST Office Visit [facility] Adult Hematology & Oncology [address] [place] [phone] Brie Artis, [place] [address] [place] [phone] 09/08/2024 8:30 EST Nurse Only [facility] Adult Hem Onc Infusion [address] [place] [phone] documented as of this encounter Visit Diagnoses Not on filedocumented in this encounter Care Teams Reconnaissance Crewmember Relationship Specialty Start Date End Date Urbano Lee Jr., MD [address] [phone] PCP - General 03/07/09 documented as of this encounter
--- OUTSIDE RECORDS SUMMARY | 2024-08-14 01:17 | XMS_ITS | Encounter Summary ---
Author Organization [facility] Address [address] [place] [address] Care Team Providers Care Bow Maker Custom Name Role Phone Jesus Augustin MD, Urbano Aguayo Primary Care Provider + Encounter Details Date Type Department Care Team (Late st Contact Info) Description 07/14/2019 Results Only [facility]- [facility] [phone] Izabella Yi MD [address] [place] [address],[address] [place] [address] Social History Tobacco Use Types Packs/Day Years [...] Info) Description 08/19/2024 10:00 EST Office Visit [facility] Adult Hematology & Oncology [address] [place] [address] Brie Artis, PARADISE 130 [facility] [address] [place] [address] 08/19/2024 10:30 EST Nurse Only [facility] Adult Hem Onc Infusion [address] [place] [address] 08/25/2024 9:00 EST Office Visit [facility] Adult Hematology & Oncology [address] [place] [address] Leela Turcios, DOLLY 130 [facility], [facility] [address] [place] [address] 08/25/2024 10:00 EST Nurse Only [facility] Adult Hem Onc Infusion 130 [facility] [place] [address] 09/08/2024 8:00 EST Office Visit [facility] Adult Hematology & Oncology [address] [place] [address] Brie Artis, ONCOLOGY REP SPECIALIST 130 [facility], [facility] [address] [place] [address] 09/08/2024 8:30 EST Nurse Only [facility] Adult Hem Onc Infusion [address] [place] [address] documented as of this encounter Procedures Procedure Name Priority Date/Time Associated Diagnosis Comments HOLD LAVENDER TOP Routine 07/14/2019 10: 15 EDT PSA TOTAL AND FREE, SERUM Routine 07/14/2019 10:15 EDT documented in this encounter Results * HOLD LAVENDER TOP (07/14/2019 10:15 EDT) Pathologist [facility] Purple Top EDTA for hematology will be discarded after 48 hours, differential not available after 12 hours. 07/14/2019 16:01 EDT [facility] BLOOD SPECIMEN / Unknown 07/14/2019 10:15 EDT 07/14/2019 15:56 EDT us Izabella Yi MD LAB INFO SERVICE AND SUPPORT & P HERMINIO RESULT Final Result [facility] [address] [place] [address] * (ABNORMAL) PSA TOTAL AND FREE, SERUM (07/14/2019 10:15 EDT) Pathologist [facility] Prostate Specific Ag, S 9.9(H) <=4.5 ng/mL 07/15/2019 12:22 EDT [facility] Free PSA 1.6 ng/mL 07/15/2019 12:22 EDT [facility] Free PSA/PSA Ratio 0.16 ratio 2018 12:22 T [facility] Comment: (Note) When total PSA is in the range of 4.0-10.0 ng/mL, a free PSA / Total PSA ratio of < or = 0.10 indicates 49 to 65 % risk of prostate cancer depending on age; and a free PSA / total PSA ratio of > 0.25 indicates a 9 to 16% risk of prostate cancer depending on age. . ADDITIONAL INFORMATION The testing method is an electrochemiluminescence assay manufactured by [employer] and performed on the Modular or Alexi system. . Values obtained with different assay methods or kits may be different and cannot be used interchangeably. . Test results cannot be interpreted as absolute evidence for the presence or absence of malignant disease. Performed by: [facility]: [place] [address], [place] [address] BLOOD SPECIMEN / Unknown 07/14/2019 10:15 EDT 07/14/2019 15:56 EDT us Izabella Yi MD CHEMISTRY & BLOOD GAS ORDERABLES Final Result [facility] [address] [place] [address] documented in this encounter Visit Diagnoses Not on filedocumented in this encounter Care Teams Bow Maker Custom Relationship Specialty Start Date End Date Urbano Lee Jr., MD [address] [facility] [address] [place] [address] PCP - General 03/07/09 documented as of this encounter
--- OUTSIDE RECORDS SUMMARY | 2024-08-14 01:17 | XMS_ITS | Encounter Summary ---
Author Organization [facility] Address [address] [place] [address] Care Team Providers Care Revenue Stamp Clerk Name Role Phone Jesus Augustin MD, Urbano Aguayo Primary Care Provider + Encounter Details Date Type Department Care Team (Late st Contact Info) Description 10/02/2016 Results Only [facility]- [facility] [phone] Urbano Lee Jr., MD [address] [facility] [address] [place] [address] Social History Tobacco Use Types [...] [facility] Adult Hematology & Oncology [address] [place] [phone] Brie Artis, PARADISE 130 [facility] [address] [place] [address] 08/19/2024 10:[address] [facility] Adult Hem Onc Infusion [address] [place], [place] [phone] 08/25/2024 9:[address] [facility] Adult Hematology & Oncology [address] [place] [phone] Leela Turcios FNP 130 [facility], [facility] [address] [place] [address] 08/25/2024 10:[address] [facility] Adult Hem Onc Infusion [address] [place] [address] 09/08/2024 8:[address] [facility] Adult Hematology & Oncology [address] [place] [address], [place] [address] Brie Artis, PARADISE 130 [facility], [facility] [address] [place] [address] 09/08/2024 8:[address] [facility] Adult Hem Onc Infusion [address] [place] [address] documented as of this encounter Procedures Procedure Name Priority Date/Time Associated Diagnosis Comments PSA SCREEN Routine 10/02/2016 9:30 EST MAGNESIUM Routine 10/02/2016 9:30 EST VITAMIN B12 Routine 10/02/2016 9:30 EST LIPID PROFILE (INCLUDES CHOLESTEROL, TRIGLYCERIDES, HDL, LDL) Routine 10/02/2016 9:30 EST COMPREHENSIVE METABOLIC PANEL (CMP) Routine 10/02/2016 9:30 EST documented in this encounter Results * (ABNORMAL) PSA SCREEN (10/02/2016 9:30 EST) PSA 5.8(H) 0 - 4.5 ng/ml 10/03/2016 9:[address] [facility] Comment: Serum PSA concentration should not be interpreted as absolute evidence for the presence or absence of malignant disease. Assayed utilizing Siemens (OleOle) chemiluminescent technology. ??Values obtained by using different assay methods cannot be used interchangeably. BLOOD SPECIMEN / Unknown 10/02/2016 9:30 EST 10/02/2016 13:42 EST us Urbano Lee Jr., MD CHEMISTRY & BLOOD GAS OR DERABLES Final Result Performing Organization Address City/[facility] Co de Phone Number [facility] [address] [place] [address] * MAGNESIUM (10/02/2016 9:30 EST) Magnesium 2.0 1.7 - 2.8 mg/dl 10/02/2016 14:27 [facility] BLOOD SPECIMEN / Unknown 10/02/2016 9:30 EST 10/02/2016 13:42 EST us Urbano Lee Jr., MD CHEMISTRY & BLOOD GAS OR DERABLES Final Result Performing Organization Address [facility] de Phone Number [facility] [address] [place] [address] * LIPID PROFILE (INCLUDES CHOLESTEROL, TRIGLYCERIDES, HDL, LDL) (10/02/2016 9:30 EST) Cholesterol 157 mg/dl 10/02/2016 14:27 [facility] Comment: Desirable:<200 Borderline High:200-239 High:>ch=383 Triglycerides 191 mg/dl 10/02/2016 14:27 [facility] Comment: Normal:<150 Borderline High:150-199 High:200-499 Very High:>fe=356 HDL 44 mg/dl 10/02/2016 14:27 [facility] Comment: Low:<40 Normal:40-60 Desirable: >60 LDL, Calculated 75 mg/dl 7 14:27 [facility] Comment: Optimal:<100 Near Optimal:100-129 Borderline High:130-159 High:160-189 Very High:>tb=433 Chol/HDL Ratio 3.6 10/02/2016 14:27 [facility] Fasting? YES 10/02/2016 13:42 [facility] Non HDL Cholesterol 113 mg/dl 10/02/2016 14:27 [facility] Comment: Desirable:<130 Borderline:130-159 High: 160-189 Very High: >lt=427 BLOOD SPECIMEN / Unknown 10/02/2016 9:30 EST 10/02/2016 13:42 EST Urbano Lee Jr., MD CHEMISTRY & BLOOD GAS OR DERABLES Final Result [facility] [address] [place] [address] * (ABNORMAL) COMPREHENSIVE METABOLIC PANEL (CMP) (10/02/2016 9:30 EST) Potassium 4.5 3.5 - 5.0 mEq/L 10/02/2016 14:27 [facility] Sodium 146(H) 136 - 145 mEq/L 10/02/2016 14:27 [facility] Chloride 105 96 - 110 mEq/L 10/02/2016 14:27 [facility] CO2 29 22 - 32 mEq/L 10/02/2016 14:27 [facility] Comment:Note new reference r negin 07/03/16 Total Alkaline Phosphatase 85 38 - 126 U/L 10/02/2016 14:27 [facility] Bilirubin, Total 0.5 <1.4 mg/dl 10/02/19 14:27 [facility] AST 21 15 - 46 U/L 10/02/2016 14:27 [facility] ALT 35 21 - 72 U/L 10/02/2016 14:27 [facility] Albumin 4.0 3.4 - 4.9 g/dl 10/02/2016 14:27 [facility] Total Protein 6.7 6.3 - 8.2 g/dl 10/02/2016 14:27 [facility] Creatinine 0.98 0.66 - 1.25 mg/dl 10/02/2016 14:27 [facility] GFR, Calculated 81 >60 ml/min/1.7 3m2 10/02/2016 14:27 [facility] Comment: eGFR calculated using CKD-EPI equation for non Americans. Multiply eGFR by 1.16 for Americans. BUN 19 10 - 26 mg/dl 10/02/2016 14:27 [facility] Calcium 10.0 8.5 - 10.5 mg/dl 10/02/2016 14:27 [facility] Calculated Calcium 10.0 8.5 - 10.5 mg/dl 10/02/2016 14:27 [facility] Comment: Note new formula for calculation in use 06/20/2016 Glucose, Serum 111(H) 70 - 100 mg/dl 10/02/2016 14:27 [facility] Fasting? YES 10/02/2016 13:42 [facility] BLOOD SPECIMEN / Unknown 10/02/2016 9:30 EST 10/02/2016 13:42 EST Urbano Lee Jr., MD CHEMISTRY & BLOOD GAS OR DERABLES Final Result Performing Organization Address [facility] de Phone Number [facility] [address] [place] [address] * VITAMIN B12 (10/02/2016 9:30 EST) Vitamin B-12 608 211 - 911 pg/ml 10/02/2016 16:57 [facility] BLOOD SPECIMEN / Unknown 10/02/2016 9:30 EST 10/02/2016 13:42 EST Urbano Lee Jr., MD CHEMISTRY & BLOOD GAS OR DERABLES Final Result Performing Organization Address City/[facility] Co de Phone Number [facility] [address] [place] [address] documented in this encounter Visit Diagnoses Not on filedocumented in this encounter Care Teams Revenue Stamp Clerk Relationship Specialty Start Date End Date Urbano Lee Jr., MD [address] [facility] [address] [place] [address] PCP - General 03/07/09 documented as of this encounter
--- OUTSIDE RECORDS SUMMARY | 2024-08-14 01:17 | XMS_ITS | Encounter Summary ---
Author Organization [facility] Address [address] [place] [address] Care Team Providers Care Director Center Name Role Phone Jesus Augustin MD, Urbano Aguayo Primary Care Provider + Encounter Details Date Type Department Care Team (Late st Contact Info) Description 07/02/2022 Lab Requisition [facility] Pathology & Laboratory Medicine - [address] [address] Lisa Stroud MD [address] [place] [phone] Elevated prostate specific antigen (PSA) Social History Tobacco Use Types Packs/Day Years [...] 08/19/2024 10:00 EST Office Visit [facility] Adult Hematology & Oncology [address] [place] [phone] Brie Artis NP 130 [facility], [facility] [address] [place] [phone] 08/19/2024 10:30 EST Nurse Only [facility] Adult Hem Onc Infusion [address] [place] [address] 08/25/2024 9:00 EST Office Visit [facility] Adult Hematology & Oncology [address] [place] [address], [place] [phone] Leela Turcios FNP [address] [facility] [address] [place] [address] 08/25/2024 10:00 EST Nurse Only [facility] Adult Hem Onc Infusion [address] [place] [address] 09/08/2024 8:00 EST Office Visit [facility] Adult Hematology & Oncology [address] [place] [address], [place] [address] Brie Artis, REVENUE ACCOUNTING MANAGER 130 [facility] [address] [place] [address] 09/08/2024 8:30 EST Nurse Only [facility] Adult Hem Onc Infusion [address] [place] [address] documented as of this encounter Procedures Procedure Name Priority Date/Time Associated Diagnosis Comments PSA TOTAL, DIAGNOSTIC Today 07/02/2022 11:00 EDT Elevated prostate specific antigen (PSA) documented in this encounter Results * (ABNORMAL) PSA TOTAL, DIAGNOSTIC (07/02/2022 11:00 EDT) PSA 7.6(H) <=6.5 ng/mL 07/02/2022 17:58 EDT [facility] Blood VENOUS BLOOD / Unknown Non-Lab Collect / Unknown 07/02/2022 11:00 EDT 07/02/2022 15:10 EDT Narrative [facility] - 07/02/2022 17:58 EDT NOTE: Serum PSA concentration should not be interpreted as absolute evidence for the presence or absence of malignant disease. Assayed on Siemens [employer] Centaur XPT using chemiluminescent technology.??Values obtained by using different assay methods cannot be used interchangeably. us Lisa Stroud MD CHEMISTRY & BLOOD GAS ORDER LINDA Final Result [facility] [address] [place] [address] documented in this encounter Visit Diagnoses Diagnosis Elevated prostate specific antigen (PSA) documented in this encounter Care Teams Director Center Relationship Specialty Start Date End Date Urbano Lee Jr., MD [address] [facility] [address] [place] [address] PCP - General 03/07/09 documented as of this encounter
--- OUTSIDE RECORDS SUMMARY | 2024-08-14 01:17 | XMS_ITS | Encounter Summary ---
Author Organization [facility] Address [address] [place] [address] Care Team Providers Care Material Handler 2Nd Shift Name Role Phone Jesus Augustin MD, Donald B Primary Care Provider + Encounter Details Date Type Department Care Team (Late st Contact Info) Description 06/17/[address] Lab [address] [facility] Pathology & Laboratory Medicine - [facility] [address] [place] [address] Urbano Lee Jr., MD [address] [facility] [address] [place] [address] Other fatigue; Unspecified skin changes; Elevated prostate specific antigen (PSA); Hyperlipidemia, unspecified Social History Tobacco Use Types [...] Info) Description 08/19/2024 10:00 EST Office Visit [facility] Adult Hematology & Oncology [address] [place] [address] Brie Artis, PARADISE 130 [facility], [facility] [address] [place] [phone] 08/19/2024 10:30 EST Nurse Only [facility] Adult Hem Onc Infusion [address] [place], [place] [phone] 08/25/2024 9:00 EST Office Visit [facility] Adult Hematology & Oncology [address] [place] [address], [place] [phone] Leela Turcios FNP 130 [facility] [address] [place] [address] 08/25/2024 10:00 EST Nurse Only [facility] Adult Hem Onc Infusion [address] [place], [place] [phone] 09/08/2024 8:00 EST Office Visit [facility] Adult Hematology & Oncology [address] [place] [address], [place] [address] Brie Artis, PARADISE 130 [facility] [address] [address] 09/08/2024 8:30 EST Nurse Only [facility] Adult Hem Onc Infusion [address] [place] [address] documented as of this encounter Procedures Procedure Name Priority Date/Time Associated Diagnosis Comments COMPLETE BLOOD COUNT Today 06/17/2023 9:00 EDT Other fatigue Unspecified skin changes Elevated prostate specific antigen (PSA) Hyperlipidemia, unspecified PSA SCREEN Today 06/17/2023 9:00 EDT Other fatigue Unspecified skin changes Elevated prostate specific antigen (PSA) Hyperlipidemia, unspecified MAGNESIUM Today 06/17/2023 9:00 EDT Other fatigue Unspecified skin changes Elevated prostate specific antigen (PSA) Hyperlipidemia, unspecified IRON Today 06/17/2023 9:00 EDT Other fatigue Unspecified skin changes Elevated prostate specific antigen (PSA) Hyperlipidemia, unspecified VITAMIN B12 Today 06/17/2023 9:00 EDT Other fatigue Unspecified skin changes Elevated prostate specific antigen (PSA) Hyperlipidemia, unspecified LIPID PROFILE (INCLUDES CHOLESTEROL, TRIGLYCERIDES, HDL, LDL) Today 06/17/2023 9:00 EDT Other fatigue Unspecified skin changes Elevated prostate specific antigen (PSA) Hyperlipidemia, unspecified COMPREHENSIVE METABOLIC PANEL (CMP) Today 06/17/2023 9:00 EDT Other fatigue Unspecified skin changes Elevated prostate specific antigen (PSA) Hyperlipidemia, unspecified documented in this encounter Results * COMPLETE BLOOD COUNT (06/17/2023 9:00 EDT) WBC 4.83 4.00 - 10.40 K/cmm 06/17/2023 16:18 [facility] RBC 4.73 4.36 - 5.78 M/cmm 06/17/2023 16:18 [facility] Hemoglobin 15.4 13.8 - 17.3 g/dL 06/17/2023 16:18 [facility] HCT 44.3 39.5 - 50.2 % 06/17/2023 16:18 [facility] MCV 94 81 - 95 fL 06/17/2023 16:18 [facility] MCH 32.6 27.6 - 33.0 pg 06/17/2023 16:18 [facility] MCHC 34.8 32.8 - 36.4 g/dL 06/17/2023 16:18 [facility] RDW-CV 12.0 <14.2 % 06/17/2023 16:18 [facility] RDW-SD 41.9 <46.0 fl 06/17/2023 16:18 [facility] PLT 141 141 - 377 K/cmm 06/17/2023 16:18 [facility] MPV 11.6 9.5 - 12.7 fL 06/17/2023 16:18 [facility] Blood VENOUS BLOOD / Unknown 06/17/2023 9:00 EDT 06/17/2023 16:00 EDT us Urbano Lee Jr., MD HEMATOLOGY & PF4 ORDERAB LES Final Result Performing Organization Address [facility] de Phone Number [facility] [address] [place] [address] * VITAMIN B12 (06/17/2023 9:00 EDT) Vitamin B12 06/19/2023 11:46 EDT [facility] Comment: Disregard previous report. Specimen incorrectly identified. This is a corrected result. Previous result was 280 pg/mL on 06/17/2023 at 1711 EDT Blood VENOUS BLOOD / Unknown Non-Lab Collect / Unknown 06/17/2023 9:00 EDT 06/17/2023 16:00 EDT us Urbano Lee Jr., MD CHEMISTRY & BLOOD GAS OR DERABLES Edited Result - Final Performing Organization Address [facility] de Phone Number [facility] [address] [place] [address] * PSA SCREEN (06/17/2023 9:00 EDT) Pathologist [facility] PSA 06/19/2023 11:46 EDT [facility] Comment: Sample retested, result confirmed Disregard previous report. Specimen incorrectly identified. This is a corrected result. Previous result was <0.1 ng/mL on 06/19/2023 at 1037 EDT Blood VENOUS BLOOD / Unknown Non-Lab Collect / Unknown 06/17/2023 9:00 EDT 06/17/2023 16:00 EDT Narrative [facility] - 06/19/2023 11:46 EDT NOTE: Serum PSA concentration should not be interpreted as absolute evidence for the presence or absence of malignant disease. Assayed on Siemens [employer]aur XPT using chemiluminescent technology.??Values obtained by using different assay methods cannot be used interchangeably. us Urbano Lee Jr., MD CHEMISTRY & BLOOD GAS OR DERABLES Edited Result - Final Performing Organization Address [facility] Co de Phone Number [facility] [address] [place] [address] * MAGNESIUM (06/17/2023 9:00 EDT) Pathologist [facility] Magnesium 06/19/2023 11:46 EDT [facility] Comment: Disregard previous report. Specimen incorrectly identified. This is a corrected result. Previous result was 2.0 mg/dL on 06/17/2023 at 1619 EDT Blood VENOUS BLOOD / Unknown Non-Lab Collect / Unknown 06/17/2023 9:00 EDT 06/17/2023 16:00 EDT us Urbano Lee Jr., MD CHEMISTRY & BLOOD GAS OR DERABLES Edited Result - Final Performing Organization Address [facility] de Phone Number [facility] [address] [place] [address] * IRON (06/17/2023 9:00 EDT) [facility] Iron 06/19/2023 11:48 EDT [facility] Comment: Disregard previous report. Specimen incorrectly identified. This is a corrected result. Previous result was 158 ??g/dL on 06/17/2023 at 1619 EDT Blood VENOUS BLOOD / Unknown Non-Lab Collect / Unknown 06/17/2023 9:00 EDT 06/17/2023 16:00 EDT us Urbano Lee Jr., MD CHEMISTRY & BLOOD GAS OR DERABLES Edited Result - Final Performing Organization Address [facility] Co de Phone Number [facility] [address] [place] [address] * LIPID PROFILE (INCLUDES CHOLESTEROL, TRIGLYCERIDES, HDL, LDL) (06/17/2023 9:00 EDT) [facility] Cholesterol 06/19/2023 11:47 EDT [facility] Comment: Disregard previous report. Specimen incorrectly identified. This is a corrected result. Previous result was 176 mg/dL on 06/17/2023 at 1619 EDT HDL 06/19/2023 11:47 EDT [facility] Comment: Disregard previous report. Specimen incorrectly identified. This is a corrected result. Previous result was 86 mg/dl on 06/17/2023 at 1619 EDT LDL, Calculated 11:47 EDT [facility] Comment: Note that therapeutic goals will differ between patients based on cardiac risk factors and current medical therapy. This is a corrected result. Previous result was 78 mg/dL on 06/17/2023 at 1619 EDT Triglyceride 06/19/2023 11:47 EDT [facility] Comment: Disregard previous report. Specimen incorrectly identified. This is a corrected result. Previous result was 60 mg/dL on 06/17/2023 at 1619 EDT Chol/HDL Ratio 06/19/2023 11:47 EDT [facility] Comment: No reference range has been established for CHOL/HDL ratio. This is a corrected result. Previous result was 2.0 on 06/17/2023 at 1619 EDT Non HDL Cholesterol 06/19/2023 11:47 EDT [facility] Comment: Note that therapeutic goals will differ between patients based on cardiac risk factors and current medical therapy. This is a corrected result. Previous result was 90 mg/dL on 06/17/2023 at 1619 EDT Blood VENOUS BLOOD / Unknown Non-Lab Collect / Unknown 06/17/2023 9:00 EDT 06/17/2023 16:00 EDT us Urbano Lee Jr., MD CHEMISTRY & BLOOD GAS OR DERABLES Edited Result - Final [facility] [address] [place] [address] * COMPREHENSIVE METABOLIC PANEL (CMP) (06/17/2023 9:00 EDT) Sodium 06/19/2023 11:50 EDT [facility] Comment: Disregard previous report. Specimen incorrectly identified. This is a corrected result. Previous result was 142 mmol/L on 06/17/2023 at 1619 EDT Potassium 06/19/2023 11:50 EDT [facility] Comment: Disregard previous report. Specimen incorrectly identified. This is a corrected result. Previous result was 4.3 mmol/L on 06/17/2023 at 1619 EDT Chloride 06/19/2023 11:50 EDT [facility] Comment: Disregard previous report. Specimen incorrectly identified. This is a corrected result. Previous result was 107 mmol/L on 06/17/2023 at 1619 EDT CO2 Total 06/19/2023 11:50 T [facility] Comment: Disregard previous report. Specimen incorrectly identified. This is a corrected result. Previous result was 26 mmol/L on 06/17/2023 at 1619 EDT Glucose 06/19/2023 11:50 T [facility] Comment: Disregard previous report. Specimen incorrectly identified. This is a corrected result. Previous result was 101 mg/dl on 06/17/2023 at 1619 EDT BUN 06/19/2023 11:50 T [facility] Comment: Disregard previous report. Specimen incorrectly identified. This is a corrected result. Previous result was 17 mg/dL on 06/17/2023 at 1619 EDT Creatinine 06/19/2023 11:50 T [facility] Comment: Disregard previous report. Specimen incorrectly identified. This is a corrected result. Previous result was 0.80 mg/dL on 06/17/2023 at 1619 EDT eGFR 06/19/2023 11:50 T [facility] Comment:This is a corrected result. Previous result was 95 mL/min/1.73m2 on 06/17/2023 at 1619 EDT Total Protein 06/19/2023 11:50 T [facility] Comment: Disregard previous report. Specimen incorrectly identified. This is a corrected result. Previous result was 6.5 g/dL on 06/17/2023 at 1619 EDT Albumin 06/19/2023 11:50 T [facility] Comment: Disregard previous report. Specimen incorrectly identified. This is a corrected result. Previous result was 4.2 g/dL on 06/17/2023 at 1619 EDT Alkaline Phosphatase 06/19/2023 11:50 T [facility] Comment: Disregard previous report. Specimen incorrectly identified. This is a corrected result. Previous result was 68 U/L on 06/17/2023 at 1619 EDT AST 06/19/2023 11:50 EDT [facility] Comment: Disregard previous report. Specimen incorrectly identified. This is a corrected result. Previous result was 45 U/L on 06/17/2023 at 1619 EDT ALT 06/19/2023 11:50 EDT [facility] Comment: Disregard previous report. Specimen incorrectly identified. This is a corrected result. Previous result was 46 U/L on 06/17/2023 at 1619 EDT Bilirubin, Total 06/19/20 11:50 T [facility] Comment: Disregard previous report. Specimen incorrectly identified. This is a corrected result. Previous result was 0.8 mg/dL on 06/17/2023 at 1619 EDT Calcium 06/19/2023 11:50 T [facility] Comment: Disregard previous report. Specimen incorrectly identified. This is a corrected result. Previous result was 9.4 mg/dL on 06/17/2023 at 1619 EDT Albumin/Globulin Ratio 06/19/2023 11:50 T [facility] Comment:This is a corrected result. Previous result was 1.8 g/dL on 06/17/2023 at 1619 EDT Anion Gap 06/19/2023 11:50 T [facility] Comment:This is a corrected result. Previous result was 9 mmol/L on 06/17/2023 at 1619 EDT Blood VENOUS BLOOD / Unknown Non-Lab Collect / Unknown 06/17/2023 9:00 EDT 06/17/2023 16:00 EDT us Urbano Lee Jr., MD CHEMISTRY & BLOOD GAS OR DERABLES Edited Result - Final [facility] [address] [place] [address] documented in this encounter Visit Diagnoses Diagnosis Other fatigue Unspecified skin changes Elevated prostate specific antigen (PSA) Hyperlipidemia, unspecified documented in this encounter Care Teams Material Handler 2Nd Shift Relationship Specialty Start Date End Date Urbano Lee Jr., MD [address] [phone] PCP - General 03/07/09 documented as of this encounter
--- OUTSIDE RECORDS SUMMARY | 2024-08-14 01:18 | XMS_ITS | Encounter Summary ---
Author Organization [facility] Address [address] [place] [address] Care Team Providers Care Trainer Name Role Phone Unavailable Primary Care Provider Unavailabl e Encounter Details Date Type Department Care Team (Late st Contact Info) Description 04/17/2004 10:36 EDT - 04/17/2004 11:59 EDT Hospital Encounter [address] [address] Lauri Vines MD [address] [place] [phone] Discharge Disposition: Auto Discharge Social History Tobacco Use Types Packs/Day Years Used Date Smoking Tobacco: Never Assessed Sex and Gender Information Value Date Recorded Sex Assigned at Male 08/07/2024 12:35 EST Legal Sex Male 17:22 EST Gender Identity Male 07/16/2024 8:48 EDT Sexual Orientation Not on file documented as of this encounter Discharge Disposition Disposition Code Departure Means Destination Auto Discharge documented in this encounter Plan of Treatment Upcoming Encounters Date Type Department Care Team (Late st Contact Info) Description 08/19/2024 10:[address] [facility] Adult Hematology & Oncology [address] [place] [address] Brie Artis NP 130 [facility] [address] [place] [address] 08/19/2024 10:[address] [facility] Adult Hem Onc Infusion [address] [place] [address] 08/25/2024 9:[address] [facility] Adult Hematology & Oncology [address] [place] [address], [place] [phone] Leela Turcios FNP 130 [facility] [address] [place] [phone] 08/25/2024 10:[address] [facility] Adult Hem Onc Infusion 130 [facility], [place] [phone] 09/08/2024 8:[address] [facility] Adult Hematology & Oncology [address] [place] [address], [place] [address] Brie Artis, PARADISE 130 [facility] [address] [phone] 09/08/2024 8:[address] [facility] Adult Hem Onc Infusion [address] [place] [phone] documented as of this encounter Procedures Procedure Name Priority Date/Time Associated Diagnosis Comments CHEST PA AND LATERAL Routine 04/17/2004 11:10 EDT documented in this encounter Results * CHEST PA AND LATERAL (04/17/2004 11:10 EDT) Anatomical Region Laterality Modality Other 04/17/2004 11:1 0 EDT Impressions 05/26/2009 16:32 EDT IMPRESSION: Negative chest. /[facility] Narrative 05/26/2009 16:32 EDT PROSTATE CA, RENAL CA ??R/O METS GFTP CHEST 2 VIEWS PA and lateral views of the chest were obtained and were compared to study of 08/21/02. There has been no interval change. The heart and lungs remain normal in appearance. Procedure Note Rosalino Lee MD - 05/26/2009 PROSTATE CA, RENAL CA R/O METS GFTP CHEST 2 VIEWS PA and lateral views of the chest were obtained and were compared to study of 08/21/02. There has been no interval change. The heart and lungs remain normal in appearance. IMPRESSION IMPRESSION: Negative chest. /[facility] us Lauri Vines MD IMG DIAGNOSTIC IMAGING O RDERABLES Final Result documented in this encounter Visit Diagnoses Not on filedocumented in this encounter
--- OUTSIDE RECORDS SUMMARY | 2024-08-14 01:18 | XMS_ITS | Encounter Summary ---
Author Organization [facility] Address [address] [place] [address] Care Team Providers Care Extension Service Specialist In Charge Name Role Phone Jesus Augustin MD, Urbano Aguayo Primary Care Provider + Encounter Details Date Type Department Care Team (Latest Contact Info) Description 06/19/2012 13:37 EDT - 06/19/2012 13:38 EDT Hospital Encounter [address] [address] Urbano Lee Jr., MD [address] [facility] [address] [place] [address] Discharge Disposition: Home or Self [...] Info) Description 08/19/2024 10:00 EST Office Visit [facility] Adult Hematology & Oncology [facility] [place], [place] [address] Brie Artis, PARADISE 130 [facility], [facility] [address] [place] [phone] 08/19/2024 10:30 EST Nurse Only [facility] Adult Hem Onc Infusion 130 [facility], [place] [phone] 08/25/2024 9:00 EST Office Visit [facility] Adult Hematology & Oncology [address] [place] [address], [place] [phone] Leela Turcios FNP 130 [facility] [address] [phone] 08/25/2024 10:00 EST Nurse Only [facility] Adult Hem Onc Infusion [address] [place], [place] [phone] 09/08/2024 8:00 EST Office Visit [facility] Adult Hematology & Oncology [address] [place] [address], [place] [address] Brie Artis, PARADISE 130 [facility] [address] [phone] 09/08/2024 8:30 EST Nurse Only [facility] Adult Hem Onc Infusion [address] [place], [place] [phone] Pending Results Name Type Priority Associated Diagnoses Date /Time OUTSIDE CD - OTHER CHEST Imaging 10/16/2012 10:35 EST Scheduled Orders Name Type Priority Associated Diagnoses Orde r Schedule OUTSIDE CD - OTHER CHEST Imaging For medications that can be administered at any time during the hospitalization for visit such as immunizations. for 1 Occurrences starting 10/16/2012 documented as of this encounter Visit Diagnoses Not on filedocumented in this encounter Care Teams Extension Service Specialist In Charge Relationship Specialty Start Date End Date Urbano Lee Jr., MD [address] [phone] PCP - General 03/07/09 documented as of this encounter
--- OUTSIDE RECORDS SUMMARY | 2024-08-14 01:18 | XMS_ITS | Encounter Summary ---
Author Organization [facility] Address [address] [place] [address] Care Team Providers Care Rail Equipment Operator Name Role Phone Jesus Augustin MD, Urbano Aguayo Primary Care Provider + Encounter Details Date Type Department Care Team (Latest Contact Info) Description 04/07/2009 17:19 EDT - 04/07/2009 17:20 EDT Hospital Encounter [facility] - Other [address] [place] [address] Urbano Lee Jr., MD [address] [facility] [address] [place] [address] Discharge Disposition: Home or Self [...] [facility] Adult Hematology & Oncology [facility] [place], [place] [address] Brie Artis, PARADISE 130 [facility], [facility] [address] [place] [phone] 08/19/2024 10:[address] [facility] Adult Hem Onc Infusion [address] [facility] [address] 08/25/2024 9:[address] [facility] Adult Hematology & Oncology [address] [place] [address], [place] [phone] Leela Turcios FNP 130 [facility] [address] [phone] 08/25/2024 10:[address] [facility] Adult Hem Onc Infusion [address] [place], [place] [phone] 09/08/2024 8:[address] [facility] Adult Hematology & Oncology [address] [place] [address], [place] [address] Brie Artis, PARADISE 130 [facility] [address] [phone] 09/08/2024 8:[address] [facility] Adult Hem Onc Infusion [address] [place] [address] documented as of this encounter Visit Diagnoses Not on filedocumented in this encounter Care Teams Rail Equipment Operator Relationship Specialty Start Date End Date Urbano Lee Jr., MD [address] [phone] PCP - General 03/07/09 documented as of this encounter
--- OUTSIDE RECORDS SUMMARY | 2024-08-14 01:18 | XMS_ITS | Encounter Summary ---
Author Organization [facility] Address [address] [place] [address] Care Team Providers Care Service Loss Control Consultant Name Role Phone Unavailable Primary Care Provider Unavailabl e Encounter Details Date Type Department Care Team (Latest Contact Info) Description 06/10/2008 11:35 EDT - 06/10/2008 11:59 EDT Hospital Encounter [facility] - Other [address] [place] [address] Urbano Lee Jr., MD [address] [facility] 101 [place] [phone] Discharge Disposition: Home or Self Care Social [...] Info) Description 08/19/2024 10:00 EST Office Visit [facility]ology & Oncology [address] [place] [address] Brie Artis NP 130 [facility], [facility] [address] [place] [address] 08/19/2024 10:30 EST Nurse Only [facility] On[facility] Infusion [address] [place] [address] 08/25/2024 9:00 EST Office Visit [facility] Oncology [address] [place] [address], [place] [phone] Leela Turcios FNP 130 [facility] 12 [place] [phone] 08/25/2024 10:00 EST Nurse Only [facility]fusion [address] [place] [address], [place] [phone] 09/08/2024 8:00 EST Office Visit [facility]ology [facility] Oncology [address] [place] [address], [place] [phone] Brie Artis, [employer] 130 [facility] 12 [place] [phone] 09/08/2024 8:30 EST Nurse Only [facility] [address] [place] [phone] documented as of this encounter Visit Diagnoses Not on filedocumented in this encounter
--- OUTSIDE RECORDS SUMMARY | 2024-08-14 01:18 | XMS_ITS | Encounter Summary ---
Author Organization [facility] Address [address] [place] [address] Care Team Providers Care Cardiac Cath Rn Name Role Phone Unavailable Primary Care Provider Unavailabl e Encounter Details Date Type Department Care Team (Late st Contact Info) Description 08/21/2002 14:43 EST Hospital Encounter [address] [address] Lauri Vines MD [facility] [address], [place] [address] Discharge Disposition: Auto Discharge Social History Tobacco [...] [facility] [address] [place] [address] Brie Artis NP 130 [facility] [address] [place] [address] 08/19/2024 10:30 EST Nurse Only [facility] Adult Hem [facility]fusion [address] [place] [address] 08/25/2024 9:00 EST Office Visit [facility] Adult Hematology & Oncology [address] [place] [address], [place] [phone] Leela Turcios FNP 130 [facility] [address] [place] [phone] 08/25/2024 10:00 EST Nurse Only [facility] Adult Hem On[facility] Infusion 130 [facility], [place] [phone] 09/08/2024 8:00 EST Office Visit [facility] Adult Hematology & Oncology [address] [place] [address], [place] [address] Brie Artis, PARADISE 130 [facility] [address] [place] [phone] 09/08/2024 8:30 EST Nurse Only [facility] Adult Hem On[facility] Infusion [address] [place], [place] [phone] documented as of this encounter Procedures Procedure Name Priority Date/Time Associated Diagnosis Comments CHEST PA AND LATERAL Routine 08/21/2002 14:54 EST documented in this encounter Results * CHEST PA AND LATERAL (08/21/2002 14:54 EST) Anatomical Region Laterality Modality Other 08/21/2002 14:5 4 EST Impressions 06/13/2009 5:47 EDT IMPRESSION: Normal chest. dw Narrative 06/13/2009 5:47 EDT HX CA KIDNEY R/O METS CHEST, PA AND LATERAL: 08/21/02 CLINICAL HISTORY: Renal cancer. Rule out mets. COMPARISON: 08/29/01. FINDINGS: There is no significant change. The lungs are clear. There are no pleural effusions. The mediastinal contours are grossly normal. Procedure Note Evangelist Willis MD - 06/13/2009 HX CA KIDNEY R/O METS CHEST, PA AND LATERAL: 08/21/02 CLINICAL HISTORY: Renal cancer. Rule out mets. COMPARISON: 08/29/01. FINDINGS: There is no significant change. The lungs are clear. There are no pleural effusions. The mediastinal contours are grossly normal. IMPRESSION IMPRESSION: Normal chest. dw us Lauri Vines MD IMG DIAGNOSTIC IMAGING O RDERABLES Final Result documented in this encounter Visit Diagnoses Not on filedocumented in this encounter
--- OUTSIDE RECORDS SUMMARY | 2024-08-14 01:18 | XMS_ITS | Encounter Summary ---
Author Organization [facility] Address [address] [place] [address] Care Team Providers Care Dental Nurse Name Role Phone Unavailable Primary Care Provider Unavailabl e Encounter Details Date Type Department Care Team (Late st Contact Info) Description 01/23/2002 17:02 EDT Hospital Encounter [address] [address] Lauri Vines MD [facility] [place] [address] [place] [address] Social History Tobacco Use Types Packs/Day Years [...] Info) Description 08/19/2024 10:00 EST Office Visit [facility] Adult Hematology & Oncology [address] [place] [address] Brie Artis NP 130 [facility], [facility] [address] [place] [phone] 08/19/2024 10:30 EST Nurse Only [facility] Adult Hem Onc Infusion 130 [facility], [place] [phone] 08/25/2024 9:00 EST Office Visit [facility] Adult Hematology & Oncology [address] [place] [address], [place] [phone] Leela Turcios FNP 130 [facility] [address] [place] [phone] 08/25/2024 10:00 EST Nurse Only [facility] Adult Hem Onc Infusion 130 [facility], [place] [phone] 09/08/2024 8:00 EST Office Visit [facility] Adult Hematology & Oncology [address] [place] [address], [place] [phone] Brie Artis, PARADISE 130 [facility] [address] [place] [address] 09/08/2024 8:30 EST Nurse Only [facility] Adult Hem Onc Infusion 130 [place] [address] documented as of this encounter Procedures Procedure Name Priority Date/Time Associated Diagnosis Comments PSA TOTAL, DIAGNOSTIC Routine 01/23/2002 16:53 EDT documented in this encounter Results * (ABNORMAL) PSA (01/23/2002 16:53 EDT) PSA 7.8(H) 0 - 3.5 ng/ml [facility] Comment: Serum PSA concentration should not be interpreted as absolute evidence for the presence or absence of malignant disease. Assayed utilizing Cyanto chemiluminescent technology. Values obtained by using different assay methods cannot be used interchangeably. Assay changed to equimolar method 03/17/01. 01/23/2002 16:5 3 EDT 01/23/2002 16:55 EDT us Lauri Vines MD CHEMISTRY & BLOOD GAS OR DERABLES Final Result [facility] [address] [place] [address] documented in this encounter Visit Diagnoses Not on filedocumented in this encounter
--- OUTSIDE RECORDS SUMMARY | 2024-08-14 01:18 | XMS_ITS | Encounter Summary ---
Author Organization [facility] Address [address] [place] [address] Care Team Providers Care It Coordinator Name Role Phone Unavailable Primary Care Provider Unavailabl e Encounter Details Date Type Department Care Team (Late st Contact Info) Description 11/11/2006 10:07 EST - 11/11/2006 11:59 EST Hospital Encounter [place] [address] [place] [address] Lauri Vines MD [address] [place] [phone] Discharge Disposition: Auto Discharge Social History Tobacco [...] Info) Description 08/19/2024 10:00 EST Office Visit [facility] Adult Hematology & Oncology [address] [place] [address] Brie Artis NP 130 [facility] [address] [place] [phone] 08/19/2024 10:30 EST Nurse Only [facility] Adult Hem Onc Infusion [address] [place] [address] 08/25/2024 9:00 EST Office Visit [facility] Adult Hematology & Oncology [address] [place] [phone] Leela Turcios FNP 130 [facility] [address] [place] [phone] 08/25/2024 10:00 EST Nurse Only [facility] Adult Hem Onc Infusion [address] [place] [phone] 09/08/2024 8:00 EST Office Visit [facility] Adult Hematology & Oncology [address] [place] [address], [place] [phone] Brie Artis, PARADISE 130 [facility] [address] [place] [phone] 09/08/2024 8:30 EST Nurse Only [facility] Adult Hem Onc Infusion [address] [place] [phone] documented as of this encounter Visit Diagnoses Not on filedocumented in this encounter
--- OUTSIDE RECORDS SUMMARY | 2024-08-14 01:18 | XMS_ITS | Encounter Summary ---
Author Organization [facility] Address [address] [place] [address] Care Team Providers Care Marketing Planner Name Role Phone Unavailable Primary Care Provider Unavailabl e Encounter Details Date Type Department Care Team (Late st Contact Info) Description 01/15/2005 8:18 EDT - 01/15/2005 11:59 EDT Hospital Encounter [address] [address] Lauri Vines MD [address] [place] [phone] Discharge Disposition: Auto Discharge Social History Tobacco [...] Info) Description 08/19/2024 10:00 EST Office Visit [facility] Adult Hematology & Oncology [address] [place] [address] Brie Artis NP 130 [facility] [address] [place] [address] 08/19/2024 10:30 EST Nurse Only [facility] Adult Hem Onc Infusion [address] [place] [address] 08/25/2024 9:00 EST Office Visit [facility] Adult Hematology & Oncology [address] [place] [address], [place] [phone] Leela Turcios FNP 130 [facility] [address] [place] [phone] 08/25/2024 10:00 EST Nurse Only [facility] Adult Hem Onc Infusion 130 [facility], [place] [phone] 09/08/2024 8:00 EST Office Visit [facility] Adult Hematology & Oncology [address] [place] [address], [place] [address] Brie Artis, PARADISE 130 [facility] [address] [place] [phone] 09/08/2024 8:30 EST Nurse Only [facility] Adult Hem Onc Infusion [address] [place] [phone] documented as of this encounter Procedures Procedure Name Priority Date/Time Associated Diagnosis Comments CHEST PA AND LATERAL Routine 01/15/2005 9:13 EDT documented in this encounter Results * CHEST PA AND LATERAL (01/15/2005 9:13 EDT) Anatomical Region Laterality Modality Other 01/15/2005 9:13 EDT Impressions 05/12/2009 14:30 EDT IMPRESSION: No active pulmonary disease or evidence of metastatic disease. No significant interval change from 04/17/04. /[facility] Narrative 05/12/2009 14:30 EDT PROSTATE CA ??R/O METS CHEST, 01/15/05 CLINICAL HISTORY: Prostate cancer. COMPARISON: 04/17/04. FINDINGS: Three views of the chest show a stable cardiomediastinal silhouette. No parenchymal nodules are seen. There is no focal consolidation or volume loss. There is no pleural disease. The visualized bony thorax is unremarkable. Procedure Note Farzaneh Jimenez MD - 05/12/2009 PROSTATE CA R/O METS CHEST, 01/15/05 CLINICAL HISTORY: Prostate cancer. COMPARISON: 04/17/04. FINDINGS: Three views of the chest show a stable cardiomediastinal silhouette. No parenchymal nodules are seen. There is no focal consolidation or volume loss. There is no pleural disease. The visualized bony thorax is unremarkable. IMPRESSION IMPRESSION: No active pulmonary disease or evidence of metastatic disease. No significant interval change from 04/17/04. /[facility] us Lauri Vines MD IMG DIAGNOSTIC IMAGING O RDERABLES Final Result documented in this encounter Visit Diagnoses Not on filedocumented in this encounter
--- OUTSIDE RECORDS SUMMARY | 2024-08-14 01:18 | XMS_ITS | Encounter Summary ---
Author Organization [facility] Address [address] [place] [address] Care Team Providers Care Biomedical Photographer Name Role Phone Jesus Augustin MD, Urbano Aguayo Primary Care Provider + Encounter Details Date Type Department Care Team (Late st Contact Info) Description 03/29/2010 10:16 EDT - 03/29/2010 23:59 EDT Hospital Encounter [address] [address] Lauri Vines MD [address] [place] [phone] Discharge Disposition: Home or Self Care Social [...] Code Departure Means Destination Home or Self Shelter documented in this encounter Plan of Treatment Upcoming Encounters Date Type Department Care Team (Late st Contact Info) Description 08/19/2024 10:00 EST Office Visit [facility] Adult Hematology & Oncology [address] [place] [phone] Brie Artis NP 130 [facility] [address] [place] [phone] 08/19/2024 10:30 EST Nurse Only [facility] Adult Hem Onc Infusion 130 [facility], [place] [phone] 08/25/2024 9:00 EST Office Visit [facility] Adult Hematology & Oncology [address] [place] [address], [place] [phone] Leela Turcios FNP 130 [facility] [address] [place] [phone] 08/25/2024 10:00 EST Nurse Only [facility] Adult Hem Onc Infusion 130 [facility], [place] [phone] 09/08/2024 8:00 EST Office Visit [facility] Adult Hematology & Oncology [address] [place] [address], [place] [address] Brie Artis, ORTHOPEDIC SHOE MAKER 130 [facility] [address] [place] [phone] 09/08/2024 8:30 EST Nurse Only [facility] Adult Hem Onc Infusion 130 [facility], [place] [phone] documented as of this encounter Procedures Procedure Name Priority Date/Time Associated Diagnosis Comments CHEST PA AND LATERAL 03/29/2010 10:33 EDT PSA TOTAL, DIAGNOSTIC Routine 03/29/2010 10:07 EDT CREATININE Routine 03/29/2010 10:07 EDT HEPATIC FUNCTION PANEL (ALB,ALK PHOS,ALT,AST,DBIL,TO T CORINNA,TOT PROT) Routine 03/29/2010 10:07 EDT documented in this encounter Results * CHEST PA AND LATERAL (03/29/2010 10:33 EDT) Anatomical Region Laterality Modality Other 03/29/2010 10:3 3 EDT 03/29/2010 10:49 EDT Narrative 03/29/2010 10:49 EDT PA and lateral chest 03/29/2010 History: Kidney cancer, rule out METs Comparison: 02/05/2008 The cardiomediastinal silhouette and pulmonary vascularity are normal. The lungs are well expanded and clear. No pleural abnormality is seen. There are mild degenerative changes in the spine. No destructive bony lesion is seen. Impression: Stable chest x-ray. No evidence of cardiopulmonary disease and no evidence of metastatic disease Procedure Note 03/29/2010 PA and lateral chest 03/29/2010 History: Kidney cancer, rule out METs Comparison: 02/05/2008 The cardiomediastinal silhouette and pulmonary vascularity are normal. The lungs are well expanded and clear. No pleural abnormality is seen. There are mild degenerative changes in the spine. No destructive bony lesion is seen. Impression: Stable chest x-ray. No evidence of cardiopulmonary disease and no evidence of metastatic disease Lauri Vines MD IMG DIAGNOSTIC IMAGING O RDERABLES Final Result * (ABNORMAL) PSA (03/29/2010 10:07 EDT) Pathologist [facility] PSA 6.0(H) 0 - 3.5 ng/ml [facility] Comment: Serum PSA concentration should not be interpreted as absolute evidence for the presence or absence of malignant disease. Assayed utilizing [employer] chemiluminescent technology. Values obtained by using different assay methods cannot be used interchangeably. 03/29/2010 10:0 7 EDT 03/29/2010 12:30 EDT Lauri Vines MD CHEMISTRY & BLOOD GAS OR DERABLES Final Result [facility] [address] [place] [address] * (ABNORMAL) LIVER FUNCTION TESTS (03/29/2010 10:07 EDT) Pathologist [facility] Albumin 4.0 3.4 - 4.9 g/dl [facility] Total Protein 6.1(L) 6.5 - 8.3 g/dl [facility] Total Alkaline Phosphatase 88 38 - 126 U/L [facility] ALT 19(L) 21 - 72 U/L [facility] AST 27 15 - 46 U/L [facility] Unconjugated Bilirubin 0.4 0.1 - 1.1 mg/dl [facility] Conjugated Bilirubin 0.0 0.0 - 0.3 mg/dl [facility] Bilirubin, Total 0.6 0.2 - 1.3 mg/dl [facility] Comment:Performed at [place], [place] 03/29/2010 10:0 7 EDT 03/29/2010 12:30 EDT Lauri Vines MD CHEMISTRY & BLOOD GAS OR DERABLES Final Result Performing Organization Address City/[facility]/ZIP Co de Phone Number [facility] [address] [place] [address] * CREATININE (03/29/2010 10:07 EDT) Creatinine 1.03 0.7 - 1.5 mg/dl [facility] GFR, Calculated >60 ml/min/1.7 3m2 [facility] Comment:Performed at [place], [place] 03/29/2010 10:0 7 EDT 03/29/2010 12:30 EDT Lauri Vines MD CHEMISTRY & BLOOD GAS OR DERABLES Final Result Performing Organization Address City/[facility] Co de Phone Number [facility] [address] [place] [address] documented in this encounter Visit Diagnoses Not on filedocumented in this encounter Care Teams Biomedical Photographer Relationship Specialty Start Date End Date Urbano Lee Jr., MD [address] [facility] [address] [place] [phone] PCP - General 03/07/09 documented as of this encounter
--- OUTSIDE RECORDS SUMMARY | 2024-08-14 01:18 | XMS_ITS | Encounter Summary ---
Author Organization [facility] Address [address] [place] [address] Care Team Providers Care Customer Expert Name Role Phone Unavailable Primary Care Provider Unavailabl e Encounter Details Date Type Department Care Team (Late Contact Info) Description 11/07/2006 10:38 EST Hospital Encounter [place] [phone] [place] [address] Urbano Lee Jr., MD [address] [facility] 101 [place] [phone] Social History Tobacco Use Types [...] Info) Description 08/19/2024 10:00 EST Office Visit [facility] Adult Hematology & Oncology [address] [place] [address] Brie Artis, PARADISE 130 [facility], [facility] [address] [place] [phone] 08/19/2024 10:30 EST Nurse Only [facility] Adult Hem Onc Infusion [address] [place] [address] 08/25/2024 9:00 EST Office Visit [facility] Adult Hematology & Oncology [address] [place] [address], [place] [address] Leela Turcios FNP 130 [facility] [address] [phone] 08/25/2024 10:00 EST Nurse Only [facility] Adult Hem Onc Infusion [address] [place], [place] [phone] 09/08/2024 8:00 EST Office Visit [facility] Adult Hematology & Oncology [address] [place] [address], [place] [address] Brie Artis, PARADISE 130 [facility] [address] [phone] 09/08/2024 8:30 EST Nurse Only [facility] Adult Hem Onc Infusion [address] [place] [address] documented as of this encounter Procedures Procedure Name Priority Date/Time Associated Diagnosis Comments URIC ACID Routine 11/07/2006 11:01 EST BUN Routine 11/07/2006 11:01 EST CREATININE Routine 11/07/2006 11:01 EST documented in this encounter Results * URIC ACID (11/07/2006 11:01 EST) Uric Acid 5.3 3.9 - 9.0 mg/dl [facility] Comment:Performed at [facility], [place], [place] 11/07/2006 11:0 1 EST 11/07/2006 11:03 EST us Urbano Lee Jr., MD CHEMISTRY & BLOOD GAS OR DERABLES Final Result Performing Organization Address [facility] Co de Phone Number [facility] [address] [place] [address] * CREATININE (11/07/2006 11:01 EST) Creatinine 1.36 0.7 - 1.5 mg/dl [facility] GFR, Calculated 58 ml/min/1.7 3m2 [facility] Comment:Performed at [place], [place] 11/07/2006 11:0 1 EST 11/07/2006 11:03 EST us Urbano Lee Jr., MD CHEMISTRY & BLOOD GAS OR DERABLES Final Result Performing Organization Address [facility] Co de Phone Number [facility] [address] [place] [address] * BUN (11/07/2006 11:01 EST) BUN 16 10 - 26 mg/dl [facility] Comment:Performed at [place], [place] 11/07/2006 11:0 1 EST 11/07/2006 11:03 EST us Urbano Lee Jr., MD CHEMISTRY & BLOOD GAS OR DERABLES Final Result Performing Organization Address [facility] Co de Phone Number [facility] [address] [place] [address] documented in this encounter Visit Diagnoses Not on filedocumented in this encounter
--- OUTSIDE RECORDS SUMMARY | 2024-08-14 01:18 | XMS_ITS | Encounter Summary ---
Author Organization [facility] Address [address] [place] [address] Care Team Providers Care Finisher Brush Name Role Phone Unavailable Primary Care Provider Unavailabl e Encounter Details Date Type Department Care Team (Late st Contact Info) Description 01/14/2006 10:08 EDT - 01/14/2006 11:59 EDT Hospital Encounter [address] [address] Lauri Vines MD [address] [place] [phone] Discharge Disposition: Auto Discharge Social History Tobacco [...] Info) Description 08/19/2024 10:00 EST Office Visit [facility] Adult Hematology & Oncology [address] [place] [address] Brie Artis NP 130 [facility] [address] [place] [address] 08/19/2024 10:30 EST Nurse Only [facility] Adult Hem Onc Infusion 130 [place] [address] 08/25/2024 9:00 EST Office Visit [facility] Adult Hematology & Oncology [address] [place] [address], [place] [phone] Leela Turcios FNP 130 [facility] [address] [place] [phone] 08/25/2024 10:00 EST Nurse Only [facility] Adult Hem Onc Infusion 130 [facility], [place] [phone] 09/08/2024 8:00 EST Office Visit [facility] Adult Hematology & Oncology [address] [place] [address], [place] [address] Brie Artis, PARADISE 130 [facility] [address] [place] [phone] 09/08/2024 8:30 EST Nurse Only [facility] Adult Hem Onc Infusion [address] [place] [phone] documented as of this encounter Procedures Procedure Name Priority Date/Time Associated Diagnosis Comments CHEST PA AND LATERAL 01/14/2006 10:44 EDT documented in this encounter Results * CHEST PA AND LATERAL (01/14/2006 10:44 EDT) Anatomical Region Laterality Modality Other 01/14/2006 10:4 4 EDT Narrative 04/02/2009 12:45 EDT KIDNEY CA PA AND LATERAL CHEST, 01/14/06, 1030 CLINICAL HISTORY: Kidney cancer, rule out metastases. COMPARISONS: Comparison is made with prior films dated 01/15/05. FINDINGS: On the frontal view, there is a 2 centimeter nodular opacity projected at the left cardiophrenic angle, this was not clearly seen on the prior examination. ??The lungs are otherwise well expanded and clear. ??The cardiac silhouette and pulmonary vascularity are normal. No destructive bony lesion is appreciated. IMPRESSION: Nodular opacity at the left lung base, though this may be confluence of bony and soft tissue markings as well as epicardial fat, a new nodule cannot be excluded and a follow-up chest x-ray with improved inspiration is recommended. ??If the nodule is again visible, chest CT would be helpful for further evaluation. ??The examination is otherwise stable and unremarkable. D: ??01/14/06 T: ??01/16/06 /[facility]. Procedure Note Ravinder Adams MD - 04/02/2009 KIDNEY CA PA AND LATERAL CHEST, 01/14/06, 1030 CLINICAL HISTORY: Kidney cancer, rule out metastases. COMPARISONS: Comparison is made with prior films dated 01/15/05. FINDINGS: On the frontal view, there is a 2 centimeter nodular opacity projected at the left cardiophrenic angle, this was not clearly seen on the prior examination. The lungs are otherwise well expanded and clear. The cardiac silhouette and pulmonary vascularity are normal. No destructive bony lesion is appreciated. IMPRESSION: Nodular opacity at the left lung base, though this may be confluence of bony and soft tissue markings as well as epicardial fat, a new nodule cannot be excluded and a follow-up chest x-ray with improved inspiration is recommended. If the nodule is again visible, chest CT would be helpful for further evaluation. The examination is otherwise stable and unremarkable. /[facility] [place] Lauri Vines MD IMG DIAGNOSTIC IMAGING O RDERABLES Final Result documented in this encounter Visit Diagnoses Not on filedocumented in this encounter
--- OUTSIDE RECORDS SUMMARY | 2024-08-14 01:18 | XMS_ITS | Encounter Summary ---
Author Organization [facility] Address [address] [place] [address] Care Team Providers Care Job Analysis Manager Name Role Phone Jesus Augustin MD, Urbano Aguayo Primary Care Provider + Encounter Details Date Type Department Care Team (Latest Contact Info) Description 06/22/2013 9:09 EDT - 06/22/2013 9:11 EDT Hospital Encounter [address] [address] Urbano Lee Jr., MD [address] [facility] 101 [place] [address] Discharge Disposition: Home or Self [...] Info) Description 08/19/2024 10:00 EST Office Visit [facility] Adult Hematology & Oncology [facility] [place], [place] [address] Brie Artis, PARADISE 130 [facility] [place], [facility] [address] [place] [phone] 08/19/2024 10:30 EST Nurse Only [facility] Adult Hem Onc Infusion 130 [facility] [place] [address] 08/25/2024 9:00 EST Office Visit [facility] Adult Hematology & Oncology [address] [place] [address], [place] [phone] Leela Turcios FNP 130 [facility] [address] [address] 08/25/2024 10:00 EST Nurse Only [facility] Adult Hem Onc Infusion 130 [place], [place] [phone] 09/08/2024 8:00 EST Office Visit [facility] Adult Hematology & Oncology [address] [place] [address], [place] [address] Brie Artis, PARADISE 130 [facility] [address] [address] 09/08/2024 8:30 EST Nurse Only [facility] Adult Hem Onc Infusion 130 [place] [address] documented as of this encounter Visit Diagnoses Not on filedocumented in this encounter Care Teams Job Analysis Manager Relationship Specialty Start Date End Date Urbano Lee Jr., MD [address] [address] PCP - General 03/07/09 documented as of this encounter
--- OUTSIDE RECORDS SUMMARY | 2024-08-14 01:18 | XMS_ITS | Encounter Summary ---
Author Organization [facility] Address [address] [place] [address] Care Team Providers Care Floral Clerk Name Role Phone Unavailable Primary Care Provider Unavailabl e Encounter Details Date Type Department Care Team (Late st Contact Info) Description 01/21/2006 9:55 EDT - 01/21/2006 11:59 EDT Hospital Encounter [address] [address] Lauri Vines MD [address] [place] [phone] Discharge Disposition: Auto Discharge Social History Tobacco [...] Info) Description 08/19/2024 10:00 EST Office Visit [facility] Adult Hematology & Oncology [address] [place] [address] Brie Artis NP 130 [facility] [address] [place] [address] 08/19/2024 10:30 EST Nurse Only [facility] Adult Hem Onc Infusion 130 [place] [address] 08/25/2024 9:00 EST Office Visit [facility] Adult Hematology & Oncology [address] [place] [address], [place] [phone] Leela Turcios FNP 130 [facility] [address] [place] [phone] 08/25/2024 10:00 EST Nurse Only [facility] Adult Hem Onc Infusion 130 [facility] [place] [phone] 09/08/2024 8:00 EST Office Visit [facility] Adult Hematology & Oncology [address] [place] [address], [place] [address] Brie Artis, PARADISE 130 [facility] [address] [place] [phone] 09/08/2024 8:30 EST Nurse Only [facility] Adult Hem Onc Infusion [address] [place] [phone] documented as of this encounter Procedures Procedure Name Priority Date/Time Associated Diagnosis Comments CHEST PA AND LATERAL 01/21/2006 10:38 EDT documented in this encounter Results * CHEST PA AND LATERAL (01/21/2006 10:38 EDT) Anatomical Region Laterality Modality Other 01/21/2006 10:3 8 EDT Narrative 04/02/2009 11:30 EDT renal ca, 2 cm nodule in left lung, repeat CHEST: 01/21/06 HISTORY: Two-centimeter nodule in the left lung. ??Repeat x-ray requested. Two views of the chest were obtained and compared to the exam from 01/14/06 and 01/15/05. The current film is a better inspiratory effort. ??The 2cm opacity seen on the previous examination is not felt to represent a pulmonary nodule. ??The patient does have prominent epicardial fat, and this accounts for the abnormality seen on the most recent chest x-ray. There are no pulmonary nodules. ??Heart size is normal. ??Pulmonary vascularity is also within normal limits. IMPRESSIONS: 1. ? No evidence of pulmonary nodules. 2. ? Prominent epicardial fat. /[facility] Procedure Note Mansi Parson MD - 04/02/2009 renal ca, 2 cm nodule in left lung, repeat CHEST: 01/21/06 HISTORY: Two-centimeter nodule in the left lung. Repeat x-ray requested. Two views of the chest were obtained and compared to the exam from 01/14/06 and 01/15/05. The current film is a better inspiratory effort. The 2cm opacity seen on the previous examination is not felt to represent a pulmonary nodule. The patient does have prominent epicardial fat, and this accounts for the abnormality seen on the most recent chest x-ray. There are no pulmonary nodules. Heart size is normal. Pulmonary vascularity is also within normal limits. IMPRESSIONS: 1. No evidence of pulmonary nodules. 2. Prominent epicardial fat. /[facility] [place] Lauri Vines MD IMG DIAGNOSTIC IMAGING O RDERABLES Final Result documented in this encounter Visit Diagnoses Not on filedocumented in this encounter
--- OUTSIDE RECORDS SUMMARY | 2024-08-14 01:18 | XMS_ITS | Encounter Summary ---
Author Organization [facility] Address [address] [place] [address] Care Team Providers Care Cork Grinder Name Role Phone Unavailable Primary Care Provider Unavailabl e Encounter Details Date Type Department Care Team (Late Contact Info) Description 10/04/2003 12:30 EST Hospital Encounter [facility] - Other [address] [place] [address] Urbano Lee Jr., MD [address] [facility] 101 [place] [address] Social History Tobacco Use Types [...] Info) Description 08/19/2024 10:00 EST Office Visit [facility] Adult Hematology & Oncology [address] [place] [address] Brie Artis NP 130 [facility], [facility] [address] [place] [phone] 08/19/2024 10:30 EST Nurse Only [facility] Adult Hem Onc Infusion 130 [facility] [place] [address] 08/25/2024 9:00 EST Office Visit [facility] Adult Hematology & Oncology [address] [place] [address], [place] [phone] Leela Turcios FNP 130 [facility] [address] [place] [phone] 08/25/2024 10:00 EST Nurse Only [facility] Adult Hem Onc Infusion 130 [facility] [place] [address] 09/08/2024 8:00 EST Office Visit [facility] Adult Hematology & Oncology [address] [place] [address], [place] [phone] Brie Artis, [place] 130 [facility] [address] [place] [address] 09/08/2024 8:30 EST Nurse Only [facility] Adult Hem Onc Infusion 130 [facility] [place] [address] documented as of this encounter Visit Diagnoses Not on filedocumented in this encounter
--- OUTSIDE RECORDS SUMMARY | 2024-08-14 01:18 | XMS_ITS | Encounter Summary ---
Author Organization [facility] Address [address] [place] [address] Care Team Providers Care Dowel Machine Operator Name Role Phone Unavailable Primary Care Provider Unavailabl e Encounter Details Date Type Department Care Team (Late Contact Info) Description 04/07/2004 9:06 EDT Hospital Encounter [facility] - Other [address] [place] [address] Urbano Lee Jr., MD [address] [facility] 101 [place] [address] Social History Tobacco Use Types [...] Info) Description 08/19/2024 10:00 EST Office Visit [facility] Adult Hematology & Oncology [address] [place] [address] Brie Artis, PAR[place] 130 [facility], [facility] [address] [place] [phone] 08/19/2024 10:30 EST Nurse Only [facility] Adult Hem Onc Infusion 130 [facility], [place] [phone] 08/25/2024 9:00 EST Office Visit [facility] Adult Hematology & Oncology [address] [place] [address], [place] [phone] Leela Turcios FNP 130 [facility] [address] [address] 08/25/2024 10:00 EST Nurse Only [facility] Adult Hem Onc Infusion 130 [place], [place] [phone] 09/08/2024 8:00 EST Office Visit [facility] Adult Hematology & Oncology [address] [place] [address], [place] [phone] Brie Artis, PARADISE 130 [facility] [address] [address] 09/08/2024 8:30 EST Nurse Only [facility] Adult Hem Onc Infusion 130 [place] [address] documented as of this encounter Procedures Procedure Name Priority Date/Time Associated Diagnosis Comments LIPID PROFILE (INCLUDES CHOLESTEROL, TRIGLYCERIDES, HDL, LDL) Routine 06/20/2004 8:30 EDT COMPREHENSIVE METABOLIC PANEL (CMP) Routine 06/20/2004 8:30 EDT documented in this encounter Results * (ABNORMAL) LIPID PROFILE (INCLUDES CHOLESTEROL, TRIGLYCERIDES, HDL, LDL) (06/20/2004 8:30 EDT) Cholesterol 178 mg/dl [facility] Comment: Desirable:<200 Borderline:200-239 High Risk:>wm=497 Triglycerides 194(H) 35 - 160 mg/dl [facility] HDL 40 mg/dl [facility] Comment: Highly Desirable:>60 Desirable:35-60 High Risk:<35 LDL, Calculated 99 mg/dl [facility] Comment: Desirable:<130 Borderline:130-159 High Risk:>rr=185 Chol/HDL Ratio 4.5 [facility] 06/20/2004 8:30 EDT 06/20/2004 20:49 EDT Urbano Lee Jr., MD CHEMISTRY & BLOOD GAS OR DERABLES Final Result Performing Organization Address City/[facility]/ZIP Co de Phone Number [facility] [address] [place] [address] * (ABNORMAL) COMPREHENSIVE METABOLIC PANEL (06/20/2004 8:30 EDT) Potassium 4.9 3.5 - 5.0 mEq/L [facility] Sodium 146(H) 136 - 145 mEq/L [facility] Chloride 111(H) 96 - 110 mEq/L [facility] CO2 28 24 - 32 mEq/L [facility] Total Alkaline Phosphatase 75 38 - 126 U/L [facility] Bilirubin, Total <0.5 0.2 - 1.3 mg/dl [facility] AST 27 15 - 46 U/L [facility] ALT 38 21 - 72 U/L [facility] Albumin 4.2 3.4 - 4.9 g/dl [facility] Total Protein 6.8 6.5 - 8.0 g/dl [facility] Creatinine 1.2 0.7 - 1.5 mg/dl [facility] BUN 15 10 - 26 mg/dl [facility] Calcium 9.6 8.5 - 10.5 mg/dl [facility] Calculated Calcium 9.8 8.5 - 10.5 mg/dl [facility] Glucose, Serum 109 70 - 110 mg/dl [facility] Albumin/Globulin Ratio 1.6 [facility] 06/20/2004 8:30 EDT 06/20/2004 20:49 EDT Urbano Lee Jr., MD CHEMISTRY & BLOOD GAS OR DERABLES Final Result Performing Organization Address City/[facility]/ZIP Co de Phone Number [facility] [address] [place] [address] documented in this encounter Visit Diagnoses Not on filedocumented in this encounter
--- OUTSIDE RECORDS SUMMARY | 2024-08-14 01:18 | XMS_ITS | Encounter Summary ---
Author Organization [facility] Address [address] [place] [address] Care Team Providers Care Development Technical Lead Name Role Phone Jesus Augustin MD, Urbano Aguayo Primary Care Provider + Encounter Details Date Type Department Care Team (Latest Contact Info) Description 05/23/2011 18:22 EDT - 05/23/2011 18:24 EDT Hospital Encounter [place] [phone] [place] [address] Urbano Lee Jr., MD [address] [facility] 101 [place] [phone] Discharge Disposition: Home or Self Care Social [...] Description 08/19/2024 10:00 EST Office Visit [facility] Adult Hematology & Oncology [address] [place] [phone] Brie Artis NP 130 [facility], [facility] [address] [place] [phone] 08/19/2024 10:30 EST Nurse Only [facility] Adult Hem Onc Infusion 130 [facility] [place] [place] [address] 08/25/2024 9:00 EST Office Visit [facility] Adult Hematology & Oncology [address] [place] [address], [place] [phone] Leela Trucios FNP 130 [facility] 12 [place] [address] 08/25/2024 10:00 EST Nurse Only [facility] Adult Hem Onc Infusion 130 [place], [place] [phone] 09/08/2024 8:00 EST Office Visit [facility] Adult Hematology & Oncology [address] [place] [address], [place] [address] Brie Artis, PARADISE 130 [facility] [address] [address] 09/08/2024 8:30 EST Nurse Only [facility] Adult Hem Onc Infusion 130 [facility], [place] [phone] documented as of this encounter Visit Diagnoses Not on filedocumented in this encounter Care Teams Development Technical Lead Relationship Specialty Start Date End Date Urbano Lee Jr., MD [address] [address] PCP - General 03/07/09 documented as of this encounter
--- OUTSIDE RECORDS SUMMARY | 2024-08-14 01:18 | XMS_ITS | Encounter Summary ---
Author Organization [facility] Address [address] [place] [address] Care Team Providers Care Adoption Social Worker Name Role Phone Jesus Augustin MD, Urbano Aguayo Primary Care Provider + Encounter Details Date Type Department Care Team (Late st Contact Info) Description 10/04/2003 Results Only [facility] [address] [place] [address] Urbano Lee Jr., MD [address] [facility] 101 [place] [address] Social History Tobacco Use Types [...] Info) Description 08/19/2024 10:00 EST Office Visit [facility] Adult Hematology & Oncology [address] [place] [address] Brie Artis, PARADISE 130 [facility], [facility] [address] [place] [address] 08/19/2024 10:30 EST Nurse Only [facility] Adult Hem Onc Infusion [address] [place] [address] 08/25/2024 9:00 EST Office Visit [facility] Adult Hematology & Oncology [address] [place] [address], [place] [address] Leela Turcios FNP 130 [facility] [address] [place] [address] 08/25/2024 10:00 EST Nurse Only [facility] Adult Hem Onc Infusion [address] [place] [address] 09/08/2024 8:00 EST Office Visit [facility] Adult Hematology & Oncology [address] [place] [address], [place] [address] Brie Artis, PARADISE 130 [facility] [address] [place] [address] 09/08/2024 8:30 EST Nurse Only [facility] Adult Hem Onc Infusion [address] [place] [address] documented as of this encounter Procedures Procedure Name Priority Date/Time Associated Diagnosis Comments LIPID PROFILE (INCLUDES CHOLESTEROL, TRIGLYCERIDES, HDL, LDL) Routine 10/04/2003 16:00 EST COMPREHENSIVE METABOLIC PANEL (CMP) Routine 10/04/2003 16:00 EST documented in this encounter Results * (ABNORMAL) LIPID PROFILE (INCLUDES CHOLESTEROL, TRIGLYCERIDES, HDL, LDL) (10/04/2003 16:00 EST) Cholesterol 255 mg/dl [facility] Comment: Desirable:<200 Borderline:200-239 High Risk:>jd=486 Triglycerides 234(H) 35 - 160 mg/dl [facility] HDL 48 mg/dl [facility] Comment: Highly Desirable:>60 Desirable:35-60 High Risk:<35 LDL, Calculated 160 mg/dl [facility] Comment: Desirable:<130 Borderline:130-159 High Risk:>tr=865 Chol/HDL Ratio 5.3 [facility] 10/04/2003 16:0 0 EST 10/04/2003 21:18 EST us Urbano Lee Jr., MD CHEMISTRY & BLOOD GAS OR DERABLES Final Result Performing Organization Address City/[facility] Co de Phone Number [facility] [address] [place] [address] * COMPREHENSIVE METABOLIC PANEL (CMP) (10/04/2003 16:00 EST) Potassium 4.2 3.5 - 5.0 mEq/L [facility] Sodium 144 136 - 145 mEq/L [facility] Chloride 108 96 - 110 mEq/L [facility] CO2 25 24 - 32 mEq/L [facility] Total Alkaline Phosphatase 81 38 - 126 U/L [facility] Bilirubin, Total 0.2 0.2 - 1.3 mg/dl [facility] AST 30 8 - 50 U/L [facility] ALT 39 15 - 75 U/L [facility] Albumin 4.3 3.0 - 5.5 g/dl [facility] Total Protein 6.8 6.0 - 8.5 g/dl [facility] Creatinine 1.5 0.7 - 1.5 mg/dl [facility] BUN 20 10 - 26 mg/dl [facility] Calcium 9.9 8.5 - 10.5 mg/dl [facility] Calculated Calcium 10.0 8.5 - 10.5 mg/dl [facility] Glucose, Serum 83 70 - 110 mg/dl [facility] Albumin/Globulin Ratio 1.7 [facility] 10/04/2003 16:0 0 EST 10/04/2003 21:18 EST us Urbano Lee Jr., MD CHEMISTRY & BLOOD GAS OR DERABLES Final Result Performing Organization Address City/[facility]/ZIP Co de Phone Number [facility] [address] [place] [address] documented in this encounter Visit Diagnoses Not on filedocumented in this encounter Care Teams Adoption Social Worker Relationship Specialty Start Date End Date Urbano Lee Jr., MD [address] [facility] 101 [place] [address] PCP - General 03/07/09 documented as of this encounter
--- OUTSIDE RECORDS SUMMARY | 2024-08-14 01:18 | XMS_ITS | Encounter Summary ---
Author Organization [facility] Address [address] [place] [address] Care Team Providers Care Roto Gravure Press Operator Name Role Phone Jesus Augustin MD, Urbano Aguayo Primary Care Provider + Encounter Details Date Type Department Care Team (Latest Contact Info) Description 06/22/2013 8:33 EDT - 06/22/2013 8:35 EDT Hospital Encounter [address] [address] Urbano Lee Jr., MD [address] [facility], [facility] 101 [place] [address] Discharge Disposition: Home or Self [...] Info) Description 08/19/2024 10:00 EST Office Visit [facility] Adult Hematology & Oncology [facility] [place], [place] [address] Brie Artis, PARADISE 130 [facility], [facility] [address] [place] [phone] 08/19/2024 10:30 EST Nurse Only [facility] Adult Hem Onc Infusion 130 [facility] [place] [address] 08/25/2024 9:00 EST Office Visit [facility] Adult Hematology & Oncology [address] [place] [address], [place] [phone] Leela Turcios FNP 130 [facility] [address] [address] 08/25/2024 10:00 EST Nurse Only [facility] Adult Hem Onc Infusion 130 [place], [place] [phone] 09/08/2024 8:00 EST Office Visit [facility] Adult Hematology & Oncology [address] [place] [address], [place] [address] Brie Artis, PARADISE 130 [facility] [address] [address] 09/08/2024 8:30 EST Nurse Only [facility] Adult Hem Onc Infusion [address] [place] [address] documented as of this encounter Visit Diagnoses Not on filedocumented in this encounter Care Teams Roto Gravure Press Operator Relationship Specialty Start Date End Date Urbano Lee Jr., MD [address] [address] PCP - General 03/07/09 documented as of this encounter
--- OUTSIDE RECORDS SUMMARY | 2024-08-14 01:18 | XMS_ITS | Encounter Summary ---
Author Organization [facility] Address [address] [place] [address] Care Team Providers Care Screen Printing Loader Unloader Name Role Phone Jesus Augustin MD, Urbano Aguayo Primary Care Provider + Encounter Details Date Type Department Care Team (Late st Contact Info) Description 05/23/2010 Results Only [facility] - [facility] ([facility] [address] [place] [address] Deon Dey MD [address] [place] [address] [place], [place] [phone] Social History Tobacco Use Types Packs/Day Years [...] Info) Description 08/19/2024 10:00 EST Office Visit [facility] Adult Hematology & Oncology [address] [place] [phone] Brie Artis NP [address] [facility] [address] [place] [address] 08/19/2024 10:30 EST Nurse Only [facility] Adult Hem Onc Infusion [address] [place], [place] [phone] 08/25/2024 9:00 EST Office Visit [facility] Adult Hematology & Oncology [address] [place] [phone] Leela Turcios FNP [address] [facility] [address] [place] [address] 08/25/2024 10:00 EST Nurse Only [facility] Adult Hem Onc Infusion [address] [place], [place] [phone] 09/08/2024 8:00 EST Office Visit [facility] Adult Hematology & Oncology [address] [place] [address], [place] [address] Brie Artis, PAR[place] [address] [facility] [address] [place] [address] 09/08/2024 8:30 EST Nurse Only [facility] Adult Hem Onc Infusion [address] [place] [address] documented as of this encounter Procedures Procedure Name Priority Date/Time Associated Diagnosis Comments TSH Routine 05/23/2010 10:00 EDT TESTOSTERONE Routine 05/23/2010 10:00 EDT PSA TOTAL, DIAGNOSTIC Routine 05/23/2010 10:00 EDT documented in this encounter Results * TSH (05/23/2010 10:00 EDT) Pathologist [facility] TSH 1.05 0.35 - 5.00 uIU/ml [facility] 05/23/2010 10:0 0 EDT 05/23/2010 20:55 EDT us Deon Dey MD CHEMISTRY & BLOOD GAS ORDERABL ES Final Result [facility] [address] [place] [address] * TESTOSTERONE (05/23/2010 10:00 EDT) Testosterone, Total 346 241 - 827 ng/dL [facility] 05/23/2010 10:0 0 EDT 05/23/2010 20:55 EDT Deon Dey MD CHEMISTRY & BLOOD GAS ORDERABL ES Final Result Performing Organization Address [facility] de Phone Number [facility] [address] [place] [address] * (ABNORMAL) PSA (05/23/2010 10:00 EDT) PSA 5.2(H) 0 - 3.5 ng/ml [facility] Comment: ??Serum PSA concentration should not be interpreted as absolute evidence for the presence or absence of malignant disease. ?? Assayed utilizing [employer] chemiluminescent technology. Values obtained by using different assay methods cannot be used interchangeably. PREVIOUS PSA RESULT ON 03/29/10 WAS 6.0 05/23/2010 10:0 0 EDT 05/23/2010 20:55 EDT Deon Dey MD CHEMISTRY & BLOOD GAS ORDERABL ES Final Result Performing Organization Address [facility] de Phone Number [facility] [address] [place] [address] documented in this encounter Visit Diagnoses Not on filedocumented in this encounter Care Teams Screen Printing Loader Unloader Relationship Specialty Start Date End Date Urbano Lee Jr., MD [address] [facility] [address] [place] [phone] PCP - General 03/07/09 documented as of this encounter
--- OUTSIDE RECORDS SUMMARY | 2024-08-14 01:18 | XMS_ITS | Encounter Summary ---
Author Organization [facility] Address [address] [place] [address] Care Team Providers Care Airport Manager Name Role Phone Unavailable Primary Care Provider Unavailabl e Encounter Details Date Type Department Care Team (Latest Contact Info) Description 09/23/2006 14:06 EST Hospital Encounter [facility] - Other [address] [place] [address] Urbano Lee Jr., MD [address] [facility] [address] [place] [address] Discharge Disposition: Home or Self [...] Adult Hematology & Oncology [address] [place], [place] [phone] Brie Artis, PARADISE 130 [facility] [address] [place] [phone] 08/19/2024 10:[address] [facility] Adult Hem Onc Infusion [address] [place] [address] 08/25/2024 9:[address] [facility] Adult Hematology & Oncology [address] [place] [address], [place] [phone] Leela Turcios FNP 130 [facility] [address] [place] [phone] 08/25/2024 10:[address] [facility] Adult Hem Onc Infusion 130 [facility], [place] [phone] 09/08/2024 8:[address] [facility] Adult Hematology & Oncology [address] [place] [address], [place] [phone] Brie Artis, PARADISE 130 [facility] [address] [place] [phone] 09/08/2024 8:[address] [facility] Adult Hem Onc Infusion 130 [facility], [place] [phone] documented as of this encounter Procedures Procedure Name Priority Date/Time Associated Diagnosis Comments LIPID PROFILE (INCLUDES CHOLESTEROL, TRIGLYCERIDES, HDL, LDL) Routine 09/23/2006 9:30 EST COMPREHENSIVE METABOLIC PANEL (CMP) Routine 09/23/2006 9:30 EST documented in this encounter Results * LIPID PROFILE (INCLUDES CHOLESTEROL, TRIGLYCERIDES, HDL, LDL) (09/23/2006 9:30 EST) Cholesterol 181 mg/dl [facility] Comment: Desirable:<200 Borderline:200-239 High Risk:>ce=260 Triglycerides 142 35 - 160 mg/dl [facility] HDL 42 mg/dl [facility] Comment: Highly Desirable:>60 Desirable:35-60 High Risk:<35 LDL, Calculated 111 mg/dl [facility] Comment: Desirable:<130 Borderline:130-159 High Risk:>wv=115 Chol/HDL Ratio 4.3 [facility] Fasting? Yes [facility] 09/23/2006 9:30 EST 09/23/2006 21:12 EST us Urbano Lee Jr., MD CHEMISTRY & BLOOD GAS OR DERABLES Final Result Performing Organization Address City/[facility]/ZIP Co de Phone Number [facility] [address] [place] [address] * COMPREHENSIVE METABOLIC PANEL (09/23/2006 9:30 EST) Potassium 4.2 3.5 - 5.0 mEq/L [facility] Sodium 142 136 - 145 mEq/L [facility] Chloride 106 96 - 110 mEq/L [facility] CO2 25 24 - 32 mEq/L [facility] Total Alkaline Phosphatase 87 38 - 126 U/L [facility] Bilirubin, Total <0.5 0.2 - 1.3 mg/dl [facility] AST 28 15 - 46 U/L [facility] ALT 52 21 - 72 U/L [facility] Albumin 3.9 3.4 - 4.9 g/dl [facility] Total Protein 6.6 6.5 - 8.3 g/dl [facility] Creatinine 1.21 0.7 - 1.5 mg/dl [facility] GFR, Calculated >60 ml/min/1.7 3m2 [facility] BUN 19 10 - 26 mg/dl [facility] Calcium 9.8 8.5 - 10.5 mg/dl [facility] Calculated Calcium 10.3 8.5 - 10.5 mg/dl [facility] Glucose, Serum 98 70 - 100 mg/dl [facility] Fasting? Yes [facility] Albumin/Globulin Ratio 1.4 [facility] 09/23/2006 9:30 EST 09/23/2006 21:12 EST us Urbano Lee Jr., MD CHEMISTRY & BLOOD GAS OR DERABLES Final Result Performing Organization Address [facility]/ZIP Co de Phone Number [facility] [address] [place] [address] documented in this encounter Visit Diagnoses Not on filedocumented in this encounter
--- OUTSIDE RECORDS SUMMARY | 2024-08-14 01:18 | XMS_ITS | Encounter Summary ---
Author Organization [facility] Address [address] [place] [address] Care Team Providers Care Mainstreaming Facilitator Name Role Phone Unavailable Primary Care Provider Unavailabl e Encounter Details Date Type Department Care Team (Late st Contact Info) Description 01/27/2007 10:41 EDT - 01/27/2007 11:59 EDT Hospital Encounter [address] [address] Lauri Vines MD [address] [place] [phone] Discharge Disposition: Auto Discharge Social History Tobacco [...] Info) Description 08/19/2024 10:00 EST Office Visit [facility] Adult Hematology & Oncology [address] [place] [address] Brie Artis NP 130 [facility] [address] [place] [address] 08/19/2024 10:30 EST Nurse Only [facility] Adult Hem Onc Infusion [address] [place] [address] 08/25/2024 9:00 EST Office Visit [facility] Adult Hematology & Oncology [address] [place] [address], [place] [phone] Leela Turcios FNP 130 [facility] [address] [place] [phone] 08/25/2024 10:00 EST Nurse Only [facility] Adult Hem Onc Infusion 130 [facility], [place] [phone] 09/08/2024 8:00 EST Office Visit [facility] Adult Hematology & Oncology [address] [place] [address], [place] [address] Brie Artis, PARADISE 130 [facility] [address] [place] [phone] 09/08/2024 8:30 EST Nurse Only [facility] Adult Hem Onc Infusion [address] [place] [phone] documented as of this encounter Procedures Procedure Name Priority Date/Time Associated Diagnosis Comments CHEST PA AND LATERAL 01/27/2007 11:03 EDT documented in this encounter Results * CHEST PA AND LATERAL (01/27/2007 11:03 EDT) Anatomical Region Laterality Modality Other 01/27/2007 11:0 3 EDT Narrative 03/16/2009 12:15 EDT renal cell ca History: ?? renal cell ca . Two views of the chest were obtained and compared to the examination from 2005 and 2004. Findings: The lungs remain clear. Slight asymmetric pleural thickening in the right apex is stable since examinations dating back to 2004. The heart size is normal. There are no pleural effusions. There are minimal degenerative changes in the thoracic spine. Impression: Stable examination of the chest. Procedure Note Mansi Parson MD - 03/16/2009 renal cell ca History: renal cell ca . Two views of the chest were obtained and compared to the examination from 2005 and 2004. Findings: The lungs remain clear. Slight asymmetric pleural thickening in the right apex is stable since examinations dating back to 2004. The heart size is normal. There are no pleural effusions. There are minimal degenerative changes in the thoracic spine. Impression: Stable examination of the chest. us Lauri Vines MD IMG DIAGNOSTIC IMAGING O RDERABLES Final Result documented in this encounter Visit Diagnoses Not on filedocumented in this encounter
--- OUTSIDE RECORDS SUMMARY | 2024-08-14 01:18 | XMS_ITS | Encounter Summary ---
Author Organization [facility] Address [address] [place] [address] Care Team Providers Care Boss Dyer Name Role Phone Jesus Augustin MD, Urbano Aguayo Primary Care Provider + Encounter Details Date Type Department Care Team (Latest Contact Info) Description 09/13/2014 10:37 EST - 09/13/2014 10:39 EST Hospital Encounter [address] [address] Urbano Lee Jr., MD [address] [facility] [address] [place] [address] Discharge Disposition: Home or Self Care Social History Tobacco Use Types Packs/Day Years Used Date Smoking Tobacco: Never Assessed Sex and Gender Information Value Date Recorded Sex Assigned at Male 08/07/2024 12:35 EST Legal Sex Male 17:22 EST Gender Identity Male 07/16/2024 8:48 EDT Sexual Orientation Not on file documented as of this encounter Discharge Diagnoses Diagnosis 272.4 HYPERLIPIDEMIA NEC/NOS[ICD-9-CM] 790.93 ELEVATED PROSTATE SPECIFIC ANTIGEN (PSA)[ICD-9-CM] documented in this encounter Discharge Disposition Disposition Code Departure Means Destination Home or Self Care documented in this encounter Plan of Treatment Upcoming Encounters Date Type Department Care Team (Late st Contact Info) Description 08/19/2024 10:00 EST Office Visit [facility] Adult Hematology & Oncology [facility] [place] [address] Brie Artis, PARADISE 130 [facility] [address] [place] [address] 08/19/2024 10:30 EST Nurse Only [facility] Adult Hem Onc Infusion [address] [place], [place] [phone] 08/25/2024 9:00 EST Office Visit [facility] Adult Hematology & Oncology [address] [place] [phone] Leela Turcios FNP [address] [phone] 08/25/2024 10:00 EST Nurse Only [facility] Adult Hem Onc Infusion [address] [place] [phone] 09/08/2024 8:00 EST Office Visit [facility] Adult Hematology & Oncology [address] [place] [phone] Brie Artis, PARADISE [address] [place] [phone] 09/08/2024 8:30 EST Nurse Only [facility] Adult Hem Onc Infusion [address] [place] [address] documented as of this encounter Visit Diagnoses Not on filedocumented in this encounter Care Teams Boss Dyer Relationship Specialty Start Date End Date Urbano Lee Jr., MD [address] [facility] [address] [place] [address] PCP - General 03/07/09 documented as of this encounter
--- OUTSIDE RECORDS SUMMARY | 2024-08-14 01:18 | XMS_ITS | Encounter Summary ---
Author Organization [facility] Address [address] [place] [address] Care Team Providers Care Machine Fastener Name Role Phone Jesus Augustin MD, Marisa Aguayo Primary Care Provider + Encounter Details Date Type Department Care Team (Late st Contact Info) Description 06/22/2013 Results Only [facility] - [facility] ([facility]) [address] [place], [place] [phone] Marisa Roa Jr., MD [address] [facility] [address] [place] [phone] Social History Tobacco Use Types Packs/Day Years [...] Info) Description 08/19/2024 10:00 EST Office Visit [facility] Adult Hematology & Oncology [address] [place] [address] Brie Artis, PARADISE 130 [facility] [address] [place] [phone] 08/19/2024 10:30 EST Nurse Only [facility] Adult Hem Onc Infusion [address] [place] [address] 08/25/2024 9:00 EST Office Visit [facility] Adult Hematology & Oncology [address] [place] [address], [place] [phone] Leela Turcios FNP 130 [facility] [address] [place] [phone] 08/25/2024 10:00 EST Nurse Only [facility] Adult Hem Onc Infusion 130 [facility], [place] [phone] 09/08/2024 8:00 EST Office Visit [facility] Adult Hematology & Oncology [address] [place] [address], [place] [phone] Brie Artis, PARADISE 130 [facility] [address] [place] [address] 09/08/2024 8:30 EST Nurse Only [facility] Adult Hem Onc Infusion 130 [place] [address] documented as of this encounter Procedures Procedure Name Priority Date/Time Associated Diagnosis Comments PSA SCREEN Routine 06/22/2013 9:30 EDT LIPID PROFILE (INCLUDES CHOLESTEROL, TRIGLYCERIDES, HDL, LDL) Routine 06/22/2013 9:30 EDT COMPREHENSIVE METABOLIC PANEL (CMP) Routine 06/22/2013 9:30 EDT CYTOPATHOLOGY Routine 06/22/2013 0:00 EDT documented in this encounter Results * (ABNORMAL) PSA SCREEN (06/22/2013 9:30 EDT) PSA 4.7(H) 0 - 4.5 ng/ml [facility] Comment: Serum PSA concentration should not be interpreted as absolute evidence for the presence or absence of malignant disease. Assayed utilizing [employer] chemiluminescent technology. ??Values obtained by using different assay methods cannot be used interchangeably. PREVIOUS PSA RESULT ON 06/19/12 WAS 6.1 06/22/2013 9:30 EDT 06/22/2013 21:07 EDT us Marisa Roa Jr., MD CHEMISTRY & BLOOD GAS OR DERABLES Final Result Performing Organization Address [facility] de Phone Number [facility] [address] [place] [address] * LIPID PROFILE (INCLUDES CHOLESTEROL, TRIGLYCERIDES, HDL, LDL) (06/22/2013 9:30 EDT) Cholesterol 197 mg/dl [facility] Comment: Desirable:<200 Borderline High:200-239 High:>pp=375 Triglycerides 138 mg/dl [facility] Comment: Normal:<150 Borderline High:150-199 High:200-499 Very High:>ju=325 HDL 46 mg/dl [facility] Comment: Low:<40 Normal:40-60 Desirable: >60 LDL, Calculated 123 mg/dl [facility] Comment: Optimal:<100 Near Optimal:100-129 Borderline High:130-159 High:160-189 Very High:>bf=859 Chol/HDL Ratio 4.3 [facility] Fasting? YES [facility] Non HDL Cholesterol 151 mg/dl [facility] Comment: Desirable:<130 Borderline:130-159 High: 160-189 Very High: >eh=381 06/22/2013 9:30 EDT 06/22/2013 21:07 EDT us Marisa Roa Jr., MD CHEMISTRY & BLOOD GAS OR DERABLES Final Result Performing Organization Address [facility] de Phone Number [facility] [address] [place] [address] * COMPREHENSIVE METABOLIC PANEL (CMP) (06/22/2013 9:30 EDT) Potassium 4.4 3.5 - 5.0 mEq/L [facility] Sodium 143 136 - 145 mEq/L [facility] Chloride 105 96 - 110 mEq/L [facility] CO2 27 24 - 32 mEq/L [facility] Total Alkaline Phosphatase 86 38 - 126 U/L [facility] Bilirubin, Total 0.5 0.2 - 1.3 mg/dl [facility] AST 24 15 - 46 U/L [facility] ALT 43 21 - 72 U/L [facility] Albumin 4.2 3.4 - 4.9 g/dl [facility] Total Protein 6.5 6.5 - 8.3 g/dl [facility] Creatinine 1.04 0.66 - 1.25 mg/dl [facility] GFR, Calculated >60 >60 ml/min/1.7 3m2 [facility] BUN 17 10 - 26 mg/dl [facility] Calcium 9.9 8.5 - 10.5 mg/dl [facility] Calculated Calcium 10.1 8.5 - 10.5 mg/dl [facility] Glucose, Serum 97 70 - 100 mg/dl [facility] Fasting? YES [facility] 06/22/2013 9:30 EDT 06/22/2013 21:07 EDT Marisa Roa Jr., MD CHEMISTRY & BLOOD GAS OR DERABLES Final Result [facility] [address] [place] [address] * CYTOPATHOLOGY (06/22/2013 0:00 EDT) Pathology Report: CYTOPATHOLOGY REPORT Reports generated via electronic interface contain original data; however they are lacking the format of the original report. Caution should be taken when reading/interpreti ng unformatted reports. Name: ? RICK JOSEPH ? Accession #: ? [id number] : ? 1950 (Age: 62) ??M ?Collect Date: ? 06/22/2013 Location: ? [facility] ? Receive Date: ? 06/23/2013 Provider: ? MARISA ROA JR, MD Copy to: ? CYTOLOGIC DIAGNOSIS: URINE, NOT OTHERWISE SPECIFIED, CYTOLOGIC EVALUATION: - ??Rare atypical urothelial cells present. - ??Background red blood cells. ? COMMENT: Rare small crowded clusters of atypical urothelial cells are present. ??The cytologic atypia includes increased nuclear to cytoplasmic ratios and nuclear hyperchromasia. ??Clusters are an atypical finding in a voided urine. ??The collection method is not stated. Dr. Braswell 06/23/2013 02:31 PM ? Document reviewed and electronically signed by: ? JOSE LUIS BRASWELL MD Report Date: ??06/23/2013 14:32 By the signature above, the attending physician certifies that he/she has personally conducted a gross and/or microscopic examination of the described specimens and rendered or confirmed the above diagnosis. Specimen Type: ? Urine, NOS Clinical History: ? clinical diagnosis code: ??599.7. ? Gross Description: ? 30 ccs of clear yellow fluid were received and processed by selective cellular enhancement technique. ? End of Report [facility] 06/22/2013 06/23/2013 9:1 7 EDT us Marisa Roa Jr., MD PATHOLOGY ORDERABLES Fin al Result [facility] [address] [place] [address] documented in this encounter Visit Diagnoses Not on filedocumented in this encounter Care Teams Machine Fastener Relationship Specialty Start Date End Date Marisa Roa Jr., MD [address] [facility] [address] [place] [phone] PCP - General 03/07/09 documented as of this encounter
--- OUTSIDE RECORDS SUMMARY | 2024-08-14 01:18 | XMS_ITS | Encounter Summary ---
Author Organization [facility] Address [address] [place] [address] Care Team Providers Care Welfare Service Aide Name Role Phone Jesus Augustin MD, Urbano Aguayo Primary Care Provider + Encounter Details Date Type Department Care Team (Late st Contact Info) Description 07/09/2007 Results Only [facility] - [facility] conversion [address] [place] [address] Urbano Lee Jr., MD [address] [facility] [address] [place] [address] Social History Tobacco Use Types [...] [facility] Adult Hematology & Oncology [address] [place] [address] Brie Artis, PAR[place] 130 [facility] [address] [place] [address] 08/19/2024 10:30 EST Nurse Only [facility] Adult Hem Onc Infusion [address] [place] [address] 08/25/2024 9:00 EST Office Visit [facility] Adult Hematology & Oncology [address] [place] [address], [place] [address] Leela Turcios FNP [address] [facility] [address] [place] [address] 08/25/2024 10:00 EST Nurse Only [facility] Adult Hem Onc Infusion [address] [place] [address] 09/08/2024 8:00 EST Office Visit [facility] Adult Hematology & Oncology [address] [place] [address], [place] [address] Brie Artis, PAR[place] [address] [facility] [address] [place] [address] 09/08/2024 8:30 EST Nurse Only [facility] Adult Hem Onc Infusion [address] [place] [address] documented as of this encounter Procedures Procedure Name Priority Date/Time Associated Diagnosis Comments LIPID PROFILE (INCLUDES CHOLESTEROL, TRIGLYCERIDES, HDL, LDL) Routine 07/09/2007 14:30 EDT COMPREHENSIVE METABOLIC PANEL (CMP) Routine 07/09/2007 14:30 EDT documented in this encounter Results * (ABNORMAL) LIPID PROFILE (INCLUDES CHOLESTEROL, TRIGLYCERIDES, HDL, LDL) (07/09/2007 14:30 EDT) Cholesterol 186 mg/dl [facility] Comment: Desirable:<200 Borderline:200-239 High Risk:>gp=[id number] Triglycerides 241(H) 35 - 160 mg/dl [facility] HDL 45 mg/dl [facility] Comment: Highly Desirable:>60 Desirable:35-60 High Risk:<35 LDL, Calculated 93 mg/dl [facility] Comment: Desirable:<130 Borderline:130-159 High Risk:>sv=142 Chol/HDL Ratio 4.1 [facility] Fasting? Unknown [facility] 07/09/2007 14:3 0 EDT 07/09/2007 20:23 EDT us Urbano Lee Jr., MD CHEMISTRY & BLOOD GAS OR DERABLES Final Result Performing Organization Address City/[facility] Co de Phone Number [facility] [address] [place] [address] * COMPREHENSIVE METABOLIC PANEL (07/09/2007 14:30 EDT) Potassium 4.7 3.5 - 5.0 mEq/L [facility] Sodium 138 136 - 145 mEq/L [facility] Chloride 105 96 - 110 mEq/L [facility] CO2 28 24 - 32 mEq/L [facility] Total Alkaline Phosphatase 89 38 - 126 U/L [facility] Bilirubin, Total <0.5 0.2 - 1.3 mg/dl [facility] AST 32 15 - 46 U/L [facility] ALT 46 21 - 72 U/L [facility] Albumin 4.2 3.4 - 4.9 g/dl [facility] Total Protein 6.9 6.5 - 8.3 g/dl [facility] Creatinine 1.20 0.7 - 1.5 mg/dl [facility] GFR, Calculated >60 ml/min/1.7 3m2 [facility] BUN 13 10 - 26 mg/dl [facility] Calcium 9.8 8.5 - 10.5 mg/dl [facility] Calculated Calcium 10.0 8.5 - 10.5 mg/dl [facility] Glucose, Serum 86 70 - 100 mg/dl [facility] Fasting? Unknown [facility] 07/09/2007 14:3 0 EDT 07/09/2007 20:23 EDT us Urbano Lee Jr., MD CHEMISTRY & BLOOD GAS OR DERABLES Final Result Performing Organization Address [facility] Co de Phone Number [facility] [address] [place] [address] documented in this encounter Visit Diagnoses Not on filedocumented in this encounter Care Teams Welfare Service Aide Relationship Specialty Start Date End Date Urbano Lee Jr., MD [address] [facility] [address] [place] [address] PCP - General 03/07/09 documented as of this encounter
--- OUTSIDE RECORDS SUMMARY | 2024-08-14 01:18 | XMS_ITS | Encounter Summary ---
Author Organization [facility] Address [address] [place] [address] Care Team Providers Care Water Plumber Name Role Phone Jesus Augustin MD, Urbano Aguayo Primary Care Provider + Encounter Details Date Type Department Care Team (Late st Contact Info) Description 05/23/2011 Results Only [facility] Laboratory Services - [facility] ([facility]) [address] [place], [place] [phone] Urbano Lee Jr., MD [address] [facility] [address] [place] [phone] Social History Tobacco Use Types Packs/Day Years [...] Adult Hematology & Oncology [address] [place] [address] Brie Artis, [place] 130 [facility] [address] [place] [phone] 08/19/2024 10:30 EST Nurse Only [facility] Adult Hem Onc Infusion [address] [place] [address] 08/25/2024 9:00 EST Office Visit [facility] Adult Hematology & Oncology [address] [place] [address], [place] [phone] Leela Turcios FNP 130 [facility] [address] [place] [phone] 08/25/2024 10:00 EST Nurse Only [facility] Adult Hem Onc Infusion 130 [facility] [place] [phone] 09/08/2024 8:00 EST Office Visit [facility] Adult Hematology & Oncology [address] [place] [address], [place] [phone] Brie Artis, [place] 130 [facility] [address] [place] [phone] 09/08/2024 8:30 EST Nurse Only [facility] Adult Hem Onc Infusion 130 [facility] [place] [phone] documented as of this encounter Procedures Procedure Name Priority Date/Time Associated Diagnosis Comments BILIRUBIN DIRECT/INDIRECT Routine 05/23/2011 8:20 EDT PSA TOTAL, DIAGNOSTIC Routine 05/23/2011 8:20 EDT LIPID PROFILE (INCLUDES CHOLESTEROL, TRIGLYCERIDES, HDL, LDL) Routine 05/23/2011 8:20 EDT COMPREHENSIVE METABOLIC PANEL (CMP) Routine 05/23/2011 8:20 EDT documented in this encounter Results * (ABNORMAL) PSA (05/23/2011 8:20 EDT) PSA 5.3(H) 0 - 3.5 ng/ml [facility] Comment: ??Serum PSA concentration should not be interpreted as absolute evidence for the presence or absence of malignant disease. ?? Assayed utilizing Alianza chemiluminescent chemiluminescent technology. ??Values obtained by using different assay methods cannot be used interchangeably. PREVIOUS PSA RESULT ON 05/23/10 WAS 5.2 AND ON 03/29/10 WAS 6.0 05/23/2011 8:20 EDT 05/23/2011 21:56 EDT us Urbano Lee Jr., MD CHEMISTRY & BLOOD GAS OR DERABLES Final Result Performing Organization Address [facility] de Phone Number [facility] [address] [place] [address] * LIPID PROFILE (INCLUDES CHOLESTEROL, TRIGLYCERIDES, HDL, LDL) (05/23/2011 8:20 EDT) Cholesterol 192 mg/dl [facility] Comment:Desirable:<200 Borde rline High:200-239 High:>ew=817 Triglycerides 145 35 - 160 mg/dl [facility] HDL 41 mg/dl [facility] Comment:Low:<40 High(Desirab le):>or=60 LDL, Calculated 122 mg/dl [facility] Comment: Optimal:<100 Above optimal:100-129 Borderline High:130-159 High:160-189 Very High:>hz=651 Chol/HDL Ratio 4.7 [facility] Fasting? Unknown [facility] 05/23/2011 8:20 EDT 05/23/2011 21:56 EDT us Urbano Lee Jr., MD CHEMISTRY & BLOOD GAS OR DERABLES Final Result Performing Organization Address [facility] Phone Number [facility] [address] [place] [address] * BILIRUBIN DIRECT/INDIRECT (05/23/2011 8:20 EDT) Conjugated Bilirubin 0.0 0.0 - 0.3 mg/dl [facility] Unconjugated Bilirubin 0.2 0.1 - 1.1 mg/dl [facility] 05/23/2011 8:20 EDT 05/23/2011 21:56 EDT us Urbano Lee Jr., MD CHEMISTRY & BLOOD GAS OR DERABLES Final Result Performing Organization Address [facility]/State/ZIP Co de Phone Number [facility] [address] [place] [address] * COMPREHENSIVE METABOLIC PANEL (CMP) (05/23/2011 8:20 EDT) Potassium 4.6 3.5 - 5.0 mEq/L [facility] Sodium 143 136 - 145 mEq/L [facility] Chloride 106 96 - 110 mEq/L [facility] CO2 28 24 - 32 mEq/L [facility] Total Alkaline Phosphatase 96 38 - 126 U/L [facility] Bilirubin, Total <0.5 0.2 - 1.3 mg/dl [facility] AST 26 15 - 46 U/L [facility] ALT 31 21 - 72 U/L [facility] Albumin 3.9 3.4 - 4.9 g/dl [facility] Total Protein 6.6 6.5 - 8.3 g/dl [facility] Creatinine 1.00 0.7 - 1.5 mg/dl [facility] GFR, Calculated >60 ml/min/1.7 3m2 [facility] BUN 15 10 - 26 mg/dl [facility] Calcium 9.9 8.5 - 10.5 mg/dl [facility] Calculated Calcium 10.4 8.5 - 10.5 mg/dl [facility] Glucose, Serum 94 70 - 100 mg/dl [facility] Fasting? Unknown [facility] 05/23/2011 8:20 EDT 05/23/2011 21:56 EDT us Urbano Lee Jr., MD CHEMISTRY & BLOOD GAS OR DERABLES Final Result [facility] [address] [place] [address] documented in this encounter Visit Diagnoses Not on filedocumented in this encounter Care Teams Water Plumber Relationship Specialty Start Date End Date Urbano Lee Jr., MD [address] [facility] [address] [place] [phone] PCP - General 03/07/09 documented as of this encounter
--- OUTSIDE RECORDS SUMMARY | 2024-08-14 01:18 | XMS_ITS | Encounter Summary ---
Author Organization [facility] Address [address] [place] [address] Care Team Providers Care Union Organizer Name Role Phone Jesus Augustin MD, Urbano Aguayo Primary Care Provider + Encounter Details Date Type Department Care Team (Late st Contact Info) Description 09/13/2014 Results Only [facility] Laboratory Services - [facility] ([facility] [place]) [address] [place], [place] [phone] Urbano Lee Jr., MD [address] [facility] [address] [place] [phone] Social History Tobacco Use Types Packs/Day Years [...] Info) Description 08/19/2024 10:00 EST Office Visit [facility] Adult Hematology & Oncology [address] [place] [address] Brie Artis, [place] 130 [facility] [address] [place] [phone] 08/19/2024 10:30 EST Nurse Only [facility] Adult Hem Onc Infusion [address] [place] [address] 08/25/2024 9:00 EST Office Visit [facility] Adult Hematology & Oncology [address] [place] [address], [place] [phone] Leela Turcios FNP 130 [facility] [address] [place] [phone] 08/25/2024 10:00 EST Nurse Only [facility] Adult Hem Onc Infusion 130 [facility], [place] [phone] 09/08/2024 8:00 EST Office Visit [facility] Adult Hematology & Oncology [address] [place] [address], [place] [phone] Brie Artis, PARADISE 130 [facility] [address] [place] [phone] 09/08/2024 8:30 EST Nurse Only [facility] Adult Hem Onc Infusion [address] [place] [address] documented as of this encounter Procedures Procedure Name Priority Date/Time Associated Diagnosis Comments PSA SCREEN Routine 09/13/2014 9:00 EST LIPID PROFILE (INCLUDES CHOLESTEROL, TRIGLYCERIDES, HDL, LDL) Routine 09/13/2014 9:00 EST COMPREHENSIVE METABOLIC PANEL (CMP) Routine 09/13/2014 9:00 EST documented in this encounter Results * (ABNORMAL) PSA SCREEN (09/13/2014 9:00 EST) PSA 4.8(H) 0 - 4.5 ng/ml 09/14/2014 9:[address] [facility] Comment: Serum PSA concentration should not be interpreted as absolute evidence for the presence or absence of malignant disease. Assayed utilizing Siemens (Sagoon) chemiluminescent technology. ??Values obtained by using different assay methods cannot be used interchangeably. PREVIOUS PSA ON 06/22/13 WAS 4.7 BLOOD SPECIMEN / Unknown 09/13/2014 9:00 EST 09/13/2014 20:39 EST us Urbano Lee Jr., MD CHEMISTRY & BLOOD GAS OR DERABLES Final Result Performing Organization Address [facility] Co de Phone Number [facility] [address] [place] [address] * LIPID PROFILE (INCLUDES CHOLESTEROL, TRIGLYCERIDES, HDL, LDL) (09/13/2014 9:00 EST) Cholesterol 149 mg/dl 09/13/2014 21:20 [facility] Comment: Desirable:<200 Borderline High:200-239 High:>ue=536 Triglycerides 116 mg/dl 09/13/2014 21:20 [facility] Comment: Normal:<150 Borderline High:150-199 High:200-499 Very High:>ih=958 HDL 42 mg/dl 09/13/2014 21:20 [facility] Comment: Low:<40 Normal:40-60 Desirable: >60 LDL, Calculated 84 mg/dl 4 21:20 [facility] Comment: Optimal:<100 Near Optimal:100-129 Borderline High:130-159 High:160-189 Very High:>jh=028 Chol/HDL Ratio 3.5 09/13/2014 21:20 [facility] Fasting? YES 09/13/2014 20:39 [facility] Non HDL Cholesterol 107 mg/dl 09/13/2014 21:20 [facility] Comment: Desirable:<130 Borderline:130-159 High: 160-189 Very High: >vz=894 BLOOD SPECIMEN / Unknown 09/13/2014 9:00 EST 09/13/2014 20:39 EST us Urbano Lee Jr., MD CHEMISTRY & BLOOD GAS OR DERABLES Final Result Performing Organization Address [facility] Co de Phone Number [facility] [address] [place] [address] * (ABNORMAL) COMPREHENSIVE METABOLIC PANEL (CMP) (09/13/2014 9:00 EST) Potassium 4.4 3.5 - 5.0 mEq/L 09/13/2014 21:20 [facility] Sodium 143 136 - 145 mEq/L 09/13/2014 21:20 [facility] Chloride 104 96 - 110 mEq/L 09/13/2014 21:20 [facility] CO2 31 24 - 32 mEq/L 09/13/2014 21:20 [facility] Total Alkaline Phosphatase 85 38 - 126 U/L 09/13/2014 21:20 [facility] Bilirubin, Total <0.5 <1.4 mg/dl 09/13/20 14 21:20 [facility] AST 27 15 - 46 U/L 09/13/2014 21:20 [facility] ALT 39 21 - 72 U/L 09/13/2014 21:20 [facility] Albumin 4.0 3.4 - 4.9 g/dl 09/13/2014 21:20 [facility] Total Protein 6.1(L) 6.5 - 8.3 g/dl 09/13/2014 21:20 [facility] Creatinine 0.97 0.66 - 1.25 mg/dl 09/13/2014 21:20 [facility] GFR, Calculated >60 >60 ml/min/1.7 3m2 09/13/2014 21:20 [facility] BUN 14 10 - 26 mg/dl 09/13/2014 21:20 [facility] Calcium 9.7 8.5 - 10.5 mg/dl 09/13/2014 21:20 [facility] Calculated Calcium 10.1 8.5 - 10.5 mg/dl 09/13/2014 21:20 [facility] Glucose, Serum 79 70 - 100 mg/dl 09/13/2014 21:20 [facility] Fasting? YES 09/13/2014 20:39 [facility] BLOOD SPECIMEN / Unknown 09/13/2014 9:00 EST 09/13/2014 20:39 EST us Urbano Lee Jr., MD CHEMISTRY & BLOOD GAS OR DERABLES Final Result [facility] [address] [place] [address] documented in this encounter Visit Diagnoses Not on filedocumented in this encounter Care Teams Union Organizer Relationship Specialty Start Date End Date Urbano Lee Jr., MD [address] [facility] [address] [place] [address] PCP - General 03/07/09 documented as of this encounter
--- OUTSIDE RECORDS SUMMARY | 2024-08-14 01:18 | XMS_ITS | Encounter Summary ---
Author Organization [facility] Address [address] [place] [address] Care Team Providers Care Certified Medical Technician Assistant Name Role Phone Unavailable Primary Care Provider Unavailabl e Encounter Details Date Type Department Care Team (Late st Contact Info) Description 02/05/2008 9:31 EDT - 02/05/2008 11:59 EDT Hospital Encounter [address] [address] Lauri Vines MD [address] [place] [phone] Discharge Disposition: Auto Discharge Social History Tobacco [...] Info) Description 08/19/2024 10:00 EST Office Visit [facility] Adult Hematology & Oncology [address] [place] [address] Brie Artis NP 130 [facility] [address] [place] [address] 08/19/2024 10:30 EST Nurse Only [facility] Adult Hem Onc Infusion [address] [place] [address] 08/25/2024 9:00 EST Office Visit [facility] Adult Hematology & Oncology [address] [place] [address], [place] [phone] Leela Turcios FNP 130 [facility] [address] [place] [phone] 08/25/2024 10:00 EST Nurse Only [facility] Adult Hem Onc Infusion [address] [place], [place] [phone] 09/08/2024 8:00 EST Office Visit [facility] Adult Hematology & Oncology [address] [place] [address], [place] [address] Brie Artis, PARADISE 130 [facility] [address] [place] [phone] 09/08/2024 8:30 EST Nurse Only [facility] Adult Hem Onc Infusion [address] [place] [phone] documented as of this encounter Procedures Procedure Name Priority Date/Time Associated Diagnosis Comments CHEST PA AND LATERAL 02/05/2008 9:53 EDT documented in this encounter Results * CHEST PA AND LATERAL (02/05/2008 9:53 EDT) Anatomical Region Laterality Modality Other 02/05/2008 9:53 EDT Narrative 02/27/2009 14:31 EDT kidney cancer PA and lateral chest 02/05/2008 History: Kidney cancer Comparison: 01/27/2007 The cardiomediastinal silhouette and pulmonary vascularity are normal. The lungs are well expanded and clear. No pleural abnormality is seen. No destructive bony lesion is seen. Impression: Stable exam, no evidence of metastatic disease and no evidence of acute cardiopulmonary disease Procedure Note Ravinder Adams MD - 02/27/2009 kidney cancer PA and lateral chest 02/05/2008 History: Kidney cancer Comparison: 01/27/2007 The cardiomediastinal silhouette and pulmonary vascularity are normal. The lungs are well expanded and clear. No pleural abnormality is seen. No destructive bony lesion is seen. Impression: Stable exam, no evidence of metastatic disease and no evidence of acute cardiopulmonary disease us Lauri Vines MD IMG DIAGNOSTIC IMAGING O RDERABLES Final Result documented in this encounter Visit Diagnoses Not on filedocumented in this encounter
--- OUTSIDE RECORDS SUMMARY | 2024-08-14 01:18 | XMS_ITS | Encounter Summary ---
Author Organization [facility] Address [address] [place] [address] Care Team Providers Care Sales Attendant Building Materials Name Role Phone Unavailable Primary Care Provider Unavailabl e Encounter Details Date Type Department Care Team (Late Contact Info) Description 06/20/2004 16:24 EDT Hospital Encounter [facility] - Other [address] [place] [address] Urbano Lee Jr., MD [address] [facility] [address] [place] [address] Social History Tobacco Use Types [...] Info) Description 08/19/2024 10:00 EST Office Visit [facility] Adult Hematology & Oncology [address] [place] [address] Brie Artis, PARADISE 130 [facility] [address] [place] [phone] 08/19/2024 10:30 EST Nurse Only [facility] Adult Hem Onc Infusion 130 [facility], [place] [phone] 08/25/2024 9:00 EST Office Visit [facility] Adult Hematology & Oncology [address] [place] [address], [place] [phone] Leela Turcios FNP 130 [facility] 12 [place] [phone] 08/25/2024 10:00 EST Nurse Only [facility] Adult Hem Onc Infusion 130 [facility], [place] [phone] 09/08/2024 8:00 EST Office Visit [facility] Adult Hematology & Oncology [address] [place] [address], [place] [phone] Brie Artis, PARADISE 130 [facility] [address] [place] [address] 09/08/2024 8:30 EST Nurse Only [facility] Adult Hem Onc Infusion 130 [facility] [place] [address] documented as of this encounter Visit Diagnoses Not on filedocumented in this encounter
--- OUTSIDE RECORDS SUMMARY | 2024-08-14 01:18 | XMS_ITS | Encounter Summary ---
Author Organization [facility] Address [address] [place] [address] Care Team Providers Care Machine Records Units Supervisor Name Role Phone Unavailable Primary Care Provider Unavailabl e Encounter Details Date Type Department Care Team (Late st Contact Info) Description 08/10/2002 6:55 EST - 08/10/2002 11:59 EST Hospital Encounter [facility] [address] [place] [address] Lauri Vines MD [address] [place] [phone] Discharge Disposition: Auto Discharge Social History Tobacco [...] Adult Hematology & Oncology [address] [place] [address] Brie Artis NP 130 [facility] [address] [place] [address] 08/19/2024 10:30 EST Nurse Only [facility] Adult Hem Onc Infusion [address] [place] [address] 08/25/2024 9:00 EST Office Visit [facility] Adult Hematology & Oncology [address] [place] [address], [place] [phone] Leela Turcios FNP 130 [facility] [address] [place] [phone] 08/25/2024 10:00 EST Nurse Only [facility] Adult Hem Onc Infusion 130 [facility], [place] [address] 09/08/2024 8:00 EST Office Visit [facility] Adult Hematology & Oncology [address] [place] [address], [place] [phone] Brie Artis, PARADISE 130 [facility] [address] [place] [phone] 09/08/2024 8:30 EST Nurse Only [facility] Adult Hem Onc Infusion [address] [place] [address] [phone] documented as of this encounter Procedures Procedure Name Priority Date/Time Associated Diagnosis Comments CT ABDOMEN, PELVIS W CONTRAST Routine 08/10/2002 8:26 EST documented in this encounter Results * CT ABDOMEN, PELVIS W CONTRAST (08/10/2002 8:26 EST) Anatomical Region Laterality Modality Other 08/10/2002 8:26 EST Impressions 06/13/2009 1:39 EDT IMPRESSION: S/P left nephrectomy. No evidence of recurrence identified. /lds Narrative 06/13/2009 1:39 EDT ABD/PELVIS CT - H/O RENAL CA R/O METS CT OF THE ABDOMEN AND PELVIS: 08/10/02 TIME: 0830 COMPARISON: 08/25/98 CLINICAL INDICATION: Followup renal cell carcinoma. TECHNIQUE ABDOMEN: Prior to the examination, the patient was given oral contrast. During the intravenous administration of 150 cc of 300 mg% nonionic contrast at a rate of 2 cc/second, helical images were obtained from the domes of the diaphragms to the iliac crests. TECHNIQUE PELVIS: Immediately after the above preparation, axial images were obtained from the iliac crests to the ischial tuberosities. FINDINGS: No abnormalities are identified at the lung bases. Specifically, the questioned pleural-based nodule is not clearly seen on the current study, although there is some minimal pleural thickening and dependent atelectasis. No definite pulmonary nodules are identified. There are a few scattered, very tiny hypodensities within the liver which are too small to characterize. Most of these are stable compared to the prior exam. The patient is s/p left nephrectomy. Surgical clips are noted in the left renal fossa. The right kidney is grossly unremarkable, although it is imaged during the early phase of contrast administration. No adenopathy is identified. The visualized bowel has a normal appearance. The appendix is identified and appears normal. Prostatic calcifications are noted. Bone windows demonstrate no significant abnormalities. Procedure Note Iris Alberts MD - 06/13/2009 ABD/PELVIS CT - H/O RENAL CA R/O METS CT OF THE ABDOMEN AND PELVIS: 08/10/02 TIME: 829 COMPARISON: 08/25/98 CLINICAL INDICATION: Followup renal cell carcinoma. TECHNIQUE ABDOMEN: Prior to the examination, the patient was given oral contrast. During the intravenous administration of 150 cc of 300 mg% nonionic contrast at a rate of 2 cc/second, helical images were obtained from the domes of the diaphragms to the iliac crests. TECHNIQUE PELVIS: Immediately after the above preparation, axial images were obtained from the iliac crests to the ischial tuberosities. FINDINGS: No abnormalities are identified at the lung bases. Specifically, the questioned pleural-based nodule is not clearly seen on the current study, although there is some minimal pleural thickening and dependent atelectasis. No definite pulmonary nodules are identified. There are a few scattered, very tiny hypodensities within the liver which are too small to characterize. Most of these are stable compared to the prior exam. The patient is s/p left nephrectomy. Surgical clips are noted in the left renal fossa. The right kidney is grossly unremarkable, although it is imaged during the early phase of contrast administration. No adenopathy is identified. The visualized bowel has a normal appearance. The appendix is identified and appears normal. Prostatic calcifications are noted. Bone windows demonstrate no significant abnormalities. IMPRESSION IMPRESSION: S/P left nephrectomy. No evidence of recurrence identified. /vladislav us Lauri Vines MD IMG CT ORDERABLES Final Result documented in this encounter Visit Diagnoses Not on filedocumented in this encounter
--- OUTSIDE RECORDS SUMMARY | 2024-08-14 01:18 | XMS_ITS | Encounter Summary ---
Author Organization [facility] Address [address] [place] [address] Care Team Providers Care Independent Living Instructor Name Role Phone Unavailable Primary Care Provider Unavailabl e Encounter Details Date Type Department Care Team (Late st Contact Info) Description 05/31/2008 13:14 EDT Hospital Encounter [address] [address] Lauri Vines MD [facility] [place] [address] [place] [phone] Discharge Disposition: Auto Discharge Social [...] Info) Description 08/19/2024 10:00 EST Office Visit [facility] Adult Hematology & Oncology [address] [place] [address] Brie Artis, PARADISE 130 [facility] [address] [place] [address] 08/19/2024 10:30 EST Nurse Only [facility] Adult Hem Onc Infusion [address] [place] [address] 08/25/2024 9:00 EST Office Visit [facility] Adult Hematology & Oncology [address] [place] [address], [place] [phone] Lelea Turcios FNP 130 [facility] [address] [place] [phone] 08/25/2024 10:00 EST Nurse Only [facility] Adult Hem Onc Infusion [address] [place], [place] [phone] 09/08/2024 8:00 EST Office Visit [facility] Adult Hematology & Oncology [address] [place] [address], [place] [phone] Brie Artis, PARADISE 130 [facility] [address] [place] [phone] 09/08/2024 8:30 EST Nurse Only [facility] Adult Hem Onc Infusion [address] [place], [place] [phone] documented as of this encounter Procedures Procedure Name Priority Date/Time Associated Diagnosis Comments LIPID PROFILE (INCLUDES CHOLESTEROL, TRIGLYCERIDES, HDL, LDL) Routine 06/10/2008 10:30 EDT COMPREHENSIVE METABOLIC PANEL (CMP) Routine 06/10/2008 10:30 EDT PSA TOTAL, DIAGNOSTIC Routine 05/31/2008 13:27 EDT documented in this encounter Results * (ABNORMAL) LIPID PROFILE (06/10/2008 10:30 EDT) Cholesterol 182 mg/dl [facility] Comment: Desirable:<200 Borderline:200-239 High Risk:>pb=251 Triglycerides 168(H) 35 - 160 mg/dl [facility] HDL 41 mg/dl [facility] Comment: Highly Desirable:>60 Desirable:35-60 High Risk:<35 LDL, Calculated 107 mg/dl [facility] Comment: Desirable:<130 Borderline:130-159 High Risk:>cu=228 Chol/HDL Ratio 4.4 [facility] Fasting? Unknown [facility] 06/10/2008 10:3 0 EDT 06/10/2008 20:58 EDT us Urbano Lee Jr., MD CHEMISTRY & BLOOD GAS OR DERABLES Final Result Performing Organization Address [facility] Co de Phone Number [facility] [address] [place] [address] * (ABNORMAL) COMPREHENSIVE METABOLIC PANEL (06/10/2008 10:30 EDT) Pathologist [facility] Potassium 4.4 3.5 - 5.0 mEq/L [facility] Sodium 142 136 - 145 mEq/L [facility] Chloride 109 96 - 110 mEq/L [facility] CO2 26 24 - 32 mEq/L [facility] Alkaline Phosphatase 78 38 - 126 U/L [facility] Bilirubin, Total <0.5 0.2 - 1.3 mg/dl [facility] AST 28 15 - 46 U/L [facility] ALT 29 21 - 72 U/L [facility] Albumin 4.0 3.4 - 4.9 g/dl [facility] Total Protein 6.2(L) 6.5 - 8.3 g/dl [facility] Creatinine 1.02 0.7 - 1.5 mg/dl [facility] GFR, Calculated >60 ml/min/1.7 3m2 [facility] BUN 16 10 - 26 mg/dl [facility] Calcium 9.6 8.5 - 10.5 mg/dl [facility] Calculated Calcium 10.0 8.5 - 10.5 mg/dl [facility] Glucose, Serum 91 70 - 100 mg/dl [facility] Fasting? Unknown [facility] 06/10/2008 10:3 0 EDT 06/10/2008 20:58 EDT us Urbano Lee Jr., MD CHEMISTRY & BLOOD GAS OR DERABLES Final Result Performing Organization Address [facility] de Phone Number [facility] [address] [place] [address] * (ABNORMAL) PSA (05/31/2008 13:27 EDT) PSA 3.9(H) 0 - 3.5 ng/ml [facility] Comment: Serum PSA concentration should not be interpreted as absolute evidence for the presence or absence of malignant disease. Assayed utilizing [employer] chemiluminescent technology. Values obtained by using different assay methods cannot be used interchangeably. 05/31/2008 13:2 7 EDT 05/31/2008 13:28 EDT us Lauri Vines MD CHEMISTRY & BLOOD GAS OR DERABLES Final Result [facility] [address] [place] [address] documented in this encounter Visit Diagnoses Not on filedocumented in this encounter
--- OUTSIDE RECORDS SUMMARY | 2024-08-14 01:18 | XMS_ITS | Encounter Summary ---
Author Organization [facility] Address [address] [place] [address] Care Team Providers Care Cpr Ambulance Driver Name Role Phone Jesus Augustin MD, Urbano Aguayo Primary Care Provider + Encounter Details Date Type Department Care Team (Late st Contact Info) Description 05/23/2010 8:18 EDT - 05/23/2010 8:19 EDT Hospital Encounter [facility] - Other [address] [place] [address] Deon Dey MD [address] [place] [address] [place], [place] [phone] Discharge Disposition: Home or Self Care Social [...] Info) Description 08/19/2024 10:00 EST Office Visit [facility] Adult Hematology & Oncology [address] [place] [address] Bire Artis NP 130 [facility] [address] [place] [address] 08/19/2024 10:30 EST Nurse Only [facility] Adult Hem Onc Infusion [address] [place] [address] 08/25/2024 9:00 EST Office Visit [facility] Adult Hematology & Oncology [address] [place] [phone] Leela Turcios FNP 130 [facility] 12 [place] [phone] 08/25/2024 10:00 EST Nurse Only [facility] Adult Hem Onc Infusion [address] [place], [place] [address] 09/08/2024 8:00 EST Office Visit [facility] Adult Hematology & Oncology [address] [place] [address] [phone] Brie Artis NP 130 [facility] [address] [phone] 09/08/2024 8:30 EST Nurse Only [facility] Adult Hem Onc Infusion [address] [place] [address] [phone] documented as of this encounter Visit Diagnoses Not on filedocumented in this encounter Care Teams Cpr Ambulance Driver Relationship Specialty Start Date End Date Urbnao Lee Jr., MD [address] [phone] PCP - General 03/07/09 documented as of this encounter
--- OUTSIDE RECORDS SUMMARY | 2024-08-14 01:18 | XMS_ITS | Encounter Summary ---
Author Organization [facility] Address [address] [place] [address] Care Team Providers Care Cleat Thrower Name Role Phone Unavailable Primary Care Provider Unavailabl e Encounter Details Date Type Department Care Team (Latest Contact Info) Description 07/09/2007 9:59 EDT - 07/09/2007 11:59 EDT Hospital Encounter [facility] - Other [address] [place] [address] Urbano Lee Jr., MD [address] [facility] [address] [place] [phone] Discharge Disposition: Home or Self Care Social [...] 08/19/2024 10:00 EST Office Visit [facility] Adult Hematology & Oncology [address] [place] [address] Brie Artis NP 130 [facility], [facility] [address] [place] [address] 08/19/2024 10:30 EST Nurse Only [facility] Adult Hem Onc Infusion [address] [place] [address] 08/25/2024 9:00 EST Office Visit [facility] Adult Hematology & Oncology [address] [place] [address], [place] [phone] Leela Turcios FNP 130 [facility] 12 [place] [phone] 08/25/2024 10:00 EST Nurse Only [facility] Adult Hem Onc Infusion [address] [place] [address], [place] [address] 09/08/2024 8:00 EST Office Visit [facility] Adult Hematology & Oncology [address] [place] [address], [place] [phone] Brie Artis, [employer] 130 [facility] 12 [place] [phone] 09/08/2024 8:30 EST Nurse Only [facility] Adult Hem Onc Infusion [address] [place] [phone] documented as of this encounter Visit Diagnoses Not on filedocumented in this encounter
--- OUTSIDE RECORDS SUMMARY | 2024-08-14 01:18 | XMS_ITS | Encounter Summary ---
Author Organization [facility] Address [address] [place] [address] Care Team Providers Care Sap Senior Developer Name Role Phone Jesus Augustin MD, Urbano Aguayo Primary Care Provider + Encounter Details Date Type Department Care Team (Late st Contact Info) Description 04/07/[address] [facility] [address] [place] [address] Urbano Lee Jr., MD [address] [facility] 101 [place] [address] Social History Tobacco Use Types [...] [facility] Adult Hematology & Oncology [address] [place] [address] Brie Artis, PARADISE 130 [facility], [facility] [address] [place] [address] 08/19/2024 10:30 EST Nurse Only [facility] Adult Hem Onc Infusion [address] [place] [address] 08/25/2024 9:00 EST Office Visit [facility] Adult Hematology & Oncology [address] [place] [address], [place] [phone] Leela Turcios FNP 130 [facility] [address] [place] [address] 08/25/2024 10:00 EST Nurse Only [facility] Adult Hem Onc Infusion 130 [place] [address] 09/08/2024 8:00 EST Office Visit [facility] Adult Hematology & Oncology [address] [place] [address], [place] [address] Brie Artis, PARADISE 130 [facility] [address] [place] [address] 09/08/2024 8:30 EST Nurse Only [facility] Adult Hem Onc Infusion 130 [place], [place] [phone] documented as of this encounter Procedures Procedure Name Priority Date/Time Associated Diagnosis Comments LIPID PROFILE (INCLUDES CHOLESTEROL, TRIGLYCERIDES, HDL, LDL) Routine 04/07/2004 8:00 EDT COMPREHENSIVE METABOLIC PANEL (CMP) Routine 04/07/2004 8:00 EDT documented in this encounter Results * LIPID PROFILE (INCLUDES CHOLESTEROL, TRIGLYCERIDES, HDL, LDL) (04/07/2004 8:00 EDT) Cholesterol 242 mg/dl [facility] Comment: Desirable:<200 Borderline:200-239 High Risk:>ey=375 Fasting Triglycerides 153 35 - 160 mg/dl [facility] Comment:Fasting HDL 39 mg/dl [facility] Comment: Highly Desirable:>60 Desirable:35-60 High Risk:<35 Fasting LDL, Calculated 172 mg/dl [facility] Comment: Desirable:<130 Borderline:130-159 High Risk:>dq=306 Fasting Chol/HDL Ratio 6.2 Fasting [facility] 04/07/2004 8:00 EDT 04/07/2004 20:32 EDT us Urbano Lee Jr., MD CHEMISTRY & BLOOD GAS OR DERABLES Final Result Performing Organization Address [facility] Co de Phone Number [facility] [address] [place] [address] * (ABNORMAL) COMPREHENSIVE METABOLIC PANEL (04/07/2004 8:00 EDT) Potassium 4.5 3.5 - 5.0 mEq/L [facility] Comment:Fasting Sodium 143 136 - 145 mEq/L [facility] Comment:Fasting Chloride 110 96 - 110 mEq/L [facility] Comment:Fasting CO2 25 24 - 32 mEq/L [facility] Comment:Fasting Total Alkaline Phosphatase 85 38 - 126 U/L [facility] Comment:Fasting Bilirubin, Total <0.5 0.2 - 1.3 mg/dl [facility] Comment:Fasting AST 24 15 - 46 U/L [facility] Comment:Fasting ALT 26 21 - 72 U/L [facility] Comment:Fasting Albumin 3.8 3.4 - 4.9 g/dl [facility] Comment:Fasting Total Protein 6.2(L) 6.5 - 8.0 g/dl [facility] Comment:Fasting Creatinine 1.2 0.7 - 1.5 mg/dl [facility] Comment:Fasting BUN 15 10 - 26 mg/dl [facility] Comment:Fasting Calcium 9.2 8.5 - 10.5 mg/dl [facility] Comment:Fasting Calculated Calcium 9.8 8.5 - 10.5 mg/dl [facility] Comment:Fasting Glucose, Serum 102 70 - 110 mg/dl [facility] Comment:Fasting Albumin/Globulin Ratio 1.6 Fasting [facility] 04/07/2004 8:00 EDT 04/07/2004 20:32 EDT us Urbano Lee Jr., MD CHEMISTRY & BLOOD GAS OR DERABLES Final Result Performing Organization Address [facility] Co de Phone Number [facility] [address] [place] [address] documented in this encounter Visit Diagnoses Not on filedocumented in this encounter Care Teams Sap Senior Developer Relationship Specialty Start Date End Date Urbano Lee Jr., MD [address] [phone] PCP - General 03/07/09 documented as of this encounter
--- OUTSIDE RECORDS SUMMARY | 2024-08-14 01:18 | XMS_ITS | Encounter Summary ---
Author Organization [facility] Address [address] [place] [address] Care Team Providers Care Cluster Bore Operator Name Role Phone Unavailable Primary Care Provider Unavailabl e Encounter Details Date Type Department Care Team (Late Contact Info) Description 08/14/2005 12:37 EST Hospital Encounter [facility] - Other [address] [place] [address] Urbano Lee Jr., MD [address] [facility] 101 [place] [address] Social History Tobacco Use Types [...] [facility] Adult Hematology & Oncology [address] [place] [address] Brie Artis NP 130 [facility], [facility] [address] [place] [phone] 08/19/2024 10:30 EST Nurse Only [facility] Adult Hem Onc Infusion 130 [facility] [place] [phone] 08/25/2024 9:00 EST Office Visit [facility] Adult Hematology & Oncology [address] [place] [address], [place] [phone] Leela Turcios FNP 130 [facility] [address] [place] [phone] 08/25/2024 10:00 EST Nurse Only [facility] Adult Hem Onc Infusion 130 [facility] [place] [address] 09/08/2024 8:00 EST Office Visit [facility] Adult Hematology & Oncology [address] [place] [address], [place] [phone] Brie Artis, PARADISE 130 [facility] [address] [place] [address] 09/08/2024 8:30 EST Nurse Only [facility] Adult Hem Onc Infusion 130 [place] [address] documented as of this encounter Visit Diagnoses Not on filedocumented in this encounter
--- OUTSIDE RECORDS SUMMARY | 2024-08-14 01:18 | XMS_ITS | Encounter Summary ---
Author Organization [facility] Address [address] [place] [address] Care Team Providers Care Blow Molder Name Role Phone Jesus Augustin MD, Urbano Aguayo Primary Care Provider + Encounter Details Date Type Department Care Team (Late st Contact Info) Description 03/29/2010 8:31 EDT - 03/29/2010 8:32 EDT Hospital Encounter [facility] Other [address] [place] [address] Lauri iVnes MD [address] [place] [phone] Discharge Disposition: Home or Self Care Social [...] 08/19/2024 10:00 EST Office Visit [facility] Adult Hematology & Oncology [address] [place], [place] [address] Brie Artis, PARADISE 130 [facility], [facility] [address] [place] [phone] 08/19/2024 10:30 EST Nurse Only [facility] Adult Hem Onc Infusion [address] [place] [address] 08/25/2024 9:00 EST Office Visit [facility] Adult Hematology & Oncology [address] [place] [address], [place] [phone] Leela Turcios FNP 130 [facility] [address] [phone] 08/25/2024 10:00 EST Nurse Only [facility] Adult Hem Onc Infusion [address] [place], [place] [phone] 09/08/2024 8:00 EST Office Visit [facility] Adult Hematology & Oncology [address] [place] [address], [place] [phone] Brie Artis, PARADISE [address] [phone] 09/08/2024 8:30 EST Nurse Only [facility] Adult Hem Onc Infusion [address] [place] [phone] documented as of this encounter Visit Diagnoses Not on filedocumented in this encounter Care Teams Blow Molder Relationship Specialty Start Date End Date Urbano Lee Jr., MD [address] [phone] PCP - General 03/07/09 documented as of this encounter
--- OUTSIDE RECORDS SUMMARY | 2024-08-14 01:18 | XMS_ITS | Encounter Summary ---
Author Organization [facility] Address [address] [place] [address] Care Team Providers Care General Maintenance Engineer Name Role Phone Jesus Augustin MD, Urbano Aguayo Primary Care Provider + Encounter Details Date Type Department Care Team (Late st Contact Info) Description 02/05/2008 Results Only [facility] [address] [place] [address] Lauri Vines MD [address] [place] [phone] Social History Tobacco Use Types Packs/Day Years [...] [facility] Adult Hematology & Oncology [address] [place] [address] Brie Artis, [place] [facility] [address] [place] [address] 08/19/2024 10:30 EST Nurse Only [facility] Adult Hem Onc Infusion [address] [place] [address] 08/25/2024 9:00 EST Office Visit [facility] Adult Hematology & Oncology [address] [place] [address], [place] [address] Leela Turcios FNP 130 [facility] [address] [place] [address] 08/25/2024 10:00 EST Nurse Only [facility] Adult Hem Onc Infusion [address] [place] [address] 09/08/2024 8:00 EST Office Visit [facility] Adult Hematology & Oncology [address] [place] [address], [place] [address] Brie Artis, PARADISE 130 [facility] [address] [place] [address] 09/08/2024 8:30 EST Nurse Only [facility] Adult Hem Onc Infusion [address] [place] [address] documented as of this encounter Procedures Procedure Name Priority Date/Time Associated Diagnosis Comments HEPATIC FUNCTION PANEL (ALB,ALK PHOS,ALT,AST,DBIL,TO T CORINNA,TOT PROT) Routine 02/05/2008 19:40 EDT GLUCOSE-1HR GESTATIONAL SCREEN Routine 02/05/2008 15:00 EDT documented in this encounter Results * LIVER FUNCTION TESTS (02/05/2008 19:40 EDT) Albumin 4.3 3.4 - 4.9 g/dl [facility] Total Protein 6.7 6.5 - 8.3 g/dl [facility] Total Alkaline Phosphatase 98 38 - 126 U/L [facility] ALT 31 21 - 72 U/L [facility] AST 30 15 - 46 U/L [facility] Unconjugated Bilirubin 0.2 0.1 - 1.1 mg/dl [facility] Conjugated Bilirubin 0.0 0.0 - 0.3 mg/dl [facility] Bilirubin, Total <0.5 0.2 - 1.3 mg/dl [facility] 02/05/2008 19:4 0 EDT 02/05/2008 19:40 EDT Lauri Vines MD CHEMISTRY & BLOOD GAS OR DERABLES Final Result Performing Organization Address [facility] de Phone Number [facility] [address] [place] [address] * GLUCOSE-1HR GESTATIONAL SCREEN (02/05/2008 15:00 EDT) 02/05/2008 15:0 0 EDT 02/05/2008 19:34 EDT Lauri Vines MD PACKAGES & DNA PROBE ORD ERABLES Final Result Performing Organization Address [facility] de Phone Number [facility] [address] [address] documented in this encounter Visit Diagnoses Not on filedocumented in this encounter Care Teams General Maintenance Engineer Relationship Specialty Start Date End Date Urbano Lee Jr., MD [address] [facility] [address] [place] [address] PCP - General 03/07/09 documented as of this encounter
--- OUTSIDE RECORDS SUMMARY | 2024-08-14 01:18 | XMS_ITS | Encounter Summary ---
Author Organization [facility] Address [address] [place] [address] Care Team Providers Care Television Engineer Name Role Phone Jesus Augustin MD, Urbano Aguayo Primary Care Provider + Encounter Details Date Type Department Care Team (Late st Contact Info) Description 06/19/2012 Results Only [facility] Laboratory Services - [facility] [address] [place], [place] [phone] Urbano Lee Jr., MD [address] [facility] [address] [place] [phone] Social History Tobacco Use Types Packs/Day Years [...] Visit [facility] Adult Hematology & Oncology [address] [place] [address] Brie Artis, PARADISE 130 [facility] [address] [place] [phone] 08/19/2024 10:30 EST Nurse Only [facility] Adult Hem Onc Infusion [address] [place] [address] 08/25/2024 9:00 EST Office Visit [facility] Adult Hematology & Oncology [address] [place] [address], [place] [phone] Leela Turcios FNP 130 [facility] [address] [place] [phone] 08/25/2024 10:00 EST Nurse Only [facility] Adult Hem Onc Infusion 130 [facility], [place] [phone] 09/08/2024 8:00 EST Office Visit [facility] Adult Hematology & Oncology [address] [place] [address], [place] [phone] Brie Artis, PARADISE 130 [facility] [address] [place] [phone] 09/08/2024 8:30 EST Nurse Only [facility] Adult Hem Onc Infusion 130 [place] [address] documented as of this encounter Procedures Procedure Name Priority Date/Time Associated Diagnosis Comments PSA TOTAL, DIAGNOSTIC Routine 06/19/2012 9:10 EDT LIPID PROFILE (INCLUDES CHOLESTEROL, TRIGLYCERIDES, HDL, LDL) Routine 06/19/2012 9:10 EDT COMPREHENSIVE METABOLIC PANEL (CMP) Routine 06/19/2012 9:10 EDT documented in this encounter Results * (ABNORMAL) PSA (06/19/2012 9:10 EDT) PSA 6.1(H) 0 - 4.5 ng/ml [facility] Comment: Serum PSA concentration should not be interpreted as absolute evidence for the presence or absence of malignant disease. Assayed utilizing [employer] (Web[employer]) chemiluminescent technology. ??Values obtained by using different assay methods cannot be used interchangeably. PREVIOUS PSA WAS 5.3 ON 05/23/2011 06/19/2012 9:10 EDT 06/19/2012 21:47 EDT us Urbano Lee Jr., MD CHEMISTRY & BLOOD GAS OR DERABLES Final Result Performing Organization Address [facility] de Phone Number [facility] [address] [place] [address] * LIPID PROFILE (INCLUDES CHOLESTEROL, TRIGLYCERIDES, HDL, LDL) (06/19/2012 9:10 EDT) Cholesterol 169 mg/dl [facility] Comment: Desirable:<200 Borderline High:200-239 High:>xi=642 Triglycerides 102 mg/dl [facility] Comment: Normal:<150 Borderline High:150-199 High:200-499 Very High:>yw=573 HDL 46 mg/dl [facility] Comment: Low:<40 Normal:40-60 Desirable: >60 LDL, Calculated 103 mg/dl RA [facility] Comment: Optimal:<100 Near Optimal:100-129 Borderline High:130-159 High:160-189 Very High:>bj=963 Chol/HDL Ratio 3.7 [facility] Fasting? Yes [facility] 06/19/2012 9:10 EDT 06/19/2012 21:47 EDT us Urbano Lee Jr., MD CHEMISTRY & BLOOD GAS OR DERABLES Final Result Performing Organization Address [facility] de Phone Number [facility] [address] [place] [address] * (ABNORMAL) COMPREHENSIVE METABOLIC PANEL (CMP) (06/19/2012 9:10 EDT) Pathologist [facility] Potassium 4.3 3.5 - 5.0 mEq/L [facility] Sodium 141 136 - 145 mEq/L [facility] Chloride 108 96 - 110 mEq/L [facility] CO2 24 24 - 32 mEq/L [facility] Total Alkaline Phosphatase 85 38 - 126 U/L [facility] Bilirubin, Total <0.5 0.2 - 1.3 mg/dl [facility] AST 22 15 - 46 U/L [facility] ALT 31 21 - 72 U/L [facility] Albumin 3.7 3.4 - 4.9 g/dl [facility] Total Protein 6.0(L) 6.5 - 8.3 g/dl [facility] Creatinine 1.08 0.66 - 1.25 mg/dl [facility] GFR, Calculated >60 >60 ml/min/1.7 3m2 [facility] BUN 16 10 - 26 mg/dl [facility] Calcium 9.5 8.5 - 10.5 mg/dl [facility] Calculated Calcium 10.2 8.5 - 10.5 mg/dl [facility] Glucose, Serum 108(H) 70 - 100 mg/dl [facility] Fasting? Yes [facility] 06/19/2012 9:10 EDT 06/19/2012 21:47 EDT us Urbano Lee Jr., MD CHEMISTRY & BLOOD GAS OR DERABLES Final Result Performing Organization Address City/State/[facility] Co de Phone Number [facility] [address] [place] [address] documented in this encounter Visit Diagnoses Not on filedocumented in this encounter Care Teams Television Engineer Relationship Specialty Start Date End Date Urbano Lee Jr., MD [address] [phone] PCP - General 03/07/09 documented as of this encounter
--- OUTSIDE RECORDS SUMMARY | 2024-08-14 01:19 | XMS_ITS | Encounter Summary ---
Author Organization [facility] Address [address] [place] [address] Care Team Providers Care Director Audience Marketing Name Role Phone Unavailable Primary Care Provider Unavailabl e Encounter Details Date Type Department Care Team (Late st Contact Info) Description 08/29/2001 15:03 EST Hospital Encounter [address] [address] Lauri Vines MD [facility] [address], [place] [address] Discharge Disposition: Auto Discharge Social [...] Info) Description 08/19/2024 10:00 EST Office Visit [facility] Adult Hematology & Oncology [address] [place] [address] Brie Artis NP 130 [facility] [address] [place] [address] 08/19/2024 10:30 EST Nurse Only [facility] Adult Hem Onc Infusion [address] [place] [address] 08/25/2024 9:00 EST Office Visit [facility] Adult Hematology & Oncology [address] [place] [address], [place] [address] Leela Turcios FNP 130 [facility] [address] [place] [phone] 08/25/2024 10:00 EST Nurse Only [facility] Adult Hem Onc Infusion [address] [place], [place] [phone] 09/08/2024 8:00 EST Office Visit [facility] Adult Hematology & Oncology [address] [place] [address], [place] [address] Brie Artis, PAR[place]ISE 130 [facility] [address] [place] [phone] 09/08/2024 8:30 EST Nurse Only [facility] Adult Hem Onc Infusion [address] [place], [place] [phone] documented as of this encounter Procedures Procedure Name Priority Date/Time Associated Diagnosis Comments CHEST PA AND LATERAL Routine 08/29/2001 15:38 EST documented in this encounter Results * CHEST PA AND LATERAL (08/29/2001 15:38 EST) Anatomical Region Laterality Modality Other 08/29/2001 15:3 8 EST Narrative 08/05/2009 3:14 EST CA OF KIDNEY, PRIMARY ??--- R/O METS GFTP PA AND LATERAL VIEWS OF THE CHEST: 08/29/01 TIME: 1530 COMPARISON: 08/31/99 CLINICAL HISTORY: Carcinoma of the kidney, primary. Rule out metastasis. The cardiomediastinal silhouette is normal. The lungs are clear. No nodule or mass is seen. Minimal apical pleural thickening is seen on the left similar to the prior exam. There is no evidence of metastatic disease in the chest. /vladislav Procedure Note Hilary Lindo MD - 08/05/2009 CA OF KIDNEY, PRIMARY --- R/O METS GFTP PA AND LATERAL VIEWS OF THE CHEST: 08/29/01 TIME: 1530 COMPARISON: 08/31/99 CLINICAL HISTORY: Carcinoma of the kidney, primary. Rule out metastasis. The cardiomediastinal silhouette is normal. The lungs are clear. No nodule or mass is seen. Minimal apical pleural thickening is seen on the left similar to the prior exam. There is no evidence of metastatic disease in the chest. /vladislav us Luari Vines MD IMG DIAGNOSTIC IMAGING O RDERABLES Final Result documented in this encounter Visit Diagnoses Not on filedocumented in this encounter
--- OUTSIDE RECORDS SUMMARY | 2024-08-14 01:19 | XMS_ITS | Encounter Summary ---
Author Organization [facility] Address [address] [place] [address] Care Team Providers Care Risk Control Officer Name Role Phone Unavailable Primary Care Provider Unavailabl e Encounter Details Date Type Department Care Team (Late st Contact Info) Description 02/06/2000 14:47 EDT Hospital Encounter [address] [address] Lauri Vines MD [facility] [address] [place] [address] Social History Tobacco Use Types [...] Description 08/19/2024 10:[address] [facility] Adult Hematology & Oncology [address] [place] [address] Brie Artis NP 130 [facility] [address] [place] [phone] 08/19/2024 10:[address] [facility] Adult Hem Onc Infusion [address] [facility], [place] [phone] 08/25/2024 9:[address] [facility] Adult Hematology & Oncology [address] [place] [address], [place] [phone] Leela Turcios FNP 130 [facility] [address] [place] [address] 08/25/2024 10:[address] [facility] Adult Hem Onc Infusion [address] [facility], [place] [phone] 09/08/2024 8:[address] [facility] Adult Hematology & Oncology [address] [place] [address], [place] [address] Brie Artis, PAR[place]ISE 130 [facility] [address] [place] [address] 09/08/2024 8:[address] [facility] Adult Hem Onc Infusion [address] [place] [address] documented as of this encounter Procedures Procedure Name Priority Date/Time Associated Diagnosis Comments PSA TOTAL, DIAGNOSTIC Routine 02/06/2000 14:39 EDT documented in this encounter Results * (ABNORMAL) PSA (02/06/2000 14:39 EDT) PSA 4.6(H) 0 - 2.5 ng/ml [facility] Comment: Serum PSA concentration should not be interpreted as absolute evidence for the presence or absence of malignant disease. Assayed utilizing [employer] chemiluminescent technology. Values obtained by using different assay methods cannot be used interchangeably. 02/06/2000 14:3 9 EDT 02/06/2000 14:44 EDT us Lauri Vines MD CHEMISTRY & BLOOD GAS OR DERABLES Final Result [facility] [address] [place] [address] documented in this encounter Visit Diagnoses Not on filedocumented in this encounter
--- OUTSIDE RECORDS SUMMARY | 2024-08-14 01:19 | XMS_ITS | Encounter Summary ---
Author Organization [facility] Address [address] [place] [address] Care Team Providers Care Media Manager Name Role Phone Unavailable Primary Care Provider Unavailabl e Encounter Details Date Type Department Care Team (Late st Contact Info) Description 08/31/1999 14:27 EST Hospital Encounter [address] [address] Lauri Vines MD [facility] [address] [address] Discharge Disposition: Auto Discharge Social [...] Info) Description 08/19/2024 10:00 EST Office Visit [facility] Adult Hematology & Oncology [address] [place] [address] Brie Artis NP 130 [facility] [address] [place] [address] 08/19/2024 10:30 EST Nurse Only [facility] Adult Hem Onc Infusion [address] [place] [address] 08/25/2024 9:00 EST Office Visit [facility] Adult Hematology & Oncology [address] [place] [address], [place] [phone] Leela Turcios FNP 130 [facility] [address] [place] [phone] 08/25/2024 10:00 EST Nurse Only [facility] Adult Hem Onc Infusion 130 [facility], [place] [phone] 09/08/2024 8:00 EST Office Visit [facility] Adult Hematology & Oncology [address] [place] [address], [place] [address] Brie Artis, PARADISE 130 [facility] [address] [place] [address] 09/08/2024 8:30 EST Nurse Only [facility] Adult Hem Onc Infusion [address] [place], [place] [phone] documented as of this encounter Procedures Procedure Name Priority Date/Time Associated Diagnosis Comments CHEST PA AND LATERAL Routine 08/31/1999 15:12 EST CREATININE Routine 08/31/1999 14:26 EST HEPATIC FUNCTION PANEL (ALB,ALK PHOS,ALT,AST,DBIL,TO T CORINNA,TOT PROT) Routine 08/31/1999 14:26 EST documented in this encounter Results * CHEST PA AND LATERAL (08/31/1999 15:12 EST) Anatomical Region Laterality Modality Other 08/31/1999 15:1 2 EST Narrative 07/26/2009 12:45 EST KIDNEY CA R/O METS ??GFTP 08-31-99: CHEST PA AND LATERAL (1505 hrs): COMPARISON: 08-25-98. The cardiopericardial silhouette is not enlarged. There appears to be a somewhat prominent left sided apical fat pad. The pulmonary vascularity is within normal limits and the lungs are clear. No pulmonary nodules are identified and there is no evidence of infiltrate. The bony thorax is unremarkable. D: 09-04-99 T: 09-07-99 /am Procedure Note Iris Alberts MD - 07/26/2009 KIDNEY CA R/O METS GFTP 08-31-99: CHEST PA AND LATERAL (1505 hrs): COMPARISON: 08-25-98. The cardiopericardial silhouette is not enlarged. There appears to be a somewhat prominent left sided apical fat pad. The pulmonary vascularity is within normal limits and the lungs are clear. No pulmonary nodules are identified and there is no evidence of infiltrate. The bony thorax is unremarkable. D: 09-04-99 T: 09-07-99 /am Lauri Vines MD IMG DIAGNOSTIC IMAGING O RDERABLES Final Result * LIVER FUNCTION TESTS (08/31/1999 14:26 EST) Albumin 4.3 3.0 - 5.5 g/dl [facility] Total Alkaline Phosphatase 89 38 - 126 U/L [facility] ALT 42 15 - 75 U/L [facility] AST 28 8 - 50 U/L [facility] Unconjugated Bilirubin 0.3 0.1 - 1.1 mg/dl [facility] Conjugated Bilirubin 0.0 0.0 - 0.3 mg/dl [facility] Bilirubin, Total 0.7 0.2 - 1.3 mg/dl [facility] 08/31/1999 14:2 6 EST 08/31/1999 14:28 EST Lauri Vines MD CHEMISTRY & BLOOD GAS OR DERABLES Final Result [facility] [address] [place] [address] * CREATININE (08/31/1999 14:26 EST) Creatinine 1.3 0.7 - 1.5 mg/dl [facility] 08/31/1999 14:2 6 EST 08/31/1999 14:28 EST us Lauri Vines MD HISTORICAL LAB FOR SQ LO AD Final Result Performing Organization Address City/State/[facility] Co de Phone Number [facility] [address] [place] [address] documented in this encounter Visit Diagnoses Not on filedocumented in this encounter
--- OUTSIDE RECORDS SUMMARY | 2024-08-14 01:19 | XMS_ITS | Encounter Summary ---
Author Organization [facility] Address [address] [place] [address] Care Team Providers Care Adoption Specialist Name Role Phone Unavailable Primary Care Provider Unavailabl e Encounter Details Date Type Department Care Team (Late st Contact Info) Description 08/18/2001 10:55 EST - 08/18/2001 11:59 EST Hospital Encounter [place] [phone] [place] [address] Lauri Vines MD [address] [place] [phone] Discharge Disposition: Auto Discharge Social History Tobacco [...] Adult Hematology & Oncology [address] [place] [address] Brie Artis NP 130 [facility] [address] [place] [phone] 08/19/2024 10:30 EST Nurse Only [facility] Adult Hem Onc Infusion [address] [place] [address] 08/25/2024 9:00 EST Office Visit [facility] Adult Hematology & Oncology [address] [place] [address], [place] [phone] Leela Turcios FNP 130 [facility] [address] [place] [phone] 08/25/2024 10:00 EST Nurse Only [facility] Adult Hem Onc Infusion [address] [place], [place] [phone] 09/08/2024 8:00 EST Office Visit [facility] Adult Hematology & Oncology [address] [place] [address] Brie Artis, PARADISE 130 [facility] [address] [place] [address] 09/08/2024 8:30 EST Nurse Only [facility] Adult Hem Onc Infusion [address] [place], [place] [phone] documented as of this encounter Procedures Procedure Name Priority Date/Time Associated Diagnosis Comments CREATININE Routine 08/18/2001 10:58 EST BUN Routine 08/18/2001 10:58 EST HEPATIC FUNCTION PANEL (ALB,ALK PHOS,ALT,AST,DBIL,TO T CORINNA,TOT PROT) Routine 08/18/2001 10:58 EST documented in this encounter Results * LIVER FUNCTION TESTS (08/18/2001 10:58 EST) Albumin 4.0 3.0 - 5.5 g/dl [facility] Total Protein 7.1 6.0 - 8.5 g/dl [facility] Total Alkaline Phosphatase 95 38 - 126 U/L [facility] ALT 34 15 - 75 U/L [facility] AST 22 8 - 50 U/L [facility] Unconjugated Bilirubin 0.2 0.1 - 1.1 mg/dl [facility] Conjugated Bilirubin 0.0 0.0 - 0.3 mg/dl [facility] Bilirubin, Total 0.2 0.2 - 1.3 mg/dl [facility] 08/18/2001 10:5 8 EST 08/18/2001 11:00 EST us Lauri Vines MD CHEMISTRY & BLOOD GAS OR DERABLES Final Result Performing Organization Address [facility] de Phone Number [facility] [address] [place] [address] * CREATININE (08/18/2001 10:58 EST) Creatinine 1.4 0.7 - 1.5 mg/dl [facility] 08/18/2001 10:5 8 EST 08/18/2001 11:00 EST Lauri Vines MD HISTORICAL LAB FOR SQ LO AD Final Result Performing Organization Address [facility] de Phone Number [facility] [address] [place] [address] * BUN (08/18/2001 10:58 EST) BUN 18 10 - 26 mg/dl [facility] 08/18/2001 10:5 8 EST 08/18/2001 11:00 EST Lauri Vines MD CHEMISTRY & BLOOD GAS OR DERABLES Final Result Performing Organization Address [facility] de Phone Number [facility] [address] [place] [address] documented in this encounter Visit Diagnoses Not on filedocumented in this encounter
--- OUTSIDE RECORDS SUMMARY | 2024-08-14 01:19 | XMS_ITS ---
Author Organization Unknown Address [address] [place] [phone] Phone Care Team Providers Care Gaming Table Operator Name Role Phone JANINA CUNNINGHAM Dede Attending Unavailable Results HEMOGRAM + PLATELET WO DIFF - Collect Date/Time: 06/10/2024 10:23 [facility] ID: [id number] [address] [place] [address], [id number] LOINC: 74376-7 Test Value Unit Reference Range Code Code System Flag WBC 6.01 th/cmm L=5.00 H=10.00 6690-2 LOINC NRBC % 0.0 % L=0.0 H=0.0 45056-9 LOINC NRBC abs count 0.0 mil/cmm L=0.0 H=0.0 07801-1 LOINC RBC 4.84 mil/cmm L=4.30 H=6.20 789-8 LOINC HEMOGLOBIN 15.4 gm/dL L=13.0 H=17.0 718-7 LOINC HEMATOCRIT 46 % L=45 H=52 4544-3 LOINC MCV 96 fL L=82 H=92 787-2 LOINC H MCH 31.8 pg L=27.0 H=31.0 785-6 LOINC H MCHC 33.3 % L=32.0 H=36.0 786-4 LOINC RDW-SD 43.8 fL L=39.0 H=49.0 788-0 LOINC PLATELET COUNT 143 th/cmm L=150 H=450 777-3 LOINC L SED RATE* - Collect Date/Gabe e: 06/10/2024 10:23 [facility] ID: [id number] - [id number] [address] [place], [place], [address] [facility]: 4537-7 Test Value Unit Reference Range Code Code System Flag SED. RATE 2 mm/hr L=0 H=20 4537-7 LOINC Social History Type Status Start Date End Date Code Code Syst em Smoking History Current every day smoker [id number] SNOMED CT Sex Male Hospital Discharge Instructions Should you have any questions prior to discharge, please contact a member of your healthcare team. If you have left the hospital and have any questions, please contact your primary care physician. Reason For Referral No Data Found Plan of Treatment CT ABDOMEN/PELVIS W/ CONTRAST 4 Encounters Encounter Diagnosis Start Date Code Code Sys tem Epigastric pain 06/10/2024 [id number] SNOMED-CT Personal Care Team Section Performer Name Performer Role Active Date Inactive Da te
--- OUTSIDE RECORDS SUMMARY | 2024-08-14 01:19 | XMS_ITS ---
Author Organization Unknown Address [address] [place] [phone] Phone Care Team Providers Care National Van [employer] Operator Name Role Phone JANINA Aguayo Attending Unavailable Results CT ABD PELVIS W IV AND ORAL CONTRAST* - Completed: 06/30/2024 11:12 LOINC: [facility] [place], [place] [address] RADIOLOGY SCIENTIFIC PROGRAMMER REPORT Patient Name: RICK JOSEPH MRN: Sex: : Age: [id number] M [id number] Account: Accession: Admit: StayType: [id number] 06/30/2024 O Ordered: Order ID: Submitted: Ordering Provider: 06/30/2024 10:29 [id number] KT MARISA ROA Completed: Technologist: Resulted: 06/30/2024 10:59 RODRÍGUEZ 06/30/2024 14:23 EXAMINATION: CT ABD PELVIS W IV AND ORAL CONTRAST CLINICAL HISTORY: Abdominal Pain Add'l Info: TECHNIQUE: Helical CT of the abdomen and pelvis following the intravenous administration of 100 mL of Omnipaque 350. Oral contrast was not administered. COMPARISON: 01/11/2020 renal ultrasound FINDINGS: LUNG BASES: Innumerable bilateral pulmonary nodules. The dominant pulmonary mass in the posterior right costophrenic sulcus measures 4.0 cm in maximal diameter. Majority of the other pulmonary nodules are 2 cm or less. The distribution pattern is suspicious for metastatic disease. Infectious or inflammatory nodularity considered less likely with this appearance LIVER, GALLBLADDER, AND BILIARY TREE: There are several suspicious ill-defined mass lesions within the liver parenchyma. The largest in the lateral aspect of segment 2 of the liver measures 5.6 cm in maximal diameter. The next largest lesion in posterior segment 6 measures 4.8 cm maximal diameter. In addition to these suspicious hepatic lesions there is a low-attenuation 3.2 cm cyst in the lateral aspect of segment 5 noted. The gallbladder is unremarkable with no evidence of radiopaque gallstones, gallbladder wall thickening, or obvious pericholecystic inflammatory changes. PANCREAS: Unfortunately there is a ill-defined mass lesion involving the body to tail of the pancreas. This has ill-defined margins but measures up to 7.7 cm in length. I do not appreciate any pancreatic ductal dilatation. There are peripancreatic soft tissue nodules possibly representing lymph nodes or satellite lesions. SPLEEN: Spleen is homogeneous in signal. 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 ADRENAL GLANDS: The left adrenal gland is presumably surgically absent or difficult to separate from the peripancreatic nodularity contralateral right adrenal gland unremarkable KIDNEYS AND URETERS: Left kidney is surgically absent. Bowel has fallen into the left nephrectomy bed. The contralateral right kidney measures 13.7 cm in length. There is a complex exophytic 3 cm cyst with a 0.7 cm enhancing nodularity along the posterior and pole of the right kidney. BLADDER: Unremarkable. GASTROINTESTINAL TRACT: A few scattered colonic diverticula are seen. No colonic wall thickening or pericolonic inflammatory change. Normal-appearing appendix in the right lower quadrant. Visualized small bowel grossly unremarkable. PERITONEAL SPACE: Omental nodularity measuring 1.4 cm in size in the anterior right upper quadrant. ABDOMINAL WALL: No significant hernia is appreciated. LYMPHOVASCULAR STRUCTURES: Vascular calcification within the aortoiliac system. Prominent retroperitoneal adenopathy with a periaortic node measuring up to 1.5 cm short axis. Confluent ill-defined adenopathy in the peripancreatic region. PELVIC VISCERA: Large prostate OSSEOUS STRUCTURES: Mild degenerative changes in the spine. No suspicious bony lesions. IMPRESSION: 1. Innumerable pulmonary nodules with a dominant right lower lobe pulmonary mass in the right lung base. Although the posterior right lung base lesion could be a primary lesion, metastatic disease to the lungs would be favored with this distribution. 2. Multiple suspicious hepatic mass lesion seen concerning for hepatic metastatic disease. 3. Omental and peritoneal nodularity concerning for carcinomatosis without significant ascites.. 4. Ill-defined mass lesion involving the pancreatic body and tail with peripancreatic soft tissue nodularity. Uncertain if this is related to primary pancreatic malignancy or metastatic disease to the pancreas. Clinical correlation and tissue diagnosis may be needed to confirm. 5. Status post left nephrectomy. 6. 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 With such a complex distribution of mass lesions in nodularity, the primary source lesion is difficult to confirm. Tissue diagnosis would be needed. Renal, pancreatic, or pulmonary primary malignancies could present with this metastatic distribution pattern. Clinical correlation and tissue diagnosis would be needed to confirm further. I, Jasvir Roberts, discussed the clinical findings above with Debra Hernandez NP on 06/30/2024 2:22 PM and verified that the results were understood. Thank you for letting us participate in the care of this patient. If you are a health care provider and have any questions regarding this report, please contact the number below. For patients who have questions please contact the health nurse behavioral health care that requested your imaging first. Electronically signed by: Jasvir Roberts [facility] ([phone]), at 06/30/2024 2:23 PM Social History Type Status Start Date End Date Code Code Syst em Smoking History Current every day smoker [id number] [facility] CT Sex Male Hospital Discharge Instructions Should you have any questions prior to discharge, please contact a member of your healthcare team. If you have left the hospital and have any questions, please contact your primary care physician. Reason For Referral No Data Found Plan of Treatment CT ABDOMEN/PELVIS W/ CONTRAST 4 Encounters Encounter Diagnosis Start Date Code Code Sys tem Abdominal pain 06/30/2024 [id number] [employer] [facility] Personal Care Team Section Performer Name Performer Role Active Date Inactive Da te
[2024-08-14] MEDS: Normal Saline Flush 10 ML SYR IVP (12:35)
== END 2024-08-15 23:59 | disposition home or self-care (01) ==
LOC: INF 01:12
PROVIDERS: PCP Family Medicine; Visit Provider Nurse Practitioner
DX: Z45.2 Encounter for adjustment and management of vascular access device (principal)
CPT/HCPCS: 96523

== ENCOUNTER 2024-08-25 17:05 | Emergency (ER) | payer MEDICARE, BC, SELFPAY ==
[2024-08-25 17:11] VITALS: BP 123/79; PULSE 106; RESP 15; TEMP 36.7; O2SAT 97
[2024-08-25 17:35] VITALS: RESP 21
--- NOTE | 2024-08-25 18:54 | ED.GENADUL_ITS ---
Discharge Plan Disposition Patient Disposition: Home Discharge Details Clinical Impression: Facial paresthesia Primary Care Provider: Urbano Lee JR ED Provider: Alexander Aleman Home Meds and New Rx's Prescriptions: No Action atorvastatin 40 mg tablet 20 mg PO DAILY omeprazole 40 mg capsule,delayed release(DR/EC) 40 mg PO DAILY aspirin 81 mg capsule 81 mg PO DAILY ondansetron 4 mg tablet,disintegrating 4 mg PO BID-TID PRN tramadol 50 mg tablet 50 mg PO Q6H PRN (Reason: pain) albuterol sulfate [Ventolin HFA] 90 mcg/actuation HFA aerosol inhaler 2 inh inhalation Q4H PRN Discharge Instructions Additional Instructions: the tingling around your mouth is not a likely symptom of a stroke more likely to be a side effect of chemo or if you're cold or breathing too quickly please monitor symptoms, and follow up with your oncology team Discharge Data Discharge Date/Time-TO BE ENTERED AT DEPARTURE: 08/25/24 17:41 HPI General Date/Time Provider Initiated Documentation: 08/25/24 17:09 . Limitations to Documentation: no limitations . Information obtained by: patient and family . HPI Narrative: 73-year-old gentleman with past medical history of malignancy presents for evaluation of an abnormal feeling around his face. The patient states that he started his 46-hour chemoinfusion earlier today. Approximately 2 hours into the infusion he noticed a tingling type sensation around his mouth. This occurred in conjunction with the tingling feeling that he has frequently in his fingers. There was no facial asymmetry or speech change. no vision change. no weakness. Related Data Home Medications ?Medication ?Instructions ?Recorded ?Confirmed albuterol sulfate 90 mcg/actuation 2 inh inhalation Q4H PRN 08/25/24 08/25/24 aerosol inhaler (Ventolin HFA) aspirin 81 mg capsule 81 mg PO DAILY 08/25/24 08/25/24 atorvastatin 40 mg tablet 20 mg PO DAILY 08/25/24 08/25/24 omeprazole 40 mg capsule,delayed 40 mg PO DAILY 08/25/24 08/25/24 release ondansetron 4 mg disintegrating 4 mg PO BID-TID PRN 08/25/24 08/25/24 tablet tramadol 50 mg tablet 50 mg PO Q6H PRN pain 08/25/24 08/25/24 Allergies Allergy/AdvReac Type Severity Reaction Status Date / Time No Known Allergies Allergy Unverified 08/25/24 17:15 General Stated Complaint: GenMedical JENSEN: 3 Exam Narrative Exam Narrative: Review of Systems: All systems reviewed & are unremarkable except as noted in HPI and below Well-developed, no acute distress NCAT PERRL, normal conjunctiva RRR accessed port Unlabored respiratory effort CTAB Nondistended abdomen Extremities w/o deformity, no cyanosis, no edema mild tremor noted in b/l upper extremties GCs 15, CN intact. normal sensation Course Vital Signs Vital signs: Vital Signs Temperature 36.7 C 08/25/24 17:11 Pulse 106 H 08/25/24 17:11 Respiratory Rate 15 08/25/24 17:11 Blood Pressure 123/79 08/25/24 17:11 Pulse Oximetry 97 08/25/24 17:11 Temperature 36.7 C 08/25/24 17:11 Pulse 106 H 08/25/24 17:11 Respiratory Rate 21 08/25/24 17:35 Respiratory Effort Normal 08/25/24 17:35 Respiratory Depth Normal 08/25/24 17:35 Respiratory Pattern Normal 08/25/24 17:35 Blood Pressure 123/79 08/25/24 17:11 Blood Pressure Position Sitting 08/25/24 17:11 Pulse Oximetry 97 08/25/24 17:11 Oxygen Delivery Method Room Air 08/25/24 17:11 Oxygen Flow Rate 0 08/25/24 17:11 Medical Decision Making Evaluation of perioral and oral tingling. Symptoms lasted for about 45 minutes and resolved. She is not associated with any focal neurologic deficit. At this time he has a normal neurologic exam. He has had ongoing tingling and numbness sensation in his hands secondary to the chemotherapy. On discussion with the patient, it seems to not be consistent with a stroke etiology. Discussed possible electrolyte derangement but since symptoms resolved this seems less likely. Would also consider hyperventilation. At this time patient states that he feels completely fine and is not really interested in a workup. States that he came here only at the direction of the on-call nurse. No comfortable given his normal examination not doing an aggressive workup. Discussed potential neurodeficits and strict return precautions. Recommend close follow-up with oncology team Quality:SDOH Health Related Social Needs: No Data to Display PFSH All Active Problems Facial paresthesia (Acute) Social History Tobacco: How many years used: 50 Smoking risk assessment performed?: No
== END 2024-08-25 17:41 | disposition home or self-care (01) ==
LOC: ER 17:57
PROVIDERS: Emergency Provider Emergency Medicine; PCP Family Medicine
DX: R20.2 Paresthesia of skin (principal); Z79.82 Long term (current) use of aspirin; Z95.828 Presence of other vascular implants and grafts; Z92.21 Personal history of antineoplastic chemotherapy
CPT/HCPCS: 99283

== ENCOUNTER 2024-11-12 02:40 | Outpatient (RCR) | payer MEDICARE, BC, SELFPAY | END 2024-11-13 23:59 | disposition home or self-care (01) | LOC: INF 02:40 | PROVIDERS: PCP Family Medicine; Visit Provider Family Medicine | DX: C78.89 Secondary malignant neoplasm of other digestive organs (principal); D70.1 Agranulocytosis secondary to cancer chemotherapy | CPT/HCPCS: 96372; J2506 ==

== ENCOUNTER 2024-11-16 02:19 | Outpatient (CLI) | payer MEDICARE, BC, SELFPAY ==
[2024-11-16 12:30] LABS: HCT 38.4 % (40.0-50.0); HGB 12.6 g/dL (13.5-17.5); MCH 34.2 pg (27.0-33.0); MCHC 32.8 % (32.0-36.0); MCV 104 fL (80-95); MPV 12.2 fL (8.0-11.0); RBC 3.68 10^6/uL (4.36-5.78); RDW 16.9 % (11.8-14.1); RDW-SD 65.5 fL; WBC 20.69 10^3/uL (4.4-10.8)
[2024-11-16 12:46] LABS: Absolute Lymphocyte Count 2.28 10^3/uL (1.2-3.4); Absolute Neutrophil Count 18.41 10^3/uL (1.2-6.7); Diff Comment Manual Differential; Platelet Count 84 10^3/uL (130-400); RBC Morphology Normal
[2024-11-16 13:03] LABS: ALT 40 U/L (16-63); AST 23 U/L (15-37); Alkaline Phosphatase 284 U/L (46-116); Anion Gap 7.5 mmol/L (3-11); BUN 26 mg/dL (7-18); Bilirubin, Total 0.43 mg/dL (0.2-1.0); CO2 31.5 mmol/L (21.0-32.0); CREATININE 1.2 mg/dL (0.70-1.30); Calcium 10.3 mg/dL (8.5-10.1); Chloride 105 mmol/L (98-107); Estimated GFR 64.25 (mL/min/1.73m2); Glucose 217 mg/dL (74-106); Magnesium 1.9 mg/dL (1.8-2.4); Potassium 3.6 mmol/L (3.5-5.1); Sodium 144 mmol/L (136-145); Total Protein 6.4 g/dL (6.4-8.2)
== END 2024-11-16 02:20 | disposition home or self-care (01) ==
LOC: LOS 02:19
PROVIDERS: PCP Family Medicine; Visit Provider Internal Medicine Hematology & Oncology
DX: C25.9 Malignant neoplasm of pancreas, unspecified (principal); C78.00 Secondary malignant neoplasm of unspecified lung
CPT/HCPCS: 36415; 80053; 83735; 85025

== ENCOUNTER 2024-12-03 01:28 | Outpatient (RCR) | payer MEDICARE, BC, SELFPAY | END 2024-12-14 23:59 | disposition home or self-care (01) | LOC: INF 01:28 | PROVIDERS: PCP Family Medicine; Visit Provider Family Medicine | DX: C25.9 Malignant neoplasm of pancreas, unspecified (principal); D70.1 Agranulocytosis secondary to cancer chemotherapy | CPT/HCPCS: 96372; J2506 ==

== ENCOUNTER 2024-12-31 00:54 | Outpatient (RCR) | payer MEDICARE, BC, SELFPAY | END 2025-01-13 23:59 | disposition home or self-care (01) | LOC: INF 00:54 | PROVIDERS: PCP Family Medicine; Visit Provider Family Medicine | DX: C25.9 Malignant neoplasm of pancreas, unspecified (principal); D70.1 Agranulocytosis secondary to cancer chemotherapy | CPT/HCPCS: 96372; J2506 ==

== ENCOUNTER 2025-02-11 03:02 | Outpatient (RCR) | payer MEDICARE, BC, SELFPAY | END 2025-02-13 23:59 | disposition home or self-care (01) | LOC: INF 03:02 | PROVIDERS: PCP Family Medicine; Visit Provider Family Medicine | DX: C61 Malignant neoplasm of prostate (principal); D70.1 Agranulocytosis secondary to cancer chemotherapy | CPT/HCPCS: 96372; J2506 ==

== ENCOUNTER 2025-03-10 00:44 | Outpatient (RCR) | payer MEDICARE, BC, SELFPAY | END 2025-03-15 23:59 | disposition home or self-care (01) | LOC: INF 00:44 | PROVIDERS: PCP Family Medicine; Visit Provider Family Medicine | DX: C61 Malignant neoplasm of prostate (principal); D70.1 Agranulocytosis secondary to cancer chemotherapy | CPT/HCPCS: 96372; J2506 ==

== ENCOUNTER 2025-04-15 02:18 | Outpatient (RCR) | payer MEDICARE, BC, SELFPAY | END 2025-04-15 23:59 | disposition home or self-care (01) | LOC: INF 02:18 | PROVIDERS: PCP Family Medicine; Visit Provider Family Medicine | DX: C61 Malignant neoplasm of prostate (principal); D70.1 Agranulocytosis secondary to cancer chemotherapy | CPT/HCPCS: 96372; J2506 ==

== ENCOUNTER 2025-05-12 01:54 | Outpatient (RCR) | payer MEDICARE, BC, SELFPAY | END 2025-05-16 23:59 | disposition home or self-care (01) | LOC: INF 01:54 | PROVIDERS: PCP Family Medicine; Visit Provider Family Medicine | DX: C61 Malignant neoplasm of prostate (principal); D70.1 Agranulocytosis secondary to cancer chemotherapy | CPT/HCPCS: 96372; J2506 ==

== ENCOUNTER 2025-05-26 04:07 | Outpatient (RCR) | payer MEDICARE, BC, SELFPAY | END 2025-06-15 23:59 | disposition home or self-care (01) | LOC: INF 04:07 | PROVIDERS: PCP Family Medicine; Visit Provider Family Medicine | DX: C25.9 Malignant neoplasm of pancreas, unspecified (principal); D70.1 Agranulocytosis secondary to cancer chemotherapy | CPT/HCPCS: 96372; J2506 ==